=== PATIENT | female | born 1945 | race Caucasian/White ===

== ENCOUNTER 2016-02-28 09:32 | Inpatient (IN) | payer MEDICARE, OTHER ==
[2016-02-28] VITALS (29 sets, daily range): BP systolic 70–153; BP diastolic 37–98; PULSE 71–90; RESP 12–26; TEMP 97–97.8; O2SAT 91–100
[~2016-02-28] VITALS: Ht 160 cm; Wt 79.0 kg
[~2016-02-28 09:32] MED LIST: ACET325T PO; ALPR.25 PO; AMIO200T PO; BACT400T PO; BACT800T5 PO; CARV25TA PO; CARV3.125 PO; COZA50TA PO; CRAN125T PO; CULT10CA4 PO; DOCU1CAP39 PO; FAMO1TAB37 PO; FERR1TAB36 PO; FERR325T PO; GABA100C4 PO; GUAI100S7 PO; HEPA10003 SQ; HEPA5000 SQ; HUMALOG SQ; HYOS0.127 SL; IPRASOL NEB; LEVE500 PO; LEVEMIR SQ; LEVO112T2 PO; LEVO25TA4 PO; LIPI20TA PO; MAGN400T2 PO; MULTTAB67 PO; MYCO500 PO; NOVOLOGP2 SQ; NOVONP2 SQ; OXYC-392 PO; OXYC-406 PO; PANT40TA3 PO; PRED5TAB PO; PROT40TA PO; Pill Splitter OTHER; QUET1TAB7 PO; SIMV40TA PO; SODI650T PO; TACR0.5 PO; TACR1 PO; TORS20TA PO; VITA100018 PO; VITATAB56 PO; WATE10P PEG; [UNRECOGNIZED DRUG - CODE] PO
--- NOTE | 2016-02-28 10:12 | PD ---
HPI Chief Complaint: Respiratory Distress Time Seen by Provider: 10:07 Travel History International Travel<30 days: No Contact w/Intl Traveler<30days: No Traveled to known affect area: No History of Present Illness HPI 70-year-old female with history of lung cancer status post left lobectomy, following up with Dr. Jj, diabetes, hypertension, presents to the ER today because she has been having cough, shortness of breath, dyspnea on exertion, and fevers. She denies any nausea, vomiting, or other symptoms. She states that she had felt similarly and had a fungal pneumonia. Modifying Factors: None Associated Signs & Symptoms: Cough, shortness of breath, fevers Risk Factors: None PFSH Past Medical History Arthritis: No Asthma: No Autoimmune Disease: No Blood Disorders: No Anxiety: No Depression: No Heart Rhythm Problems: Yes (AFIB) Cancer: No Cardiovascular Problems: Yes (CHF, AFIB) High Cholesterol: Yes Chemotherapy: No Chest Pain: No Congestive Heart Failure: Yes (CHF) COPD: No Cerebrovascular Accident: No Diabetes: Yes Patient Takes Glucophage: No Dialysis: Yes (H/O, not since transplant) Diminished Hearing: No Endocrine: Yes Gastrointestinal Disorders: Yes (GASTROPARESIS) GERD: Yes (TAKES PREVACID PROPHYLACTICALLY) Glaucoma: No Genitourinary: Yes Headaches: No Hepatitis: No Hiatal Hernia: No Herniated Disk: Yes Hypertension: Yes (HTN) Immune Disorder: No Kidney Stones: Yes Musculoskeletal: Yes (Left Ankle) Neurologic: Yes (NEUROPATHY, BULDGING DISCS, SCOLIOSIS) Psychiatric: No Reproductive: No Respiratory: Yes Migraines: No Myocardial Infarction: No Radiation Therapy: No Renal Failure: Yes Seizures: Yes (onset recent seizures prior hospital ) Sickle Cell Disease: No Sleep Apnea: No Thyroid Disease: Yes (HYPO) Ulcer: No Tetanus Vaccination: < 5 Years Menopausal: Yes : 3 Para: 2 Miscarriage: 1 Past Surgical History Abdominal Surgery: Yes (CHOLECYSTECTOMY /TENKHOFF PLACEMENT REMOVED 11 18 06) AICD: No Appendectomy: No Arteriovenous Shunt: No Body Medical Devices: Prevoius RIGHT VASCATH / Was removed 07 Cardiac Surgery: No Cholecystectomy: Yes Ear Surgery: No Endocrine Surgery: Yes (Kidney transplan R abd.11 18 06) Eye Surgery: Yes (BILATERAL CATARACT SURGERY 05) Genitourinary Surgery: No Gynecologic Surgery: No Insulin Pump: No Joint Replacement: No Oral Surgery: No Pacemaker: No Thoracic Surgery: Yes (left upper lobe lobectomy ) Other Surgery: Yes (PERMACATH PLACEMENT REMOVED 11 18 06) Social History Alcohol Use: No Tobacco Use: No Substance Use: No Allergies-Medications (Allergen,Severity, Reaction): Coded Allergies: Labetalol (Verified Allergy, Severe, NAUSEA AND VOMITING, 02/28/16) Lortab (Verified Adverse Reaction, Severe, VOMITING, 02/28/16) Reported Meds & Prescriptions Reported Meds & Active Scripts Active Prednisone 5 Mg Tab 5 Mg PO DAILY 30 Days Pantoprazole (Pantoprazole Sodium) 40 Mg Tab 40 Mg PO DAILY 30 Days Duoneb (Ipratropium-Albuterol Neb) 0.5-2.5 Mg/3 Ml Neb 1 Ampule NEB Q4HR NEB PRN 30 Days Gabapentin 100 Mg Cap 100 Mg PO Q8H 30 Days Reported K-Tab (Potassium Chloride) 10 Meq Tab 10 Meq PO DAILY Zocor (Simvastatin) 20 Mg Tab 20 Mg PO HS Nystatin Topical 100,000 Unit/Gm Pow 1 Applic TOP BID Sirolimus 1 Mg Tab 1 Mg PO EVERY OTHER DAY Sirolimus 2 Mg Tab 2 Mg PO EVERY OTHER DAY Vitamin D3 (Cholecalciferol) 2,000 Unit Tab 2,000 Units PO BID Levothyroxine (Levothyroxine Sodium) 112 Mcg Tab 224 Mcg PO DAILY Novolin N Inj (Insulin Human NPH) 100 Unit/Ml Inj 60 Units SQ HS Novolin N Inj (Insulin Human NPH) 100 Unit/Ml Inj 70 Units SQ DAILY Cranberry (Cranberry (Vaccinium Macrocarpon)) 125 Mg Tab 125 Mg PO BID Culturelle (Lactobacillus Rhamnosus (GG)) 10 B Cell Cap 1 Cap PO DAILY Torsemide 20 Mg Tab 20 Mg PO DAILY Sodium Bicarbonate 650 Mg Tab 650 Mg PO BID Oxycodone ER (Oxycodone HCl) 40 Mg Tab 40 Mg PO Q8HR Cozaar (Losartan Potassium) 50 Mg Tab 50 Mg PO DAILY Bactrim (Sulfamethoxazole-Trimethoprim) 400-80 Mg Tab 1 Tab PO MOWEFR Multiple Vitamin 1 Tab 1 Tab PO DAILY Novolog Inj (Insulin Aspart) 1,000 Unit/10 Ml Vial 0 SQ DIRECTED Sliding Scale as directed. Carvedilol 25 Mg Tab 25 Mg PO DAILY Review of Systems Except as stated in HPI: all other systems reviewed are Neg Physical Exam Narrative GENERAL: Well-nourished, well-developed elderly white female patient in mild respiratory distress. SKIN: Warm and dry. HEAD: Normocephalic. EYES: No scleral icterus. No injection or drainage. NECK: Supple, trachea midline. CARDIOVASCULAR: Regular rate and rhythm without murmurs, gallops, or rubs. RESPIRATORY: Breath sounds equal with wheezing throughout bilaterally. Mild accessory muscle use. GASTROINTESTINAL: Abdomen soft, non-tender, nondistended. MUSCULOSKELETAL: No cyanosis, or edema. BACK: Nontender without obvious deformity. No CVA tenderness. Data Data Last Documented VS Vital Signs Date Time Temp Pulse Resp B/P Pulse Ox O2 Delivery O2 Flow Rate FiO2 02/28/16 10:00 Nasal Cannula 4 02/28/16 10:00 92 02/28/16 09:37 97.8 90 26 86/44 Orders Electrocardiogram (02/28/16 09:36) Complete Blood Count With Diff (02/28/16 10:08) Comprehensive Metabolic Panel (02/28/16 10:08) B-Type Natriuretic Peptide (02/28/16 10:08) Act Partial Throm Time (Ptt) (02/28/16 10:08) Prothrombin Time / Inr (Pt) (02/28/16 10:08) Ckmb (Isoenzyme) Profile (02/28/16 10:08) Troponin I (02/28/16 10:08) Influenzae A/B Antigen (02/28/16 10:08) Iv Access Insert/Monitor (02/28/16 10:08) Ecg Monitoring (02/28/16 10:08) Oximetry (02/28/16 10:08) Oxygen Administration (02/28/16 10:08) Chest, Single Ap (02/28/16 10:08) Sodium Chloride 0.9% Flush (Ns Flush) (02/28/16 10:15) Methylprednisolone So Succ Inj (Solumedr (02/28/16 10:15) Albuterol-Ipratropium Neb (Duoneb Neb) (02/28/16 10:15) Admit Order (Ed Use Only) (02/28/16 10:47) Labs Laboratory Tests Test 02/28/16 10:00 White Blood Count 5.9 TH/MM3 Red Blood Count 3.90 MIL/MM3 Hemoglobin 11.0 GM/DL Hematocrit 35.5 % Mean Corpuscular Volume 91.0 FL Mean Corpuscular Hemoglobin 28.1 PG Mean Corpuscular Hemoglobin 30.8 % Concent Red Cell Distribution Width 17.0 % Platelet Count 196 TH/MM3 Mean Platelet Volume 8.8 FL Neutrophils (%) (Auto) 85.1 % Lymphocytes (%) (Auto) 9.5 % Monocytes (%) (Auto) 4.5 % Eosinophils (%) (Auto) 0.2 % Basophils (%) (Auto) 0.7 % Neutrophils # (Auto) 5.0 TH/MM3 Lymphocytes # (Auto) 0.6 TH/MM3 Monocytes # (Auto) 0.3 TH/MM3 Eosinophils # (Auto) 0.0 TH/MM3 Basophils # (Auto) 0.0 TH/MM3 CBC Comment DIFF FINAL Differential Comment Prothrombin Time 11.6 SEC Prothromb Time International 1.0 RATIO Ratio Activated Partial 33.6 SEC Thromboplast Time Sodium Level 142 MEQ/L Potassium Level 4.9 MEQ/L Chloride Level 107 MEQ/L Carbon Dioxide Level 21.5 MEQ/L Anion Gap 14 MEQ/L Blood Urea Nitrogen 33 MG/DL Creatinine 2.79 MG/DL Estimat Glomerular Filtration 17 ML/MIN Rate Random Glucose 138 MG/DL Calcium Level 7.8 MG/DL Total Bilirubin 0.2 MG/DL Aspartate Amino Transf 33 U/L (AST/SGOT) Alanine Aminotransferase 12 U/L (ALT/SGPT) Alkaline Phosphatase 149 U/L Total Creatine Kinase 100 U/L Troponin I LESS THAN 0.02 NG/ML Total Protein 6.8 GM/DL Albumin 2.0 GM/DL MDM Medical Decision Making Medical Screen Exam Complete: Yes Emergency Medical Condition: Yes Medical Record Reviewed: Yes Interpretation(s) Laboratory Tests Test 02/28/16 10:00 Red Blood Count 3.90 MIL/MM3 (4.00-5.30) Hemoglobin 11.0 GM/DL (11.6-15.3) Mean Corpuscular Hemoglobin 30.8 % Concent (32.0-36.0) Neutrophils (%) (Auto) 85.1 % (16.0-70.0) Lymphocytes # (Auto) 0.6 TH/MM3 (1.0-4.8) Activated Partial 33.6 SEC Thromboplast Time (24.3-30.1) Blood Urea Nitrogen 33 MG/DL (7-18) Creatinine 2.79 MG/DL (0.50-1.00) Estimat Glomerular Filtration 17 ML/MIN (>89) Rate Random Glucose 138 MG/DL (74-106) Calcium Level 7.8 MG/DL (8.5-10.1) Alkaline Phosphatase 149 U/L (45-117) Troponin I LESS THAN 0.02 NG/ML (0.02-0.05) Albumin 2.0 GM/DL (3.4-5.0) Differential Diagnosis Cough, shortness of breath, feverspneumonia versus bronchitis versus CHF Narrative Course Chest x-ray indicative of possible underlying right pneumonia as well. Left lung is arsh out, questionable secondary to previous lobectomy. IV antibiotic 's were initiated in the ER cultures are drawn. IV fluids were initiated. Before lab work came back, Dr. Kaba, patient's primary care physician came by and case was discussed with him, he states that he will admit the patient. However, patient's blood pressure dropped to 75 systolic while she was here and IV fluids were ordered as a bolus. At this point, I have discussed the case with Dr. Kaba and also discussed the case with Dr. Bobo of ICU since the patient appears to be doing worse and may be getting more septic. She has recommended that I put in a line in and will consult on the patient as well. Patient is still awake, alert, and is not having any further complaints at this time. Aggregate critical care time was 25 minutes. Time to perform other separately billable procedures was not included in the critical care time. My time did not include minutes spent treating any other patients simultaneously or on activities that did not directly contribute to the patient's treatment. The services I provided to this patient were to treat and/or prevent clinically significant deterioration that could result in: Worsening sepsis, respiratory distress, respiratory failure, I provided critical care services requiring my management, as noted below: Chart data review, documentation time, medication orders and management, vital sign assessments/reviewing monitor data, ordering and reviewing lab tests, ordering and interpreting/reviewing x-rays and diagnostic studies, care of the patient and discussion of the patient with the admitting physicians. Sepsis Criteria SIRS Criteria (2 or more): Heart rate over 90, RR > 20 or PaCO2 < 32 Sepsis Criteria (SIRS+source): Infect source susp/known Severe Sepsis (+one): Hypotension Criteria Outcome: Meets sepsis criteria Diagnosis Primary Impression: UNSPECIFIED BACTERIAL PNEUMONIA Additional Impression: SEVERE SEPSIS WITHOUT SEPTIC SHOCK Admitting Information Admitting Physician Requests: it Pedro Preciado MD Feb 28, 2016 10:12
[2016-02-28] MEDS ORDERED: SODIUM CHLORIDE 0.9% FLUSH 5 ML FLUSH IVF PRN (10:15)
[2016-02-28] MEDS ORDERED: methylPREDNISolone SOD SUCC 125 MG/2 ML VIAL IVP ONE (10:15)
[2016-02-28 10:39] LABS: APTT (PATIENT) 33.6 SEC (24.3-30.1); PROTHROMBIN TIME - PATIENT 11.6 SEC (9.8-11.6)
--- NOTE | 2016-02-28 10:45 | RADRPT ---
EXAM DATE/TIME: 02/28/2016 10:20 [facility] COMPARISON: CHEST SINGLE AP, January 03, 2016, 14:14. INDICATIONS: Short of breath. MEDICAL HISTORY: Carcinoma, lung. Pneumonia SURGICAL HISTORY: Part of left lung removed ENCOUNTER: Initial ACUITY: 1 day PAIN SCORE: 0/10 LOCATION: Bilateral chest FINDINGS: There is opacification of the left avinash-thorax which is unchanged compared to the previous examinatio n dated 01/03/16. A small right pleural effusion is also stable. Right lung patchiness is noted con sistent with possible pneumonia or pulmonary vascular congestion. Clinical correlation is recommende d. CONCLUSION: 1. Right lung patchiness consistent with possible pneumonia versus pulmonary vascular congestion. C linical correlation is recommended. 2. Stable complete opacification of the left avinash-thorax and tiny right pleural effusion. Ash Jackson MD on February 28, 2016 at 10:33 Board Certified Radiologist. This report was verified electronically.
[2016-02-28] MEDS: RESP: ALBUTEROL 2.5 MG/IPRATROPIUM 0.5 MG NEB (SCH) INH ×5 (10:48→20:45)
[2016-02-28 10:50] LABS: ALKALINE PHOSPHATASE 149 U/L (45-117); ALT (GPT) 12 U/L (10-53); ANION GAP 14 MEQ/L (5-15); BICARBONATE 21.5 MEQ/L (21.0-32.0); BLOOD UREA NITROGEN 33 MG/DL (7-18); CHLORIDE 107 MEQ/L (98-107); GLOMERULAR FILTRATION RATE 17 ML/MIN (>89); SODIUM (NA) 142 MEQ/L (136-145); TOTAL BILIRUBIN ADULT 0.2 MG/DL (0.2-1.0)
[2016-02-28 10:51] LABS: AST (GOT) 33 U/L (15-37); CREATINE KINASE 100 U/L (26-192); POTASSIUM 4.9 MEQ/L (3.5-5.1)
[2016-02-28] MEDS ORDERED: CEFEPIME INJ 2,000 MG in SODIUM CHLORIDE 0.9% INJ 100 ML IV STA (10:51)
[2016-02-28] MEDS ORDERED: AZITHROMYCIN INJ 500 MG in SODIUM CHLOR 0.9% 250 ML INJ 250 ML IV STA (10:51)
[2016-02-28] MEDS ORDERED: VITA200012 PO (10:52)
[2016-02-28 10:54] LABS: BASOPHIL % 0.7 % (0.0-2.0); EOSINOPHIL % 0.2 % (0.0-4.0); HEMATOCRIT 35.5 % (35.0-46.0); HEMO FLAGS DIFF FINAL; LYMPH % 9.5 % (9.0-44.0); LYMPHOCYTE # 0.6 TH/MM3 (1.0-4.8); MEAN CORPUSCULAR HEMOGLOBIN 28.1 PG (27.0-34.0); MEAN CORPUSCULAR HGB CONC 30.8 % (32.0-36.0); MONO % 4.5 % (0.0-8.0); NEUT % 85.1 % (16.0-70.0); PLATELET COUNT 196 TH/MM3 (150-450); WHITE BLOOD COUNT 5.9 TH/MM3 (4.0-11.0)
[2016-02-28] MEDS ORDERED: SIRO1TAB3 PO (11:02)
[2016-02-28] MEDS ORDERED: SIRO1TAB4 PO (11:02)
[2016-02-28] MEDS ORDERED: NYST1POW16 TOP (11:04)
[2016-02-28] MEDS ORDERED: ZOCO20TA PO (11:05)
[2016-02-28] MEDS ORDERED: K-TA10TA PO (11:06)
[2016-02-28] MEDS ORDERED: SODIUM CHLORID 0.9% 500 ML INJ 500 ML IV ONE (11:15)
[2016-02-28] MEDS ORDERED: CALC0.25 PO (11:22)
--- NOTE | 2016-02-28 11:25 | HHI.HP ---
History of Present Illness Primary Care Physician Herbert Kaba MD Admission Diagnosis pneumonia/sepsis Diagnoses: (1) Dysphagia (2) Status epilepticus (3) Pressure ulcer, stage 1 (4) Impaired mobility and activities of daily living (5) Recurrent left pleural effusion (6) Acute on chronic respiratory failure with hypoxia and hypercapnia (7) Atrial fibrillation (8) Hypothyroidism (9) Chronic renal failure (10) Hypertension (11) DM (diabetes mellitus) (12) Chronic systolic heart failure (13) Obesity (BMI 30.0-34.9) (14) Anemia (15) Chronic kidney disease, stage IV (severe) (16) Status post tracheostomy (17) Renal transplant, status post History of Present Illness Debbie Alejo is a 70 year old CF, HX CRF, RENAL TRANSPLANT, HTN, NSCLCA, S/P L UPPER LOBECTOMY. IN OCT AT [facility], ARF AND AF. SHE THEN WENT TO [facility] WITH RESPIRATORY FAILURE. REQ BIPAP. SUBSEQUENTLY VENTILATED AND UNDERWENT BROCH. DX OF DEMETRIO ON BRONCH. DX W EPILEPSY. LP WAS NEGATIVE. TRACH PERFORMED, NOW REMOVED. WENT TO [facility] AND DECANNULATED. LASTLY WENT TO [place] AND NOW HOME WITH HER . PT HAS BEEN FULL CARE. CALLED MY OFFICE TODAY WITH REPORT OF HER BEING IN DISTRESS AND GURGLING. INSTRUCTED PT TO GO TO THE NEAREST ER. PT SEEN BY ER MD AND I WAS CALLED FOR ADMIT. PT NOW WORSENING AND BECOMING HYPOTENSIVE. Sepsis Criteria SIRS Criteria (2 or more): Heart rate over 90, RR > 20 or PaCO2 < 32 Sepsis Criteria (SIRS+source): Infect source susp/known Severe Sepsis (+one): Organ Dysfunction, Hypotension, Acute Oliguria/Renal Failure Multiple Organ Dysfunction Syn: Evidence -2 organs failing Criteria Outcome: Meets severe sepsis criteria Review of Systems ROS Limitations: Clinical Condition, Altered Mental Status, Poor Historian Respiratory: COMPLAINS OF: Cough, Wheezing, Sputum production, Shortness of breath Cardiovascular: COMPLAINS OF: Dyspnea on Exertion Past Family Social History Allergies: Coded Allergies: Labetalol (Verified Allergy, Severe, NAUSEA AND VOMITING, 02/28/16) Lortab (Verified Adverse Reaction, Severe, VOMITING, 02/28/16) Physical Exam Vital Signs Vital Signs Date Time Temp Pulse Resp B/P Pulse Ox O2 Delivery O2 Flow Rate FiO2 02/28/16 11:06 80 22 87/55 93 Aerosol Mask 12/22/16 10:00 Nasal Cannula 4 02/28/16 10:00 92 02/28/16 09:45 92 Nasal Cannula 3 02/28/16 09:37 97.8 90 26 86/44 92 Physical Exam GENERAL: chronically ill appearing, harsh cough, very weak SKIN: No rashes, ecchymoses or lesions. Cool and dry. HEAD: Atraumatic. Normocephalic. No temporal or scalp tenderness. EYES: Pupils equal round and reactive. Extraocular motions intact. No scleral icterus. No injection or drainage. ENT: Nose without bleeding, purulent drainage or septal hematoma. Throat without erythema, tonsillar hypertrophy or exudate. Uvula midline. Airway patent. NECK: Trachea midline. No JVD or lymphadenopathy. Supple, nontender, no meningeal signs. CARDIOVASCULAR: Regular rate and rhythm without murmurs, gallops, or rubs. RESPIRATORY: bilateral ronchi to apices GASTROINTESTINAL: Abdomen soft, non-tender, nondistended. No hepato-splenomegaly , or palpable masses. No guarding. MUSCULOSKELETAL: Extremities without clubbing, cyanosis, or edema. No joint tenderness, effusion, or edema noted. No calf tenderness. Negative Homans sign bilaterally. NEUROLOGICAL: Awake and alert. Cranial nerves II through XII intact. Motor and sensory grossly within normal limits. Five out of 5 muscle strength in all muscle groups. Normal speech. Laboratory Laboratory Tests Test 02/28/16 10:00 White Blood Count 5.9 Red Blood Count 3.90 Hemoglobin 11.0 Hematocrit 35.5 Mean Corpuscular Volume 91.0 Mean Corpuscular Hemoglobin 28.1 Mean Corpuscular Hemoglobin 30.8 Concent Red Cell Distribution Width 17.0 Platelet Count 196 Mean Platelet Volume 8.8 Neutrophils (%) (Auto) 85.1 Lymphocytes (%) (Auto) 9.5 Monocytes (%) (Auto) 4.5 Eosinophils (%) (Auto) 0.2 Basophils (%) (Auto) 0.7 Neutrophils # (Auto) 5.0 Lymphocytes # (Auto) 0.6 Monocytes # (Auto) 0.3 Eosinophils # (Auto) 0.0 Basophils # (Auto) 0.0 CBC Comment DIFF FINAL Differential Comment Prothrombin Time 11.6 Prothromb Time International 1.0 Ratio Activated Partial 33.6 Thromboplast Time Sodium Level 142 Potassium Level 4.9 Chloride Level 107 Carbon Dioxide Level 21.5 Anion Gap 14 Blood Urea Nitrogen 33 Creatinine 2.79 Estimat Glomerular Filtration 17 Rate Random Glucose 138 Calcium Level 7.8 Total Bilirubin 0.2 Aspartate Amino Transf 33 (AST/SGOT) Alanine Aminotransferase 12 (ALT/SGPT) Alkaline Phosphatase 149 Total Creatine Kinase 100 Troponin I LESS THAN 0.02 Total Protein 6.8 Albumin 2.0 Date/Time Procedure Status Source Growth 02/28/16 10:00 Influenza Types A,B Antigen (GWEN) - Final Complete Nasal Washing NEGATIVE FOR FLU A AND B ANTIGEN.... Result Diagram: 02/28/16 1000 02/28/16 1000 Assessment and Plan Problem List: (1) Dysphagia Status: Acute (2) Status epilepticus Status: Acute (3) Pressure ulcer, stage 1 Status: Acute (4) Recurrent left pleural effusion Status: Acute (5) Impaired mobility and activities of daily living Status: Acute (6) Acute on chronic respiratory failure with hypoxia and hypercapnia Status: Acute (7) Atrial fibrillation Status: Chronic (8) Hypothyroidism Status: Chronic (9) Chronic renal failure Status: Chronic (10) Hypertension Status: Chronic (11) DM (diabetes mellitus) Status: Chronic (12) Chronic systolic heart failure Status: Chronic (13) Non-small cell lung cancer Status: Chronic (14) Obesity (BMI 30.0-34.9) Status: Chronic (15) Anemia Status: Acute (16) Chronic kidney disease, stage IV (severe) Status: Acute (17) Status post tracheostomy Status: Chronic (18) Renal transplant, status post Status: Chronic Assessment and Plan SEVERE SEPSIS HCAP COPD SCHF AC ON CRF RENAL TRANSPLANT AF PLAN: IV ABX IVF BLOOD CULTURES DUONEBS HEPARIN 5000 BID FOR PROPHYLAXIS IV PROTONIX CCM CONSULT NEPHRO CONSULT PULMONARY CONSULT PT OT ST ICU INPT ADMIT FOR THE ABOVE DX AND PLAN. EXPECT 5 D INPT ADMIT. PT WOULD W/O INPT ADMIT FROM RESPIRATORY FAILURE. DC HOME WITH HHC OR SNF PLACEMENT. Herbert Kaba MD Feb 28, 2016 11:25
[2016-02-28] MEDS ORDERED: MAGNESIUM HYDROXIDE SUSP 30 ML CUP PO PRN (11:30)
[2016-02-28] MEDS ORDERED: SODIUM CHLORIDE 0.9% FLUSH 5 ML FLUSH FLUSH PRN (11:30)
[2016-02-28] MEDS ORDERED: SENNOSIDES 8.6 MG TAB PO PRN (11:30)
[2016-02-28] MEDS ORDERED: ZOLPIDEM TARTRATE 5 MG TAB PO PRN (11:30)
[2016-02-28] MEDS ORDERED: ACETAMINOPHEN 325 MG TAB PO PRN (11:30)
[2016-02-28] MEDS ORDERED: BISACODYL 10 MG SUPP PR PRN (11:30)
[2016-02-28] MEDS ORDERED: NALOXONE HCL 0.4 MG/ML AMP IV PRN (11:30)
[2016-02-28] MEDS ORDERED: ONDANSETRON HCL 4 MG/2 ML VIAL IVP PRN (11:30)
[2016-02-28] MEDS ORDERED: CHLORHEXIDINE GLUCONATE 2 % 1 PACK (2 CLOTHS) TOP PRN ×2 (12:00→16:15)
[2016-02-28] MEDS ORDERED: RESP: ALBUTEROL 2.5 MG/IPRATROPIUM 0.5 MG NEB (SCH) NEB (12:00)
[2016-02-28] MEDS ORDERED: POTASSIUM PHOSPHATE MONOBASIC 500 MG TAB PO PRN (12:00)
[2016-02-28] MEDS ORDERED: POTASSIUM CHLOR 40 MEQ PREMIX 100 ML IV PRN ×2 (12:00)
[2016-02-28] MEDS ORDERED: MAGNESIUM SULFATE INJ 4 GM in SODIUM CHLORIDE 0.9% INJ 92 ML IV PRN (12:00)
[2016-02-28] MEDS ORDERED: MAGNESIUM SULFATE INJ 2 GM in SODIUM CHLORIDE 0.9% INJ 96 ML IV PRN (12:00)
[2016-02-28] MEDS ORDERED: POTASSIUM PHOSPHATE MONOBASIC 500 MG TAB PO/TUBE PRN (12:00)
[2016-02-28] MEDS ORDERED: MAGNESIUM OXIDE 400 MG TAB PO PRN (12:00)
[2016-02-28] MEDS ORDERED: POTASSIUM PHOSPHATE INJ 30 MMOL in SODIUM CHLOR 0.9% 250 ML INJ 250 ML IV PRN (12:00)
[2016-02-28] MEDS ORDERED: SODIUM PHOSPHATE INJ 30 MMOL in SODIUM CHLOR 0.9% 250 ML INJ 240 ML IV PRN (12:00)
[2016-02-28] MEDS ORDERED: POTASSIUM CL 40 MEQ/30 ML LIQ UDC PO/TUBE PRN ×2 (12:00)
[2016-02-28] MEDS ORDERED: POTASSIUM CHLOR 20 MEQ PREMIX 100 ML IV PRN ×2 (12:00)
[2016-02-28] MEDS ORDERED: SODIUM CHLORIDE 0.9% FLUSH 5 ML FLUSH IV FLUSH PRN ×2 (12:00→16:15)
[2016-02-28] MEDS ORDERED: MISCELLANEOUS NURSING INFORMATION XX SCH ×2 (12:00→16:15)
[2016-02-28] MEDS: SODIUM CHLOR 0.9% 1000 ML INJ 1,000 ML IV SCH (12:39)
[2016-02-28 13:32] LABS: BLOOD GAS BASE EXCESS -5.5 mmol/L (-2-2); BLOOD GAS HCO3 21 mmol/L (22-26); BLOOD GAS METHEMOGLOBIN 1.8 % (0-2); BLOOD GAS O2 HGB SATURATION 90 % (90-100); BLOOD GAS OXYGEN CONTENT 12.3 Vol % (12.0-20.0); BLOOD GAS PCO2 55 mmHg (38-42); BLOOD GAS PO2 74 mmHG (61-120); BLOOD GAS TOTAL HGB 9.7 G/DL (12.0-16.0); TEMP CORR TO 98.6
[2016-02-28 13:34] LABS: DRAW SITE RT RADIAL; LITER FLOW 4 L/M; NUMBER OF ARTERIAL PUNCTURES 2; OXYGEN DEVICE NASAL CANNULA; STAT YES; ULNAR PULSE PRESENT
[2016-02-28] MEDS: PANTOPRAZOLE SODIUM 40 MG VIAL IV PUSH SCH (14:23)
[2016-02-28] MEDS: HEPARIN SODIUM - SQ 10,000 UNITS/ML VIAL SQ SCH (14:23)
--- NOTE | 2016-02-28 15:52 | MB ---
cc: RACHELL KIRAN MD DATE OF CONSULTATION: 02/28/2016 REASON FOR CONSULTATION Evaluate for pneumonia and respiratory insufficiency. HISTORY OF PRESENT ILLNESS Ms. Alejo is a pleasant 70-year-old female with history of lung cancer status post left lung lobectomy. The patient has history of diabetes mellitus, renal transplant. She was recently admitted at [facility], after that she was at [facility] and went to the skilled nursing. She was recently discharged from the skilled nursing over the last few days. She has been having congestion in her chest, more short of breath, denied fever or chills, not able to bring up much phlegm. Because of worsening of the symptoms she was brought to the hospital. She had a chest x-ray done which showed that she has a right lung patchy infiltrate consistent with pneumonia. She also had whiteout of the left lung which is chronic. CBC showed WBC count 5.9, hemoglobin 35.5, MCV 91, platelet count 196, sodium 142, potassium 4.9, chloride 107, CO2 21, BUN 33, creatinine 2.79, INR is 1.0. PAST MEDICAL HISTORY Past medical history is significant for history of: 1. CA of the lung status post resection. 2. History of renal failure and renal transplant. 3. Herniated disk. 4. Hypertension. 5. COPD. 6. Congestive heart failure. 7. Atrial fibrillation. MEDICATION She is currently takin. Solu-Medrol 80 mg q.6 hours. 2. Protonix 40 mg a day. 3. Heparin 5000 q. 12-hours. 4. Albuterol/Atrovent nebulizer treatment. 5. Senokot 17.2 grams. 6. Ambien 5 mg. 7. She had cefepime and Zithromax in the ER. ALLERGIES She is allergic to LORTAB AND LABETALOL. SOCIAL HISTORY She has history of smoking one and a half pack a day for 30 years, which she quit 12 years ago. No alcohol use. 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 FAMILY HISTORY She is for 40 years. She has two children. She has no brothers. She has one sister who has kidney problem. Mother with heart disease. Father with cancer. REVIEW OF SYSTEMS Lately she has been feeling very weak. She has been in the hospital and then in the skilled nursing. She is basically bed bound. No DVT or pulmonary embolism. PHYSICAL EXAMINATION GENERAL: An elderly female, frail, weak, mild short of breath. VITAL SIGNS: Blood pressure 111/63, heart rate 77, respirations 22, temperature 97. HEENT: Pupils are equal and reactive to light. Oral mucosa normal. NECK: Supple. JVP not raised. CHEST: She has bilateral coarse crackles. CVS: S1, S2 normal. ABDOMEN: Benign. EXTREMITIES: No edema. IMPRESSION 1. Respiratory insufficiency. 2. Pneumonia. The patient is immunocompromised, need to rule out atypical pneumonia, fungal pneumonia and other organism. 3. Whiteout of the left lung with history of the left lung cancer, atelectasis in the lung is chronic. 4. Status post renal transplant. 5. Hypertension. 6. Renal insufficiency. PLAN The patient is being admitted to intensive care unit. Associate Application Developer has been consulted. Will get ID consultation. Continue present antibiotic and wait for ID recommendation. Supplemental oxygen if needed, will put her on BiPAP and if that fails, she will need intubation and the patient is agreeable with that. I discussed the patient's condition at bedside with the patient and her . Further treatment will depend on the course in the hospital. Thank you Dr. Herbert Kaba for this consultation. MD NICHOLAS Swenson/ARUN /2:20 PM /3:15 PM
[2016-02-28] MEDS ORDERED: TERBUTALINE INJ 1 MG/ML AMP SQ PRN (16:00)
[2016-02-28] MEDS ORDERED: Vancomycin Consult Pharmacy 1 EA OTHER SCH (16:15)
--- NOTE | 2016-02-28 16:15 | PD.CONS ---
HPI Service Critical Care Medicine Consult Requested By Primary Care Physician Herbert Kaba MD History of Present Illness 70-year-old female with history of lung cancer status post left lobectomy, and recent kidney transplant presented to the ED with worsening pulmonary symptoms. Her medical history is significant for DM, HTN. She presented to the ED today because worsening cough, shortness of breath, dyspnea on exertion, and fevers. The patient is dependent on home O2 at 4 L nasal cannula, and scheduled DuoNeb treatment. The patient underwent a kidney transplant at [facility] and was hospitalized for approximately several months. During this hospitalization she reports having a fungal pulmonary infection which time she experienced a seizure. She was transferred to a rehabilitation facility [facility] for approximately 2 months ago. The patient was then transferred to [facility] approximately 3 weeks ago at which time she fractured her left ankle, and was transferred to [facility]. She was recently discharged from [facility] on 02/15/2016. The patient states that she began having worsening symptoms over the last 3-4 days, that resembled her fungal pneumonia. Critical care medicine was consulted for management. History PFSH Past Medical History Arthritis: No Asthma: No Autoimmune Disease: No Blood Disorders: No Anxiety: No Depression: No Heart Rhythm Problems: Yes (AFIB) Cancer: No Cardiovascular Problems: Yes (CHF, AFIB) High Cholesterol: Yes Chemotherapy: No Chest Pain: No Congestive Heart Failure: Yes (CHF) COPD: No Cerebrovascular Accident: No Diabetes: Yes Patient Takes Glucophage: No Dialysis: Yes (H/O, not since transplant) Diminished Hearing: No Endocrine: Yes Gastrointestinal Disorders: Yes (GASTROPARESIS) GERD: Yes (TAKES PREVACID PROPHYLACTICALLY) Glaucoma: No Genitourinary: Yes Headaches: No Hepatitis: No Hiatal Hernia: No Herniated Disk: Yes Hypertension: Yes (HTN) Immune Disorder: No Kidney Stones: Yes Musculoskeletal: Yes (Left Ankle) Neurologic: Yes (NEUROPATHY, BULDGING DISCS, SCOLIOSIS) Psychiatric: No Reproductive: No Respiratory: Yes Migraines: No Myocardial Infarction: No Radiation Therapy: No Renal Failure: Yes Seizures: Yes (onset recent seizures prior hospital ) Sickle Cell Disease: No Sleep Apnea: No Thyroid Disease: Yes (HYPO) Ulcer: No Tetanus Vaccination: < 5 Years Menopausal: Yes : 3 Para: 2 Miscarriage: 1 Past Surgical History Abdominal Surgery: Yes (CHOLECYSTECTOMY /TENKHOFF PLACEMENT REMOVED 11 18 06) AICD: No Appendectomy: No Arteriovenous Shunt: No Body Medical Devices: Prevoius RIGHT VASCATH / Was removed Cardiac Surgery: No Cholecystectomy: Yes Ear Surgery: No Endocrine Surgery: Yes (Kidney transplan R abd.11 18 06) Eye Surgery: Yes (BILATERAL CATARACT SURGERY 05) Genitourinary Surgery: No Gynecologic Surgery: No Insulin Pump: No Joint Replacement: No Oral Surgery: No Pacemaker: No Thoracic Surgery: Yes (left upper lobe lobectomy ) Other Surgery: Yes (PERMACATH PLACEMENT REMOVED 11 18 06) Social History Alcohol Use: No Tobacco Use: No Substance Use: No Allergies-Medications Allergies-Medications (Allergen,Severity, Reaction): Coded Allergies: Labetalol (Verified Allergy, Severe, NAUSEA AND VOMITING, 02/28/16) Lortab (Verified Adverse Reaction, Severe, VOMITING, 02/28/16) Reported Meds & Prescriptions Reported Meds & Active Scripts Active Prednisone 5 Mg Tab 5 Mg PO DAILY 30 Days Pantoprazole (Pantoprazole Sodium) 40 Mg Tab 40 Mg PO DAILY 30 Days Duoneb (Ipratropium-Albuterol Neb) 0.5-2.5 Mg/3 Ml Neb 1 Ampule NEB Q4HR NEB PRN 30 Days Gabapentin 100 Mg Cap 100 Mg PO Q8H 30 Days Reported K-Tab (Potassium Chloride) 10 Meq Tab 10 Meq PO DAILY Zocor (Simvastatin) 20 Mg Tab 20 Mg PO HS Nystatin Topical 100,000 Unit/Gm Pow 1 Applic TOP BID Sirolimus 1 Mg Tab 1 Mg PO EVERY OTHER DAY Sirolimus 2 Mg Tab 2 Mg PO EVERY OTHER DAY Vitamin D3 (Cholecalciferol) 2,000 Unit Tab 2,000 Units PO BID Levothyroxine (Levothyroxine Sodium) 112 Mcg Tab 224 Mcg PO DAILY Novolin N Inj (Insulin Human NPH) 100 Unit/Ml Inj 60 Units SQ HS Novolin N Inj (Insulin Human NPH) 100 Unit/Ml Inj 70 Units SQ DAILY Cranberry (Cranberry (Vaccinium Macrocarpon)) 125 Mg Tab 125 Mg PO BID Culturelle (Lactobacillus Rhamnosus (GG)) 10 B Cell Cap 1 Cap PO DAILY Torsemide 20 Mg Tab 20 Mg PO DAILY Sodium Bicarbonate 650 Mg Tab 650 Mg PO BID Oxycodone ER (Oxycodone HCl) 40 Mg Tab 40 Mg PO Q8HR Cozaar (Losartan Potassium) 50 Mg Tab 50 Mg PO DAILY Bactrim (Sulfamethoxazole-Trimethoprim) 400-80 Mg Tab 1 Tab PO MOWEFR Multiple Vitamin 1 Tab 1 Tab PO DAILY Novolog Inj (Insulin Aspart) 1,000 Unit/10 Ml Vial 0 SQ DIRECTED Sliding Scale as directed. Carvedilol 25 Mg Tab 25 Mg PO DAILY ROS Review of Systems Except as stated in HPI: all other systems reviewed are Neg Past Family Social History Allergies: Coded Allergies: Labetalol (Verified Allergy, Severe, NAUSEA AND VOMITING, 02/28/16) Lortab (Verified Adverse Reaction, Severe, VOMITING, 02/28/16) Physical Exam Vital Signs Vital Signs Date Time Temp Pulse Resp B/P Pulse Ox O2 Delivery O2 Flow Rate FiO2 02/28/16 16:00 81 22 80/46 93 Nasal Cannula 02/28/16 15:38 78 20 75/37 Nasal Cannula 4 97 02/28/16 15:20 78 20 76/49 Nasal Cannula 4 93 02/28/16 15:05 83 22 77/51 Nasal Cannula 94 02/28/16 14:50 80 22 85/41 94 Nasal Cannula 4 02/28/16 14:42 76 20 96/50 96 Nasal Cannula 4 02/28/16 14:30 75 20 80/48 95 Nasal Cannula 4 02/28/16 14:03 76 20 78/44 95 Nasal Cannula 4 02/28/16 13:39 77 20 111/63 95 Aerosol Mask 02/28/16 13:33 85 22 96/52 93 Aerosol Mask 02/28/16 13:09 81 20 88/50 91 Nasal Cannula 4 02/28/16 12:51 71 20 86/53 95 Nasal Cannula 4 02/28/16 12:41 73 20 70/46 93 Nasal Cannula 4 02/28/16 12:07 73 20 72/44 99 Nasal Cannula 02/28/16 11:59 72 20 86/69 100 Aerosol Mask 02/28/16 11:06 80 22 87/55 93 Aerosol Mask 02/28/16 10:00 Nasal Cannula 4 02/28/16 10:00 92 02/28/16 09:45 92 Nasal Cannula 3 02/28/16 09:37 97.8 90 26 86/44 92 Physical Exam GENERAL: Morbidly obese elderly critically ill female lying in bed. SKIN: Warm and dry. Multiple ecchymotic bruising neck chest, bilateral extremities upper and lower HEAD: Atraumatic. Normocephalic. EYES: Pupils equal and round. No scleral icterus. No injection or drainage. ENT: No nasal bleeding or discharge. Mucous membranes pink and moist. NECK: Trachea midline. No JVD. CARDIOVASCULAR: Normal rate, irregular rhythm. RESPIRATORY: No accessory muscle use. Clear to auscultation. Breath sounds equal bilaterally. GASTROINTESTINAL: Abdomen soft, non-tender, nondistended. Gastric tube left abdomen. MUSCULOSKELETAL: Extremities without clubbing, cyanosis, or edema. No obvious deformities. NEUROLOGICAL: Awake and alert. RASS 0. No gross focal/sensory deficits. Follows commands in all 4 extremities. Laboratory Laboratory Tests Test 02/28/16 02/28/16 02/28/16 02/28/16 10:00 10:55 13:02 13:52 White Blood Count 5.9 Red Blood Count 3.90 Hemoglobin 11.0 Hematocrit 35.5 Mean Corpuscular Volume 91.0 Mean Corpuscular Hemoglobin 28.1 Mean Corpuscular Hemoglobin 30.8 Concent Red Cell Distribution Width 17.0 Platelet Count 196 Mean Platelet Volume 8.8 Neutrophils (%) (Auto) 85.1 Lymphocytes (%) (Auto) 9.5 Monocytes (%) (Auto) 4.5 Eosinophils (%) (Auto) 0.2 Basophils (%) (Auto) 0.7 Neutrophils # (Auto) 5.0 Lymphocytes # (Auto) 0.6 Monocytes # (Auto) 0.3 Eosinophils # (Auto) 0.0 Basophils # (Auto) 0.0 CBC Comment DIFF FINAL Differential Comment Prothrombin Time 11.6 Prothromb Time International 1.0 Ratio Activated Partial 33.6 Thromboplast Time Sodium Level 142 Potassium Level 4.9 Chloride Level 107 Carbon Dioxide Level 21.5 Anion Gap 14 Blood Urea Nitrogen 33 Creatinine 2.79 Estimat Glomerular Filtration 17 Rate Random Glucose 138 Calcium Level 7.8 Total Bilirubin 0.2 Aspartate Amino Transf 33 (AST/SGOT) Alanine Aminotransferase 12 (ALT/SGPT) Alkaline Phosphatase 149 Total Creatine Kinase 100 Troponin I LESS THAN 0.02 LESS THAN 0.02 B-Type Natriuretic Peptide 1035 Total Protein 6.8 Albumin 2.0 Lactic Acid Level 1.1 Blood Gas Puncture Site RT RADIAL Blood Gas Patient Temperature 98.6 Blood Gas HCO3 21 Blood Gas Base Excess -5.5 Blood Gas Oxygen Saturation 90 Arterial Blood pH 7.21 Arterial Blood Partial 55 Pressure CO2 Arterial Blood Partial 74 Pressure O2 Arterial Blood Oxygen Content 12.3 Arterial Blood 2.0 Carboxyhemoglobin Arterial Blood Methemoglobin 1.8 Blood Gas Hemoglobin 9.7 Oxygen Delivery Device NASAL CANNULA Blood Gas Liter Flow 4 Date/Time Procedure Status Source Growth 02/28/16 10:50 Aerobic Blood Culture Received Blood Peripheral Pending 02/28/16 10:50 Anaerobic Blood Culture Received Blood Peripheral Pending 02/28/16 10:00 Influenza Types A,B Antigen (GWEN) - Final Complete Nasal Washing NEGATIVE FOR FLU A AND B ANTIGEN.... Result Diagram: 02/28/16 1000 02/28/16 1000 Imaging Last 24 hours Impressions Chest X-Ray 02/28/16 1008 Signed Impressions: Service Date/Time: , February 28, 2016 10:20 - CONCLUSION: 1. Right lung patchiness consistent with possible pneumonia versus pulmonary vascular congestion. Clinical correlation is recommended. 2. Stable complete opacification of the left avinash-thorax and tiny right pleural effusion. Ash Jackson MD Course The patient progressively began to decline in the ED. Audible auditory wheezing/ rales were noted, post nebulizer treatment. The patient was intubated. Patient required central line placement for vasoactive monitoring, arterial line placement. Levophed was initiated. Septic Shock Reassessment Heart: Irregular Lungs: Crackles Skin: Warm Peripheral Pulses: Bounding Right Radial Bounding Left Radial Bounding Right Dorsalis Pedis Bounding Left Dorsalis Pedis Capillary Refill: Brisk Assessment and Plan Assessment and Plan Plan by systems: Neurologic: H/O seizure Herniated discs Neuropathy - Initially upon presentation GCS of 15. Patient subsequently intubated and placed on sedation. -Fentanyl infusion for sedation -Sedation holiday per ICU protocol -Neurochecks per ICU protocol -Home med gabapentin Hold home med zolpidiem Respiratory: Acute hypoxic respiratory failure History of non-small cell lung cancer S/P left lung lobectomy 2013 Home O2 dependency Presumed Hospital-acquired pneumonia Left lung opacity-chronic -Intubated 7.5 oral ET tube 21 cm, obtain chest x-ray postintubation, follow-up ABG -Initial vent settings-pressure control -Obtain O2 sat greater than 92% -DuoNeb nebs every 6 hours scheduled and q 2 hrs PRN -Pulmonary consulted -Perform bronch obtain sputum cultures Cardiovascular: HTN Atrial fibrillation-rate control Septic shock CHF -Central line placed, begin Norepinephrine -Maintain MAP> 65mmHg - Hold anti-hypertensive meds -BNP 1035 -Obtain echo, reported EF 35-40% per previous medical records -Monitor CVP Renal: S/P kidney transplant Renal insufficiency Oliguria -Insert Malik -Nephrology consulted EliecerAceEsvin Larry is patient's community education coordinator -Obtain FK level in am , Pt is on Sirolimus every other day -- Strict I/Os , monitor hourly FEN/GI: -Maintain nothing by mouth status -Patent G tube -Normal saline 100 cc/hour -Monitor BMP -Zofran PRN for nausea -Protonix GI prophylaxis Heme/ID: Pneumonia-HCAP -Serial lactate levels -Vancomycin, Zosyn and azithromycin initiated -ID consulted d/w Dr. Blount-recommendations pending regarding fungal coverage -Follow-up blood and urine, Bronch - obtain sputum cultures -Continue Nystatin topical powder for breast folds Endocrine: DM Hypothyroidism -Blood glucose monitoring every 4 hours -- SSI -Obtain thyroid panel Prophylaxis: GI Prophylaxis Protonix IV DVT Prophylaxis -- SCDs, heparin Lines: Peripheral IV's. L IJ Central line placed in ED Dr. Bobo 02/27, right radial A -line Dispo: This patient remains critically ill with one or more organ systems which are or may become a threat to life. I have spent in excess of 49 minutes discontinuously in the care and management of this patient. This time is exclusive of procedures, and includes, but is not limited to, evaluation of the patient, review of the medical record, discussions with family, consultants, nursing staff, or respiratory therapy, and documentation in the medical record. Code Status Full code Discussed Condition With and ED RN at bedside. Shantelle Bobo MD Feb 28, 2016 16:14
[2016-02-28] MEDS ORDERED: ETOMIDATE 20 MG/10 ML VIAL ONE (16:26)
[2016-02-28] MEDS ORDERED: ROCURONIUM INJ 50 MG/5 ML VIAL ONE ×3 (16:26→19:33)
[2016-02-28] MEDS ORDERED: NOREPINEPHRINE 4 MG/4 ML AMP ONE (16:35)
[2016-02-28] MEDS ORDERED: fentaNYL DRIP 250 ML ONE (16:53)
[2016-02-28] MEDS ORDERED: PHENYLEPHRINE INJ 40 MG in DEXTROSE 5% IN WATE 500 ML INJ 496 ML IV SCH ×2 (17:00)
[2016-02-28] MEDS ORDERED: VANCOMYCIN 1,000 MG/NS 250 ML IV ONE ×2 (17:15)
--- NOTE | 2016-02-28 17:17 | RADRPT ---
EXAM DATE/TIME: 02/28/2016 16:56 [place] COMPARISON: CHEST SINGLE AP, February 28, 2016, 10:20. INDICATIONS : Please evaluate for intubation and central line placement. MEDICAL HISTORY : Carcinoma, lung. Pneumonia SURGICAL HISTORY : partial removal of left lung ENCOUNTER: Initial ACUITY: 1 day PAIN SCORE: Non-responsive. LOCATION: Bilateral chest FINDINGS: The patient has been intubated since the previous exam the ET tube and left jugular central line are in good position. There is complete white out of the left lung. There is a small right basilar effusion and edema throughout the right lung. CONCLUSION: 1. Support equipment in good position. 2. Complete white out of the left lung unchanged from previous dated 02/28/16. 3. Small pleural effusion on the right. Kojo Padilla MD on February 28, 2016 at 17:11 Board Certified Radiologist. This report was verified electronically.
[2016-02-28] MEDS: methylPREDNISolone SOD SUCC 40 MG/1 ML VIAL IV PUSH SCH (17:33)
[2016-02-28] MEDS ORDERED: PHENYLEPHRINE INJ 80 MG in DEXTROSE 5% IN WATE 500 ML INJ 492 ML IV SCH ×2 (18:00)
[2016-02-28 18:10] LABS: BLOOD GAS BASE EXCESS -6.3 mmol/L (-2-2); BLOOD GAS CARBOXYHEMOGLOBIN 1.9 % (0-4); BLOOD GAS HCO3 19 mmol/L (22-26); BLOOD GAS METHEMOGLOBIN 1.9 % (0-2); BLOOD GAS O2 HGB SATURATION 96 % (90-100); BLOOD GAS OXYGEN CONTENT 14.9 Vol % (12.0-20.0); BLOOD GAS PCO2 39 mmHg (38-42); BLOOD GAS PO2 495 mmHG (61-120); CRITICAL VALUE NO; DRAW SITE RT RADIAL; FIO2 100 %; NUMBER OF ARTERIAL PUNCTURES 1; OXYGEN DEVICE VENTILATOR; STAT NO; TEMP CORR TO 98.6; ULNAR PULSE PRESENT; VENT SETTINGS PC/AC
[2016-02-28] MEDS ORDERED: DEXTROSE 50% IN WATER 50 ML VIAL(D50) IV PUSH PRN (18:30)
[2016-02-28] MEDS ORDERED: GLUCAGON 1 MG/ML VIAL OTHER PRN (18:30)
--- NOTE | 2016-02-28 18:53 | EKG ---
Date Performed: 02/28/2016 Time Performed: 09:44:54 PTAGE: 70 years EKG: MARKED BASELINE ARTIFACT MAKES IT SUBSTANDARD FOR INTERPRETATION. REPEAT TRACING ADVISED CA NNOT TELL FOR SURE IF THIS IS Sinus rhythm LOW LIMB LEAD VOLTAGE ST-T WAVE CHANGES ARE OBSCURED BY ARTIFACT ABNORMAL ECG PREVIOUS TRACING : 02/28/2016 09.39 Precordial T-wave abnormality is no longer present compared to the old tracing. DOCTOR: Teodoro Muhammad Interpretating Date/Time 02/28/2016 18:51:55
--- NOTE | 2016-02-28 18:59 | PD.PROCEDR ---
Central Line Procedure REASON FOR PROCEDURE Central venous access PROCEDURE PERFORMED Central line placement: Left IJ CONSENT Informed consent for procedure was obtained from patient. The risks and benefits of the procedure were discussed to include but limited to bleeding, clot formation, infection, and even . ANESTHESIA Local injection of 1% Lidocaine DESCRIPTION OF THE PROCEDURE The patient was placed in supine, mild Trendelenburg position. The area was exposed and cleansed with ChloraPrep, times two. Large sterile drape was used to cover the patient, with the site exposed, under sterile conditions including cap, face mask, sterile gown, and sterile gloves. On single attempt, the introducer needle was inserted with negative pressure in syringe and venous flash was obtained. The guide wire was then advanced without any restriction and the needle was removed. The dilator was used without any complications. Using Seldinger technique the 7F catheter was advanced over the guide wire to a depth of 20 centimeters. The guide wire was removed. All ports were aspirated with dark venous blood return and flushed easily with sterile saline. All ports were capped. Antibiotic disc was placed around central line at puncture site. The central line was secured to the skin with two interrupted 2.0 silk sutures. The area was bandaged with sterile see-through central line bandage. RADIOLOGICAL DATA Ultrasound guidance was used to locate left IJ. Doppler/color flow was used to confirm venous flow. COMPLICATIONS: No apparent complications ESTIMATED BLOOD LOSS: Less than 1 cc. Shantelle Bobo MD Feb 28, 2016 18:59
--- NOTE | 2016-02-28 19:01 | PD.PROCEDR ---
Procedure Note Procedure Endotracheal Intubation Diagnosis: Acute Respiratory distress Indications: Consent: Emergent Anesthesia: Etomidate, rocuronium Description of the Procedure: The patient was positioned in the sniffing position. Pre-oxygenation was performed using a 100% O2 and blue. Anesthesia was induced via rapid sequence. A glidescope #4 was used for laryngoscopy and a Grade 1 view was obtained. A [ ] cuffed endotracheal tube was inserted atraumatically through the vocal cords. Confirmation of correct endotracheal tube placement was made by equal and bilateral breath sounds and colorimetric CO2 detection. The endotracheal tube was secured at 21 cm at the teeth. There were no immediate complications noted. The patient remained hemodynamically stable throughout the procedure. A chest x-ray has been ordered. I personally performed the procedure. Shantelle Bobo MD Feb 28, 2016 19:01
--- NOTE | 2016-02-28 19:03 | PD.CONS ---
HPI Service Nephrology Consult Requested By Reason for Consult Acute kidney injury, s/p renal transplant. Primary Care Physician Herbert Kaba MD History of Present Illness No history could be obtained from Ms. Alejo who is currently intubated and is on the ventilator. I have reviewed records available in the EMR. 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 She received renal transplant in 2006. She has history of left upper lobectomy for lung cancer in 2013. In October of this year she apparently was admitted to [facility] with pneumonia. She was transferred to [facility] where she was diagnosed with fungal pneumonia. Had tracheostomy placed. She was transferred back to [facility] and later to [place] rehab. Currently she was residing in a rehab. Today she developed shortness of breath and "gurgling", was advised to come to the ER. In the ER she decompensated, became hypotensive. Was intubated. She has received 500 ml of IVF, and is currently on NS at 100 ml/hour. She is on Levophed. Review of Systems ROS Limitations: Clinical Condition, Intubated Past Family Social History Allergies: Coded Allergies: Labetalol (Verified Allergy, Severe, NAUSEA AND VOMITING, 02/28/16) Lortab (Verified Adverse Reaction, Severe, VOMITING, 02/28/16) Past Medical History Firbrillary GN. s/p renal transplant. NSC lung CA s/p L lobectomy CKD stage 4 DM HTN Anemia Atrial fibrillation Recent fungal PNA requiring intubation and subsequent tracheostomy Seizure Disorder CHF with reported EF of 35-40% Past Surgical History L upper lobectomy Lung bx Trach placement and decannulation PEG placement Cholecystectomy Renal transplant Renal biopsy Reported Medications Prednisone 5 Mg Tab 5 Mg PO DAILY 30 Days Pantoprazole (Pantoprazole Sodium) 40 Mg Tab 40 Mg PO DAILY 30 Days Duoneb (Ipratropium-Albuterol Neb) 0.5-2.5 Mg/3 Ml Neb 1 Ampule NEB Q4HR NEB PRN 30 Days Gabapentin 100 Mg Cap 100 Mg PO Q8H 30 Days Reported K-Tab (Potassium Chloride) 10 Meq Tab 10 Meq PO DAILY Zocor (Simvastatin) 20 Mg Tab 20 Mg PO HS Nystatin Topical 100,000 Unit/Gm Pow 1 Applic TOP BID Sirolimus 1 Mg Tab 1 Mg PO EVERY OTHER DAY Sirolimus 2 Mg Tab 2 Mg PO EVERY OTHER DAY Vitamin D3 (Cholecalciferol) 2,000 Unit Tab 2,000 Units PO BID Levothyroxine (Levothyroxine Sodium) 112 Mcg Tab 224 Mcg PO DAILY Novolin N Inj (Insulin Human NPH) 100 Unit/Ml Inj 60 Units SQ HS Novolin N Inj (Insulin Human NPH) 100 Unit/Ml Inj 70 Units SQ DAILY Cranberry (Cranberry (Vaccinium Macrocarpon)) 125 Mg Tab 125 Mg PO BID Culturelle (Lactobacillus Rhamnosus (GG)) 10 B Cell Cap 1 Cap PO DAILY Torsemide 20 Mg Tab 20 Mg PO DAILY Sodium Bicarbonate 650 Mg Tab 650 Mg PO BID Oxycodone ER (Oxycodone HCl) 40 Mg Tab 40 Mg PO Q8HR Cozaar (Losartan Potassium) 50 Mg Tab 50 Mg PO DAILY Bactrim (Sulfamethoxazole-Trimethoprim) 400-80 Mg Tab 1 Tab PO MOWEFR Multiple Vitamin 1 Tab 1 Tab PO DAILY Novolog Inj (Insulin Aspart) 1,000 Unit/10 Ml Vial 0 SQ DIRECTED Sliding Scale as directed. Carvedilol 25 Mg Tab 25 Mg PO DAILY Active Ordered Medications Current Medications Medications (Trade) Dose Ordered Sig/Reymundo Route Start Time Stop Time Status Last Admin (NS 1000 ml Inj) 1,000 ml @ 100 mls/hr Q10H IV 02/28/16 13:00 02/28/16 12:39 (NS Flush) 2 ml UNSCH PRN FLUSH 02/28/16 11:30 (NS Flush) 2 ml BID FLUSH 02/28/16 21:00 (Tylenol) 650 mg Q4H PRN PO 02/28/16 11:30 (Zofran Inj) 4 mg Q6H PRN IVP 02/28/16 11:30 (Dulcolax Supp) 10 mg DAILY PRN ME 02/28/16 11:30 (Milk Of Magnesia Liq) 30 ml Q12H PRN PO 02/28/16 11:30 (Senokot) 17.2 mg Q12H PRN PO 02/28/16 11:30 (Ambien) 5 mg HS PRN PO 02/28/16 11:30 (Heparin Inj) 5,000 units Q12H SQ 02/28/16 12:00 02/28/16 14:23 (Narcan Inj) 0.4 mg UNSCH PRN IV 02/28/16 11:30 (SoluMEDROL INJ) 80 mg Q6H IV PUSH 02/28/16 17:00 02/28/16 17:33 (Protonix Inj) 40 mg Q24H IV PUSH 02/28/16 13:00 02/28/16 14:23 Miscellaneous Information 1 Q361D XX 02/28/16 12:00 Terbutaline Sulfate 1 mg 1 mg UNSCH PRN SQ 02/28/16 16:00 (Neosynephrine Inj/D5W 500 ml Inj) 500 ml @ 0 mls/hr TITRATE IV 02/28/16 18:00 (NS Flush) 2 ml UNSCH PRN IV FLUSH 02/28/16 16:15 IV Flush 2 ml 2 ml BID IV FLUSH 02/28/16 21:00 Pharmacy Profile Note 0 ml @ 0 mls/hr UNSCH OTHER 02/28/16 16:15 Piperacillin Sod/ Tazobactam Sod 50 ml @ 200 mls/hr Q6H IV 02/28/16 18:00 (Zithromax Inj/ NS 250 ml Inj) 250 ml @ 250 mls/hr Q24H IV 02/29/16 11:00 Miscellaneous Information 1 Q361D XX 02/28/16 16:15 (Chlorhexidine 2% Cloth) 3 pack Taper DAILY@04 TOP 02/29/16 04:00 02/24/17 03:59 Chlorhexidine Gluconate 3 pack 3 pack UNSCH PRN TOP 02/28/16 16:15 (fentaNYL DRIP) 250 ml @ 0 mls/hr TITRATE IV 02/28/16 17:00 (D50w (Vial) Inj) 25 ml UNSCH PRN IV PUSH 02/28/16 18:30 UNV (Glucagon Inj) 1 mg UNSCH PRN OTHER 02/28/16 18:30 UNV (Neurontin) 100 mg Q8H PO 02/28/16 18:30 UNV (Mycostatin Powder) 1 applic BID TOP 02/28/16 21:00 UNV Non-Formulary Medication 20 mg HS PO 02/28/16 21:00 UNV Family History non contributory Social History no active tobacco or ETOH Physical Exam Vital Signs Vital Signs Date Time Temp Pulse Resp B/P Pulse Ox O2 Delivery O2 Flow Rate FiO2 02/28/16 18:04 83 12 139/98 100 Ventilator 02/28/16 17:17 87 12 153/66 100 Ventilator 02/28/16 17:00 83 12 131/55 97 Ventilator 02/28/16 16:57 98 100 02/28/16 16:35 81 22 85/50 95 Nasal Cannula 4 02/28/16 16:00 81 22 80/46 93 Nasal Cannula 02/28/16 15:38 78 20 75/37 Nasal Cannula 4 97 02/28/16 15:20 78 20 76/49 Nasal Cannula 4 93 02/28/16 15:05 83 22 77/51 Nasal Cannula 94 02/28/16 14:50 80 22 85/41 94 Nasal Cannula 4 02/28/16 14:42 76 20 96/50 96 Nasal Cannula 4 02/28/16 14:30 75 20 80/48 95 Nasal Cannula 4 02/28/16 14:03 76 20 78/44 95 Nasal Cannula 4 02/28/16 13:39 77 20 111/63 95 Aerosol Mask 02/28/16 13:33 85 22 96/52 93 Aerosol Mask 02/28/16 13:09 81 20 88/50 91 Nasal Cannula 4 02/28/16 12:51 71 20 86/53 95 Nasal Cannula 4 02/28/16 12:41 73 20 70/46 93 Nasal Cannula 4 02/28/16 12:07 73 20 72/44 99 Nasal Cannula 02/28/16 11:59 72 20 86/69 100 Aerosol Mask 02/28/16 11:06 80 22 87/55 93 Aerosol Mask 02/28/16 10:00 Nasal Cannula 4 02/28/16 10:00 92 02/28/16 09:45 92 Nasal Cannula 3 02/28/16 09:37 97.8 90 26 86/44 92 Physical Exam GENERAL: intubated, ill appearing, currently not responsive. SKIN: Warm and dry. HEAD: Normocephalic. EYES: No scleral icterus. No injection or drainage. NECK: Supple, trachea midline. No JVD or lymphadenopathy. CARDIOVASCULAR: regular tachycardia. RESPIRATORY: Diffuse bilateral rales, rhonchi and wheezes. GASTROINTESTINAL: Abdomen soft, non-tender, nondistended. MUSCULOSKELETAL: No cyanosis, or edema. BACK: Nontender without obvious deformity. No CVA tenderness. Laboratory Laboratory Tests Test 12/2202/28/16 02/28/16 02/28/16 10:00 10:55 13:02 13:52 White Blood Count 5.9 Red Blood Count 3.90 Hemoglobin 11.0 Hematocrit 35.5 Mean Corpuscular Volume 91.0 Mean Corpuscular Hemoglobin 28.1 Mean Corpuscular Hemoglobin 30.8 Concent Red Cell Distribution Width 17.0 Platelet Count 196 Mean Platelet Volume 8.8 Neutrophils (%) (Auto) 85.1 Lymphocytes (%) (Auto) 9.5 Monocytes (%) (Auto) 4.5 Eosinophils (%) (Auto) 0.2 Basophils (%) (Auto) 0.7 Neutrophils # (Auto) 5.0 Lymphocytes # (Auto) 0.6 Monocytes # (Auto) 0.3 Eosinophils # (Auto) 0.0 Basophils # (Auto) 0.0 CBC Comment DIFF FINAL Differential Comment Prothrombin Time 11.6 Prothromb Time International 1.0 Ratio Activated Partial 33.6 Thromboplast Time Sodium Level 142 Potassium Level 4.9 Chloride Level 107 Carbon Dioxide Level 21.5 Anion Gap 14 Blood Urea Nitrogen 33 Creatinine 2.79 Estimat Glomerular Filtration 17 Rate Random Glucose 138 Calcium Level 7.8 Total Bilirubin 0.2 Aspartate Amino Transf 33 (AST/SGOT) Alanine Aminotransferase 12 (ALT/SGPT) Alkaline Phosphatase 149 Total Creatine Kinase 100 Troponin I LESS THAN 0.02 LESS THAN 0.02 B-Type Natriuretic Peptide 1035 Total Protein 6.8 Albumin 2.0 Lactic Acid Level 1.1 Blood Gas Puncture Site RT RADIAL Blood Gas Patient Temperature 98.6 Blood Gas HCO3 21 Blood Gas Base Excess -5.5 Blood Gas Oxygen Saturation 90 Arterial Blood pH 7.21 Arterial Blood Partial 55 Pressure CO2 Arterial Blood Partial 74 Pressure O2 Arterial Blood Oxygen Content 12.3 Arterial Blood 2.0 Carboxyhemoglobin Arterial Blood Methemoglobin 1.8 Blood Gas Hemoglobin 9.7 Oxygen Delivery Device NASAL CANNULA Blood Gas Liter Flow 4 Test 02/28/16 02/28/16 17:02 18:03 Lactic Acid Level 0.8 Phosphorus Level 4.8 Blood Gas Puncture Site RT RADIAL Blood Gas Patient Temperature 98.6 Blood Gas HCO3 19 Blood Gas Base Excess -6.3 Blood Gas Oxygen Saturation 96 Arterial Blood pH 7.31 Arterial Blood Partial 39 Pressure CO2 Arterial Blood Partial 495 Pressure O2 Arterial Blood Oxygen Content 14.9 Arterial Blood 1.9 Carboxyhemoglobin Arterial Blood Methemoglobin 1.9 Blood Gas Hemoglobin 10.0 Oxygen Delivery Device VENTILATOR Blood Gas Ventilator Setting PC/AC Blood Gas Inspired Oxygen 100 Date/Time Procedure Status Source Growth 02/28/16 10:50 Aerobic Blood Culture Received Blood Peripheral Pending 02/28/16 10:50 Anaerobic Blood Culture Received Blood Peripheral Pending 02/28/16 10:00 Influenza Types A,B Antigen (GWEN) - Final Complete Nasal Washing NEGATIVE FOR FLU A AND B ANTIGEN.... Result Diagram: 02/28/16 1000 02/28/16 1000 Assessment and Plan Problem List: (1) Renal transplant, status post Plan: Apparently this was a living related transplant. Her creatinine was around 1.2 in October of this year, suggesting reasonably well preserved GFR after transplant in 2006. According to previous notes, she was on prednisone and Sirolimus for immunosuppression. The medication list mentions Sirolimus dose as 1 mg alternating with 2 mg. I will continue the same, to be given via NG/OG tube. I will also start Hydrocortisone 50 mg IV Q 6 hours. Transition to PO prednisone when she is able to. Continue to monitor renal function. Avoid nephrotoxic agents. (2) Acute kidney failure Plan: Could be pre-renal azotemia, may have progressed to ATN due to hypotension and sepsis, resulting ischemia-reperfusion injury. Monitor urine output. Obtain urine electrolytes. IVF. Maintain MAP of more than 65, if necessary with pressors. (3) Pneumonia Plan: Has history of pneumonia earlier this year. Had been transferred to [facility]. Has been exposed to healthcare setting. Also is immunosuppressed. ID consult. Broad spectrum antibiotics. According to previous notes, she was diagnosed with fungal pneumonia at [facility]. (4) Sepsis Plan: with septic shock. Continue aggressive care. [employer] on the case. (5) Heart failure Plan: EF of 35 % previously. Watch for signs of fluid overload. The patient also has history of left upper lobectomy for lung cancer. Assessment and Plan Thanks for the consult. I am covering Dr. Juarez, he will be back on Thursday. Ruddy Henry MD Feb 28, 2016 19:03
[2016-02-28] MEDS ORDERED: CHLORHEXIDINE GLUCONATE 2 % 1 PACK (2 CLOTHS)(extra cloths) TOP PRN (19:30)
[2016-02-28] MEDS ORDERED: MIDAZOLAM HCL 5 MG/ML VIAL (1 ML) ONE (19:32)
--- NOTE | 2016-02-28 20:24 | RADRPT ---
EXAM DATE/TIME: 02/28/2016 19:55 [facility] COMPARISON: CHEST SINGLE AP, February 28, 2016, 16:56. INDICATIONS : Post bedside bronchoscopy. MEDICAL HISTORY : unobtainable. SURGICAL HISTORY : unobtainable. ENCOUNTER: Initial ACUITY: 1 day PAIN SCORE: Non-responsive. LOCATION: Bilateral chest FINDINGS: Lines and tubes are present not significantly changed. There is minimal improvement in the aeration o f the left lower lung. Significant opacification of the left hemithorax remains and there is mild int erstitial process in the right lung not changed. CONCLUSION: Mild improvement in the aeration of the left lung base. Angelita Birmingham MD on February 28, 2016 at 20:21 Board Certified Radiologist. This report was verified electronically.
[2016-02-28] MEDS ORDERED: SODIUM CHLORIDE 0.9% FLUSH 5 ML FLUSH FLUSH SCH (21:00)
[2016-02-28] MEDS ORDERED: SODIUM CHLORIDE 0.9% FLUSH 5 ML FLUSH IV FLUSH SCH (21:00)
[2016-02-28] MEDS: HYDROCORTISONE SOD SUCCINATE 100 MG VIAL IV PUSH SCH (21:50)
[2016-02-28] MEDS: INSULIN ASPART SUPPLEMENTAL SCALE SQ SCH (21:50)
[2016-02-28] MEDS: PRAVASTATIN SOD 40 MG TAB PO SCH (21:50)
[2016-02-28] MEDS: SODIUM CHLORIDE 0.9% FLUSH 5 ML FLUSH IV FLUSH SCH (21:51)
[2016-02-28] MEDS: GABAPENTIN 100 MG CAP PO SCH (21:51)
[2016-02-28] MEDS: PIPERACIL-TAZO 2.25 GM PREMIX 50 ML IV SCH (21:53)
--- NOTE | 2016-02-28 22:00 | PD.ID.CON ---
History of Present Illness Service ID Consult Requested By Dr Bobo Reason for Consult PNA Primary Care Physician Herbert Kaba MD Diagnoses: History of Present Illness Debbie Alejo is a 70 year old female with h/o lung CA sp lobectomy ESD sp kidney transplant presented with 1 day of severe resp distress and was found hypoxic required intubation and placcement on vent in ER Dr Bobo sa w pt and started her on BSA (broad spectrum abx) immediately: azithro, zosyn, vancomycin She was bronched Secretions are scant H/o some fungal lung infection, no details on organism and/or treatment availbale (Rx'd in [facility]) UOP marginal per RN On levaphed , titrating down (currently on 10 mcs) Her BNP was >1000, CXR showed patchy R UL infiltrate and stable L hemothorax opacification Flu negative Curretnly on 45% FiO2 Review of Systems ROS Limitations: Clinical Condition, Intubated, Unresponsive Past Family Social History Allergies: Coded Allergies: Labetalol (Verified Allergy, Severe, NAUSEA AND VOMITING, 02/28/16) Lortab (Verified Adverse Reaction, Severe, VOMITING, 02/28/16) Past Medical History Firbrillary GN. s/p renal transplant. NSC lung CA s/p L lobectomy CKD stage 4 DM HTN Anemia Atrial fibrillation Recent fungal PNA requiring intubation and subsequent tracheostomy Seizure Disorder CHF with reported EF of 35-40% Past Surgical History L upper lobectomy Lung bx Trach placement and decannulation PEG placement Cholecystectomy Renal transplant Renal biopsy Active Ordered Medications Medications where reviewed in EMR Antibiotics Include: azithro zosyn vancomycin Family History Non-Contributory. Social History remote Tobacco. No ETOH. No Illicit Drugs. Physical Exam Vital Signs Vital Signs Date Time Temp Pulse Resp B/P Pulse Ox O2 Delivery O2 Flow Rate FiO2 02/28/16 21:01 100 45 02/28/16 18:45 100 50 02/28/16 18:04 83 12 139/98 100 Ventilator 02/28/16 17:17 87 12 153/66 100 Ventilator 02/28/16 17:00 83 12 131/55 97 Ventilator 02/28/16 16:57 98 100 02/28/16 16:35 81 22 85/50 95 Nasal Cannula 4 02/28/16 16:00 81 22 80/46 93 Nasal Cannula 02/28/16 15:38 78 20 75/37 Nasal Cannula 4 97 02/28/16 15:20 78 20 76/49 Nasal Cannula 4 93 02/28/16 15:05 83 22 77/51 Nasal Cannula 94 02/28/16 14:50 80 22 85/41 94 Nasal Cannula 4 02/28/16 14:42 76 20 96/50 96 Nasal Cannula 4 02/28/16 14:30 75 20 80/48 95 Nasal Cannula 4 02/28/16 14:03 76 20 78/44 95 Nasal Cannula 4 02/28/16 13:39 77 20 111/63 95 Aerosol Mask 02/28/16 13:33 85 22 96/52 93 Aerosol Mask 02/28/16 13:09 81 20 88/50 91 Nasal Cannula 4 02/28/16 12:51 71 20 86/53 95 Nasal Cannula 4 02/28/16 12:41 73 20 70/46 93 Nasal Cannula 4 02/28/16 12:07 73 20 72/44 99 Nasal Cannula 02/28/16 11:59 72 20 86/69 100 Aerosol Mask 02/28/16 11:06 80 22 87/55 93 Aerosol Mask 02/28/16 10:00 Nasal Cannula 4 02/28/16 10:00 92 02/28/16 09:45 92 Nasal Cannula 3 02/28/16 09:37 97.8 90 26 86/44 92 Physical Exam CONSTITUTIONAL/GENERAL: This is an adequately nourished patient, in no apparent distress. Sedated int'd on [facility] TUBES/LINES/DRAINS: L IJ in place SKIN: No jaundice, rashes, or lesions. Skin temperature appropriate. Not diaphoretic. HEAD: Atraumatic. Normocephalic. EYES: Pupils equal and round and reactive. Extraocular motions intact. No scleral icterus. No injection or drainage. Fundi not examined. ENT: . Nose without bleeding or purulent drainage. Oral mucosae moist without visible erythema, exudates, masses, or lesions. Dentition poor NECK: Trachea midline. Supple, nontender. CARDIOVASCULAR: Regular rate and rhythm without murmurs, gallops, or rubs. No JVD. Peripheral pulses symmetric. RESPIRATORY/CHEST: Symmetric, unlabored respirations. Scattered rhonchi to auscultation. Breath sounds equal bilaterally. No wheezes, rales, or rhonchi. GASTROINTESTINAL: Abdomen soft, non-tender, nondistended. No hepato-splenomegaly , or palpable masses. No guarding. Bowel sounds present. GENITOURINARY: Without palpable bladder distension. Malik catheter in place with small amount clear yellow urine MUSCULOSKELETAL: Extremities without clubbing, cyanosis, or edema. No joint tenderness or effusion noted. No calf tenderness. No mottling or clubbing. LYMPHATICS: No palpable cervical or supraclavicular adenopathy. NEUROLOGICAL: sedated , unresponsive PSYCHIATRIC: unable to assess 2/2 neuro status Laboratory Laboratory Tests Test 02/28/16 02/28/16 02/28/16 02/28/16 10:00 10:55 13:02 13:52 White Blood Count 5.9 Red Blood Count 3.90 Hemoglobin 11.0 Hematocrit 35.5 Mean Corpuscular Volume 91.0 Mean Corpuscular Hemoglobin 28.1 Mean Corpuscular Hemoglobin 30.8 Concent Red Cell Distribution Width 17.0 Platelet Count 196 Mean Platelet Volume 8.8 Neutrophils (%) (Auto) 85.1 Lymphocytes (%) (Auto) 9.5 Monocytes (%) (Auto) 4.5 Eosinophils (%) (Auto) 0.2 Basophils (%) (Auto) 0.7 Neutrophils # (Auto) 5.0 Lymphocytes # (Auto) 0.6 Monocytes # (Auto) 0.3 Eosinophils # (Auto) 0.0 Basophils # (Auto) 0.0 CBC Comment DIFF FINAL Differential Comment Prothrombin Time 11.6 Prothromb Time International 1.0 Ratio Activated Partial 33.6 Thromboplast Time Sodium Level 142 Potassium Level 4.9 Chloride Level 107 Carbon Dioxide Level 21.5 Anion Gap 14 Blood Urea Nitrogen 33 Creatinine 2.79 Estimat Glomerular Filtration 17 Rate Random Glucose 138 Calcium Level 7.8 Total Bilirubin 0.2 Aspartate Amino Transf 33 (AST/SGOT) Alanine Aminotransferase 12 (ALT/SGPT) Alkaline Phosphatase 149 Total Creatine Kinase 100 Troponin I LESS THAN 0.02 LESS THAN 0.02 B-Type Natriuretic Peptide 1016 Total Protein 6.8 Albumin 2.0 Lactic Acid Level 1.1 Blood Gas Puncture Site RT RADIAL Blood Gas Patient Temperature 98.6 Blood Gas HCO3 21 Blood Gas Base Excess -5.5 Blood Gas Oxygen Saturation 90 Arterial Blood pH 7.21 Arterial Blood Partial 55 Pressure CO2 Arterial Blood Partial 74 Pressure O2 Arterial Blood Oxygen Content 12.3 Arterial Blood 2.0 Carboxyhemoglobin Arterial Blood Methemoglobin 1.8 Blood Gas Hemoglobin 9.7 Oxygen Delivery Device NASAL CANNULA Blood Gas Liter Flow 4 Test 02/28/16 02/28/16 17:02 18:03 Lactic Acid Level 0.8 Phosphorus Level 4.8 Troponin I LESS THAN 0.02 Blood Gas Puncture Site RT RADIAL Blood Gas Patient Temperature 98.6 Blood Gas HCO3 19 Blood Gas Base Excess -6.3 Blood Gas Oxygen Saturation 96 Arterial Blood pH 7.31 Arterial Blood Partial 39 Pressure CO2 Arterial Blood Partial 495 Pressure O2 Arterial Blood Oxygen Content 14.9 Arterial Blood 1.9 Carboxyhemoglobin Arterial Blood Methemoglobin 1.9 Blood Gas Hemoglobin 10.0 Oxygen Delivery Device VENTILATOR Blood Gas Ventilator Setting PC/AC Blood Gas Inspired Oxygen 100 Date/Time Procedure Status Source Growth 02/28/16 10:50 Aerobic Blood Culture Received Blood Peripheral Pending 02/28/16 10:50 Anaerobic Blood Culture Received Blood Peripheral Pending 02/28/16 10:00 Influenza Types A,B Antigen (GWEN) - Final Complete Nasal Washing NEGATIVE FOR FLU A AND B ANTIGEN.... Result Diagram: 02/28/16 1000 02/28/16 1000 Imaging Last Impressions Chest X-Ray 02/28/16 1008 Signed Impressions: Service Date/Time: February 10:20 - CONCLUSION: 1. Right lung patchiness consistent with possible pneumonia versus pulmonary vascular congestion. Clinical correlation is recommended. 2. Stable complete opacification of the left avinash-thorax and tiny right pleural effusion. Ash Jackson MD Assessment and Plan Assessment and Plan severe hypoxia and acute vent dependent resp failure - ? PNA vs penumonitis vs pulm edema Preveious h/o lung ca REcent h/o fungal infx Rx'd in another facility Immunosuppresed (renal transpalnt) ? Cardiogenic pulmonary edema ARF in transpnat - cont current BSA: azithro, vanco, cefepime - BAL for routin, funagl and viral clx - Leg/penumococal AG - 2 D echo - records re pt's fungal infx - if fungal infx suspected will add voriconazole po Discussed Condition With Nataly Tatum RN, MD Feb 28, 2016 21:59
--- NOTE | 2016-02-28 22:09 | PD.PROCEDR ---
Procedure Note Procedure Procedure: Diagnostic and therapeutic Fiberoptic Bronchoscopy Diagnosis: Acute hypoxic respiratory failure Indications: Left lower lobe atelectatic collapse with mucous plugging, immune compromised state with need for quantitative BALs Consent: Consent was obtained Anesthesia: Versed 500 g IV, fentanyl 150 g IV, Rocuronium 50 Aguilar grams IV Description of the Procedure: The patient was sedated and mechanically ventilated. The patient was placed on 100% FIO2 and a volume control mode of ventilation. The fiberoptic bronchoscopy was inserted via endotracheal tube. The trachea, right and left mainstem bronchi, and sub-segmental bronchi were evaluated. The endobronchial anatomy was not normal. There was evidence of her prior surgical resection. There is also a round lesion just distal to the left mainstem. Pictures of this were taken and are in the chart. Findings: Mild amount of lombardi secretions, mostly in the left upper lobe. BAL samples: Left upper lobe, right lower lobe. The patient tolerated the procedure well with no hemodynamic instability or hypoxia. There were no immediate complications noted. At the conclusion of the procedure, the patient was placed back on their pre-procedure ventilatory settings. There was minimal EBL. A chest x-ray has been ordered. I personally performed the procedure. Zack Zhang MD Feb 28, 2016 22:09
[2016-02-29] VITALS (18 sets, daily range): BP systolic 87–140; BP diastolic 48–90; PULSE 70–102; RESP 14–23; TEMP 97.6–98.1; O2SAT 96–100
[2016-02-29] MEDS ORDERED: SUCCINYLCHOLINE CHLORIDE 200 MG/10 ML VIAL ONE (01:23)
[2016-02-29] MEDS: PIPERACIL-TAZO 2.25 GM PREMIX 50 ML IV SCH ×4 (01:43→15:57)
[2016-02-29] MEDS: HEPARIN SODIUM - SQ 10,000 UNITS/ML VIAL SQ SCH ×2 (01:43→12:00)
[2016-02-29] MEDS: SODIUM CHLOR 0.9% 1000 ML INJ 1,000 ML IV SCH ×3 (01:44→20:00)
[2016-02-29] MEDS: methylPREDNISolone SOD SUCC 40 MG/1 ML VIAL IV PUSH SCH ×2 (01:44→05:41)
[2016-02-29] MEDS: RESP: ALBUTEROL 2.5 MG/IPRATROPIUM 0.5 MG NEB (SCH) INH ×4 (03:22→21:32)
[2016-02-29] MEDS: CHLORHEXIDINE GLUCONATE 2 % 1 PACK (2 CLOTHS)(taper/protocol) TOP SCH (04:00)
[2016-02-29] MEDS ORDERED: CHLORHEXIDINE GLUCONATE 2 % 1 PACK (2 CLOTHS) TOP SCH ×2 (04:00)
[2016-02-29 04:41] LABS: BICARBONATE 23.4 MEQ/L (21.0-32.0); MAGNESIUM 1.2 MG/DL (1.5-2.5); POTASSIUM 4.6 MEQ/L (3.5-5.1)
[2016-02-29 04:58] LABS: CALCIUM-PROTEIN CORRECTED 7.6 MG/DL (8.5-10.1)
[2016-02-29] MEDS: GABAPENTIN 100 MG CAP PO SCH ×3 (05:42→20:00)
[2016-02-29] MEDS: INSULIN ASPART SUPPLEMENTAL SCALE SQ SCH ×4 (05:58→20:11)
[2016-02-29] MEDS: SIROLIMUS 1 MG TAB PO SCH (05:59)
[2016-02-29] MEDS: HYDROCORTISONE SOD SUCCINATE 100 MG VIAL IV PUSH SCH ×3 (05:59→20:10)
--- NOTE | 2016-02-29 06:01 | RADRPT ---
EXAM DATE/TIME: 02/29/2016 04:12 [facility] COMPARISON: CHEST SINGLE AP, December 29, 2015, 4:54. CHEST SINGLE AP, December 08, 2013, 13:50. CHEST SINGLE AP, February 28, 2016, 16:56. CHEST SINGLE AP, February 28, 2016, 19:55. INDICATIONS : Evaluate for respiratory failure. MEDICAL HISTORY : Carcinoma, lung. Pneumonia. SURGICAL HISTORY : Partial removal of left lung. ENCOUNTER: Subsequent ACUITY: 4 - 6 days PAIN SCORE: Non-responsive. LOCATION: chest FINDINGS: Endotracheal tube is present with tip just above the bharathi. Left neck central line terminates with t ip overlying SVC. There is near-complete opacification of the left chest. Right chest is stable with mild interstitial prominence CONCLUSION: Persistent near complete right lung opacity Edomnd Higgins MD on February 29, 2016 at 5:57 Board Certified Radiologist. This report was verified electronically.
--- NOTE | 2016-02-29 08:02 | HHI.FPPN ---
Subjective Remarks CALM SEDATED ON VENT D/W DR EVANS D/W RN Objective Vitals Vital Signs Date Time Temp Pulse Resp B/P Pulse Ox O2 Delivery O2 Flow Rate FiO2 02/29/16 07:33 99 45 02/29/16 06:00 72 02/29/16 04:10 99 45 02/29/16 04:00 85 02/29/16 04:00 97.6 70 14 112/57 96 140/90 02/29/16 02:00 79 02/29/16 01:27 75 02/29/16 01:13 99 45 02/29/16 00:00 97.6 79 14 127/59 96 87/57 02/29/16 00:00 86 02/28/16 23:20 99 45 02/28/16 22:00 86 02/28/16 21:01 100 45 02/28/16 20:00 86 02/28/16 20:00 97.0 83 14 114/55 98 92/87 02/28/16 19:30 100 100 02/28/16 18:45 100 50 02/28/16 18:04 83 12 139/98 100 Ventilator 02/28/16 17:17 87 12 153/66 100 Ventilator 02/28/16 17:00 83 12 131/55 97 Ventilator 02/28/16 16:57 98 100 02/28/16 16:35 81 22 85/50 95 Nasal Cannula 4 02/28/16 16:00 81 22 80/46 93 Nasal Cannula 02/28/16 15:38 78 20 75/37 Nasal Cannula 4 97 02/28/16 15:20 78 20 76/49 Nasal Cannula 4 93 02/28/16 15:05 83 22 77/51 Nasal Cannula 94 02/28/16 14:50 80 22 85/41 94 Nasal Cannula 4 02/28/16 14:42 76 20 96/50 96 Nasal Cannula 4 02/28/16 14:30 75 20 80/48 95 Nasal Cannula 4 02/28/16 14:03 76 20 78/44 95 Nasal Cannula 4 02/28/16 13:39 77 20 111/63 95 Aerosol Mask 02/28/16 13:33 85 22 96/52 93 Aerosol Mask 02/28/16 13:09 81 20 88/50 91 Nasal Cannula 4 02/28/16 12:51 71 20 86/53 95 Nasal Cannula 4 02/28/16 12:41 73 20 70/46 93 Nasal Cannula 4 02/28/16 12:07 73 20 72/44 99 Nasal Cannula 02/28/16 11:59 72 20 86/69 100 Aerosol Mask 02/28/16 11:06 80 22 87/55 93 Aerosol Mask 02/28/16 10:00 Nasal Cannula 4 02/28/16 10:00 92 02/28/16 09:45 92 Nasal Cannula 3 02/28/16 09:37 97.8 90 26 86/44 92 I/O 02/28/16 02/28/16 02/28/16 02/29/16 02/29/16 02/29/16 07:00 15:00 23:00 07:00 15:00 23:00 Intake Total 1231 ml 500 ml Output Total 190 ml 120 ml Balance 1041 ml 380 ml Intake IV Total 1231 ml 500 ml Output Urine Total 190 ml 120 ml Result Diagram: 02/28/16 1000 02/29/16 0400 Objective Remarks GENERAL: on vent, chronically ill appearing SKIN: Warm and dry. HEAD: Atraumatic. Normocephalic. EYES: Pupils equal and round. No scleral icterus. No injection or drainage. ENT: No nasal bleeding or discharge. Mucous membranes pink and moist. NECK: Trachea midline. No JVD. CARDIOVASCULAR: Regular rate and rhythm. RESPIRATORY: No accessory muscle use. Bilateral ronchi, good air movement. Breath sounds equal bilaterally. GASTROINTESTINAL: Abdomen soft, non-tender, nondistended. Hepatic and splenic margins not palpable. MUSCULOSKELETAL: Extremities without clubbing, cyanosis, or edema. No obvious deformities. NEUROLOGICAL: Awake and alert. No obvious cranial nerve deficits. Motor grossly within normal limits. Responds to voice, goes back to sleep PSYCHIATRIC: Appropriate mood and affect; Medications and IVs Current Medications Medications (Trade) Dose Ordered Sig/Reymundo Route Start Time Stop Time Status Last Admin (NS 1000 ml Inj) 1,000 ml @ 100 mls/hr Q10H IV 02/28/16 13:00 02/29/16 01:44 (Tylenol) 650 mg Q4H PRN PO 02/28/16 11:30 (Zofran Inj) 4 mg Q6H PRN IVP 02/28/16 11:30 (Dulcolax Supp) [address] 02/28/16 11:30 (Milk Of Magneben Liq) 30 ml Q12H PRN PO 02/28/16 11:30 (Senokot) 17.2 mg Q12H PRN PO 02/28/16 11:30 (Ambien) 5 mg HS PRN PO 02/28/16 11:30 (Heparin Inj) 5,000 units Q12H SQ 02/28/16 12:00 02/29/16 01:43 (Narcan Inj) 0.4 mg UNSCH PRN IV 02/28/16 11:30 (SoluMEDROL INJ) 80 mg Q6H IV PUSH 02/28/16 17:00 02/29/16 05:41 (Protonix Inj) 40 mg Q24H IV PUSH 02/28/16 13:00 02/28/16 14:23 Miscellaneous Information 1 Q361D XX 02/28/16 12:00 Terbutaline Sulfate 1 mg 1 mg UNSCH PRN SQ 02/28/16 16:00 (Neosynephrine Inj/D5W 500 ml Inj) 500 ml @ 0 mls/hr TITRATE IV 02/28/16 18:00 (NS Flush) 2 ml UNSCH PRN IV FLUSH 02/28/16 16:15 IV Flush 2 ml 2 ml BID IV FLUSH 02/28/16 21:00 02/28/16 21:51 Pharmacy Profile Note 0 ml @ 0 mls/hr UNSCH OTHER 02/28/16 16:15 Piperacillin Sod/ Tazobactam Sod 50 ml @ 200 mls/hr Q6H IV 02/28/16 18:00 02/29/16 05:42 Azithromycin 500 mg/Sodium Chloride 250 ml @ 250 mls/hr Q24H IV 02/29/16 11:00 (fentaNYL DRIP) 250 ml @ 0 mls/hr TITRATE IV 02/28/16 17:00 (D50w (Vial) Inj) 25 ml UNSCH PRN IV PUSH 02/28/16 18:30 (Glucagon Inj) 1 mg UNSCH PRN OTHER 02/28/16 18:30 (Neurontin) 100 mg Q8H PO 02/28/16 20:00 02/29/16 05:42 (Mycostatin Powder) 1 applic BID TOP 02/28/16 21:00 (Pravachol) 40 mg HS PO 02/28/16 21:00 02/28/16 21:50 (Rapamune) 1 mg DAILY@06 PO 02/29/16 06:00 02/29/16 05:59 (SoluCORTEF INJ) 100 mg Q8HR IV PUSH 02/28/16 22:00 02/29/16 05:59 Miscellaneous Information Patient in critical care unit? Ass... Q361D XX 02/28/16 19:30 (Chlorhexidine 2% Cloth) 3 pack DAILY@04 TOP 02/29/16 04:00 03/04/16 04:01 02/29/16 04:00 (Chlorhexidine 2% Cloth) 3 pack UNSCH PRN TOP 02/28/16 19:30 03/04/16 19:22 A/P Assessment and Plan SEPTIC SHOCK RESPIRATORY FAILURE, S/P BRONCH FEB 27, HCAP, FUNGAL PNA COPD SCHF AC ON CRF RENAL TRANSPLANT AF PLAN: IV ABX IVF BLOOD CULTURES DUONEBS HEPARIN 5000 BID FOR PROPHYLAXIS IV PROTONIX CCM CONSULT NEPHRO CONSULT PULMONARY CONSULT PT OT ST VENT PER PULM/CCM ICU CARE FOLLOWUP LABS Herbert Kaba MD Feb 29, 2016 08:02 Herbert Kaba MD Feb 29, 2016 08:02
[2016-02-29 08:16] LABS: BASOPHIL % 0.4 % (0.0-2.0); HEMATOCRIT 32.9 % (35.0-46.0); HEMO FLAGS DIFF FINAL; LYMPH % 3.4 % (9.0-44.0); LYMPHOCYTE # 0.3 TH/MM3 (1.0-4.8); MEAN CELL VOLUME 90.7 FL (80.0-100.0); MEAN CORPUSCULAR HEMOGLOBIN 28.3 PG (27.0-34.0); MEAN CORPUSCULAR HGB CONC 31.2 % (32.0-36.0); MONO % 1.4 % (0.0-8.0); NEUT % 94.8 % (16.0-70.0); PLATELET COUNT 227 TH/MM3 (150-450); RED BLOOD COUNT 3.63 MIL/MM3 (4.00-5.30); RED CELL DISTRIBUTION WIDTH 16.9 % (11.6-17.2); WHITE BLOOD COUNT 8.5 TH/MM3 (4.0-11.0)
[2016-02-29 08:32] LABS: CRITICAL VALUE YES
[2016-02-29 08:49] LABS: BICARBONATE 24.4 MEQ/L (21.0-32.0); POTASSIUM 4.6 MEQ/L (3.5-5.1)
[2016-02-29 08:51] LABS: THYROXINE (T4) 4.7 MCG/DL (4.8-13.9)
[2016-02-29] MEDS: SODIUM CHLORIDE 0.9% FLUSH 5 ML FLUSH IV FLUSH SCH ×2 (09:00→20:00)
[2016-02-29 09:04] LABS: CALCIUM-PROTEIN CORRECTED 7.7 MG/DL (8.5-10.1)
--- NOTE | 2016-02-29 10:35 | HHI.NPPN ---
Subjective Renal Failure: Acute Interval History The patient remains intubated, sedated, unresponsive on ventilatory. Oligo- anuric. Renal function is worse. (Marcia Feliciano) Review of Systems General General Remarks unable to obtain (Marcia Feliciano) Objective Data Data 02/28/16 02/29/16 19:00 07:00 Intake Total 1731 ml Output Total 75 ml 235 ml Balance -75 ml 1496 ml Intake IV Total 1731 ml Output Urine Total 75 ml 235 ml Vital Signs Date Time Temp Pulse Resp B/P Pulse Ox O2 Delivery O2 Flow Rate FiO2 02/29/16 10:08 75 02/29/16 08:00 98.0 77 14 135/57 100 112/60 02/29/16 08:00 77 02/29/16 07:33 99 45 02/29/16 06:00 72 02/29/16 04:10 99 45 02/29/16 04:00 85 02/29/16 04:00 97.6 70 14 112/57 96 140/90 02/29/16 02:00 79 02/29/16 01:27 75 02/29/16 01:13 99 45 02/29/16 00:00 97.6 79 14 127/59 96 87/57 02/29/16 00:00 86 02/28/16 23:20 99 45 02/28/16 22:00 86 02/28/16 21:01 100 45 02/28/16 20:00 86 02/28/16 20:00 97.0 83 14 114/55 98 92/87 02/28/16 19:30 100 100 02/28/16 18:45 100 50 02/28/16 18:04 83 12 139/98 100 Ventilator 02/28/16 17:17 87 12 153/66 100 Ventilator 02/28/16 17:00 83 12 131/55 97 Ventilator 02/28/16 16:57 98 100 02/28/16 16:35 81 22 85/50 95 Nasal Cannula 4 02/28/16 16:00 81 22 80/46 93 Nasal Cannula 02/28/16 15:38 78 20 75/37 Nasal Cannula 4 97 02/28/16 15:20 78 20 76/49 Nasal Cannula 4 93 02/28/16 15:05 83 22 77/51 Nasal Cannula 94 02/28/16 14:50 80 22 85/41 94 Nasal Cannula 4 02/28/16 14:42 76 20 96/50 96 Nasal Cannula 4 02/28/16 14:30 75 20 80/48 95 Nasal Cannula 4 02/28/16 14:03 76 20 78/44 95 Nasal Cannula 4 02/28/16 13:39 77 20 111/63 95 Aerosol Mask 02/28/16 13:33 85 22 96/52 93 Aerosol Mask 02/28/16 13:09 81 20 88/50 91 Nasal Cannula 4 02/28/16 12:51 71 20 86/53 95 Nasal Cannula 4 02/28/16 12:41 73 20 70/46 93 Nasal Cannula 4 02/28/16 12:07 73 20 72/44 99 Nasal Cannula 02/28/16 11:59 72 20 86/69 100 Aerosol Mask 02/28/16 11:06 80 22 87/55 93 Aerosol Mask (Marcia Feliciano) -: 02/29/16 0746 02/29/16 0746 Microbiology 02/28/16 Aerobic Blood Culture, Received Pending 02/28/16 Anaerobic Blood Culture, Received Pending 02/28/16 Aerobic Blood Culture, Received Pending 02/28/16 Anaerobic Blood Culture, Received Pending 02/28/16 Gram Stain, Received Pending 02/28/16 Bronchial Culture, Received Pending 02/28/16 Gram Stain, Received Pending 02/28/16 Bronchial Culture, Received Pending Tubes & Lines Comment PEG Drip Comment fentanyl, Levophed (Marcia Feliciano) Physical Exam General Appearance: Well Developed, Well Nourished, Comfortable, Sleeping (Marcia Feliciano) Throat Throat Exam: Oral Mucosa [place] & Moist Throat Remarks ETT (Marcia Feliciano) Pulmonary Resp Exam: Clear Bilaterally, Breath Sounds Equal, Decreased Bases, Diminished Breath Sounds Resp Remarks clear in upper lobes (Marcia Feliciano) Cardiology CV Exam: Regular, Normal Sinus Rhythm, Good Perfusion (Marcia Feliciano) Gastrointestinal/Abdomen GI Exam: Bowel Sounds Present GI Remarks transplanted organ palpable umbilicus area, PEG (Marcia Feliciano) Musculoskeletal MS Exam: Joints Intact, Good Strength (Marcia Feliciano) Integumentary Skin Exam: Clear, Warm, Dry, Intact (Marcia Feliciano) Extremeties Extremities Exam: No Edema, Pedal Pulses Palpable (Marcia Feliciano) Neurologic Neuro Exam: Unresponsive, Sedated (Marcia Feliciano) Assessment/Plan Assessment Summary: Transplant Kidney Status Electrolyte Assessment: Hypocalcemia Problem List: (1) Renal transplant, status post Plan: Apparently this was a living related transplant. continue antirejection regimen of Sirolimus , 1 mg alternating with 2 mg. To be given via NG/OG tube. Continue Hydrocortisone 50 mg IV Q 6 hours. Transition to PO prednisone when she is able to. Monitor renal function. carefully avoid medications that interact with her rejection medications (2) Acute kidney failure Plan: Her creatinine was around 1.2 in October of this year, suggesting reasonably well preserved GFR after transplant in 2006. ANNABELLA thought to be pre-renal azotemia, likely has progressed to ATN due to hypotension and sepsis, resulting ischemia-reperfusion injury. renal function slightly worse today, potassium is in normal range she is oliguric, Monitor urine output. It appears UOP is decreasing UA ordered still pending with urine electrolytes. continue IVF, on NS @ 60 ml/hr Maintain MAP of more than 65, she is on Levophed, BP has improved daily renal panel if Urine output drops and renal function worsens, it is possible she may require dialysis this admission (3) Pneumonia Plan: She is immunosuppressed. ID following continue abx as below. continue vent management, currently on A/C 14/400/45/5; she is breathing over the vent According to previous notes, she was diagnosed with fungal pneumonia at [facility]. (4) Sepsis Plan: with septic shock. Cultures in progress ID and reed man following on Zithromax and cefepime Continue aggressive care. monitor clinically (5) Heart failure Plan: EF of 35 % previously. No evidence of fluid overload Watch for signs of fluid overload. The patient also has history of left upper lobectomy for lung cancer. (Marcia Feliciano) Plan patient was seen and examined. He is oliguric. Renal function is worse. Continues to be on IVF. She is awake, follows commands. Continue immunosuppressives. Currently on Sirolimus, and Hydrocortisone. Obtain Sirolimus level. Trial of diuretic. Discussed with Dr. Bobo. She may need dialysis. ID following: on Zithromax, Vancomycin and Cefepime. Dose medications for GFR of less than 10. Prognosis is guarded. (Ruddy Henry MD) Marcia Feliciano MERCHANDISE CARRIER Feb 29, 2016 10:35 Ruddy Henry MD Feb 29, 2016 14:11
[2016-02-29] MEDS ORDERED: VANCOMYCIN 1,000 MG/NS 250 ML IV ONE ×2 (11:00)
[2016-02-29] MEDS: AZITHROMYCIN INJ 500 MG in SODIUM CHLOR 0.9% 250 ML INJ 250 ML IV SCH (11:00)
[2016-02-29] MEDS ORDERED: CALCIUM GLUCONATE INJ 2 GM in SODIUM CHLORIDE 0.9% INJ 100 ML IV ONE (12:30)
--- NOTE | 2016-02-29 12:45 | HHI.CCPN ---
Subjective Remarks/Hospital Course 70-year-old female with history of lung cancer status post left lobectomy, and recent kidney transplant presented to the ED with worsening pulmonary symptoms. Her medical history is significant for DM, HTN. She presented to the ED today because worsening cough, shortness of breath, dyspnea on exertion, and fevers. The patient is dependent on home O2 at 4 L nasal cannula, and scheduled DuoNeb treatment. The patient underwent a kidney transplant at [facility] and was hospitalized for approximately several months. During this hospitalization she reports having a fungal pulmonary infection which time she experienced a seizure. She was transferred to a rehabilitation facility [facility] for approximately 2 months ago. The patient was then transferred to [facility] approximately 3 weeks ago at which time she fractured her left ankle, and was transferred to [facility]. She was recently discharged from [facility] on 02/15/2016. The patient states that she began having worsening symptoms over the last 3-4 days, that resembled her fungal pneumonia. Critical care medicine was consulted for management. 02/28 Upon arrival to ICU last evening, bronchoscopy was performed, and specimens were sent for culture. The patient was maintained on IV fluids 100 cc an hour, and discontinued at 2 AM secondary to oliguria. CVP ranged 14 throughout the night, with original BNP 1035. Postintubation the patient remains GCS 11 T, following commands. The patient continues to be oliguric with hourly urinary output 7-10 cc an hour. Objective Vital Signs Date Time Temp Pulse Resp B/P Pulse Ox O2 Delivery O2 Flow Rate FiO2 02/29/16 10:08 75 02/29/16 08:00 98.0 14 135/57 100 112/60 02/29/16 07:33 45 02/28/16 18:04 Ventilator 02/28/16 16:35 4 Intake and Output 02/28/16 02/28/16 02/28/16 07:59 15:59 23:59 Intake Total 1231 ml Output Total 190 ml Balance 1041 ml Result Diagram: 02/29/16 0746 02/29/16 0746 Other Results Microbiology Date/Time Procedure Status Source Growth 02/28/16 10:00 Influenza Types A,B Antigen (GWEN) - Final Complete Nasal Washing NEGATIVE FOR FLU A AND B ANTIGEN.... Laboratory Tests Test 02/28/16 02/28/16 13:02 18:03 Blood Gas Puncture Site RT RADIAL RT RADIAL Blood Gas Patient Temperature 98.6 98.6 Blood Gas HCO3 21 mmol/L 19 mmol/L (22-26) (22-26) Blood Gas Base Excess -5.5 mmol/L -6.3 mmol/L (-2-2) (-2-2) Blood Gas Oxygen Saturation 90 % (90-100) 96 % (90-100) Arterial Blood pH 7.21 7.31 (7.380-7.420) (7.380-7.420) Arterial Blood Partial 55 mmHg (38-42) 39 mmHg (38-42) Pressure CO2 Arterial Blood Partial 74 mmHG 495 mmHG Pressure O2 (61-120) (61-120) Arterial Blood Oxygen Content 12.3 Vol % 14.9 Vol % (12.0-20.0) (12.0-20.0) Arterial Blood 2.0 % (0-4) 1.9 % (0-4) Carboxyhemoglobin Arterial Blood Methemoglobin 1.8 % (0-2) 1.9 % (0-2) Blood Gas Hemoglobin 9.7 G/DL 10.0 G/DL (12.0-16.0) (12.0-16.0) Oxygen Delivery Device NASAL CANNULA VENTILATOR Blood Gas Liter Flow 4 L/M Blood Gas Ventilator Setting PC/AC Blood Gas Inspired Oxygen 100 % Imaging Last 24 hours Impressions Chest X-Ray 02/28/16 1008 Signed Impressions: Service Date/Time: February 10:20 - CONCLUSION: 1. Right lung patchiness consistent with possible pneumonia versus pulmonary vascular congestion. Clinical correlation is recommended. 2. Stable complete opacification of the left avinash-thorax and tiny right pleural effusion. Ash Jackson MD Objective Remarks GENERAL: Morbidly obese elderly morbidly obese critically ill female , intubated and sedated SKIN: Warm and dry. Multiple ecchymotic bruising neck, chest, bilateral extremities upper and lower HEAD: Atraumatic. Normocephalic. EYES: Pupils equal and round. No scleral icterus. No injection or drainage. ENT: No nasal bleeding or discharge. Mucous membranes pink and moist. NECK: Trachea midline. No JVD. CARDIOVASCULAR: Normal rate, irregular rhythm. RESPIRATORY: No accessory muscle use. Clear to auscultation. Breath sounds equal bilaterally. GASTROINTESTINAL: Abdomen soft, non-tender, nondistended. Gastric tube no erythema or drainage. MUSCULOSKELETAL: Extremities without clubbing, cyanosis, or edema. No obvious deformities. NEUROLOGICAL: GCS 11 T RASS,-2. No gross focal/sensory deficits. Follows commands in all 4 extremities. Urinary Catheter: Yes Assessment to: Continue Malik insert reason: Measure Accurate Output Date of Insertion: Feb 28, 2016 Vascular Central Line Catheter: Yes Assessment to: Continue Date of Insertion: Feb 28, 2016 Line: Central Venous Catheter Side: Left Location: Internal, Jugular (vasoactive medications, CVP monitoring) A/P Assessment and Plan Plan by systems: Neurologic: Seizure Herniated discs Neuropathy - GCS 11 T. Fentanyl infusion currently 100 mics per hour, RASS -2 -Sedation holiday per ICU protocol -Neurochecks per ICU protocol -Home med gabapentin resume -Hold home med zolpidem, will resume when clinically indicated Respiratory: Acute hypoxic respiratory failure History of non-small cell lung cancer S/P left lung lobectomy 2013 Home O2 dependency Presumed Hospital-acquired pneumonia (previous HCAP treatment 10/22) Left lung opacity-chronic History of tracheostomy-decannulated 12/22/15 -02/27 Intubated 7.5 oral ET tube 21 cm, Mallampati score 1 -02/28 Chest x-ray unchanged -Mechanical vent settings-14/400/0.45/5, O2 sat 100%, wean as tolerated -ABG 7.17/ 53/184/19/-8.1, resp rate increased to 20, F/U ABG -Maintain O2 sat greater than 92% -DuoNeb nebs every 6 hours scheduled and q 2 hrs PRN -Pulmonary on board - following recommendations Cardiovascular: HTN Atrial fibrillation-rate control Septic shock Acute systolic CHF Hyperlipidemia - Norepinephrine @ 7 mcgs -Maintain MAP> 65mmHg - Hold anti-hypertensive / diuretics medication -carvedilol, torsemide -BNP 1035 -> 841 today -Obtain ECHO, reported EF 35-40% per previous medical records -Monitor CVP- currently 14 -Continue pravastatin Renal: S/P kidney transplant Renal insufficiency Oliguria -Maintain Malik, urine output 7-10 cc an hour ,creatinine 3.08 -Nephrology consulted Madan Juarez MD is patient's mechanical engineering advisor, d/w Dr. Hoskote, will resume gentle hydration normal saline 100 cc an hour, with 250 cc boluses -F/U FK level , Pt is on Sirolimus every other day, continue medication administration -- Strict I/Os , monitor UOP hourly -We'll continue hydrocortisone 100 mg every 8hrs per nephrology recommendations , and discontinue methylprednisolone 80 mg every 6hr initially ordered upon admission in ED FEN/GI: Hypocalcemia Morbid obesity -Maintain NPO status -2 g calcium gluconate IV -Patent G tube bilious output observed, previously flushed daily (per ) . Obtain KUB and then will begin Nepro at 10 cc an hour -Normal saline 100 cc/hour -Monitor BMP -Zofran PRN for nausea -Protonix GI prophylaxis Heme/ID: Pneumonia-HCAP -Serial lactate levels -Vancomycin, Zosyn and azithromycin (Day 2) -ID on board d/w Dr. Blount- continue treatment as planned. Obtain previous medical records , consent obtained and faxed to [facility] -Follow-up blood and urine,sputum cultures 02/27 Blood cultures -NGTD 02/27 Sputum cultures- Gram positive cocci 02/28 cryptococcal- pending 02/28 pneumococcal- pending -Continue Nystatin topical powder for breast folds Endocrine: DM Hypothyroidism -Blood glucose monitoring every 4 hours -- SSI -T4 4.7 (norm 4.8), TSH 33.60( elevated) -Continue Synthroid 112 mcg/d MSK: - Specialty bed -Wound care consult, noted admission to ED with sacral decubitus wound Prophylaxis: GI Prophylaxis Protonix IV DVT Prophylaxis -- SCDs, heparin Lines: Peripheral IV's. L IJ Central line placed in ED Dr. Bobo 02/27, right radial A -line 02/27 Dispo: This patient remains critically ill with one or more organ systems which are or may become a threat to life. I have spent in excess of 38 minutes discontinuously in the care and management of this patient. This time is exclusive of procedures, and includes, but is not limited to, evaluation of the patient, review of the medical record, discussions with family, consultants, nursing staff, or respiratory therapy, and documentation in the medical record. Physician Shantelle Mckeon MD Feb 29, 2016 12:45
[2016-02-29] MEDS ORDERED: NOREPINEPHRINE-DEXTROSE DRIP 250 ML IV SCH (13:00)
[2016-02-29] MEDS ORDERED: TERBUTALINE INJ 1 MG/ML AMP SQ PRN (13:00)
[2016-02-29] MEDS: PANTOPRAZOLE SODIUM 40 MG VIAL IV PUSH SCH ×2 (13:00→15:57)
[2016-02-29 14:29] LABS: BLOOD GAS BASE EXCESS -8.1 mmol/L (-2-2); BLOOD GAS CARBOXYHEMOGLOBIN 1.2 % (0-4); BLOOD GAS HCO3 19 mmol/L (22-26); BLOOD GAS METHEMOGLOBIN 1.1 % (0-2); BLOOD GAS O2 HGB SATURATION 97 % (90-100); BLOOD GAS OXYGEN CONTENT 14.4 Vol % (12.0-20.0); BLOOD GAS PCO2 54 mmHg (38-42); BLOOD GAS PO2 184 mmHg (61-120); BLOOD GAS TOTAL HGB 10.3 G/DL (12.0-16.0); TEMP CORR TO 98.6
[2016-02-29 14:30] LABS: DRAW SITE ALINE; FIO2 45 %; OXYGEN DEVICE VENT; STAT NO
--- NOTE | 2016-02-29 15:20 | EC ---
Study Study Date:02/29/2016 STUDY CONCLUSIONS SUMMARY - Left ventricle: The cavity size was normal. Wall thickness was increased in a pattern of moderate LVH. There was concentric hypertrophy. Systolic function was mildly reduced. The estimated ejection fraction was in the range of 45% to 50%. - Mitral valve: Mildly calcified annulus. The findings are consistent with trivial stenosis. Mild regurgitation. - Right ventricle: The cavity size was mildly dilated. - Tricuspid valve: Mild-moderate regurgitation. - Pulmonary arteries: PA peak pressure: 53mm Hg (S). If LV function is below 40, please consider prescribing an ACEI or ARB or document rationale for non-use. PROCEDURE DATA STUDY STATUS: Elective. Procedure: Transthoracic echocardiography. Image quality was fair. The study was technically limited due to poor acoustic window availability. Scanning was performed from the parasternal, apical, and subcostal acoustic windows. Study completion: The patient tolerated the procedure well. Transthoracic echocardiography. M-mode, complete 2D, complete spectral Doppler, and color Doppler. Height: Height: 63in. Weight: Weight: 164.7lb. Body mass index: BMI: 29.2kg/m^2. Body surface area: BSA: 1.78m^2. Patient status: Inpatient. CARDIAC ANATOMY LEFT VENTRICLE: The cavity size was normal. Wall thickness was increased in a pattern of moderate LVH. There was concentric hypertrophy. Systolic function was mildly reduced. The estimated ejection fraction was in the range of 45% to 50%. Images were inadequate for LV wall motion assessment. AORTIC VALVE: Trileaflet; mildly calcified leaflets. Doppler: There was no stenosis. No significant regurgitation. MITRAL VALVE: Mildly calcified annulus. Doppler: The findings are consistent with trivial stenosis. Mean pressure gradient of 3 mmHg at a heart rate of 100 bpm. Mild regurgitation. Mean gradient: 3mm Hg (D). LEFT ATRIUM: The atrium was mildly dilated. RIGHT VENTRICLE: The cavity size was mildly dilated. PULMONIC VALVE: Not well visualized. Doppler: No significant regurgitation. TRICUSPID VALVE: The valve appears to be grossly normal. Doppler: There was no evidence for stenosis. Mild-moderate regurgitation. Patient weight: 164.7lb _Ejection fraction:_ 65-75% _Fractional shortening:_ 32% up to 5Kg 5-11.5Kg 11.6-22.9Kg 23-45Kg 45-57Kg Aortic Root 7-13 <17 13-22 17-27 17-27 LA diam 6-13 <23 24-38 33-47 37-40 RVID 10-17 7-15 7-15 7-18 8-17 LVIDd 12-22 <32 24-38 33-47 37-40 LVPW 2-4 3-6 5-7 6-8 7-8 IVS 2-4 3-6 5-7 6-8 7-8 BASIC MEASUREMENTS ADULT NORMAL Left ventricle LV internal dimension, ED, chordal level, 44.2 mm 43-52 PLAX LV internal dimension, ES, chordal level, 30 mm 23-38 PLAX Fractional shortening, chordal level, PLAX 32 % >29 LV posterior wall thickness, ED 12.1 mm IVS/LVPW ratio, ED 1.07 <1.3 Ventricular septum Septal thickness, ED 12.9 mm Aortic valve Leaflet separation *13 mm 15-26 Aorta Root diameter, ED 39 mm Left atrium Anterior-posterior dimension 35 mm Anterior-posterior dimension index 1.97 cm/m^2 <2.2 Right ventricle RV internal dimension, ED, PLAX 30.8 mm 19-38 BASIC MEASUREMENTS ADULT NORMAL Aortic valve Leaflet separation *13 mm 15-26 DOPPLER MEASUREMENTS ADULT NORMAL Main pulmonary artery Pressure, S *53 mm Hg =30 Aortic valve VTI, S 26.3 cm Mitral valve Peak E-wave velocity 66.1 cm/s Peak A-wave velocity 23.7 cm/s Mean velocity, D 75.1 cm/s Deceleration time 225 ms 150-230 Mean gradient, D 3 mm Hg Peak E/A ratio 2.8 Tricuspid valve Regurgitant peak velocity 316 cm/s Peak RV-RA gradient, S 40 mm Hg Maximal regurgitant velocity 316 cm/s Systemic veins Estimated CVP 10 mm Hg Right ventricle RV pressure, S *53 mm Hg <30 LEGEND: Mean values are shown as u=mean value. Asterisk (*) west values outside specified normal range. Prepared and signed by Matt Taylor [id number]
[2016-02-29] MEDS ORDERED: BUMETANIDE INJ 1 MG/4 ML VIAL IV PUSH ONE (16:00)
--- NOTE | 2016-02-29 16:09 | RADRPT ---
EXAM DATE/TIME: 02/29/2016 14:40 [facility] COMPARISON: ABDOMEN KUB ONLY, December 27, 2015, 15:57. INDICATIONS : G tube placement, abdomen views with and without contrast MEDICAL HISTORY : Kidney disease SURGICAL HISTORY : Kidney transplant ENCOUNTER: Subsequent ACUITY: 1 week PAIN SCORE: Non-responsive. LOCATION: Left abdomen FINDINGS: 2 supine views of the abdomen show a gastrostomy tube overlying the left upper quadrant. An amorphus collection of contrast is seen within the left upper quadrant on one of the images. I do not clearly see rugal folds and therefore cannot confirm that this is within the stomach. Consider repeat imaging with denser contrast and slightly more volume. No dilated loops of bowel observed. A scoliotic curva ture involving the spine. CONCLUSION: Gastrostomy tube. I cannot confirm this is within the stomach as detailed above. Consider repeat imag ing with above-mentioned factors. Michael Robbins Jr., MD on February 29, 2016 at 16:04 Board Certified Radiologist. This report was verified electronically.
--- NOTE | 2016-02-29 16:22 | OTSOAPIP ---
TIME SESSION COMPLETED: AM TREATMENT TIME: 0 MINS. CHART REVIEWED. RECEIVED ORDERS FOR OCCUPATIONAL THERAPY FROM DR. POP EVANS. PT IS NOW INTUBATED SINCE ORDER WRITTEN. DISCUSSED PT WITH NURSE AND WAS ASKED TO DEFER UNTIL TOMORROW PT SCHEDULED TO HAVE A BRONCH COMPLETED TODAY. WILL FOLLOW. Therapist: JB SAPP OT/L Signature on file
[2016-02-29] MEDS ORDERED: DIATRIZOATE MEGLUM/DIATRIZOATE SOD 120 ML BTL (for RAD DIAG) PEG ONE (17:06)
[2016-02-29] MEDS: LINEZOLID 600 MG PREMIX 300 ML IV SCH (18:25)
[2016-02-29] MEDS: fentaNYL DRIP 250 ML IV SCH (20:00)
[2016-02-29] MEDS: PRAVASTATIN SOD 40 MG TAB PO SCH (20:00)
[2016-02-29] MEDS: NYSTATIN 100,000 U/GM PWD 15 GM BTL TOP SCH (20:01)
--- NOTE | 2016-02-29 23:13 | HHI.IDPN ---
Subjective Subjective Remarks LE pt remains critical, but more stable today levaphed down to 5 RN reports chuncks of mucus plugs remians on vent FiO2 50% afebrile UOP is very poor Antibiotics vanco cefepime azithromycin Past Medical History renal transpant ESRD Allergies: Coded Allergies: Labetalol (Verified Allergy, Severe, NAUSEA AND VOMITING, 02/28/16) Lortab (Verified Adverse Reaction, Severe, VOMITING, 02/28/16) Objective . Vital Signs Date Time Temp Pulse Resp B/P Pulse Ox O2 Delivery O2 Flow Rate FiO2 02/29/16 22:00 98 02/29/16 22:00 100 50 02/29/16 20:00 98.1 102 23 124/56 100 02/29/16 20:00 102 02/29/16 19:55 100 50 02/29/16 18:40 88 02/29/16 17:57 100 50 02/29/16 16:00 78 02/29/16 16:00 98.0 96 14 110/48 100 02/29/16 14:00 74 02/29/16 12:00 70 02/29/16 12:00 97.9 97 14 135/61 99 02/29/16 10:08 75 02/29/16 08:00 98.0 77 14 135/57 100 112/60 02/29/16 08:00 77 02/29/16 07:33 99 45 02/29/16 06:00 72 02/29/16 04:10 99 45 02/29/16 04:00 85 02/29/16 04:00 97.6 70 14 112/57 96 140/90 02/29/16 02:00 79 02/29/16 01:27 75 02/29/16 01:13 99 45 02/29/16 00:00 97.6 79 14 127/59 96 87/57 02/29/16 00:00 86 02/28/16 23:20 99 45 02/28/16 02/28/16 02/29/16 14:59 22:59 06:59 Intake Total 1231 ml 500 ml Output Total 190 ml 120 ml Balance 1041 ml 380 ml Intake IV Total 1231 ml 500 ml Output Urine Total 190 ml 120 ml . Laboratory Tests Test 02/28/16 02/29/16 10:00 07:46 White Blood Count 5.9 TH/MM3 8.5 TH/MM3 Red Blood Count 3.90 MIL/MM3 3.63 MIL/MM3 Hemoglobin 11.0 GM/DL 10.3 GM/DL Hematocrit 35.5 % 32.9 % Mean Corpuscular Volume 91.0 FL 90.7 FL Mean Corpuscular Hemoglobin 28.1 PG 28.3 PG Mean Corpuscular Hemoglobin 30.8 % 31.2 % Concent Red Cell Distribution Width 17.0 % 16.9 % Platelet Count 196 TH/MM3 227 TH/MM3 Mean Platelet Volume 8.8 FL 7.9 FL Neutrophils (%) (Auto) 85.1 % 94.8 % Lymphocytes (%) (Auto) 9.5 % 3.4 % Monocytes (%) (Auto) 4.5 % 1.4 % Eosinophils (%) (Auto) 0.2 % 0.0 % Basophils (%) (Auto) 0.7 % 0.4 % Neutrophils # (Auto) 5.0 TH/MM3 8.0 TH/MM3 Lymphocytes # (Auto) 0.6 TH/MM3 0.3 TH/MM3 Monocytes # (Auto) 0.3 TH/MM3 0.1 TH/MM3 Eosinophils # (Auto) 0.0 TH/MM3 0.0 TH/MM3 Basophils # (Auto) 0.0 TH/MM3 0.0 TH/MM3 CBC Comment DIFF FINAL DIFF FINAL Differential Comment Laboratory Tests Test 02/28/16 02/28/16 02/28/16 02/28/16 10:00 10:55 13:52 17:02 Sodium Level 142 MEQ/L Potassium Level 4.9 MEQ/L Chloride Level 107 MEQ/L Carbon Dioxide Level 21.5 MEQ/L Anion Gap 14 MEQ/L Blood Urea Nitrogen 33 MG/DL Creatinine 2.79 MG/DL Estimat Glomerular Filtration 17 ML/MIN Rate Random Glucose 138 MG/DL Calcium Level 7.8 MG/DL Total Bilirubin 0.2 MG/DL Aspartate Amino Transf 33 U/L (AST/SGOT) Alanine Aminotransferase 12 U/L (ALT/SGPT) Alkaline Phosphatase 149 U/L Total Creatine Kinase 100 U/L Troponin I LESS THAN 0.02 LESS THAN 0.02 LESS THAN 0.02 NG/ML NG/ML NG/ML B-Type Natriuretic Peptide 1016 PG/ML Total Protein 6.8 GM/DL Albumin 2.0 GM/DL Lactic Acid Level 1.1 mmol/L 0.8 mmol/L Phosphorus Level 4.8 MG/DL Test 02/29/16 02/29/16 02/29/16 04:00 07:46 15:19 Sodium Level 144 MEQ/L 143 MEQ/L Potassium Level 4.6 MEQ/L 4.6 MEQ/L Chloride Level 109 MEQ/L 108 MEQ/L Carbon Dioxide Level 23.4 MEQ/L 24.4 MEQ/L Anion Gap 12 MEQ/L 11 MEQ/L Blood Urea Nitrogen 41 MG/DL 41 MG/DL Creatinine 2.96 MG/DL 3.08 MG/DL Estimat Glomerular Filtration 16 ML/MIN 15 ML/MIN Rate Random Glucose 168 MG/DL 184 MG/DL Lactic Acid Level 0.5 mmol/L 1.3 mmol/L Calcium Level 7.0 MG/DL 7.2 MG/DL Protein Corrected Calcium 7.6 MG/DL 7.7 MG/DL Phosphorus Level 5.4 MG/DL Magnesium Level 1.2 MG/DL B-Type Natriuretic Peptide 814 PG/ML Total Protein 5.9 GM/DL 6.1 GM/DL Thyroxine (T4) 4.7 MCG/DL Thyroid Stimulating Hormone 33.600 uIU/ML 3rd Gen Microbiology Date/Time Procedure Status Source Growth 02/28/16 10:00 Influenza Types A,B Antigen (GWEN) - Final Complete Nasal Washing NEGATIVE FOR FLU A AND B ANTIGEN.... 02/28/16 10:50 Aerobic Blood Culture - Preliminary Resulted Blood Peripheral NO GROWTH IN 1 DAY 02/28/16 10:50 Anaerobic Blood Culture - Preliminary Resulted Blood Peripheral NO GROWTH IN 1 DAY 02/28/16 10:50 Aerobic Blood Culture - Preliminary Resulted Blood Peripheral NO GROWTH IN 1 DAY 02/28/16 10:50 Anaerobic Blood Culture - Preliminary Resulted Blood Peripheral NO GROWTH IN 1 DAY 02/28/16 20:00 Gram Stain - Final Resulted Bronchial Washings Left Upper Lobe 02/28/16 20:00 Bronchial Culture - Preliminary Resulted Bronchial Washings Left Upper Lobe RESULTS PENDING 02/28/16 20:00 Gram Stain - Final Resulted Bronchial Washings Right Lower Lobe 02/28/16 20:00 Bronchial Culture - Preliminary Resulted Bronchial Washings Right Lower Lobe RESULTS PENDING Imaging Last Impressions Chest X-Ray 02/29/16 0000 Signed Impressions: Service Date/Time: Monday, February 29, 2016 04:12 - CONCLUSION: Persistent near complete right lung opacity Edmond Higgins MD Abdomen X-Ray 02/29/16 0000 Signed Impressions: Service Date/Time: Monday, February 29, 2016 14:40 - CONCLUSION: Gastrostomy tube. I cannot confirm this is within the stomach as detailed above. Consider repeat imaging with above-mentioned factors. Michael Robbins Jr., MD Physical Exam CONSTITUTIONAL/GENERAL: This is an adequately nourished patient, in no apparent distress. [facility] TUBES/LINES/DRAINS: L IJ in place SKIN: No jaundice, rashes, or lesions. Skin temperature appropriate. Not diaphoretic. HEAD: Atraumatic. Normocephalic. EYES: Pupils equal and round and reactive. Extraocular motions intact. No scleral icterus. No injection or drainage. Fundi not examined. ENT: . Nose without bleeding or purulent drainage. Oral mucosae moist without visible erythema, exudates, masses, or lesions. Dentition poor NECK: Trachea midline. Supple, nontender. CARDIOVASCULAR: Regular rate and rhythm without murmurs, gallops, or rubs. No JVD. Peripheral pulses symmetric. RESPIRATORY/CHEST: Symmetric, unlabored respirations. Prominent rhonchi to auscultation. Breath sounds abscent on the L. No wheezes, rales, or rhonchi. GASTROINTESTINAL: Abdomen soft, non-tender, nondistended. No hepato-splenomegaly , or palpable masses. No guarding. Bowel sounds present. GENITOURINARY: Without palpable bladder distension. Malik catheter in place with small amount clear yellow urine MUSCULOSKELETAL: Extremities without clubbing, cyanosis, or edema. No joint tenderness or effusion noted. No calf tenderness. No mottling or clubbing. LYMPHATICS: No palpable cervical or supraclavicular adenopathy. NEUROLOGICAL: sedated , unresponsive PSYCHIATRIC: unable to assess 2/2 neuro status Assessment & Plan Remarks Assessment and Plan severe hypoxia and acute vent dependent resp failure PNA - G stain c/w Staph aureus Preveious h/o lung ca REcent h/o fungal infx Rx'd in another facility Immunosuppresed (renal transpalnt) ? 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
[2016-03-01] VITALS (19 sets, daily range): BP systolic 112–140; BP diastolic 47–64; PULSE 80–97; RESP 8–23; TEMP 97.6–98.6; O2SAT 96–100
[2016-03-01] MEDS: PIPERACIL-TAZO 2.25 GM PREMIX 50 ML IV SCH ×5 (00:05→23:09)
[2016-03-01] MEDS: HEPARIN SODIUM - SQ 10,000 UNITS/ML VIAL SQ SCH ×3 (00:06→23:09)
[2016-03-01] MEDS: NOREPINEPHRINE INJ 8 MG in SODIUM CHLOR 0.9% 250 ML INJ 242 ML IV SCH (00:45)
--- NOTE | 2016-03-01 03:18 | RADRPT ---
EXAM DATE/TIME: 03/01/2016 02:09 [facility] COMPARISON: CHEST SINGLE AP, February 29, 2016, 4:12. INDICATIONS : Shortness of breath, possible pulmonary disease. MEDICAL HISTORY : Carcinoma, lung. SURGICAL HISTORY : Lobectomy ENCOUNTER: Subsequent ACUITY: 4 - 6 days PAIN SCORE: Non-responsive. LOCATION: Bilateral chest FINDINGS: Endotracheal tube present in good stable position. Left neck central line stable with tip in SVC. Min imal right lung perihilar rectal opacity and probable small effusion. Aeration slightly improved from prior. Complete opacification of the contralateral left thorax. CONCLUSION: Slightly improved right lung aeration. Complete opacification on the left Edmond Higgins MD on March 01, 2016 at 3:14 Board Certified Radiologist. This report was verified electronically.
[2016-03-01 03:30] LABS: BASOPHIL % 0.3 % (0.0-2.0); HEMATOCRIT 29.6 % (35.0-46.0); HEMO FLAGS DIFF FINAL; LYMPH % 3.3 % (9.0-44.0); LYMPHOCYTE # 0.3 TH/MM3 (1.0-4.8); MEAN CORPUSCULAR HGB CONC 31.4 % (32.0-36.0); MONO % 2.7 % (0.0-8.0); NEUT % 93.7 % (16.0-70.0); PLATELET COUNT 204 TH/MM3 (150-450); RED BLOOD COUNT 3.33 MIL/MM3 (4.00-5.30); RED CELL DISTRIBUTION WIDTH 16.6 % (11.6-17.2); WHITE BLOOD COUNT 8.5 TH/MM3 (4.0-11.0)
[2016-03-01] MEDS: RESP: ALBUTEROL 2.5 MG/IPRATROPIUM 0.5 MG NEB (SCH) INH ×4 (03:30→21:20)
[2016-03-01] MEDS: CHLORHEXIDINE GLUCONATE 2 % 1 PACK (2 CLOTHS)(taper/protocol) TOP SCH (04:00)
[2016-03-01 04:35] LABS: BICARBONATE 21.1 MEQ/L (21.0-32.0); MAGNESIUM 1.1 MG/DL (1.5-2.5); POTASSIUM 4.5 MEQ/L (3.5-5.1)
[2016-03-01 04:59] LABS: CALCIUM-PROTEIN CORRECTED 7.7 MG/DL (8.5-10.1)
[2016-03-01] MEDS: LINEZOLID 600 MG PREMIX 300 ML IV SCH ×2 (05:12→17:00)
[2016-03-01] MEDS: GABAPENTIN 100 MG CAP PO SCH ×3 (05:12→19:59)
[2016-03-01] MEDS: SIROLIMUS 1 MG TAB PO SCH (05:13)
[2016-03-01] MEDS: LEVOTHYROXINE SODIUM 112 MCG TAB PO SCH (05:13)
[2016-03-01] MEDS: HYDROCORTISONE SOD SUCCINATE 100 MG VIAL IV PUSH SCH ×3 (05:13→19:59)
[2016-03-01] MEDS ORDERED: MAGNESIUM SULFATE 2 GM/NS 100 ML IV ONE ×2 (05:30)
[2016-03-01 05:48] LABS: BLOOD GAS BASE EXCESS -9.3 mmol/L (-2-2); BLOOD GAS CARBOXYHEMOGLOBIN 1.1 % (0-4); BLOOD GAS HCO3 17 mmol/L (22-26); BLOOD GAS METHEMOGLOBIN 1.2 % (0-2); BLOOD GAS O2 HGB SATURATION 97 % (90-100); BLOOD GAS OXYGEN CONTENT 12.7 Vol % (12.0-20.0); BLOOD GAS PCO2 41 mmHg (38-42); BLOOD GAS PO2 158 mmHg (61-120); BLOOD GAS TOTAL HGB 9.1 G/DL (12.0-16.0); CRITICAL VALUE YES; OXYGEN DEVICE VENTILATOR; TEMP CORR TO 98.6
[2016-03-01 05:49] LABS: DRAW SITE ART LINE; FIO2 40 %; STAT NO; VENT SETTINGS AC/22/400/5PEEP
[2016-03-01] MEDS: INSULIN ASPART SUPPLEMENTAL SCALE SQ SCH ×5 (06:08→23:13)
[2016-03-01] MEDS: SODIUM CHLORIDE 0.9% FLUSH 5 ML FLUSH IV FLUSH SCH ×2 (08:00→20:01)
[2016-03-01] MEDS: fentaNYL DRIP 250 ML IV SCH ×2 (08:00→23:17)
--- NOTE | 2016-03-01 08:46 | HHI.NPPN ---
Subjective Renal Failure: Acute Interval History Patient is on the ventilator. Responds to commands. Review of Systems General General Remarks unable to obtain Objective Data Data 02/29/16 03/01/16 19:00 07:00 Intake Total 1580 ml 1375 ml Output Total 188 ml 175 ml Balance 1392 ml 1200 ml Intake IV Total 1580 ml 1375 ml Output Urine Total 188 ml 175 ml Vital Signs Date Time Temp Pulse Resp B/P Pulse Ox O2 Delivery O2 Flow Rate FiO2 03/01/16 07:56 99 40 03/01/16 06:00 86 03/01/16 06:00 136/61 03/01/16 04:00 100 40 03/01/16 04:00 85 03/01/16 04:00 98.6 85 22 140/64 100 03/01/16 02:00 90 03/01/16 01:00 100 40 03/01/16 00:00 129/59 03/01/16 00:00 91 03/01/16 00:00 98.3 91 22 129/59 100 02/29/16 22:00 98 02/29/16 22:00 100 50 02/29/16 20:00 98.1 102 23 124/56 100 02/29/16 20:00 102 02/29/16 19:55 100 50 02/29/16 18:40 88 02/29/16 17:57 100 50 02/29/16 16:00 78 02/29/16 16:00 98.0 96 14 110/48 100 02/29/16 14:00 74 02/29/16 12:00 70 02/29/16 12:00 97.9 97 14 135/61 99 02/29/16 10:08 75 -: 03/01/16 0315 03/01/16 0315 Tubes & Lines Comment PEG Drip Comment fentanyl, Levophed Physical Exam General Appearance: Well Developed, Well Nourished, Comfortable, Sleeping Throat Throat Exam: Oral Mucosa Moca & Moist Pulmonary Resp Exam: Clear Bilaterally, Breath Sounds Equal, Decreased Bases, Diminished Breath Sounds Cardiology CV Exam: Regular, Normal Sinus Rhythm, Good Perfusion Gastrointestinal/Abdomen GI Exam: Bowel Sounds Present Musculoskeletal MS Exam: Joints Intact, Good Strength Integumentary Skin Exam: Clear, Warm, Dry, Intact Extremeties Extremities Exam: No Edema, Pedal Pulses Palpable Neurologic Neuro Exam: Unresponsive, Sedated Assessment/Plan Assessment Summary: Transplant Kidney Status Electrolyte Assessment: Hypocalcemia Problem List: (1) Renal transplant, status post Plan: s/p living related transplant. continue antirejection regimen of Sirolimus , 1 mg alternating with 2 mg. Has a gastrostomy tube. Sirolimus level is pending. Continue Hydrocortisone 50 mg IV Q 6 hours. Transition to prednisone through PEG in 2-3 days. . Oliguric. Renal function is worse, see below. (2) Acute kidney failure Plan: Her creatinine was around 1.2 in October of this year, suggesting reasonably well preserved GFR after transplant in 2006. ANNABELLA likely due to ATN. Renal function is worse. Oliguric, positive fluid balance. She likely will need dialysis soon. I will reduce IVF, start diuretics. Obtain US of the renal transplant. (3) Pneumonia Plan: She is immunosuppressed. ID following On Antibiotics: Zosyn, Zyvox, Vancomycin and Zithromax. According to previous notes, she was diagnosed with fungal pneumonia at [facility]. (4) Sepsis Plan: with septic shock. Cultures in progress ID and leg breaker following Continue supportive care. (5) Heart failure Plan: EF of 35 % previously. No evidence of fluid overload Watch for signs of fluid overload. The patient also has history of left upper lobectomy for lung cancer. Plan Ruddy Henry MD Mar 01, 2016 08:46
[2016-03-01] MEDS ORDERED: VANCOMYCIN 1,500 MG/NS 500 ML IV ONE ×2 (10:00)
[2016-03-01] MEDS: AZITHROMYCIN INJ 500 MG in SODIUM CHLOR 0.9% 250 ML INJ 250 ML IV SCH (10:28)
[2016-03-01] MEDS: SIROLIMUS 2 MG TAB PO SCH (10:28)
[2016-03-01] MEDS: NYSTATIN 100,000 U/GM PWD 15 GM BTL TOP SCH ×2 (10:28→20:01)
[2016-03-01] MEDS: SODIUM CHLOR 0.9% 1000 ML INJ 1,000 ML IV SCH (10:30)
--- NOTE | 2016-03-01 10:53 | HHI.FPPN ---
Subjective Remarks ALERT ON VENT D/W RN Objective Vitals Vital Signs Date Time Temp Pulse Resp B/P Pulse Ox O2 Delivery O2 Flow Rate FiO2 03/01/16 10:00 87 03/01/16 08:00 97.6 87 23 134/61 99 03/01/16 08:00 87 03/01/16 07:56 99 40 03/01/16 06:00 86 03/01/16 06:00 136/61 03/01/16 04:00 100 40 03/01/16 04:00 85 03/01/16 04:00 98.6 85 22 140/64 100 03/01/16 02:00 90 03/01/16 01:00 100 40 03/01/16 00:00 129/59 03/01/16 00:00 91 03/01/16 00:00 98.3 91 22 129/59 100 02/29/16 22:00 98 02/29/16 22:00 100 50 02/29/16 20:00 98.1 102 23 124/56 100 02/29/16 20:00 102 02/29/16 19:55 100 50 02/29/16 18:40 88 02/29/16 17:57 100 50 02/29/16 16:00 78 02/29/16 16:00 98.0 96 14 110/48 100 02/29/16 14:00 74 02/29/16 12:00 70 02/29/16 12:00 97.9 97 14 135/61 99 I/O 02/29/16 02/29/16 02/29/16 03/01/16 03/01/16 03/01/16 07:00 15:00 23:00 07:00 15:00 23:00 Intake Total 500 ml 1000 ml 1020 ml 935 ml 678 ml Output Total 120 ml 106 ml 152 ml 105 ml 40 ml Balance 380 ml 894 ml 868 ml 830 ml 638 ml Intake IV Total 500 ml 1000 ml 1020 ml 935 ml 678 ml Output Urine Total 120 ml 106 ml 152 ml 105 ml 40 ml Result Diagram: 03/01/1631403/01/16314 Objective Remarks GENERAL: on vent, chronically ill appearing SKIN: Warm and dry. HEAD: Atraumatic. Normocephalic. EYES: Pupils equal and round. No scleral icterus. No injection or drainage. ENT: No nasal bleeding or discharge. Mucous membranes pink and moist. NECK: Trachea midline. No JVD. CARDIOVASCULAR: Regular rate and rhythm. RESPIRATORY: No accessory muscle use. Slight Bilateral ronchi, good air movement. Breath sounds equal bilaterally. GASTROINTESTINAL: Abdomen soft, non-tender, nondistended. Hepatic and splenic margins not palpable. MUSCULOSKELETAL: Extremities without clubbing, cyanosis, or edema. No obvious deformities. NEUROLOGICAL: Awake and alert. No obvious cranial nerve deficits. Motor grossly within normal limits. Responds to voice, goes back to sleep PSYCHIATRIC: Appropriate mood and affect; Medications and IVs Current Medications Medications (Trade) Dose Ordered Sig/Reymundo Route Start Time Stop Time Status Last Admin (NS 1000 ml Inj) 1,000 ml @ 40 mls/hr Q24H IV 02/28/16 13:00 03/01/16 10:30 (Tylenol) 650 mg Q4H PRN PO 02/28/16 11:30 (Zofran Inj) 4 mg Q6H PRN IVP 02/28/16 11:30 (Dulcolax Supp) 10 mg DAILY PRN ID 02/28/16 11:30 (Milk Of Magnesia Liq) 30 ml Q12H PRN PO 02/28/16 11:30 (Senokot) 17.2 mg Q12H PRN PO 02/28/16 11:30 (Heparin Inj) 5,000 units Q12H SQ 02/28/16 12:00 03/01/16 10:28 (Narcan Inj) 0.4 mg UNSCH PRN IV 02/28/16 11:30 (Protonix Inj) 40 mg Q24H IV PUSH 02/28/16 13:00 02/29/16 15:57 Miscellaneous Information 1 Q361D XX 02/28/16 12:00 (NS Flush) 2 ml UNSCH PRN IV FLUSH 02/28/16 16:15 03/01/16 08:00 IV Flush 2 ml 2 ml BID IV FLUSH 02/28/16 21:00 03/01/16 08:00 Pharmacy Profile Note 0 ml @ 0 mls/hr UNSCH OTHER 02/28/16 16:15 Piperacillin Sod/ Tazobactam Sod 50 ml @ 200 mls/hr Q6H IV 02/28/16 18:00 03/01/16 10:28 Azithromycin 500 mg/Sodium Chloride 250 ml @ 250 mls/hr Q24H IV 02/29/16 11:00 03/01/16 10:28 (fentaNYL DRIP) 250 ml @ 0 mls/hr TITRATE IV 02/28/16 17:00 03/01/16 08:00 (D50w (Vial) Inj) 25 ml UNSCH PRN IV PUSH 02/28/16 18:30 (Glucagon Inj) 1 mg UNSCH PRN OTHER 02/28/16 18:30 (Neurontin) 100 mg Q8H PO 02/28/16 20:00 03/01/16 10:28 (Mycostatin Powder) 1 applic BID TOP 02/28/16 21:00 03/01/16 10:28 (Pravachol) 40 mg HS PO 02/28/16 21:00 02/29/16 20:00 (Rapamune) 1 mg DAILY@06 PO 02/29/16 06:00 03/01/16 05:13 (SoluCORTEF INJ) 100 mg Q8HR IV PUSH 02/28/16 22:00 03/01/16 05:13 Miscellaneous Information Patient in critical care unit? Ass... Q361D XX 02/28/16 19:30 (Chlorhexidine 2% Cloth) 3 pack DAILY@04 TOP 02/29/16 04:00 03/04/16 04:01 03/01/16 04:00 Chlorhexidine Gluconate 3 pack 3 pack UNSCH PRN TOP 02/28/16 19:30 03/04/16 19:22 (Levophed Inj/NS 250 ml Inj) 250 ml @ 0 mls/hr TITRATE IV 02/29/16 14:00 03/01/16 00:45 (Brethine Inj) 1 mg UNSCH PRN SQ 02/29/16 13:00 Levothyroxine Sodium 224 mcg 224 mcg DAILY@0600 PO 03/01/16 06:00 03/01/16 05:13 Linezolid 300 ml @ 300 mls/hr Q12H IV 02/29/16 18:00 03/01/16 05:12 (Vancomycin Inj/ NS 500 ml Inj) 515 ml @ 257.5 mls/ hr ONCE ONCE IV 03/01/16 10:00 03/01/16 11:59 03/01/16 10:28 (Bumex Inj) 2 mg TID IV PUSH 03/01/16 13:00 Date of Insertion: Feb 28, 2016 Date of Insertion: Feb 28, 2016 Line: Central Venous Catheter Side: Left Location: Internal, Jugular (vasoactive medications, CVP monitoring) A/P Assessment and Plan SEPTIC SHOCK RESPIRATORY FAILURE, S/P BRONCH FEB 27, HCAP, FUNGAL PNA COPD SCHF AC ON CRF RENAL TRANSPLANT AF HYPOTHYROID PLAN: IV ABX IVF BLOOD CULTURES DUONEBS HEPARIN 5000 BID FOR PROPHYLAXIS IV PROTONIX CCM CONSULT NEPHRO CONSULT PULMONARY CONSULT PT OT [facility] PER PULM/CCM ICU CARE FOLLOWUP LABS Herbert Kaba MD Mar 01, 2016 10:53
[2016-03-01 11:21] LABS: CRYPTOCOCCUS ANTIGEN Negative (Negative)
--- NOTE | 2016-03-01 12:55 | RADRPT ---
EXAM DATE/TIME: 03/01/2016 10:45 [facility] COMPARISON: No previous studies available for comparison. INDICATIONS : Increased BUN and Creatinine. MEDICAL HISTORY : Hypercholesterolemia. Gastroesophageal reflux disease. Hypothyroidism. Neuropathy. Scoliosis. Seizure s. Congestive heart failure. Afib. Hypertension. Dyspnea. Gastroparesis. . Renal failure. Di alysis prior to renal transplant. Herniated disk. Diabetes. Kidney stones. SURGICAL HISTORY : Cholecystectomy. Left ankle surgery. Bilateral cataract removal. Renal transplant. Permacath plac ement then removal. Left upper lung lobectomy. ENCOUNTER: Initial ACUITY: 1 day PAIN SCORE: 0/10 LOCATION: Right lower quadrant MEASUREMENTS: TRANSPLANT KIDNEY: 12.4 x 5.8 x 6.7 cm LOCATION: Right lower quadrant. ARCUATE ARTERIES RESISTIVE INDEX: Upper - 0.6 Mid - 0.7 Lower - 0.7 MAIN RENAL ARTERY VELOCITY: (cm/sec): 80 MAIN RENAL VEIN: Patent EXTERNAL ILIAC ARTERY VELOCITY (cm/sec): 112 * NORMAL DOPPLER FINDINGS Arcuate arteries - RI = 0.6 - 0.8 Renal artery = under 200 cm/sec Renal vein = May be monophasic with continuous flow or demonstrate some pulsatility with cardiac cycl e FINDINGS: TRANSPLANT KIDNEY: Normal cortical thickness and echotexture. No hydronephrosis, stone, or mass. No peritransplant flu id collection. URINARY BLADDER: Within normal limits given the degree of distension. CONCLUSION: No evidence of hydronephrosis or focal abnormality. The resistive indices are within normal Sumit Laws MD on March 01, 2016 at 12:52 Board Certified Radiologist. This report was verified electronically.
[2016-03-01] MEDS: PANTOPRAZOLE SODIUM 40 MG VIAL IV PUSH SCH (12:59)
[2016-03-01] MEDS ORDERED: BUMETANIDE INJ 1 MG/4 ML VIAL IV PUSH SCH (13:00)
--- NOTE | 2016-03-01 13:51 | HHI.CCPN ---
Subjective Remarks/Hospital Course 70-year-old female with history of lung cancer status post left lobectomy, and kidney transplant 2006 presented to the ED with worsening pulmonary symptoms. Her medical history is significant for DM, HTN. She presented to the ED today because worsening cough, shortness of breath, dyspnea on exertion, and fevers. The patient is dependent on home O2 at 4 L nasal cannula, and scheduled DuoNeb treatment. The patient was hospitalized for several months 11/2015-12/22 . During this hospitalization she reports having a fungal pulmonary infection and a seizure resulting in "coma for a few weeks". She was transferred to a rehabilitation facility [facility] for approximately 2 months ago. The patient was then transferred to [facility] approximately 3 weeks ago at which time she fractured her left ankle, and was transferred to [facility]. She was recently discharged from [facility] on 02/15/2016. The patient states that she began having worsening symptoms over the last 3-4 days, that resembled her fungal pneumonia. Critical care medicine was consulted for management. 02/28 Upon arrival to ICU last evening, bronchoscopy was performed, and specimens were sent for culture. The patient was maintained on IV fluids 100 cc an hour, and discontinued at 2 AM secondary to oliguria. CVP ranged 14 throughout the night, with original BNP 1035. Postintubation the patient remains GCS 11 T, following commands. The patient continues to be oliguric with hourly urinary output 7-10 cc an hour. Subjective: 03/01 On levophed 8mcg/min. UOP around 10 mL/hr. Received Bumex 2 mg IV and UOP still ~20 Ml/hr last hour. CVP 18-20. In Afib rate controlled. Awakens on CPAP 5/5. Objective Vital Signs Date Time Temp Pulse Resp B/P Pulse Ox O2 Delivery O2 Flow Rate FiO2 03/01/16 12:37 96 40 03/01/16 12:00 80 03/01/16 12:00 98.1 22 112/47 02/28/16 18:04 Ventilator 02/28/16 16:35 4 Intake and Output 02/29/16 02/29/16 03/01/16 08:00 16:00 00:00 Intake Total 750 ml 890 ml 988 ml Output Total 134 ml 127 ml 132 ml Balance 616 ml 763 ml 856 ml Result Diagram: 03/01/16 0315 03/01/16 0315 Other Results Microbiology Date/Time Procedure Status Source Growth 02/28/16 10:00 Influenza Types A,B Antigen (GWEN) - Final Complete Nasal Washing NEGATIVE FOR FLU A AND B ANTIGEN.... 02/28/16 20:00 Gram Stain - Final Complete Bronchial Washings Left Upper Lobe 02/28/16 20:00 Bronchial Culture - Final Complete Bronchial Washings Left Upper Lobe LIGHT GROWTH NORMAL RESPIRATORY DAY Laboratory Tests Test 02/29/16 03/01/16 14:20 05:30 Blood Gas Puncture Site JOSE ART LINE Blood Gas Patient Temperature 98.6 98.6 Blood Gas HCO3 19 mmol/L 17 mmol/L (22-26) (22-26) Blood Gas Base Excess -8.1 mmol/L -9.3 mmol/L (-2-2) (-2-2) Blood Gas Oxygen Saturation 97 % (90-100) 97 % (90-100) Arterial Blood pH 7.17 7.24 (7.380-7.420) (7.380-7.420) Arterial Blood Partial 54 mmHg (38-42) 41 mmHg (38-42) Pressure CO2 Arterial Blood Partial 184 mmHg 158 mmHg Pressure O2 (61-120) (61-120) Arterial Blood Oxygen Content 14.4 Vol % 12.7 Vol % (12.0-20.0) (12.0-20.0) Arterial Blood 1.2 % (0-4) 1.1 % (0-4) Carboxyhemoglobin Arterial Blood Methemoglobin 1.1 % (0-2) 1.2 % (0-2) Blood Gas Hemoglobin 10.3 G/DL 9.1 G/DL (12.0-16.0) (12.0-16.0) Oxygen Delivery Device VENT VENTILATOR Blood Gas Ventilator Setting AC//400/5/45% AC//400/5PEEP Blood Gas Inspired Oxygen 45 % 40 % Imaging Last 24 hours Impressions Chest X-Ray 02/28/16 1008 Signed Impressions: Service Date/Time: February 10:20 - CONCLUSION: 1. Right lung patchiness consistent with possible pneumonia versus pulmonary vascular congestion. Clinical correlation is recommended. 2. Stable complete opacification of the left avinash-thorax and tiny right pleural effusion. Ash Jackson MD Objective Remarks Drips: Fentanyl 100 mg/h Norepinephrine 8 mcg/m GENERAL: Morbidly obese elderly morbidly obese critically ill female , intubated SKIN: Warm and dry. Multiple ecchymotic bruising neck, chest, bilateral extremities upper and lower HEAD: Atraumatic. Normocephalic. EYES: Pupils equal and round. No scleral icterus. No injection or drainage. ENT: No nasal bleeding or discharge. Mucous membranes pink and moist. NECK: Trachea midline. No JVD. CARDIOVASCULAR: Normal rate, irregularly irregular rhythm. No murmur appreciated currently. RESPIRATORY: On CPAP. Diminished left base. No w/rales/rhonchi. GASTROINTESTINAL: Abdomen soft, non-tender, nondistended. Gastric tube no erythema or drainage. : Very light yellow urine 10 mL on urometer. MUSCULOSKELETAL: Extremities without clubbing, cyanosis, NEUROLOGICAL: Eyes open, follows commands in all extremities. Date of Insertion: Feb 28, 2016 Date of Insertion: Feb 28, 2016 Line: Central Venous Catheter Side: Left Location: Internal, Jugular (vasoactive medications, CVP monitoring) A/P Assessment and Plan Plan by systems: Neurologic: Seizure disorder Herniated discs Neuropathy - Fentanyl infusion currently 100 mics per hour, RASS -2 -Daily sedation vacation. -Neurochecks per ICU protocol -Gabapentin 100 q8. -Hold home med zolpidem, will resume when clinically indicated Respiratory: Acute hypoxic respiratory failure History of non-small cell lung cancer S/P left lung lobectomy 2013 Home O2 dependency Presumed Hospital-acquired pneumonia (previous HCAP treatment 10/22) Left lung opacity-chronic History of tracheostomy-decannulated 12/22/15 -02/27 Intubated 7.5 oral ET tube 21 cm, Mallampati score 1 -02/28 Chest x-ray unchanged -Mechanical vent settings-14/400/0.40/5, O2 sat 100% -Maintain O2 sat greater than 92% -DuoNeb nebs every 6 hours scheduled and q 2 hrs PRN -Pulmonary on board - following Cardiovascular: HTN Atrial fibrillation-rate control Acute on chronic systolic CHF Pulmonary Hypertension Hyperlipidemia - Norepinephrine @ 8 mcgs/min. Serial lactic acids are normal -Maintain MAP> 65mmHg - Hold anti-hypertensive / diuretics medication -carvedilol, torsemide -2D ECHO 02/28mildly reduced systolic function with EF 45-50%. Mild RV dilatation. Mild to moderate tricuspid regurg. Pulmonary artery peak systolic pressure 53 mmHg. -Monitor CVP- currently 22. I suspect RV overload based on bedside echo, IVC distended. KVO IVF per d/w Dr. Henry. Bumex drip as per below -Continue pravastatin FEN/Renal: S/P kidney transplant ANNABELLA, suspect ischemic ATN Oliguria Hypocalcemia Hypomagnesemia -Malik in place, oliguric, minimal response to Bumex 2 mg IV. Starting Bumex drip 1 mg/hr. Dr. Henry states will continue to observe but likely to require HD tomorrow. -Director Statistical Programming is Madan Juarez MD is patient's parachute rigger, Dr. Henry covering. -Sirolimus level pending 03/01. On Sirolimus 2 mg every other day -- Strict I/Os , monitor UOP hourly -Continue hydrocortisone 100 mg every 8hrs -magnesium sulfate 2 g were placed. BMP at 2100 GI: Morbid obesity -NPO- -KUB 02/28 - not definitively in stomach. Will repeat with contrast. Has been NPO. If G tube position can be confirmed, start nepro and advance to goal rate 41 L per hour -Zofran PRN for nausea -Protonix GI prophylaxis Heme/ID: Pneumonia-HCAP -ON Zosyn 02/27 #3 and azithromycin 02/27 #3. Linezolid 02/28 #2. Can change meds to po tomorrow if tolerating tube feeds. D/c vancomycin per d/w ID. -ID on board d/w Dr. Blount- continue treatment as planned. Obtain previous medical records , consent obtained and faxed to [facility] -Follow-up blood and urine,sputum cultures 02/27 - Influenza screen negative. 02/27 Blood cultures -NGTD 02/27 Bronchial washings- Gram positive cocci, fungal stain with no fungal elements 02/28 cryptococcal- serum antigen negative 03/01 pneumococcal- urine antigen not sent, will send. -Continue Nystatin topical powder for breast folds Endocrine: DM Hypothyroidism -Glucose is not at target, Increase to medium dose sliding scale q4 hours. -T4 4.7 (norm 4.8), TSH 33.60( elevated) -Continue Synthroid 224 mcg/d MSK: - Specialty bed -Wound care consult, noted admission to ED with sacral decubitus wound Prophylaxis: GI Prophylaxis Protonix IV DVT Prophylaxis -- SCDs, heparin 5000 units subcutaneous daily Lines: L IJ Central line placed in ED Dr. Bobo 02/27 #3, right radial A-line 02/27 #3 Dispo: Discussed with Dr. Strauss. Discussed with patient's at bedside. Discussed with Dr. Henry. This patient remains critically ill with one or more organ systems which are or may become a threat to life. I have spent in excess of 42 minutes discontinuously in the care and management of this patient. This time is exclusive of procedures, and includes, but is not limited to, evaluation of the patient, review of the medical record, discussions with family, consultants, nursing staff, or respiratory therapy, and documentation in the medical record. Emperatriz Cho MD Mar 01, 2016 13:51
--- NOTE | 2016-03-01 15:20 | HHI.IDPN ---
Subjective Subjective Remarks ID COVERAGE Notes reviewed D/W Dr Cho D/W RN 70 year old S/P Renal transplant 2006 On the vent, S/P bronch 02/27, C/S normal resp arelis On CPAP currently On low dose levophed Creatinine elevated, high CVP UO low To be started on bumex drip Antibiotics Zyvox cefepime azithromycin Lines LIJ TLC Past Medical History renal transpant ESRD Allergies: Coded Allergies: Labetalol (Verified Allergy, Severe, NAUSEA AND VOMITING, 02/28/16) Lortab (Verified Adverse Reaction, Severe, VOMITING, 02/28/16) Objective . Vital Signs Date Time Temp Pulse Resp B/P Pulse Ox O2 Delivery O2 Flow Rate FiO2 03/01/16 14:00 93 03/01/16 12:37 96 40 03/01/16 12:36 40 03/01/16 12:00 80 03/01/16 12:00 98.1 80 22 112/47 99 03/01/16 10:00 87 03/01/16 08:00 97.6 87 23 134/61 99 03/01/16 08:00 87 03/01/16 07:56 99 40 03/01/16 06:00 86 03/01/16 06:00 136/61 03/01/16 04:00 100 40 03/01/16 04:00 85 03/01/16 04:00 98.6 85 22 140/64 100 03/01/16 02:00 90 03/01/16 01:00 100 40 03/01/16 00:00 129/59 03/01/16 00:00 91 03/01/16 00:00 98.3 91 22 129/59 100 02/29/16 22:00 98 02/29/16 22:00 100 50 02/29/16 20:00 98.1 102 23 124/56 100 02/29/16 20:00 102 02/29/16 19:55 100 50 02/29/16 18:40 88 02/29/16 17:57 100 50 02/29/16 16:00 78 02/29/16 16:00 98.0 96 14 110/48 100 02/29/16 02/29/16 03/01/16 15:00 23:00 07:00 Intake Total 1000 ml 1020 ml 935 ml Output Total 106 ml 152 ml 105 ml Balance 894 ml 868 ml 830 ml Intake IV Total 1000 ml 1020 ml 935 ml Output Urine Total 106 ml 152 ml 105 ml . Laboratory Tests Test 02/29/16 03/01/16 07:46 03:15 White Blood Count 8.5 TH/MM3 8.5 TH/MM3 Red Blood Count 3.63 MIL/MM3 3.33 MIL/MM3 Hemoglobin 10.3 GM/DL 9.3 GM/DL Hematocrit 32.9 % 29.6 % Mean Corpuscular Volume 90.7 FL 89.0 FL Mean Corpuscular Hemoglobin 28.3 PG 28.0 PG Mean Corpuscular Hemoglobin 31.2 % 31.4 % Concent Red Cell Distribution Width 16.9 % 16.6 % Platelet Count 227 TH/MM3 204 TH/MM3 Mean Platelet Volume 7.9 FL 7.9 FL Neutrophils (%) (Auto) 94.8 % 93.7 % Lymphocytes (%) (Auto) 3.4 % 3.3 % Monocytes (%) (Auto) 1.4 % 2.7 % Eosinophils (%) (Auto) 0.0 % 0.0 % Basophils (%) (Auto) 0.4 % 0.3 % Neutrophils # (Auto) 8.0 TH/MM3 8.0 TH/MM3 Lymphocytes # (Auto) 0.3 TH/MM3 0.3 TH/MM3 Monocytes # (Auto) 0.1 TH/MM3 0.2 TH/MM3 Eosinophils # (Auto) 0.0 TH/MM3 0.0 TH/MM3 Basophils # (Auto) 0.0 TH/MM3 0.0 TH/MM3 CBC Comment DIFF FINAL DIFF FINAL Differential Comment Laboratory Tests Test 02/28/16 02/29/16 02/29/16 02/29/16 17:02 04:00 07:46 15:19 Lactic Acid Level 0.8 mmol/L 0.5 mmol/L 1.3 mmol/L Phosphorus Level 4.8 MG/DL 5.4 MG/DL Troponin I LESS THAN 0.02 NG/ML Sodium Level 144 MEQ/L 143 MEQ/L Potassium Level 4.6 MEQ/L 4.6 MEQ/L Chloride Level 109 MEQ/L 108 MEQ/L Carbon Dioxide Level 23.4 MEQ/L 24.4 MEQ/L Anion Gap 12 MEQ/L 11 MEQ/L Blood Urea Nitrogen 41 MG/DL 41 MG/DL Creatinine 2.96 MG/DL 3.08 MG/DL Estimat Glomerular Filtration 16 ML/MIN 15 ML/MIN Rate Random Glucose 168 MG/DL 184 MG/DL Calcium Level 7.0 MG/DL 7.2 MG/DL Protein Corrected Calcium 7.6 MG/DL 7.7 MG/DL Magnesium Level 1.2 MG/DL B-Type Natriuretic Peptide 814 PG/ML Total Protein 5.9 GM/DL 6.1 GM/DL Thyroxine (T4) 4.7 MCG/DL Thyroid Stimulating Hormone 33.600 uIU/ML 3rd Gen Test 03/01/16 03:15 Sodium Level 142 MEQ/L Potassium Level 4.5 MEQ/L Chloride Level 109 MEQ/L Carbon Dioxide Level 21.1 MEQ/L Anion Gap 12 MEQ/L Blood Urea Nitrogen 43 MG/DL Creatinine 3.16 MG/DL Estimat Glomerular Filtration 15 ML/MIN Rate Random Glucose 143 MG/DL Lactic Acid Level 0.6 mmol/L Calcium Level 6.9 MG/DL Protein Corrected Calcium 7.7 MG/DL Phosphorus Level 4.7 MG/DL Magnesium Level 1.1 MG/DL Total Protein 5.6 GM/DL Microbiology Date/Time Procedure Status Source Growth 02/28/16 10:00 Influenza Types A,B Antigen (GWEN) - Final Complete Nasal Washing NEGATIVE FOR FLU A AND B ANTIGEN.... 02/28/16 10:50 Aerobic Blood Culture - Preliminary Resulted Blood Peripheral NO GROWTH IN 2 DAYS 02/28/16 10:50 Anaerobic Blood Culture - Preliminary Resulted Blood Peripheral NO GROWTH IN 2 DAYS 02/28/16 10:50 Aerobic Blood Culture - Preliminary Resulted Blood Peripheral NO GROWTH IN 2 DAYS 02/28/16 10:50 Anaerobic Blood Culture - Preliminary Resulted Blood Peripheral NO GROWTH IN 2 DAYS 02/28/16 14:27 Acid Fast Stain Received Bronchial Washings Right Lower Lobe Pending 02/28/16 14:27 Mycobacterial Culture Received Bronchial Washings Right Lower Lobe Pending 02/28/16 14:27 Fungal Smear Received Bronchial Washings Right Lower Lobe Pending 02/28/16 14:27 Fungal Culture Received Bronchial Washings Right Lower Lobe Pending 02/28/16 20:00 Gram Stain - Final Complete Bronchial Washings Left Upper Lobe 02/28/16 20:00 Bronchial Culture - Final Complete Bronchial Washings Left Upper Lobe LIGHT GROWTH NORMAL RESPIRATORY ARELIS 02/28/16 20:00 Gram Stain - Final Resulted Bronchial Washings Right Lower Lobe 02/28/16 20:00 Bronchial Culture - Preliminary Resulted Bronchial Washings Right Lower Lobe LIGHT GROWTH NORMAL RESPIRATORY ARELIS 02/28/16 20:00 Acid Fast Stain Received Bronchial Washings Right Lower Lobe Pending 02/28/16 20:00 Mycobacterial Culture Received Bronchial Washings Right Lower Lobe Pending 02/28/16 20:00 Fungal Smear - Final Resulted Bronchial Washings Right Lower Lobe NO FUNGAL ELEMENTS SEEN. 02/28/16 20:00 Fungal Culture Resulted Bronchial Washings Right Lower Lobe Pending Imaging Chest X-Ray 03/01/16 0600 Signed Impressions: Service Date/Time: Tuesday, March 01, 2016 02:09 - CONCLUSION: Slightly improved right lung aeration. Complete opacification on the left Edmond Higgins MD Renal Ultrasound 03/01/16 0000 Signed Impressions: Service Date/Time: Tuesday, March 01, 2016 10:45 - CONCLUSION: No evidence of hydronephrosis or focal abnormality. The resistive indices are within normal Sumit Laws MD Chest X-Ray 02/29/16 0000 Signed Impressions: Service Date/Time: Monday, February 29, 2016 04:12 - CONCLUSION: Persistent near complete right lung opacity Edmond Higgins MD Abdomen X-Ray 02/29/16 0000 Signed Impressions: Service Date/Time: Monday, February 29, 2016 14:40 - CONCLUSION: Gastrostomy tube. I cannot confirm this is within the stomach as detailed above. Consider repeat imaging with above-mentioned factors. Michael Robbins Jr., MD Last Impressions Chest X-Ray 02/29/16 0000 Signed Impressions: Service Date/Time: Monday, February 29, 2016 04:12 - CONCLUSION: Persistent near complete right lung opacity Edmond Higgins MD Abdomen X-Ray 02/29/16 0000 Signed Impressions: Service Date/Time: Monday, February 29, 2016 14:40 - CONCLUSION: Gastrostomy tube. I cannot confirm this is within the stomach as detailed above. Consider repeat imaging with above-mentioned factors. Michael Robbins Jr., MD Physical Exam CONSTITUTIONAL/GENERAL: Sedated, on the vent, NAD SKIN: No jaundice, rashes, or lesions. Skin temperature appropriate. Not diaphoretic. HEAD: Atraumatic. Normocephalic. EYES: Pupils equal and round and reactive. No scleral icterus. No injection or drainage. ENT: . Nose without bleeding or purulent drainage. ET in mouth. Oral mucosae moist NECK: Trachea midline. Supple, nontender. Line ok CARDIOVASCULAR: Regular rate and rhythm without murmurs, gallops, or rubs. No JVD. Peripheral pulses symmetric. RESPIRATORY/CHEST: Bilateral rhonchi, equal BS GASTROINTESTINAL: Abdomen soft, non-tender, nondistended. No guarding. Bowel sounds present. GENITOURINARY: Malik catheter in place with small amount clear yellow urine MUSCULOSKELETAL: Extremities without clubbing, cyanosis, or edema. No mottling or clubbing. 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
[2016-03-01] MEDS ORDERED: DEXTROSE 50% IN WATER 50 ML VIAL(D50) IV PUSH PRN (15:45)
[2016-03-01] MEDS ORDERED: GLUCAGON 1 MG/ML VIAL OTHER PRN (15:45)
--- NOTE | 2016-03-01 16:00 | RADRPT ---
EXAM DATE/TIME: 03/01/2016 15:32 [place] COMPARISON: No previous studies available for comparison. INDICATIONS : PEG tube placement. MEDICAL HISTORY : Hypercholesterolemia. Gastroesophageal reflux disease. Hypothyroidism. Hypertension. Renal failure. D iabetes. SURGICAL HISTORY : Cholecystectomy. Renal transplant. ENCOUNTER: Initial ACUITY: 1 day PAIN SCORE: Non-responsive. LOCATION: Bilateral abdomen. FINDINGS: Contrast was placed through the patient's G-tube it opacifies the stomach. There is no extravasation. CONCLUSION: G-tube inside the stomach. Angelita Birmingham MD on March 01, 2016 at 15:58 Board Certified Radiologist. This report was verified electronically.
[2016-03-01] MEDS ORDERED: BUMETANIDE INJ 100 ML IV SCH (17:00)
[2016-03-01] MEDS: PRAVASTATIN SOD 40 MG TAB PO SCH (20:00)
[2016-03-01 21:18] LABS: POTASSIUM 4.1 MEQ/L (3.5-5.1)
[2016-03-01 21:48] LABS: CALCIUM-PROTEIN CORRECTED 7.4 MG/DL (8.5-10.1)
[2016-03-02] VITALS (19 sets, daily range): BP systolic 111–132; BP diastolic 47–55; PULSE 91–103; RESP 14–17; TEMP 97.6–98.2; O2SAT 91–100
[2016-03-02] MEDS: GABAPENTIN 100 MG CAP PO SCH ×3 (03:17→20:31)
[2016-03-02] MEDS: INSULIN ASPART SUPPLEMENTAL SCALE SQ SCH ×6 (03:26→23:51)
[2016-03-02] MEDS: CHLORHEXIDINE GLUCONATE 2 % 1 PACK (2 CLOTHS)(taper/protocol) TOP SCH (03:27)
[2016-03-02] MEDS: RESP: ALBUTEROL 2.5 MG/IPRATROPIUM 0.5 MG NEB (SCH) INH ×4 (03:38→21:10)
[2016-03-02 04:18] LABS: AUTOMATED NEUTROPHIL # 6.9 TH/MM3 (1.8-7.7); BASOPHIL % 0.1 % (0.0-2.0); HEMATOCRIT 29.3 % (35.0-46.0); HEMO FLAGS DIFF FINAL; LYMPH % 3.6 % (9.0-44.0); LYMPHOCYTE # 0.3 TH/MM3 (1.0-4.8); MEAN CELL VOLUME 89.3 FL (80.0-100.0); MEAN CORPUSCULAR HEMOGLOBIN 28.1 PG (27.0-34.0); MEAN CORPUSCULAR HGB CONC 31.5 % (32.0-36.0); MONO % 2.2 % (0.0-8.0); NEUT % 94.1 % (16.0-70.0); PLATELET COUNT 177 TH/MM3 (150-450); RED BLOOD COUNT 3.29 MIL/MM3 (4.00-5.30); RED CELL DISTRIBUTION WIDTH 16.9 % (11.6-17.2); WHITE BLOOD COUNT 7.3 TH/MM3 (4.0-11.0)
[2016-03-02] MEDS: NOREPINEPHRINE INJ 8 MG in SODIUM CHLOR 0.9% 250 ML INJ 242 ML IV SCH (04:34)
[2016-03-02 04:45] LABS: BICARBONATE 20.5 MEQ/L (21.0-32.0); CALCIUM-PROTEIN CORRECTED 7.8 MG/DL (8.5-10.1); MAGNESIUM 1.5 MG/DL (1.5-2.5); TOTAL BILIRUBIN ADULT 0.2 MG/DL (0.2-1.0)
[2016-03-02] MEDS: PIPERACIL-TAZO 2.25 GM PREMIX 50 ML IV SCH ×4 (04:59→23:51)
[2016-03-02] MEDS: LINEZOLID 600 MG PREMIX 300 ML IV SCH (05:00)
[2016-03-02] MEDS: HYDROCORTISONE SOD SUCCINATE 100 MG VIAL IV PUSH SCH ×3 (05:00→20:31)
[2016-03-02] MEDS: SIROLIMUS 1 MG TAB PO SCH (05:00)
[2016-03-02] MEDS: LEVOTHYROXINE SODIUM 112 MCG TAB PO SCH (05:00)
[2016-03-02] MEDS: SODIUM CHLORIDE 0.9% FLUSH 5 ML FLUSH IV FLUSH SCH ×2 (08:04→20:32)
[2016-03-02] MEDS: NYSTATIN 100,000 U/GM PWD 15 GM BTL TOP SCH ×2 (08:04→20:33)
--- NOTE | 2016-03-02 09:17 | HHI.NPPN ---
Subjective Renal Failure: Acute Interval History Patient was seen and examined. Discussed with Dr. Cho yesterday. Bumex drip initiated. Her urine output has improved. . Review of Systems General General Remarks unable to obtain Objective Data Data 03/01/16 03/02/16 18:59 06:59 Intake Total 2094 ml 896 ml Output Total 183 ml 885 ml Balance 1911 ml 11 ml Intake IV Total 2094 ml 426 ml Tube Feeding 440 ml Other 30 ml Output Urine Total 183 ml 885 ml Vital Signs Date Time Temp Pulse Resp B/P Pulse Ox O2 Delivery O2 Flow Rate FiO2 03/02/16 08:12 98 40 03/02/16 08:00 98.2 99 17 119/53 98 03/02/16 08:00 40 03/02/16 08:00 99 03/02/16 06:00 111/50 03/02/16 06:00 103 03/02/16 04:09 98 40 03/02/16 04:00 100 03/02/16 04:00 98.1 100 14 120/53 98 03/02/16 02:00 102 03/02/16 01:30 98 40 03/02/16 00:00 99 03/02/16 00:00 98.0 99 14 114/49 99 03/01/16 22:55 99 40 03/01/16 22:00 93 03/01/16 20:00 98.2 96 18 117/54 98 03/01/16 20:00 96 03/01/16 19:18 99 40 03/01/16 18:00 123/57 03/01/16 18:00 94 03/01/16 17:08 99 40 03/01/16 16:00 98.4 97 8 116/51 98 03/01/16 16:00 97 03/01/16 15:12 98 40 03/01/16 14:00 93 03/01/16 12:37 96 40 03/01/16 12:36 40 03/01/16 12:00 80 03/01/16 12:00 98.1 80 22 112/47 99 03/01/16 10:00 87 -: 03/02/16 0320 03/02/16 0320 Microbiology 03/01/16 Streptococcus pneumoniae Antigen (M, Received Pending 03/02/16 Legionella Antigen, Received Pending Tubes & Lines Comment PEG Drip Comment fentanyl, Levophed Physical Exam General Appearance: Well Developed, Well Nourished, Comfortable, Sleeping Throat Throat Exam: Oral [place]uc[place] & Moist Pulmonary Resp Exam: Clear Bilaterally, Breath Sounds Equal, Decreased Bases, Diminished Breath Sounds Cardiology CV Exam: Regular, Normal Sinus Rhythm, Good Perfusion Gastrointestinal/Abdomen GI Exam: Bowel Sounds Present Musculoskeletal MS Exam: Joints Intact, Good Strength Integumentary Skin Exam: Clear, Warm, Dry, Intact Extremeties Extremities Exam: No Edema, Pedal Pulses Palpable Neurologic Neuro Exam: Unresponsive, Sedated Assessment/Plan Assessment Summary: Transplant Kidney Status Electrolyte Assessment: Hypocalcemia Problem List: (1) Renal transplant, status post Plan: s/p living related transplant. continue antirejection regimen of Sirolimus , 1 mg alternating with 2 mg. Has a gastrostomy tube. Sirolimus level is pending. Hydrocortisone has been increased to 100 mg IV Q8 hours. Transition to prednisone through PEG in 2-3 days. . Urine output has increased. Renal US(transplant) unremarkable. (2) Acute kidney failure Plan: Her creatinine was around 1.2 in October of this year, suggesting reasonably well preserved GFR after transplant in 2006. ANNABELLA likely due to ATN. GFR about the same. Since her urine output has improved, no need for dialysis today. (3) Pneumonia Plan: She is immunosuppressed. ID following On Antibiotics: Zosyn, Zyvox, Vancomycin and Zithromax. According to previous notes, she was diagnosed with fungal pneumonia at [facility]. (4) Sepsis Plan: with septic shock. Cultures in progress ID and thresher broomcorn following Continue supportive care. (5) Heart failure Plan: EF of 35 % previously. No evidence of fluid overload Watch for signs of fluid overload. The patient also has history of left upper lobectomy for lung cancer. Plan Dr. Juarez will assume care tomorrow. Ruddy Henry MD Mar 02, 2016 09:17
[2016-03-02] MEDS: AZITHROMYCIN INJ 500 MG in SODIUM CHLOR 0.9% 250 ML INJ 250 ML IV SCH (10:00)
[2016-03-02] MEDS: BUMETANIDE INJ 100 ML IV SCH ×2 (10:11→22:46)
[2016-03-02] MEDS: HEPARIN SODIUM - SQ 10,000 UNITS/ML VIAL SQ SCH ×2 (11:09→23:52)
--- NOTE | 2016-03-02 11:10 | HHI.IDPN ---
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 Vital Signs Date Time Temp Pulse Resp B/P Pulse Ox O2 Delivery O2 Flow Rate FiO2 03/02/16 10:00 99 03/02/16 08:12 98 40 03/02/16 08:00 98.2 99 17 119/53 98 03/02/16 08:00 40 03/02/16 08:00 99 03/02/16 06:00 111/50 03/02/16 06:00 103 03/02/16 04:09 98 40 03/02/16 04:00 100 03/02/16 04:00 98.1 100 14 120/53 98 03/02/16 02:00 102 03/02/16 01:30 98 40 03/02/16 00:00 99 03/02/16 00:00 98.0 99 14 114/49 99 03/01/16 22:55 99 40 03/01/16 22:00 93 03/01/16 20:00 98.2 96 18 117/54 98 03/01/16 20:00 96 03/01/16 19:18 99 40 03/01/16 18:00 123/57 03/01/16 18:00 94 03/01/16 17:08 99 40 03/01/16 16:00 98.4 97 8 116/51 98 03/01/16 16:00 97 03/01/16 15:12 98 40 03/01/16 14:00 93 03/01/16 12:37 96 40 03/01/16 12:36 40 03/01/16 12:00 80 03/01/16 12:00 98.1 80 22 112/47 99 03/01/16 03/01/16 03/02/16 14:59 22:59 06:59 Intake Total 1591 ml 775 ml 624 ml Output Total 90 ml 393 ml 585 ml Balance 1501 ml 382 ml 39 ml Intake IV Total 1591 ml 625 ml 304 ml Tube Feeding 120 ml 320 ml Other 30 ml Output Urine Total 90 ml 393 ml 585 ml . Laboratory Tests Test 03/01/16 03/02/16 03:15 03:20 White Blood Count 8.5 TH/MM3 7.3 TH/MM3 Red Blood Count 3.33 MIL/MM3 3.29 MIL/MM3 Hemoglobin 9.3 GM/DL 9.2 GM/DL Hematocrit 29.6 % 29.3 % Mean Corpuscular Volume 89.0 FL 89.3 FL Mean Corpuscular Hemoglobin 28.0 PG 28.1 PG Mean Corpuscular Hemoglobin 31.4 % 31.5 % Concent Red Cell Distribution Width 16.6 % 16.9 % Platelet Count 204 TH/MM3 177 TH/MM3 Mean Platelet Volume 7.9 FL 7.9 FL Neutrophils (%) (Auto) 93.7 % 94.1 % Lymphocytes (%) (Auto) 3.3 % 3.6 % Monocytes (%) (Auto) 2.7 % 2.2 % Eosinophils (%) (Auto) 0.0 % 0.0 % Basophils (%) (Auto) 0.3 % 0.1 % Neutrophils # (Auto) 8.0 TH/MM3 6.9 TH/MM3 Lymphocytes # (Auto) 0.3 TH/MM3 0.3 TH/MM3 Monocytes # (Auto) 0.2 TH/MM3 0.2 TH/MM3 Eosinophils # (Auto) 0.0 TH/MM3 0.0 TH/MM3 Basophils # (Auto) 0.0 TH/MM3 0.0 TH/MM3 CBC Comment DIFF FINAL DIFF FINAL Differential Comment Laboratory Tests Test 02/29/16 03/01/16 03/01/16 03/02/16 15:19 03:15 20:20 03:20 Lactic Acid Level 1.3 mmol/L 0.6 mmol/L Sodium Level 142 MEQ/L 139 MEQ/L 140 MEQ/L Potassium Level 4.5 MEQ/L 4.1 MEQ/L 4.0 MEQ/L Chloride Level 109 MEQ/L 106 MEQ/L 107 MEQ/L Carbon Dioxide Level 21.1 MEQ/L 22.0 MEQ/L 20.5 MEQ/L Anion Gap 12 MEQ/L 11 MEQ/L 13 MEQ/L Blood Urea Nitrogen 43 MG/DL 44 MG/DL 46 MG/DL Creatinine 3.16 MG/DL 3.18 MG/DL 3.28 MG/DL Estimat Glomerular Filtration 15 ML/MIN 15 ML/MIN 14 ML/MIN Rate Random Glucose 143 MG/DL 146 MG/DL 205 MG/DL Calcium Level 6.9 MG/DL 6.7 MG/DL 7.0 MG/DL Protein Corrected Calcium 7.7 MG/DL 7.4 MG/DL 7.8 MG/DL Phosphorus Level 4.7 MG/DL Magnesium Level 1.1 MG/DL 1.5 MG/DL Total Protein 5.6 GM/DL 5.7 GM/DL 5.5 GM/DL Total Bilirubin 0.2 MG/DL Aspartate Amino Transf 41 U/L (AST/SGOT) Alanine Aminotransferase 13 U/L (ALT/SGPT) Alkaline Phosphatase 120 U/L Albumin 1.6 GM/DL Microbiology Date/Time Procedure Status Source Growth 02/28/16 14:27 Acid Fast Stain Received Bronchial Washings Right Lower Lobe Pending 02/28/16 14:27 Mycobacterial Culture Received Bronchial Washings Right Lower Lobe Pending 02/28/16 14:27 Fungal Smear Received Bronchial Washings Right Lower Lobe Pending 02/28/16 14:27 Fungal Culture Received Bronchial Washings Right Lower Lobe Pending 02/28/16 20:00 Gram Stain - Final Complete Bronchial Washings Left Upper Lobe 02/28/16 20:00 Bronchial Culture - Final Complete Bronchial Washings Left Upper Lobe LIGHT GROWTH NORMAL RESPIRATORY ARELIS 02/28/16 20:00 Gram Stain - Final Complete Bronchial Washings Right Lower Lobe 02/28/16 20:00 Bronchial Culture - Final Complete Bronchial Washings Right Lower Lobe LIGHT GROWTH NORMAL RESPIRATORY ARELIS 02/28/16 20:00 Acid Fast Stain Received Bronchial Washings Right Lower Lobe Pending 02/28/16 20:00 Mycobacterial Culture Received Bronchial Washings Right Lower Lobe Pending 02/28/16 20:00 Fungal Smear - Final Resulted Bronchial Washings Right Lower Lobe NO FUNGAL ELEMENTS SEEN. 02/28/16 20:00 Fungal Culture Resulted Bronchial Washings Right Lower Lobe Pending 03/01/16 16:45 Streptococcus pneumoniae Antigen (M - Final Complete Urine Catheterized Urine PRESUMPTIVE NEGATIVE FOR STREPTOCOCCU... 03/02/16 06:30 Legionella Antigen - Final Complete Urine Catheterized Urine PRESUMPTIVE NEGATIVE FOR LEGIONELLA P... Imaging Chest X-Ray 03/01/16 0600 Signed Impressions: Service Date/Time: Tuesday, March 01, 2016 02:09 - CONCLUSION: Slightly improved right lung aeration. Complete opacification on the left Edmond Higgins MD Renal Ultrasound 03/01/16 0000 Signed Impressions: Service Date/Time: Tuesday, March 01, 2016 10:45 - CONCLUSION: No evidence of hydronephrosis or focal abnormality. The resistive indices are within normal Sumit Laws MD Chest X-Ray 02/29/16 0000 Signed Impressions: Service Date/Time: Monday, February 29, 2016 04:12 - CONCLUSION: Persistent near complete right lung opacity Edmond Higgins MD Abdomen X-Ray 02/29/16 0000 Signed Impressions: Service Date/Time: Monday, February 29, 2016 14:40 - CONCLUSION: Gastrostomy tube. I cannot confirm this is within the stomach as detailed above. Consider repeat imaging with above-mentioned factors. Michael Robbins Jr., MD Last Impressions Chest X-Ray 02/29/16 0000 Signed Impressions: Service Date/Time: Monday, February 29, 2016 04:12 - CONCLUSION: Persistent near complete right lung opacity Edmond Higgins MD Abdomen X-Ray 02/29/16 0000 Signed Impressions: Service Date/Time: Monday, February 29, 2016 14:40 - CONCLUSION: Gastrostomy tube. I cannot confirm this is within the stomach as detailed above. Consider repeat imaging with above-mentioned factors. Michael Robbins Jr., MD Physical Exam CONSTITUTIONAL/GENERAL: Sedated, on the vent, NAD SKIN: Warm and dry. Has some scattered ecchymoses. No jaundice, genralized rashes. Has one purplish lesion on her L second toe HEAD: Atraumatic. Normocephalic. EYES: Pupils equal and round and reactive. No scleral icterus. No injection or drainage. ENT: . Nose without bleeding or purulent drainage. ET in mouth. Oral mucosa moist NECK: Trachea midline. Supple, nontender. Line ok CARDIOVASCULAR: Regular rate and rhythm without murmurs, gallops, or rubs. No JVD. Peripheral pulses symmetric. RESPIRATORY/CHEST: Coarse BS mejia, with few rhonchi mejia GASTROINTESTINAL: Abdomen soft, non-tender, nondistended. No guarding. Bowel sounds present. GENITOURINARY: Malik catheter in place with small amount clear yellow urine MUSCULOSKELETAL: Extremities without clubbing, cyanosis, or edema in BLE. No mottling or clubbing. 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
[2016-03-02] MEDS: PANTOPRAZOLE SODIUM 40 MG VIAL IV PUSH SCH (12:01)
[2016-03-02] MEDS: fentaNYL DRIP 250 ML IV SCH (13:01)
--- NOTE | 2016-03-02 13:41 | HHI.CCPN ---
Subjective Remarks/Hospital Course 70-year-old female with history of lung cancer status post left lobectomy, and kidney transplant 2006 presented to the ED with worsening pulmonary symptoms. Her medical history is significant for DM, HTN. She presented to the ED today because worsening cough, shortness of breath, dyspnea on exertion, and fevers. The patient is dependent on home O2 at 4 L nasal cannula, and scheduled DuoNeb treatment. The patient was hospitalized for several months 11/2015-12/22 . During this hospitalization she reports having a fungal pulmonary infection and a seizure resulting in "coma for a few weeks". She was transferred to a rehabilitation facility [facility] for approximately 2 months ago. The patient was then transferred to [facility] approximately 3 weeks ago at which time she fractured her left ankle, and was transferred to [facility]. She was recently discharged from [facility] on 02/15/2016. The patient states that she began having worsening symptoms over the last 3-4 days, that resembled her fungal pneumonia. Critical care medicine was consulted for management. 02/28 Upon arrival to ICU last evening, bronchoscopy was performed, and specimens were sent for culture. The patient was maintained on IV fluids 100 cc an hour, and discontinued at 2 AM secondary to oliguria. CVP ranged 14 throughout the night, with original BNP 1035. Postintubation the patient remains GCS 11 T, following commands. The patient continues to be oliguric with hourly urinary output 7-10 cc an hour. 03/01 On levophed 8mcg/min. UOP around 10 mL/hr. Received Bumex 2 mg IV and UOP still ~20 Ml/hr last hour. CVP 18-20. In Afib rate controlled. Awakens on CPAP /. Subjective: 03/02 UOP 1068 overnight on bumex drip. Creatinine up to 3.28. Placing on CPAP 5 /5. Afebrile. Levophed weaned to 2 mcg/min with MAP 77. Objective Vital Signs Date Time Temp Pulse Resp B/P Pulse Ox O2 Delivery O2 Flow Rate FiO2 03/02/16 12:00 98 03/02/16 12:00 97.6 16 125/55 91 03/02/16 12:00 40 02/28/16 18:04 Ventilator 02/28/16 16:35 4 Intake and Output 03/01/16 03/01/16 03/02/16 08:00 16:00 00:00 Intake Total 927 ml 1608 ml 837 ml Output Total 105 ml 90 ml 518 ml Balance 822 ml 1518 ml 319 ml Result Diagram: 03/02/16 0320 03/02/16 0320 Other Results Microbiology Date/Time Procedure Status Source Growth 02/28/16 20:00 Gram Stain - Final Complete Bronchial Washings Left Upper Lobe 02/28/16 20:00 Bronchial Culture - Final Complete Bronchial Washings Left Upper Lobe LIGHT GROWTH NORMAL RESPIRATORY DAY 02/28/16 20:00 Gram Stain - Final Complete Bronchial Washings Right Lower Lobe 02/28/16 20:00 Bronchial Culture - Final Complete Bronchial Washings Right Lower Lobe LIGHT GROWTH NORMAL RESPIRATORY DAY 03/01/16 16:45 Streptococcus pneumoniae Antigen (M - Final Complete Urine Catheterized Urine PRESUMPTIVE NEGATIVE FOR STREPTOCOCCU... 03/02/16 06:30 Legionella Antigen - Final Complete Urine Catheterized Urine PRESUMPTIVE NEGATIVE FOR LEGIONELLA P... Imaging Last 24 hours Impressions Chest X-Ray 02/28/16 1008 Signed Impressions: Service Date/Time: February 10:20 - CONCLUSION: 1. Right lung patchiness consistent with possible pneumonia versus pulmonary vascular congestion. Clinical correlation is recommended. 2. Stable complete opacification of the left avinash-thorax and tiny right pleural effusion. Ash Jackson MD Objective Remarks Drips: Fentanyl 100 mg/h Norepinephrine 2 mcg/m Bumex 2 mg/hr Nepro 40 ml/hr GENERAL: Morbidly obese elderly morbidly obese critically ill female , intubated SKIN: Warm and dry. Multiple ecchymotic bruising neck, chest, bilateral extremities upper and lower HEAD: Atraumatic. Normocephalic. EYES: Pupils equal and round. No scleral icterus. No injection or drainage. ENT: No nasal bleeding or discharge. Mucous membranes pink and moist. NECK: Trachea midline. CARDIOVASCULAR: Normal rate, irregularly irregular rhythm. No murmur appreciated currently. RESPIRATORY: On CPAP. Diminished left base. No w/rales/rhonchi. GASTROINTESTINAL: Abdomen soft, non-tender, nondistended. Gastric tube no erythema or drainage. : Very pale yellow urine in bag, ~40-50 ml/hr earlier, now 100ml/hr following upward titration of bumex drip. MUSCULOSKELETAL: Extremities without clubbing, cyanosis, 1+ edema. NEUROLOGICAL: Eyes open, follows commands in all extremities. Date of Insertion: Feb 28, 2016 Date of Insertion: Feb 28, 2016 Line: Central Venous Catheter Side: Left Location: Internal, Jugular (vasoactive medications, CVP monitoring) A/P Assessment and Plan Plan by systems: Neurologic: Seizure disorder Herniated discs Neuropathy - Fentanyl infusion-->sedation vacation, RASS -2 -Neurochecks per ICU protocol -Gabapentin 100 q8. -Hold home med zolpidem, will resume when clinically indicated Respiratory: Acute hypoxic respiratory failure History of non-small cell lung cancer S/P left lung lobectomy 2013 Home O2 dependency Presumed Hospital-acquired pneumonia (previous HCAP treatment 10/22) Left lung opacity-chronic History of tracheostomy-decannulated 12/22/15 -02/27 Intubated 7.5 oral ET tube 21 cm, Mallampati score 1 -02/28 Chest x-ray unchanged -Mechanical vent settings-14/400/0.40/5, O2 sat 100%. -Daily CPAP trial 07/11. Is now responding to diuresis CVP is 20 from 24. Will continue diuresis in effort to address RV overload and hopeful extubate in am. -Maintain O2 sat greater than 92% -DuoNeb nebs every 6 hours scheduled and q 2 hrs PRN -Pulmonary on board - following Cardiovascular: HTN Atrial fibrillation-rate control Acute on chronic systolic CHF RV overload, pulmonary HTN Hyperlipidemia - Norepinephrine @ 2 mcgs/min. -Maintain MAP> 70mmHg - Hold anti-hypertensive / diuretics medication -carvedilol, torsemide -2D ECHO 02/28mildly reduced systolic function with EF 45-50%. Mild RV dilatation. Mild to moderate tricuspid regurg. Pulmonary artery peak systolic pressure 53 mmHg. -Increased Bumex to 2 mg/hr, now UOP 100 ml/hr, CVP from 24 to 20. -Continue pravastatin FEN/Renal: S/P kidney transplant ANNABELLA, suspect ischemic ATN Oliguria Hypocalcemia Hypomagnesemia -Malik in place, Improved UOP on Bumex drip 1 mg/hr, titrated up and now on 2 mg/hr and UOP ~ 100ml/hr. -Paper Finisher is Madan Juarez MD is patient's party supply specialist, Dr. Henry covering. -Sirolimus level pending 03/01. On Sirolimus 2 mg every other day per nephrology. -- Strict I/Os , monitor UOP hourly -Continue hydrocortisone 100 mg every 8hrs, eventual plan to transition to prednisone per G tube. -Potassium @ 16:00 GI: Morbid obesity -KUB 02/28 - not definitively in stomach, confirmed on KUB 03/01 -Tolerating Nepro 40 mL/hr -Zofran PRN for nausea -Protonix GI prophylaxis Heme/ID: Pneumonia-HCAP -ON Zosyn 02/27 #4 and azithromycin 02/27 #4 (changed to po). Linezolid 02/28 #3(changed to po per prior d/w ID). D/c vanco 03/01. -ID on board d/w Dr. Blount- continue treatment as planned. Obtain previous medical records , consent obtained and faxed to [facility] -Follow-up blood and urine,sputum cultures 02/27 - Influenza screen negative. 02/27 Blood cultures -NGTD 02/27 Bronchial washings- Gram positive cocci, fungal stain with no fungal elements 02/28 cryptococcal- serum antigen negative 03/01 urine legionella and pneumococcal antigen negative. -Continue Nystatin topical powder for breast folds Endocrine: DM Hypothyroidism -Glucose is not at target on medium dose sliding scale q4 hours (15 units coverage). Start detemir 5 units subcut q12. -T4 4.7 (norm 4.8), TSH 33.60( elevated) -Continue Synthroid 224 mcg/d MSK: - Specialty bed -Wound care consult, noted admission to ED with sacral decubitus wound Prophylaxis: GI Prophylaxis Protonix IV DVT Prophylaxis -- SCDs, heparin 5000 units subcutaneous daily Lines: L IJ Central line placed in ED Dr. Bobo 02/27 #4, right radial A-line 02/27 #4 Dispo: Discussed with patient's at bedside. Discussed with Dr. Henry. Discussed with Dr. Real Called patients daughter 03/01 and left message to call me. CCT 35 min exclusive of separately billable procedures. Emperatriz Cho MD Mar 02, 2016 13:41 Emperatriz Cho MD Mar 02, 2016 13:41
[2016-03-02] MEDS: ALBUMIN HUMAN 25% 12.5 GM/50 ML BAGP IV SCH ×2 (15:32→20:30)
[2016-03-02] MEDS: LINEZOLID 20 MG/ML SUSP 150 ML BOTTLE TUBE SCH (20:30)
[2016-03-02] MEDS: PRAVASTATIN SOD 40 MG TAB PO SCH (20:31)
[2016-03-02] MEDS: INSULIN DETEMIR 100 UNITS/ML VIAL SQ SCH (20:32)
[2016-03-02] MEDS ORDERED: POTASSIUM CL 40 MEQ/30 ML LIQ UDC PEG ONE (21:30)
[2016-03-02] MEDS ORDERED: POTASSIUM CHLOR 40 MEQ PREMIX 100 ML IV ONE (21:30)
[2016-03-03] VITALS (19 sets, daily range): BP systolic 129–175; BP diastolic 54–82; PULSE 98–201; RESP 14–26; TEMP 96.7–98.1; O2SAT 96–100
[2016-03-03 03:37] LABS: AUTOMATED NEUTROPHIL # 6.6 TH/MM3 (1.8-7.7); BASOPHIL % 0.3 % (0.0-2.0); HEMATOCRIT 27.9 % (35.0-46.0); HEMO FLAGS DIFF FINAL; LYMPH % 2.9 % (9.0-44.0); LYMPHOCYTE # 0.2 TH/MM3 (1.0-4.8); MEAN CELL VOLUME 88.4 FL (80.0-100.0); MEAN CORPUSCULAR HEMOGLOBIN 28.5 PG (27.0-34.0); MEAN CORPUSCULAR HGB CONC 32.2 % (32.0-36.0); MONO % 2.3 % (0.0-8.0); NEUT % 94.5 % (16.0-70.0); PLATELET COUNT 132 TH/MM3 (150-450); RED BLOOD COUNT 3.16 MIL/MM3 (4.00-5.30); RED CELL DISTRIBUTION WIDTH 16.2 % (11.6-17.2)
[2016-03-03] MEDS: RESP: ALBUTEROL 2.5 MG/IPRATROPIUM 0.5 MG NEB (SCH) INH ×4 (03:50→20:09)
[2016-03-03] MEDS: INSULIN ASPART SUPPLEMENTAL SCALE SQ SCH ×4 (04:00→20:00)
[2016-03-03] MEDS: CHLORHEXIDINE GLUCONATE 2 % 1 PACK (2 CLOTHS)(taper/protocol) TOP SCH (04:00)
[2016-03-03 04:11] LABS: BICARBONATE 22.7 MEQ/L (21.0-32.0); POTASSIUM 3.8 MEQ/L (3.5-5.1)
[2016-03-03] MEDS: fentaNYL DRIP 250 ML IV SCH (04:54)
[2016-03-03] MEDS: GABAPENTIN 100 MG CAP PO SCH ×3 (05:03→20:27)
[2016-03-03] MEDS: LEVOTHYROXINE SODIUM 112 MCG TAB PO SCH (05:03)
[2016-03-03] MEDS: PIPERACIL-TAZO 2.25 GM PREMIX 50 ML IV SCH ×3 (05:09→18:12)
[2016-03-03] MEDS: SIROLIMUS 1 MG TAB PO SCH (05:09)
[2016-03-03] MEDS: HYDROCORTISONE SOD SUCCINATE 100 MG VIAL IV PUSH SCH ×3 (05:10→22:23)
[2016-03-03] MEDS: ALBUMIN HUMAN 25% 12.5 GM/50 ML BAGP IV SCH ×3 (05:10→22:22)
[2016-03-03] MEDS: LINEZOLID 20 MG/ML SUSP 150 ML BOTTLE TUBE SCH (08:50)
[2016-03-03] MEDS: NYSTATIN 100,000 U/GM PWD 15 GM BTL TOP SCH ×2 (08:50→22:21)
[2016-03-03] MEDS: INSULIN DETEMIR 100 UNITS/ML VIAL SQ SCH ×2 (08:51→20:27)
[2016-03-03] MEDS: SIROLIMUS 2 MG TAB PO SCH (08:51)
[2016-03-03] MEDS: SODIUM CHLORIDE 0.9% FLUSH 5 ML FLUSH IV FLUSH SCH ×2 (08:51→20:30)
--- NOTE | 2016-03-03 10:26 | HHI.CCPN ---
Subjective Remarks/Hospital Course 70-year-old female with history of lung cancer status post left lobectomy, and kidney transplant 2006 presented to the ED with worsening pulmonary symptoms. Her medical history is significant for DM, HTN. She presented to the ED today because worsening cough, shortness of breath, dyspnea on exertion, and fevers. The patient is dependent on home O2 at 4 L nasal cannula, and scheduled DuoNeb treatment. The patient was hospitalized for several months 11/2015-12/22 . During this hospitalization she reports having a fungal pulmonary infection and a seizure resulting in "coma for a few weeks". She was transferred to a rehabilitation facility [facility] for approximately 2 months ago. The patient was then transferred to [facility] approximately 3 weeks ago at which time she fractured her left ankle, and was transferred to [facility]. She was recently discharged from [facility] on 02/15/2016. The patient states that she began having worsening symptoms over the last 3-4 days, that resembled her fungal pneumonia. Critical care medicine was consulted for management. 02/28 Upon arrival to ICU last evening, bronchoscopy was performed, and specimens were sent for culture. The patient was maintained on IV fluids 100 cc an hour, and discontinued at 2 AM secondary to oliguria. CVP ranged 14 throughout the night, with original BNP 1035. Postintubation the patient remains GCS 11 T, following commands. The patient continues to be oliguric with hourly urinary output 7-10 cc an hour. 03/01 On levophed 8mcg/min. UOP around 10 mL/hr. Received Bumex 2 mg IV and UOP still ~20 Ml/hr last hour. CVP 18-20. In Afib rate controlled. Awakens on CPAP 5/5. 03/02 UOP 1068 overnight on bumex drip. Creatinine up to 3.28. Placing on CPAP 5 /5. Afebrile. Levophed weaned to 2 mcg/min with MAP 77. CVP 24 Subjective: 03/03 Creatinine up to 3.32. Nonoliguric with Bumex drip. CVP down to 14. Tolerating CPAP. Off levophed. Objective Vital Signs Date Time Temp Pulse Resp B/P Pulse Ox O2 Delivery O2 Flow Rate FiO2 03/03/16 09:45 35 03/03/16 08:32 100 03/03/16 06:00 144/60 03/03/16 06:00 98 03/03/16 04:00 98.1 14 02/28/16 18:04 Ventilator 02/28/16 16:35 4 Intake and Output 03/02/16 03/02/16 03/03/16 08:00 16:00 00:00 Intake Total 445 ml 1089 ml 770 ml Output Total 495 ml 1800 ml 2000 ml Balance -50 ml -711 ml -1230 ml Result Diagram: 03/03/165 03/03/16314 Other Results Microbiology Date/Time Procedure Status Source Growth 03/01/16 16:45 Streptococcus pneumoniae Antigen (M - Final Complete Urine Catheterized Urine PRESUMPTIVE NEGATIVE FOR STREPTOCOCCU... 03/02/16 06:30 Legionella Antigen - Final Complete Urine Catheterized Urine PRESUMPTIVE NEGATIVE FOR LEGIONELLA P... Imaging Last 24 hours Impressions Chest X-Ray 02/28/16 1008 Signed Impressions: Service Date/Time: February 10:20 - CONCLUSION: 1. Right lung patchiness consistent with possible pneumonia versus pulmonary vascular congestion. Clinical correlation is recommended. 2. Stable complete opacification of the left avinash-thorax and tiny right pleural effusion. Ash Jackson MD Objective Remarks Drips: Fentanyl 10 mg/h Bumex 2 mg/hr Nepro 40 ml/hr GENERAL: Morbidly obese elderly critically ill female , intubated SKIN: Warm and dry. Multiple ecchymotic bruising neck, chest, bilateral extremities upper and lower HEAD: Atraumatic. Normocephalic. EYES: Pupils equal and round. No scleral icterus. No injection or drainage. ENT: No nasal bleeding or discharge. Mucous membranes pink and moist. NECK: Trachea midline. CARDIOVASCULAR: Normal rate, irregularly irregular rhythm. No murmur appreciated currently. RESPIRATORY: On CPAP. Diminished left base. No w/rales/rhonchi. GASTROINTESTINAL: Abdomen soft, non-tender, nondistended. Gastric tube no erythema or drainage. : Very pale yellow urine in bag, 100-150ml/hr MUSCULOSKELETAL: Extremities without clubbing, cyanosis, trace edema NEUROLOGICAL: Eyes open, follows commands in all extremities. Date of Insertion: Feb 28, 2016 Date of Insertion: Feb 28, 2016 Line: Central Venous Catheter Side: Left Location: Internal, Jugular (vasoactive medications, CVP monitoring) A/P Assessment and Plan Plan by systems: Neurologic: Seizure disorder Herniated discs Neuropathy - Fentanyl infusion-->sedation vacation. D/c fentanyl drip post extubation. -Neurochecks per ICU protocol -Gabapentin 100 q8. -Hold home med zolpidem, will resume when clinically indicated Respiratory: Acute hypoxic respiratory failure History of non-small cell lung cancer S/P left lung lobectomy 2013 Home O2 dependency Presumed Hospital-acquired pneumonia (previous HCAP treatment 10/22) Left lung opacity-chronic History of tracheostomy-decannulated 12/22/15 -02/27 Intubated 7.5 oral ET tube 21 cm, Mallampati score 1 -02/28 Chest x-ray unchanged -Daily CPAP trial 07/11. Responded to diuresis and CVP is now 14 from 24. Plan to extubate today. -IS q1 hour. -DuoNeb nebs every 6 hours scheduled and Albuterol q 2 hrs PRN -Pulmonology Following, Cardiovascular: HTN Atrial fibrillation-rate control Acute on chronic systolic CHF RV overload, pulmonary HTN Hyperlipidemia Hypokalemia (resolved) - Off levophed -Maintain MAP> 70mmHg - Hold anti-hypertensive / diuretics medication -carvedilol, torsemide -2D ECHO 02/28mildly reduced systolic function with EF 45-50%. Mild RV dilatation. Mild to moderate tricuspid regurg. Pulmonary artery peak systolic pressure 53 mmHg. -Diuresed with bumex -Continue pravastatin FEN/Renal: S/P kidney transplant ANNABELLA, suspect ischemic ATN Oliguria Hypocalcemia Hypomagnesemia -Malik in place, Strict hourly UOP. Nonoliguric with Bumex drip, decrease rate to 1 mg/hr now and can probably be transitioned to bolus dosing today. On Albumin 12.5 q8 -Sergeant [employer] is Madan Juarez MD. -Sirolimus level pending 03/01. On Sirolimus 2 mg every other day per nephrology. -On hydrocortisone 100 mg every 8hrs per nephrology, could be transitioned to prednisone per G tube as she is out of shock. GI: Morbid obesity -KUB 02/28 - not definitively in stomach, confirmed on KUB 03/01 -Tolerating Nepro 40 mL/hr via PEG. -Zofran PRN for nausea -Protonix GI prophylaxis Heme/ID: Pneumonia-HCAP -ON Zosyn 02/27 #5 and azithromycin 02/27 #5 (changed to po). Linezolid 02/28 #4(changed to po per prior d/w ID). D/c vanco 03/01. -ID on board d/w Dr. Blount- continue treatment as planned. Obtain previous medical records , consent obtained and faxed to [facility] -Follow-up blood and urine,sputum cultures 02/27 - Influenza screen negative. 02/27 Blood cultures -NGTD 02/27 Bronchial washings- Gram positive cocci, fungal stain negative. 02/28 cryptococcal- serum antigen negative 03/01 urine legionella and pneumococcal antigen negative. -Continue Nystatin topical powder for breast folds Endocrine: DM Hypothyroidism -Glucose now at target on medium dose sliding scale q4 hours and detemir 5 units subcut q12. -T4 4.7 (norm 4.8), TSH 33.60( elevated) -Continue Synthroid 224 mcg/d MSK: - Specialty bed -Wound care consult, noted admission to ED with sacral decubitus wound Prophylaxis: GI Prophylaxis Protonix IV DVT Prophylaxis -- SCDs, heparin 5000 units subcutaneous q12 hours. Lines: L IJ Central line placed in ED Dr. Bobo 02/27 #5, right radial A-line 02/27 #5 --> d/c today. OOB with PT Discussed with patient's at bedside. Called patients daughter 03/01 and left message to call me. CCT 35 min exclusive of separately billable procedures. Emperatriz Cho MD Mar 03, 2016 10:26 CCT 35 min exclusive of separately billable procedures. Emperatriz Cho MD Mar 03, 2016 10:26 Emperatriz Cho MD Mar 03, 2016 10:26
--- NOTE | 2016-03-03 11:13 | HHI.NPPN ---
Subjective Renal Failure: Acute History of Present Illness No history could be obtained from Ms. Alejo who is currently intubated and is on the ventilator. I have reviewed records available in the EMR. 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 She received renal transplant in 2006. She has history of left upper lobectomy for lung cancer in 2013. In October of this year she apparently was admitted to [facility] with pneumonia. She was transferred to [facility] where she was diagnosed with fungal pneumonia. Had tracheostomy placed. She was transferred back to [facility] and later to [facility]. Currently she was residing in a rehab. Today she developed shortness of breath and "gurgling", was advised to come to the ER. In the ER she decompensated, became hypotensive. Was intubated. She has received 500 ml of IVF, and is currently on NS at 100 ml/hour. Interval History Remains intubated. Been on CPAP trial this AM since 929. Not sedated. Been of Levo since 1200 03/02. BP trending up today but appears to be quite anxious. Been on Bumex drip since 03/02. Decreased from 2mg/hr to 1mg this AM. On albumin 12.5mg q8h. UOP much improved. RN confirms about 150mL/hr. Sirolimus level pending. Transplant US reviewed and no sign of rejection. (Janeth Frederick) Review of Systems General General Remarks Intubated, but not sedated. ROS not obtainable. (Janeth Frederick) Objective Data Data 03/02/16 03/03/16 18:59 06:59 Intake Total 1089 ml 1127 ml Output Total 1850 ml 2900 ml Balance -761 ml -1773 ml Intake IV Total 632 ml 580 ml Tube Feeding 367 ml 467 ml Albumin 50 ml Other 90 ml 30 ml Output Urine Total 1350 ml 1900 ml Stool Total 500 ml 1000 ml # Bowel Movements 2 Vital Signs Date Time Temp Pulse Resp B/P Pulse Ox O2 Delivery O2 Flow Rate FiO2 03/03/16 10:35 97 35 03/03/16 09:45 35 03/03/16 08:32 100 35 03/03/16 06:00 144/60 03/03/16 06:00 98 12/26/16 04:04 100 35 03/03/16 04:00 98 03/03/16 04:00 98.1 98 14 137/57 96 03/03/16 04:00 35 03/03/16 02:00 103 03/03/16 01:06 100 35 03/03/16 00:00 97.7 105 15 129/54 100 03/03/16 00:00 105 03/03/16 00:00 40 03/02/16 22:33 100 40 03/02/16 22:00 101 03/02/16 21:11 100 40 03/02/16 20:00 97.6 100 15 132/52 100 03/02/16 20:00 40 03/02/16 20:00 100 03/02/16 18:00 123/49 03/02/16 18:00 99 03/02/16 16:00 40 03/02/16 16:00 97.7 99 17 113/47 98 03/02/16 16:00 99 03/02/16 15:24 40 03/02/16 15:09 98 40 03/02/16 14:00 98 03/02/16 12:00 98 03/02/16 12:00 97.6 91 16 125/55 91 03/02/16 12:00 40 03/02/16 11:06 99 40 (Janeth Frederick) -: 03/03/16 0315 03/03/16 0315 Imaging Last Impressions Chest X-Ray 03/01/16 0600 Signed Impressions: Service Date/Time: Tuesday, March 01, 2016 02:09 - CONCLUSION: Slightly improved right lung aeration. Complete opacification on the left Edmond Higgins MD Renal Ultrasound 03/01/16 0000 Signed Impressions: Service Date/Time: Tuesday, March 01, 2016 10:45 - CONCLUSION: No evidence of hydronephrosis or focal abnormality. The resistive indices are within normal Sumit Laws MD Abdomen X-Ray 03/01/16 0000 Signed Impressions: Service Date/Time: Tuesday, March 01, 2016 15:32 - CONCLUSION: G-tube inside the stomach. Angelita Birmingham MD Tubes & Lines Comment PEG Drip Comment fentanyl, Levophed Medication Review Current Medications Medications (Trade) Dose Ordered Sig/Reymundo Route Start Time Stop Time Status Last Admin (Tylenol) 650 mg Q4H PRN PO 02/28/16 11:30 (Zofran Inj) 4 mg Q6H PRN IVP 02/28/16 11:30 (Dulcolax Supp) 10 mg DAILY PRN CA 02/28/16 11:30 (Milk Of Magnesia Liq) 30 ml Q12H PRN PO 02/28/16 11:30 (Senokot) 17.2 mg Q12H PRN PO 02/28/16 11:30 (Heparin Inj) 5,000 units Q12H SQ 02/28/16 12:00 03/02/16 23:52 (Narcan Inj) 0.4 mg UNSCH PRN IV 02/28/16 11:30 (Protonix Inj) 40 mg Q24H IV PUSH 02/28/16 13:00 03/02/16 12:01 Miscellaneous Information 1 Q361D XX 02/28/16 12:00 (NS Flush) 2 ml UNSCH PRN IV FLUSH 02/28/16 16:15 03/01/16 08:00 IV Flush 2 ml 2 ml BID IV FLUSH 02/28/16 21:00 03/03/16 08:51 Piperacillin Sod/ Tazobactam Sod 50 ml @ 200 mls/hr Q6H IV 02/28/16 18:00 03/03/16 05:09 (fentaNYL DRIP) 250 ml @ 0 mls/hr TITRATE IV 02/28/16 17:00 03/03/16 04:54 (D50w (Vial) Inj) 25 ml UNSCH PRN IV PUSH 02/28/16 18:30 (Glucagon Inj) 1 mg UNSCH PRN OTHER 02/28/16 18:30 (Neurontin) 100 mg Q8H PO 02/28/16 20:00 03/03/16 05:03 (Mycostatin Powder) 1 applic BID TOP 02/28/16 21:00 03/03/16 08:50 (Pravachol) 40 mg HS PO 02/28/16 21:00 03/02/16 20:31 (Rapamune) 1 mg DAILY@06 PO 02/29/16 06:00 03/03/16 05:09 (SoluCORTEF INJ) 100 mg Q8HR IV PUSH 02/28/16 22:00 03/03/16 05:10 Miscellaneous Information Patient in critical care unit? Ass... Q361D XX 02/28/16 19:30 (Chlorhexidine 2% Cloth) 3 pack DAILY@04 TOP 02/29/16 04:00 03/04/16 04:01 03/03/16 04:00 Chlorhexidine Gluconate 3 pack 3 pack UNSCH PRN TOP 02/28/16 19:30 03/04/16 19:22 (Levophed Inj/NS 250 ml Inj) 250 ml @ 0 mls/hr TITRATE IV 02/29/16 14:00 03/02/16 04:34 (Brethine Inj) 1 mg UNSCH PRN SQ 02/29/16 13:00 (Synthroid) 224 mcg DAILY@0600 PO 03/01/16 06:00 03/03/16 05:03 Insulin Aspart 1 1 Q4H SQ 03/01/16 16:00 03/03/16 08:51 (Bumex Inj) 100 ml @ 4 mls/hr CONTINUOUS IV 03/02/16 11:00 03/02/16 22:46 (Zithromax 200 Mg/5 ml Liq) 500 mg Q24H TUBE 03/03/16 11:00 (Zyvox Liq) 600 mg Q12HR TUBE 03/02/16 21:00 03/03/16 08:50 (Albumin 25% Inj) 12.5 gm Q8H IV 03/02/16 14:00 03/03/16 05:10 (Levemir Inj) 5 units Q12HR SQ 03/02/16 21:00 03/03/16 08:51 (Janeth Frederick) Physical Exam General Appearance: Well Developed, Well Nourished, Comfortable, Anxious (Janeth Frederick) Eyes Eye Exam: Pupils Equal, Pupils Reactive (Janeth Frederick) Pulmonary Resp Exam: Clear Bilaterally, Breath Sounds Equal, Decreased Bases, Diminished Breath Sounds (Janeth Frederick) Cardiology CV Exam: Regular, Normal Sinus Rhythm, Good Perfusion (Janeth Frederick) Gastrointestinal/Abdomen GI Exam: Bowel Sounds Present (Janeth Frederick) Musculoskeletal MS Exam: Joints Intact, Good Strength (Janeth Frederick) Integumentary Skin Exam: Clear, Warm, Dry, Intact (Janeth Frederick) Extremeties Extremities Exam: Moderate Edema Extremeties Remarks BUE. Trace BLE below knees. Moderate pitting bilat hips. (Janeth Frederick ) Neurologic Neuro Exam: Awake (Janeth Frederick) Assessment/Plan Assessment Summary: Transplant Kidney Status Electrolyte Assessment: Hypocalcemia Problem List: (1) Renal transplant, status post Plan: s/p living related transplant. continue antirejection regimen of Sirolimus , 1 mg alternating with 2 mg. Has a G-tube. Hydrocortisone has been increased to 100 mg IV Q8 hours. Transition to prednisone through PEG in 2-3 days. Urine output has increased. Renal US(transplant) unremarkable. Sirolimus level pending. (2) Acute kidney failure Plan: Her creatinine was around 1.2 in October of this year, suggesting reasonably well preserved GFR after transplant in 2006. ANNABELLA likely due to ATN. We are hopeful with increase of UOP that her renal functions will follow suit. Continue on Bumex drip as ordered. Will give dose of Diuril today given her edema Sirolimus level pending. (3) Pneumonia Plan: She is immunosuppressed. ID following On Antibiotics: Zosyn, Zyvox, Vancomycin and Zithromax. According to previous notes, she was diagnosed with fungal pneumonia at [facility]. (4) Sepsis Plan: with septic shock--improving UCx and BCx neg ID and big data lead following On CPAP trials, not sedated, off pressors. (5) Heart failure Plan: EF of 35 % previously. Currently on Bumex drip with albumin IV The patient also has history of left upper lobectomy for lung cancer. (Janeth Frederick) Plan Patient is responding to IV bumetanide drip however I am still concerned regarding severity of azotemia. Hopefully the patient's renal function will start to improve soon. The exam, history, and the medical decision-making described in the above note were completed with the assistance of the YUMIKO. I reviewed and agree with the findings presented. I attest that I had a [id number] encounter with the patient on the same day, and personally performed and documented my assessment and findings in the medical record. (Rin Juarez MD) Janeth Frederick Mar 03, 2016 11:13 Rin Juarez MD Mar 03, 2016 18:00
[2016-03-03] MEDS: AZITHROMYCIN SUSP 200 MG/5 ML 15 ML BTL TUBE SCH (11:15)
[2016-03-03] MEDS: HEPARIN SODIUM - SQ 10,000 UNITS/ML VIAL SQ SCH (11:15)
[2016-03-03] MEDS: RESP: ALBUTEROL 2.5 MG/3 ML NEB (PRN) NEB (11:34)
--- NOTE | 2016-03-03 12:13 | HHI.FPPN ---
Subjective Remarks S/P EXTUBATION COUGHING VERY ALERT TACHY D/W RN Objective Vitals Vital Signs Date Time Temp Pulse Resp B/P Pulse Ox O2 Delivery O2 Flow Rate FiO2 03/03/16 11:25 100 Non-Rebreather 15 03/03/16 10:35 97 35 03/03/16 09:45 35 03/03/16 08:32 100 35 03/03/16 08:00 201 03/03/16 06:00 144/60 03/03/16 06:00 98 03/03/16 04:04 100 35 03/03/16 04:00 98 03/03/16 04:00 98.1 98 14 137/57 96 03/03/16 04:00 35 03/03/16 02:00 103 03/03/16 01:06 100 35 03/03/16 00:00 97.7 105 15 129/54 100 03/03/16 00:00 105 03/03/16 00:00 40 03/02/16 22:33 100 40 03/02/16 22:00 101 03/02/16 21:11 100 40 03/02/16 20:00 97.6 100 15 132/52 100 03/02/16 20:00 40 03/02/16 20:00 100 03/02/16 18:00 123/49 03/02/16 18:00 99 03/02/16 16:00 40 03/02/16 16:00 97.7 99 17 113/47 98 03/02/16 16:00 99 03/02/16 15:24 40 03/02/16 15:09 98 40 03/02/16 14:00 98 I/O 03/02/16 03/02/16 03/02/16 03/03/16 03/03/16 03/03/16 06:59 14:59 22:59 06:59 14:59 22:59 Intake Total 624 ml 783 ml 621 ml 812 ml 337 ml Output Total 585 ml 900 ml 2200 ml 1650 ml 830 ml Balance 39 ml -117 ml -1579 ml -838 ml -493 ml Intake IV Total 304 ml 508 ml 283 ml 421 ml 189 ml Tube Feeding 320 ml 215 ml 308 ml 311 ml 148 ml Albumin 50 ml Other 60 ml 30 ml 30 ml Output Urine Total 585 ml 900 ml 1000 ml 1350 ml 630 ml Stool Total 1200 ml 300 ml 200 ml # Bowel Movements 2 Result Diagram: 03/03/1631403/03/16314 Objective Remarks GENERAL: chronically ill appearing SKIN: Warm and dry. HEAD: Atraumatic. Normocephalic. EYES: Pupils equal and round. No scleral icterus. No injection or drainage. ENT: No nasal bleeding or discharge. Mucous membranes pink and moist. NECK: Trachea midline. No JVD. CARDIOVASCULAR: Regular rate and rhythm. RESPIRATORY: No accessory muscle use. Slight Bilateral ronchi, good air movement. Breath sounds equal bilaterally. GASTROINTESTINAL: Abdomen soft, non-tender, nondistended. Hepatic and splenic margins not palpable. MUSCULOSKELETAL: Extremities without clubbing, cyanosis, or edema. No obvious deformities. NEUROLOGICAL: Awake and alert. No obvious cranial nerve deficits. Motor grossly within normal limits. PSYCHIATRIC: Appropriate mood and affect; Medications and IVs Current Medications Medications (Trade) Dose Ordered Sig/Reymundo Route Start Time Stop Time Status Last Admin (Tylenol) 650 mg Q4H PRN PO 02/28/16 11:30 (Zofran Inj) 4 mg Q6H PRN IVP 02/28/16 11:30 (Dulcolax Supp) 10 mg DAILY PRN CA 02/28/16 11:30 (Milk Of Magnesia Liq) 30 ml Q12H PRN PO 02/28/16 11:30 (Senokot) 17.2 mg Q12H PRN PO 02/28/16 11:30 (Heparin Inj) 5,000 units Q12H SQ 02/28/16 12:00 03/03/16 11:15 (Narcan Inj) 0.4 mg UNSCH PRN IV 02/28/16 11:30 (Protonix Inj) 40 mg Q24H IV PUSH 02/28/16 13:00 03/02/16 12:01 Miscellaneous Information 1 Q361D XX 02/28/16 12:00 (NS Flush) 2 ml UNSCH PRN IV FLUSH 02/28/16 16:15 03/01/16 08:00 IV Flush 2 ml 2 ml BID IV FLUSH 02/28/16 21:00 03/03/16 08:51 Piperacillin Sod/ Tazobactam Sod 50 ml @ 200 mls/hr Q6H IV 02/28/16 18:00 12/26/16 11:15 (fentaNYL DRIP) 250 ml @ 0 mls/hr TITRATE IV 02/28/16 17:00 03/03/16 04:54 (D50w (Vial) Inj) 25 ml UNSCH PRN IV PUSH 02/28/16 18:30 (Glucagon Inj) 1 mg UNSCH PRN OTHER 02/28/16 18:30 (Neurontin) 100 mg Q8H PO 02/28/16 20:00 03/03/16 11:15 (Mycostatin Powder) 1 applic BID TOP 02/28/16 21:00 03/03/16 08:50 (Pravachol) 40 mg HS PO 02/28/16 21:00 03/02/16 20:31 (Rapamune) 1 mg DAILY@06 PO 02/29/16 06:00 03/03/16 05:09 (SoluCORTEF INJ) 100 mg Q8HR IV PUSH 02/28/16 22:00 03/03/16 05:10 Miscellaneous Information Patient in critical care unit? Ass... Q361D XX 02/28/16 19:30 (Chlorhexidine 2% Cloth) 3 pack DAILY@04 TOP 02/29/16 04:00 03/04/16 04:01 03/03/16 04:00 Chlorhexidine Gluconate 3 pack 3 pack UNSCH PRN TOP 02/28/16 19:30 03/04/16 19:22 (Levophed Inj/NS 250 ml Inj) 250 ml @ 0 mls/hr TITRATE IV 02/29/16 14:00 03/02/16 04:34 (Brethine Inj) 1 mg UNSCH PRN SQ 02/29/16 13:00 (Synthroid) 224 mcg DAILY@0600 PO 03/01/16 06:00 03/03/16 05:03 Insulin Aspart 1 1 Q4H SQ 03/01/16 16:00 03/03/16 08:51 (Bumex Inj) 100 ml @ 4 mls/hr CONTINUOUS IV 03/02/16 11:00 03/02/16 22:46 (Zithromax 200 Mg/5 ml Liq) 500 mg Q24H TUBE 03/03/16 11:00 03/03/16 11:15 (Zyvox Liq) 600 mg Q12HR TUBE 03/02/16 21:00 03/03/16 08:50 (Albumin 25% Inj) 12.5 gm Q8H IV 03/02/16 14:00 03/03/16 05:10 (Levemir Inj) 5 units Q12HR SQ 03/02/16 21:00 03/03/16 08:51 Date of Insertion: Feb 28, 2016 Date of Insertion: Feb 28, 2016 Line: Central Venous Catheter Side: Left Location: Internal, Jugular (vasoactive medications, CVP monitoring) A/P Assessment and Plan SEPTIC SHOCK RESPIRATORY FAILURE, S/P BRONCH FEB 27, EXTUBATED MAR 03, HCAP, FUNGAL PNA COPD SCHF AC ON CRF RENAL TRANSPLANT, RENAL US NORMAL. AF HYPOTHYROID PLAN: IV ABX IVF IV BUMEX BLOOD CULTURES DUONEBS HEPARIN 5000 BID FOR PROPHYLAXIS IV PROTONIX CCM CONSULT, NOTES REVIEWED NEPHRO CONSULT, NOTES REVIEWED PULMONARY CONSULT PT OT ST ICU CARE FOLLOWUP LABS MEDS ABOVE. Herbert Kaba MD Mar 03, 2016 12:13
[2016-03-03] MEDS: BUMETANIDE INJ 100 ML IV SCH (12:41)
[2016-03-03 12:49] LABS: CRITICAL VALUE YES
[2016-03-03 13:55] LABS: AUTOMATED NEUTROPHIL # 8.9 TH/MM3 (1.8-7.7); BASOPHIL % 0.3 % (0.0-2.0); HEMATOCRIT 29.5 % (35.0-46.0); HEMO FLAGS DIFF FINAL; LYMPH % 2.3 % (9.0-44.0); LYMPHOCYTE # 0.2 TH/MM3 (1.0-4.8); MEAN CELL VOLUME 89.3 FL (80.0-100.0); MEAN CORPUSCULAR HEMOGLOBIN 28.2 PG (27.0-34.0); MEAN CORPUSCULAR HGB CONC 31.6 % (32.0-36.0); MONO % 2.1 % (0.0-8.0); NEUT % 95.3 % (16.0-70.0); PLATELET COUNT 132 TH/MM3 (150-450); RED BLOOD COUNT 3.31 MIL/MM3 (4.00-5.30); RED CELL DISTRIBUTION WIDTH 16.6 % (11.6-17.2); WHITE BLOOD COUNT 9.3 TH/MM3 (4.0-11.0)
--- NOTE | 2016-03-03 14:46 | HHI.PR ---
Subjective Remarks 70 YOWF with COPD,Renal transplant,ca lung, s/p resection with RF Extubated, on PRB mask Alert, awake follows commands Congested Started Bumex drip. Objective Vital Signs Vital Signs Date Time Temp Pulse Resp B/P Pulse Ox O2 Delivery O2 Flow Rate FiO2 03/03/16 12:00 97.1 101 25 155/67 99 03/03/16 11:25 100 Non-Rebreather 15 03/03/16 10:35 97 35 03/03/16 10:00 103 03/03/16 09:45 35 03/03/16 08:32 100 35 03/03/16 08:00 97.5 100 16 151/62 98 03/03/16 08:00 35 03/03/16 08:00 100 03/03/16 06:00 144/60 03/03/16 06:00 98 03/03/16 04:04 100 35 03/03/16 04:00 98 03/03/16 04:00 98.1 98 14 137/57 96 03/03/16 04:00 35 03/03/16 02:00 103 03/03/16 01:06 100 35 03/03/16 00:00 97.7 105 15 129/54 100 03/03/16 00:00 105 03/03/16 00:00 40 03/02/16 22:33 100 40 03/02/16 22:00 101 03/02/16 21:11 100 40 03/02/16 20:00 97.6 100 15 132/52 100 03/02/16 20:00 40 03/02/16 20:00 100 03/02/16 18:00 123/49 03/02/16 18:00 99 03/02/16 16:00 40 03/02/16 16:00 97.7 99 17 113/47 98 03/02/16 16:00 99 03/02/16 15:24 40 03/02/16 15:09 98 40 I/O 03/02/16 03/02/16 03/02/16 03/03/16 03/03/16 03/03/16 06:59 14:59 22:59 06:59 14:59 22:59 Intake Total 624 ml 783 ml 621 ml 812 ml 562 ml Output Total 585 ml 900 ml 2200 ml 1650 ml 1380 ml Balance 39 ml -117 ml -1579 ml -838 ml -818 ml Intake IV Total 304 ml 508 ml 283 ml 421 ml 265 ml Tube Feeding 320 ml 215 ml 308 ml 311 ml 297 ml Albumin 50 ml Other 60 ml 30 ml 30 ml Output Urine Total 585 ml 900 ml 1000 ml 1350 ml 1080 ml Stool Total 1200 ml 300 ml 300 ml # Bowel Movements 2 Result Diagram: 03/03/16 1311 03/03/16 0315 Objective Remarks GENERALMBMN female, SOB: SKIN: Warm and dry. HEAD: Normocephalic. EYES: No scleral icterus. No injection or drainage. NECK: Supple, trachea midline. No JVD or lymphadenopathy. CARDIOVASCULAR: Regular rate and rhythm without murmurs, gallops, or rubs. RESPIRATORY: Breath sounds equal bilaterally. No accessory muscle use. Bilat coarse crackles. GASTROINTESTINAL: Abdomen soft, non-tender, nondistended. MUSCULOSKELETAL: No cyanosis, ++ edema. BACK: Nontender without obvious deformity. No CVA tenderness. A/P Assessment and Plan RF, S/p Extubation Pneumonia Sepsis sund renal transplant Ca lung, s/p resection PLAN: On Bumex drip Cont PRB mask Bipap prn and at night nurse BS Abx Zithro, Zyvox and Cefepime per Alverto Goddard MD Mar 03, 2016 14:46
[2016-03-03] MEDS ORDERED: CHLOROTHIAZIDE SOD 500 MG VIAL IV ONE ×2 (16:30→17:45)
--- NOTE | 2016-03-03 18:31 | HHI.IDPN ---
Subjective Subjective Remarks Better Extubated On NRB Communicates but cant recall what lizy of fungal infx she has what Rx she was on or the name of her Doc Records not availbale yet Afebrile Clx negative UOP is down, creatinine is high developped liquid diarrhea Antibiotics Zyvox zosyn azithromycin Lines LIJ TLC Past Medical History renal transpant ESRD Allergies: Coded Allergies: Labetalol (Verified Allergy, Severe, NAUSEA AND VOMITING, 02/28/16) Lortab (Verified Adverse Reaction, Severe, VOMITING, 02/28/16) Objective . Vital Signs Date Time Temp Pulse Resp B/P Pulse Ox O2 Delivery O2 Flow Rate FiO2 03/03/16 14:00 104 03/03/16 12:00 97.1 101 25 155/67 99 03/03/16 12:00 101 03/03/16 11:25 100 Non-Rebreather 15 03/03/16 10:35 97 35 03/03/16 10:00 103 03/03/16 09:45 35 03/03/16 08:32 100 35 03/03/16 08:00 97.5 100 16 151/62 98 03/03/16 08:00 35 03/03/16 08:00 100 03/03/16 06:00 144/60 03/03/16 06:00 98 03/03/16 04:04 100 35 03/03/16 04:00 98 03/03/16 04:00 98.1 98 14 137/57 96 03/03/16 04:00 35 03/03/16 02:00 103 03/03/16 01:06 100 35 03/03/16 00:00 97.7 105 15 129/54 100 03/03/16 00:00 105 03/03/16 00:00 40 03/02/16 22:33 100 40 03/02/16 22:00 101 03/02/16 21:11 100 40 03/02/16 20:00 97.6 100 15 132/52 100 03/02/16 20:00 40 03/02/16 20:00 100 03/02/16 03/02/16 03/03/16 15:00 23:00 07:00 Intake Total 783 ml 621 ml 812 ml Output Total 900 ml 2200 ml 1650 ml Balance -117 ml -1579 ml -838 ml Intake IV Total 508 ml 283 ml 421 ml Tube Feeding 215 ml 308 ml 311 ml Albumin 50 ml Other 60 ml 30 ml 30 ml Output Urine Total 900 ml 1000 ml 1350 ml Stool Total 1200 ml 300 ml # Bowel Movements 2 . Laboratory Tests Test 03/02/16 03/03/16 03/03/16 03:20 03:15 13:11 White Blood Count 7.3 TH/MM3 7.0 TH/MM3 9.3 TH/MM3 Red Blood Count 3.29 MIL/MM3 3.16 MIL/MM3 3.31 MIL/MM3 Hemoglobin 9.2 GM/DL 9.0 GM/DL 9.3 GM/DL Hematocrit 29.3 % 27.9 % 29.5 % Mean Corpuscular Volume 89.3 FL 88.4 FL 89.3 FL Mean Corpuscular Hemoglobin 28.1 PG 28.5 PG 28.2 PG Mean Corpuscular Hemoglobin 31.5 % 32.2 % 31.6 % Concent Red Cell Distribution Width 16.9 % 16.2 % 16.6 % Platelet Count 177 TH/MM3 132 TH/MM3 132 TH/MM3 Mean Platelet Volume 7.9 FL 7.9 FL 8.3 FL Neutrophils (%) (Auto) 94.1 % 94.5 % 95.3 % Lymphocytes (%) (Auto) 3.6 % 2.9 % 2.3 % Monocytes (%) (Auto) 2.2 % 2.3 % 2.1 % Eosinophils (%) (Auto) 0.0 % 0.0 % 0.0 % Basophils (%) (Auto) 0.1 % 0.3 % 0.3 % Neutrophils # (Auto) 6.9 TH/MM3 6.6 TH/MM3 8.9 TH/MM3 Lymphocytes # (Auto) 0.3 TH/MM3 0.2 TH/MM3 0.2 TH/MM3 Monocytes # (Auto) 0.2 TH/MM3 0.2 TH/MM3 0.2 TH/MM3 Eosinophils # (Auto) 0.0 TH/MM3 0.0 TH/MM3 0.0 TH/MM3 Basophils # (Auto) 0.0 TH/MM3 0.0 TH/MM3 0.0 TH/MM3 CBC Comment DIFF FINAL DIFF FINAL DIFF FINAL Differential Comment Laboratory Tests Test 03/01/16 03/02/16 03/02/16 03/03/16 20:20 03:20 19:02 03:15 Sodium Level 139 MEQ/L 140 MEQ/L 141 MEQ/L Potassium Level 4.1 MEQ/L 4.0 MEQ/L 3.2 MEQ/L 3.8 MEQ/L Chloride Level 106 MEQ/L 107 MEQ/L 107 MEQ/L Carbon Dioxide Level 22.0 MEQ/L 20.5 MEQ/L 22.7 MEQ/L Anion Gap 11 MEQ/L 13 MEQ/L 11 MEQ/L Blood Urea Nitrogen 44 MG/DL 46 MG/DL 54 MG/DL Creatinine 3.18 MG/DL 3.28 MG/DL 3.32 MG/DL Estimat Glomerular Filtration 15 ML/MIN 14 ML/MIN 14 ML/MIN Rate Random Glucose 146 MG/DL 205 MG/DL 137 MG/DL Calcium Level 6.7 MG/DL 7.0 MG/DL 6.8 MG/DL Protein Corrected Calcium 7.4 MG/DL 7.8 MG/DL Total Protein 5.7 GM/DL 5.5 GM/DL Magnesium Level 1.5 MG/DL Total Bilirubin 0.2 MG/DL Aspartate Amino Transf 41 U/L (AST/SGOT) Alanine Aminotransferase 13 U/L (ALT/SGPT) Alkaline Phosphatase 120 U/L Albumin 1.6 GM/DL 2.1 GM/DL Phosphorus Level 4.1 MG/DL Test 03/03/16 16:35 Potassium Level 3.2 MEQ/L Microbiology Date/Time Procedure Status Source Growth 03/01/16 16:45 Streptococcus pneumoniae Antigen (M - Final Complete Urine Catheterized Urine PRESUMPTIVE NEGATIVE FOR STREPTOCOCCU... 03/02/16 06:30 Legionella Antigen - Final Complete Urine Catheterized Urine PRESUMPTIVE NEGATIVE FOR LEGIONELLA P... Imaging Last Impressions Chest X-Ray 03/01/16 0600 Signed Impressions: Service Date/Time: Tuesday, March 01, 2016 02:09 - CONCLUSION: Slightly improved right lung aeration. Complete opacification on the left Edmond Higgins MD Renal Ultrasound 03/01/16 0000 Signed Impressions: Service Date/Time: Tuesday, March 01, 2016 10:45 - CONCLUSION: No evidence of hydronephrosis or focal abnormality. The resistive indices are within normal Sumit Laws MD Abdomen X-Ray 03/01/16 0000 Signed Impressions: Service Date/Time: Saturday, March 01, 2016 15:32 - CONCLUSION: G-tube inside the stomach. Angelita Birmingham MD Physical Exam CONSTITUTIONAL/GENERAL: awake, alert, some resp diastress SKIN: Warm and dry. Has some scattered ecchymoses. No jaundice, genralized rashes. Has one purplish lesion on her L second toe HEAD: Atraumatic. Normocephalic. EYES: Pupils equal and round and reactive. No scleral icterus. No injection or drainage. ENT: . Nose without bleeding or purulent drainage. . Oral mucosa moist NECK: Trachea midline. Supple, nontender. Line ok CARDIOVASCULAR: Regular rate and rhythm without murmurs, gallops, or rubs. No JVD. Peripheral pulses symmetric. RESPIRATORY/CHEST: No BS on the L, diffuse rhonchi R GASTROINTESTINAL: Abdomen soft, non-tender, nondistended. No guarding. Bowel sounds present. GENITOURINARY: Malik catheter in place with small amount clear yellow urine MUSCULOSKELETAL: Extremities without clubbing, cyanosis, or edema in BLE. No mottling or clubbing. 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 Nataly Oates MD Mar 03, 2016 18:31
[2016-03-03] MEDS ORDERED: POTASSIUM CL 40 MEQ/30 ML LIQ UDC TUBE ONE (19:30)
[2016-03-03] MEDS ORDERED: POTASSIUM CHLOR 40 MEQ PREMIX 100 ML IV ONE ×2 (19:30→19:45)
[2016-03-03] MEDS ORDERED: POTASSIUM CL 40 MEQ/30 ML LIQ UDC PO ONE (19:45)
[2016-03-03] MEDS ORDERED: cefTRIAXone INJ 2,000 MG in SODIUM CHLORIDE 0.9% INJ 100 ML IV SCH (20:00)
[2016-03-03] MEDS: PRAVASTATIN SOD 40 MG TAB PO SCH (20:28)
[2016-03-04] VITALS (17 sets, daily range): BP systolic 105–159; BP diastolic 7–76; PULSE 105–122; RESP 16–36; TEMP 96.1–98.2; O2SAT 96–100
[2016-03-04] MEDS: INSULIN ASPART SUPPLEMENTAL SCALE SQ SCH ×6 (00:22→20:07)
[2016-03-04] MEDS: HEPARIN SODIUM - SQ 10,000 UNITS/ML VIAL SQ SCH ×2 (00:27→12:13)
[2016-03-04] MEDS: BUMETANIDE INJ 100 ML IV SCH ×2 (00:28→14:43)
[2016-03-04 02:19] LABS: C. DIFF EPI 027 PRESUMPTIVE POSITIVE (NEGATIVE)
[2016-03-04 02:22] LABS: C. DIFF TOXIN PCR POSITIVE (NEGATIVE)
[2016-03-04] MEDS: RESP: ALBUTEROL 2.5 MG/IPRATROPIUM 0.5 MG NEB (SCH) INH (03:23)
[2016-03-04 03:37] LABS: AUTOMATED NEUTROPHIL # 14.4 TH/MM3 (1.8-7.7); BASOPHIL % 0.1 % (0.0-2.0); HEMATOCRIT 31.1 % (35.0-46.0); HEMO FLAGS DIFF FINAL; LYMPH % 1.1 % (9.0-44.0); LYMPHOCYTE # 0.2 TH/MM3 (1.0-4.8); MEAN CELL VOLUME 88.3 FL (80.0-100.0); MEAN CORPUSCULAR HEMOGLOBIN 27.6 PG (27.0-34.0); MEAN CORPUSCULAR HGB CONC 31.2 % (32.0-36.0); MONO % 3.1 % (0.0-8.0); NEUT % 95.7 % (16.0-70.0); PLATELET COUNT 181 TH/MM3 (150-450); RED BLOOD COUNT 3.52 MIL/MM3 (4.00-5.30); RED CELL DISTRIBUTION WIDTH 16.4 % (11.6-17.2); WHITE BLOOD COUNT 15.1 TH/MM3 (4.0-11.0)
[2016-03-04] MEDS: GABAPENTIN 100 MG CAP PO SCH ×3 (03:54→20:08)
[2016-03-04 04:06] LABS: BICARBONATE 25.3 MEQ/L (21.0-32.0); MAGNESIUM 1.6 MG/DL (1.5-2.5); POTASSIUM 3.8 MEQ/L (3.5-5.1)
[2016-03-04 04:22] LABS: CALCIUM-PROTEIN CORRECTED 7.5 MG/DL (8.5-10.1)
[2016-03-04] MEDS: CHLORHEXIDINE GLUCONATE 2 % 1 PACK (2 CLOTHS)(taper/protocol) TOP SCH (04:38)
[2016-03-04] MEDS: LEVOTHYROXINE SODIUM 112 MCG TAB PO SCH (05:18)
[2016-03-04] MEDS: SIROLIMUS 1 MG TAB PO SCH (05:18)
[2016-03-04] MEDS: ALBUMIN HUMAN 25% 12.5 GM/50 ML BAGP IV SCH ×3 (05:19→21:34)
[2016-03-04] MEDS: HYDROCORTISONE SOD SUCCINATE 100 MG VIAL IV PUSH SCH ×3 (05:19→21:34)
[2016-03-04] MEDS ORDERED: PROPOFOL 1000 MG/100 ML INJ 100 ML ONE (07:02)
[2016-03-04] MEDS ORDERED: ETOMIDATE 20 MG/10 ML VIAL ONE (07:02)
--- NOTE | 2016-03-04 07:35 | HHI.CCPN ---
Subjective Remarks/Hospital Course 70-year-old female with history of lung cancer status post left lobectomy, and kidney transplant 2006 presented to the ED with worsening pulmonary symptoms. Her medical history is significant for DM, HTN. She presented to the ED today because worsening cough, shortness of breath, dyspnea on exertion, and fevers. The patient is dependent on home O2 at 4 L nasal cannula, and scheduled DuoNeb treatment. The patient was hospitalized for several months 11/2015-12/22 . During this hospitalization she reports having a fungal pulmonary infection and a seizure resulting in "coma for a few weeks". She was transferred to a rehabilitation facility [facility] for approximately 2 months ago. The patient was then transferred to [facility] approximately 3 weeks ago at which time she fractured her left ankle, and was transferred to [facility]. She was recently discharged from [facility] on 02/15/2016. The patient states that she began having worsening symptoms over the last 3-4 days, that resembled her fungal pneumonia. Critical care medicine was consulted for management. 02/28 Upon arrival to ICU last evening, bronchoscopy was performed, and specimens were sent for culture. The patient was maintained on IV fluids 100 cc an hour, and discontinued at 2 AM secondary to oliguria. CVP ranged 14 throughout the night, with original BNP 1035. Postintubation the patient remains GCS 11 T, following commands. The patient continues to be oliguric with hourly urinary output 7-10 cc an hour. 03/01 On levophed 8mcg/min. UOP around 10 mL/hr. Received Bumex 2 mg IV and UOP still ~20 Ml/hr last hour. CVP 18-20. In Afib rate controlled. Awakens on CPAP 5/5. 03/02 UOP 1068 overnight on bumex drip. Creatinine up to 3.28. Placing on CPAP 5 /5. Afebrile. Levophed weaned to 2 mcg/min with MAP 77. CVP 24 Subjective: 03/03 Creatinine up to 3.32. Nonoliguric with Bumex drip. CVP down to 14. Tolerating CPAP. Off levophed. 03/04 Patient was on BIPAP 10/5 with 60% FIO2 overnight. Patient looked lethargic and started desating she was subsequently intubated and placed on mechanical ventilation. On Bumex drip 2mg/hr. Positive C-diff this morning. Objective Vital Signs Date Time Temp Pulse Resp B/P Pulse Ox O2 Delivery O2 Flow Rate FiO2 03/04/16 06:00 Arterial Line Automatic Cuff 03/04/16 06:00 118 03/04/16 04:00 96.1 36 97 03/04/16 03:22 60 03/03/16 11:25 Non-Rebreather 15 Intake and Output 03/03/16 03/03/16 03/03/16 07:59 15:59 23:59 Intake Total 812 ml 562 ml 445 ml Output Total 1650 ml 1380 ml 1100 ml Balance -838 ml -818 ml -655 ml Result Diagram: 03/04/165 03/04/16314 Other Results Laboratory Tests Test 03/03/16 03/03/16 03/04/16 03/04/16 13:11 16:35 00:10 03:15 White Blood Count 9.3 TH/MM3 15.1 TH/MM3 Red Blood Count 3.31 MIL/MM3 3.52 MIL/MM3 Hemoglobin 9.3 GM/DL 9.7 GM/DL Hematocrit 29.5 % 31.1 % Mean Corpuscular Volume 89.3 FL 88.3 FL Mean Corpuscular Hemoglobin 28.2 PG 27.6 PG Mean Corpuscular Hemoglobin 31.6 % 31.2 % Concent Red Cell Distribution Width 16.6 % 16.4 % Platelet Count 132 TH/MM3 181 TH/MM3 Mean Platelet Volume 8.3 FL 8.1 FL Neutrophils (%) (Auto) 95.3 % 95.7 % Lymphocytes (%) (Auto) 2.3 % 1.1 % Monocytes (%) (Auto) 2.1 % 3.1 % Eosinophils (%) (Auto) 0.0 % 0.0 % Basophils (%) (Auto) 0.3 % 0.1 % Neutrophils # (Auto) 8.9 TH/MM3 14.4 TH/MM3 Lymphocytes # (Auto) 0.2 TH/MM3 0.2 TH/MM3 Monocytes # (Auto) 0.2 TH/MM3 0.5 TH/MM3 Eosinophils # (Auto) 0.0 TH/MM3 0.0 TH/MM3 Basophils # (Auto) 0.0 TH/MM3 0.0 TH/MM3 CBC Comment DIFF FINAL DIFF FINAL Differential Comment Potassium Level 3.2 MEQ/L 3.8 MEQ/L Stool C. difficile Toxin (PCR) POSITIVE Stl C. difficile Toxin PRESUMPTIVE Epiderm 027 POSITIVE Sodium Level 143 MEQ/L Chloride Level 106 MEQ/L Carbon Dioxide Level 25.3 MEQ/L Anion Gap 12 MEQ/L Blood Urea Nitrogen 59 MG/DL Creatinine 3.44 MG/DL Estimat Glomerular Filtration 13 ML/MIN Rate Random Glucose 206 MG/DL Calcium Level 7.2 MG/DL Protein Corrected Calcium 7.5 MG/DL Phosphorus Level 4.1 MG/DL Magnesium Level 1.6 MG/DL Total Protein 6.5 GM/DL Imaging Last Impressions Chest X-Ray 03/01/16 0600 Signed Impressions: Service Date/Time: Tuesday, March 01, 2016 02:09 - CONCLUSION: Slightly improved right lung aeration. Complete opacification on the left Edmond Higgins MD Renal Ultrasound 03/01/16 0000 Signed Impressions: Service Date/Time: Tuesday, March 01, 2016 10:45 - CONCLUSION: No evidence of hydronephrosis or focal abnormality. The resistive indices are within normal Sumit Laws MD Abdomen X-Ray 03/01/16 0000 Signed Impressions: Service Date/Time: Tuesday, March 01, 2016 15:32 - CONCLUSION: G-tube inside the stomach. Angelita Birmingham MD Objective Remarks Drips: Bumex 2 mg/hr Nepro 40 ml/hr GENERAL: Morbidly obese elderly critically ill female , intubated SKIN: Warm and dry. Multiple ecchymotic bruising neck, chest, bilateral extremities upper and lower HEAD: Atraumatic. Normocephalic. EYES: Pupils equal and round. No scleral icterus. No injection or drainage. ENT: No nasal bleeding or discharge. Mucous membranes pink and moist. NECK: Trachea midline. Supple, no JVD, adenopathy, orally intubated. CARDIOVASCULAR: Normal rate, irregularly irregular rhythm. No murmur appreciated currently. RESPIRATORY: Coarse BS on right. GASTROINTESTINAL: Abdomen soft, non-tender, nondistended. Gastric tube no erythema or drainage. MUSCULOSKELETAL: Extremities without clubbing, cyanosis, trace edema NEUROLOGICAL: Intubated Date of Insertion: Feb 28, 2016 Date of Insertion: Feb 28, 2016 Line: Central Venous Catheter Side: Left Location: Internal, Jugular (vasoactive medications, CVP monitoring) A/P Assessment and Plan Plan by systems: Neurologic: Seizure disorder Herniated discs Neuropathy - Diprivan infusion for sedation -Neurochecks per ICU protocol -Gabapentin 100 q8. Respiratory: Acute hypoxic respiratory failure History of non-small cell lung cancer S/P left lung lobectomy 2013 Home O2 dependency Presumed Hospital-acquired pneumonia (previous HCAP treatment 10/22) Left lung opacity-chronic History of tracheostomy-decannulated 12/22/15 -02/27 Intubated 7.5 oral ET tube , extubated 03/03 reintubated 03/04 -Continue with vent support keep sat >92% -Bronchodilators. Check ABG/CXR post intubation -Pulmonology Following, Cardiovascular: HTN Atrial fibrillation-rate control Acute on chronic systolic CHF RV overload, pulmonary HTN Hyperlipidemia Hypokalemia (resolved) -Maintain HR and BP keep MAP>65mmHg -2D ECHO 02/28mildly reduced systolic function with EF 45-50%. Mild RV dilatation. Mild to moderate tricuspid regurg. Pulmonary artery peak systolic pressure 53 mmHg. -Continue pravastatin FEN/Renal: S/P kidney transplant ANNABELLA, suspect ischemic ATN Oliguria Hypocalcemia -Malik in place, Strict hourly UOP. On Albumin 12.5 q8, Bumex -Oil Boiler -Dr. Henry -Sirolimus level pending 03/01. On Sirolimus 2 mg every other day per nephrology. -On hydrocortisone 100 mg every 8hrs per nephrology, could be transitioned to prednisone per G tube as she is out of shock. GI: Morbid obesity -Tolerating Nepro 40 mL/hr via PEG. -Zofran PRN for nausea -Protonix GI prophylaxis ID: Pneumonia-HCAP Positive Cdiff Leukocytosis Continue with abx per ID ( Rocephin, Zithromax) add Flagyl 500mg IV Q8 02/27 - Influenza screen negative. 02/27 Blood cultures -NGTD 02/27 Bronchial washings- Gram positive cocci, fungal stain negative. 02/28 cryptococcal- serum antigen negative 03/01 urine legionella and pneumococcal antigen negative. -Continue Nystatin topical powder for breast folds Heme: Monitor CBC Endocrine: DM Hypothyroidism -Continue medium dose sliding scale q4 hours and detemir 5 units subcut q12. -T4 4.7 (norm 4.8), TSH 33.60( elevated) -Continue Synthroid 224 mcg/d MSK: - Specialty bed -Wound care consult, noted admission to ED with sacral decubitus wound Prophylaxis: GI Prophylaxis Protonix IV DVT Prophylaxis -- SCDs, heparin 5000 units subcutaneous q12 hours. Lines: L IJ Central line placed in ED Dr. Bobo 02/27 CCT 30 min exclusive of separately billable procedures. Isael Belcher MD Mar 04, 2016 07:35
[2016-03-04 08:30] LABS: BLOOD GAS BASE EXCESS -5.4 mmol/L (-2-2); BLOOD GAS CARBOXYHEMOGLOBIN 1.1 % (0-4); BLOOD GAS HCO3 21 mmol/L (22-26); BLOOD GAS METHEMOGLOBIN 1.4 % (0-2); BLOOD GAS O2 HGB SATURATION 97 % (90-100); BLOOD GAS OXYGEN CONTENT 13.6 Vol % (12.0-20.0); BLOOD GAS PCO2 48 mmHg (38-42); BLOOD GAS PO2 314 mmHg (61-120); BLOOD GAS TOTAL HGB 9.4 G/DL (12.0-16.0); CRITICAL VALUE YES; FIO2 100 %; OXYGEN DEVICE VENTILATOR; TEMP CORR TO 98.6; VENT SETTINGS AC 550/16/+5PEEP
[2016-03-04 08:31] LABS: DRAW SITE LT BRACHIAL; NUMBER OF ARTERIAL PUNCTURES 1; STAT YES
[2016-03-04] MEDS: RESP: ALBUTEROL 2.5 MG/IPRATROPIUM 0.5 MG NEB (SCH) NEB ×3 (08:35→20:38)
[2016-03-04] MEDS: metroNIDAZOLE 500 MG INJ 100 ML IV SCH ×2 (09:15→16:52)
[2016-03-04] MEDS: NYSTATIN 100,000 U/GM PWD 15 GM BTL TOP SCH ×2 (09:16→20:10)
[2016-03-04] MEDS: INSULIN DETEMIR 100 UNITS/ML VIAL SQ SCH ×2 (09:16→20:09)
[2016-03-04] MEDS: SODIUM CHLORIDE 0.9% FLUSH 5 ML FLUSH IV FLUSH SCH ×2 (09:16→20:09)
--- NOTE | 2016-03-04 09:58 | RADRPT ---
EXAM DATE/TIME: 03/04/2016 08:04 [place] COMPARISON: CHEST SINGLE AP, March 01, 2016, 2:09. INDICATIONS : Intubation. MEDICAL HISTORY : Carcinoma, lung. Pneumonia SURGICAL HISTORY : Part of left lung removed ENCOUNTER: Subsequent ACUITY: 4 - 6 days PAIN SCORE: Non-responsive. LOCATION: Bilateral chest FINDINGS: A single portable frontal view of the chest shows better aeration of the left mid lung. Dense consoli dation of the remaining left lung is again seen. Patchy areas of nodule-like parenchymal opacity are scattered throughout the right lung. This is a new finding. Heart remains enlarged. Tiny effusions bi laterally are stable. Endotracheal tube tip is 1 cm from the bharathi. Left-sided central line in good position. CONCLUSION: 1. Developing nodular opacities involving the right lung. These are new from the prior exam. Their in terval appearance would suggest an infectious etiology. 2. Slight improvement in aeration of the left mid lung. Michael Robbins Jr., MD on March 04, 2016 at 9:55 Board Certified Radiologist. This report was verified electronically.
--- NOTE | 2016-03-04 12:01 | HHI.FPPN ---
Subjective Remarks BACK ON VENT D/W DR KIRAN D/W DR ANTONY D/W RN Objective Vitals Vital Signs Date Time Temp Pulse Resp B/P Pulse Ox O2 Delivery O2 Flow Rate FiO2 03/04/16 11:04 100 40 03/04/16 08:35 100 50 03/04/16 08:00 100 03/04/16 07:08 100 100 03/04/16 06:00 Arterial Line Automatic Cuff 03/04/16 06:00 118 03/04/16 04:00 118 03/04/16 04:00 96.1 122 36 153/7 97 03/04/16 03:22 96 60 03/04/16 02:00 119 03/04/16 01:20 96 60 03/04/16 00:00 118 03/04/16 00:00 96.7 118 29 159/76 97 03/03/16 22:00 115 03/03/16 20:06 98 60 03/03/16 20:00 96.7 116 26 175/80 97 03/03/16 20:00 116 03/03/16 18:23 96 60 03/03/16 18:00 114 03/03/16 18:00 169/82 03/03/16 16:00 104 03/03/16 16:00 97.7 113 25 168/79 97 03/03/16 14:00 104 03/03/16 12:00 97.1 101 25 155/67 99 03/03/16 12:00 101 I/O 03/03/16 03/03/16 03/03/16 03/04/16 03/04/16 03/04/16 06:59 14:59 22:59 06:59 14:59 22:59 Intake Total 812 ml 562 ml 445 ml 651 ml Output Total 1650 ml 1380 ml 1100 ml 1250 ml 550 ml Balance -838 ml -818 ml -655 ml -599 ml -550 ml Intake IV Total 421 ml 265 ml 163 ml 352 ml Tube Feeding 311 ml 297 ml 282 ml 299 ml Albumin 50 ml Other 30 ml Output Urine Total 1350 ml 1080 ml 1000 ml 1050 ml 550 ml Stool Total 300 ml 300 ml 100 ml 200 ml Result Diagram: 03/04/1631403/04/16314 Objective Remarks GENERAL: Sedated on vent; chronically ill appearing SKIN: Warm and dry. HEAD: Atraumatic. Normocephalic. EYES: Pupils equal and round. No scleral icterus. No injection or drainage. ENT: No nasal bleeding or discharge. Mucous membranes pink and moist. NECK: Trachea midline. No JVD. CARDIOVASCULAR: Regular rate and rhythm. RESPIRATORY: No accessory muscle use. Slight Bilateral ronchi, good air movement. Breath sounds equal bilaterally. GASTROINTESTINAL: Abdomen soft, non-tender, nondistended. Hepatic and splenic margins not palpable. MUSCULOSKELETAL: Extremities without clubbing, cyanosis, or edema. No obvious deformities. NEUROLOGICAL: Awake and alert. No obvious cranial nerve deficits. Motor grossly within normal limits. PSYCHIATRIC: Appropriate mood and affect; Date of Insertion: Feb 28, 2016 Date of Insertion: Feb 28, 2016 Line: Central Venous Catheter Side: Left Location: Internal, Jugular (vasoactive medications, CVP monitoring) A/P Assessment and Plan SEPTIC SHOCK, RESOLVED, OFF PRESSORS RESPIRATORY FAILURE, S/P BRONCH FEB 27, EXTUBATED MAR 03, REINTUBATED MAR 04, HCAP, FUNGAL PNA COPD C DIF SCHF AC ON CRF RENAL TRANSPLANT, RENAL US NORMAL. AF HYPOTHYROID PLAN: IV ABX IVF GTF'S IV BUMEX BLOOD CULTURES DUONEBS HEPARIN 5000 BID FOR PROPHYLAXIS IV PROTONIX CCM CONSULT, NOTES REVIEWED NEPHRO CONSULT, NOTES REVIEWED PULMONARY CONSULT PT OT ST ICU CARE FOLLOWUP LABS MEDS ABOVE. Herbert Kaba MD Mar 04, 2016 12:01
--- NOTE | 2016-03-04 12:09 | HHI.NPPN ---
Subjective Renal Failure: Acute History of Present Illness 70-year-old female with a history of renal transplant presenting with respiratory distress with clinical evidence of pneumonia and acute renal failure. Interval History patient has been reintubated. Review of Systems General General Remarks Intubated, but not sedated. ROS not obtainable. Objective Data Data 03/03/16 03/04/16 19:00 07:00 Intake Total 779 ml 879 ml Output Total 2080 ml 1650 ml Balance -1301 ml -771 ml Intake IV Total 341 ml 439 ml Tube Feeding 438 ml 440 ml Output Urine Total 1780 ml 1350 ml Stool Total 300 ml 300 ml Vital Signs Date Time Temp Pulse Resp B/P Pulse Ox O2 Delivery O2 Flow Rate FiO2 03/04/16 11:04 100 40 03/04/16 08:35 100 50 03/04/16 08:00 100 03/04/16 07:08 100 100 03/04/16 06:00 Arterial Line Automatic Cuff 03/04/16 06:00 118 03/04/16 04:00 118 03/04/16 04:00 96.1 122 36 153/7 97 03/04/16 03:22 96 60 03/04/16 02:00 119 03/04/16 01:20 96 60 03/04/16 00:00 118 03/04/16 00:00 96.7 118 29 159/76 97 03/03/16 22:00 115 03/03/16 20:06 98 60 03/03/16 20:00 96.7 116 26 175/80 97 03/03/16 20:00 116 03/03/16 18:23 96 60 03/03/16 18:00 114 03/03/16 18:00 169/82 03/03/16 16:00 104 03/03/16 16:00 97.7 113 25 168/79 97 03/03/16 14:00 104 -: 03/04/16 0315 03/04/16 0315 Tubes & Lines Comment PEG Drip Comment fentanyl, Levophed Physical Exam General Appearance: Well Developed, Well Nourished, Comfortable, Anxious Eyes Eye Exam: Pupils Equal, Pupils Reactive Pulmonary Resp Exam: Clear Bilaterally, Breath Sounds Equal, Decreased Bases, Diminished Breath Sounds Cardiology CV Exam: Regular, Normal Sinus Rhythm, Good Perfusion Gastrointestinal/Abdomen GI Exam: Bowel Sounds Present Musculoskeletal MS Exam: Joints Intact, Good Strength Integumentary Skin Exam: Clear, Warm, Dry, Intact Extremeties Extremities Exam: Moderate Edema Neurologic Neuro Exam: Awake Assessment/Plan Assessment Summary: Transplant Kidney Status Electrolyte Assessment: Hypocalcemia Problem List: (1) Renal transplant, status post Plan: On reviewing records from the rehabilitation center at [facility] the patient was on 1.25 mg of sirolimus daily and not the reported one alternating with 2 mg dosage. In addition from my review of the orders she was apparently receiving 1 mg of sirolimus daily with an additional 2 mg every other day. I have adjusted his dosage of sirolimus to reflect last dosage documented from the rehabilitation center at [place] and we'll subsequently repeat level. patient is maintaining a fair urine output with th bumetanide drip but her creatinine level continues to deteriorate. Consideration may have to be given to initiation of dialysis if there is no improvement in renal function. (2) Acute kidney failure Plan: Her creatinine was around 1.2 in October of this year, suggesting reasonably well preserved GFR after transplant in 2006. ANNABELLA likely due to ATN. We are hopeful with increase of UOP that her renal functions will follow suit. Continue on Bumex drip as ordered. Will give dose of Diuril today given her edema Sirolimus level pending. (3) Pneumonia Plan: She is immunosuppressed. ID following On Antibiotics: Zosyn, Zyvox, Vancomycin and Zithromax. According to previous notes, she was diagnosed with fungal pneumonia at [facility]. 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 (5) Heart failure Plan: EF of 35 % previously. Currently on Bumex drip with albumin IV and her volume status has improved. The patient also has history of left upper lobectomy for lung cancer. Rin Juarez MD Mar 04, 2016 12:09 Plan Patient is responding to IV bumetanide drip however I am still concerned regarding severity of azotemia. Hopefully the patient's renal function will start to improve soon. The exam, history, and the medical decision-making described in the above note were completed with the assistance of the YUMIKO. I reviewed and agree with the findings presented. I attest that I had a [id number] encounter with the patient on the same day, and personally performed and documented my assessment and findings in the medical record. Rin Juarez MD Mar 04, 2016 12:09
[2016-03-04] MEDS: AZITHROMYCIN SUSP 200 MG/5 ML 15 ML BTL TUBE SCH (12:13)
[2016-03-04] MEDS: PANTOPRAZOLE SODIUM 40 MG VIAL IV PUSH SCH ×2 (12:13→13:00)
[2016-03-04] MEDS: PROPOFOL 1000 MG/100 ML INJ 100 ML IV SCH (14:43)
[2016-03-04] MEDS ORDERED: VORICONAZOLE 200 MG TAB PO SCH (15:00)
[2016-03-04] MEDS: VORICONAZOLE 200 MG TAB PO SCH ×2 (15:16→20:08)
[2016-03-04] MEDS: VANCOMYCIN 500 MG VIAL (FOR ORAL USE ONLY) PO SCH ×2 (15:16→20:09)
--- NOTE | 2016-03-04 16:55 | HHI.PR ---
Subjective Remarks 70 YOWF with COPD,Renal transplant,ca lung, s/p resection with RF Reintubated this morning Sedated with Diprivan On ACV, Fi02 40% Objective Vital Signs Vital Signs Date Time Temp Pulse Resp B/P Pulse Ox O2 Delivery O2 Flow Rate FiO2 03/04/16 15:14 100 40 03/04/16 11:04 100 40 03/04/16 08:35 100 50 03/04/16 08:00 100 03/04/16 07:08 100 100 03/04/16 06:00 Arterial Line Automatic Cuff 03/04/16 06:00 118 03/04/16 04:00 118 03/04/16 04:00 96.1 122 36 153/7 97 03/04/16 03:22 96 60 03/04/16 02:00 119 03/04/16 01:20 96 60 03/04/16 00:00 118 03/04/16 00:00 96.7 118 29 159/76 97 03/03/16 22:00 115 03/03/16 20:06 98 60 03/03/16 20:00 96.7 116 26 175/80 97 03/03/16 20:00 116 03/03/16 18:23 96 60 03/03/16 18:00 114 03/03/16 18:00 169/82 I/O 03/03/16 03/03/16 03/03/16 03/04/16 03/04/16 03/04/16 07:00 15:00 23:00 07:00 15:00 23:00 Intake Total 812 ml 562 ml 445 ml 651 ml 545 ml Output Total 1650 ml 1380 ml 1100 ml 1250 ml 1300 ml Balance -838 ml -818 ml -655 ml -599 ml -755 ml Intake IV Total 421 ml 265 ml 163 ml 352 ml 305 ml Tube Feeding 311 ml 297 ml 282 ml 299 ml 240 ml Albumin 50 ml Other 30 ml Output Urine Total 1350 ml 1080 ml 1000 ml 1050 ml 1300 ml Stool Total 300 ml 300 ml 100 ml 200 ml 0 ml Result Diagram: 03/04/1631403/04/16314 Objective Remarks GENERALMBMN female, SOB: SKIN: Warm and dry. HEAD: Normocephalic. EYES: No scleral icterus. No injection or drainage. NECK: Supple, trachea midline. No JVD or lymphadenopathy. CARDIOVASCULAR: Regular rate and rhythm without murmurs, gallops, or rubs. RESPIRATORY: Breath sounds equal bilaterally. No accessory muscle use. Bilat coarse crackles. GASTROINTESTINAL: Abdomen soft, non-tender, nondistended. MUSCULOSKELETAL: No cyanosis, ++ edema. BACK: Nontender without obvious deformity. No CVA tenderness. A/P Assessment and Plan VDRF Pneumonia Sepsis sund renal transplant Ca lung, s/p resection PLAN: On Bumex drip Cont Vent support Monitor BS Abx Zithro, Zyvox and Cefepime per ID Alverto Armas MD Mar 04, 2016 16:54
--- NOTE | 2016-03-04 18:58 | HHI.IDPN ---
Subjective Subjective Remarks Pt got reintubated afebrile WBC went up to 15 K cont to have diarrhea C.diff was positive Antibiotics CFTX azithromycin Lines [facility] TLC Past Medical History renal transpant ESRD Allergies: Coded Allergies: Labetalol (Verified Allergy, Severe, NAUSEA AND VOMITING, 02/28/16) Lortab (Verified Adverse Reaction, Severe, VOMITING, 02/28/16) Objective . Vital Signs Date Time Temp Pulse Resp B/P Pulse Ox O2 Delivery O2 Flow Rate FiO2 03/04/16 15:14 100 40 03/04/16 11:04 100 40 03/04/16 08:35 100 50 03/04/16 08:00 100 03/04/16 07:08 100 100 03/04/16 06:00 Arterial Line Automatic Cuff 03/04/16 06:00 118 03/04/16 04:00 118 03/04/16 04:00 96.1 122 36 153/7 97 03/04/16 03:22 96 60 03/04/16 02:00 119 03/04/16 01:20 96 60 03/04/16 00:00 118 03/04/16 00:00 96.7 118 29 159/76 97 03/03/16 22:00 115 03/03/16 20:06 98 60 03/03/16 20:00 96.7 116 26 175/80 97 03/03/16 20:00 116 03/03/16 03/03/16 03/04/16 15:00 23:00 07:00 Intake Total 562 ml 445 ml 651 ml Output Total 1380 ml 1100 ml 1250 ml Balance -818 ml -655 ml -599 ml Intake IV Total 265 ml 163 ml 352 ml Tube Feeding 297 ml 282 ml 299 ml Output Urine Total 1080 ml 1000 ml 1050 ml Stool Total 300 ml 100 ml 200 ml . Laboratory Tests Test 03/03/16 03/03/16 03/04/16 03:15 13:11 03:15 White Blood Count 7.0 TH/MM3 9.3 TH/MM3 15.1 TH/MM3 Red Blood Count 3.16 MIL/MM3 3.31 MIL/MM3 3.52 MIL/MM3 Hemoglobin 9.0 GM/DL 9.3 GM/DL 9.7 GM/DL Hematocrit 27.9 % 29.5 % 31.1 % Mean Corpuscular Volume 88.4 FL 89.3 FL 88.3 FL Mean Corpuscular Hemoglobin 28.5 PG 28.2 PG 27.6 PG Mean Corpuscular Hemoglobin 32.2 % 31.6 % 31.2 % Concent Red Cell Distribution Width 16.2 % 16.6 % 16.4 % Platelet Count 132 TH/MM3 132 TH/MM3 181 TH/MM3 Mean Platelet Volume 7.9 FL 8.3 FL 8.1 FL Neutrophils (%) (Auto) 94.5 % 95.3 % 95.7 % Lymphocytes (%) (Auto) 2.9 % 2.3 % 1.1 % Monocytes (%) (Auto) 2.3 % 2.1 % 3.1 % Eosinophils (%) (Auto) 0.0 % 0.0 % 0.0 % Basophils (%) (Auto) 0.3 % 0.3 % 0.1 % Neutrophils # (Auto) 6.6 TH/MM3 8.9 TH/MM3 14.4 TH/MM3 Lymphocytes # (Auto) 0.2 TH/MM3 0.2 TH/MM3 0.2 TH/MM3 Monocytes # (Auto) 0.2 TH/MM3 0.2 TH/MM3 0.5 TH/MM3 Eosinophils # (Auto) 0.0 TH/MM3 0.0 TH/MM3 0.0 TH/MM3 Basophils # (Auto) 0.0 TH/MM3 0.0 TH/MM3 0.0 TH/MM3 CBC Comment DIFF FINAL DIFF FINAL DIFF FINAL Differential Comment Laboratory Tests Test 03/02/16 03/03/16 03/03/16 03/04/16 19:02 03:15 16:35 03:15 Potassium Level 3.2 MEQ/L 3.8 MEQ/L 3.2 MEQ/L 3.8 MEQ/L Sodium Level 141 MEQ/L 143 MEQ/L Chloride Level 107 MEQ/L 106 MEQ/L Carbon Dioxide Level 22.7 MEQ/L 25.3 MEQ/L Anion Gap 11 MEQ/L 12 MEQ/L Blood Urea Nitrogen 54 MG/DL 59 MG/DL Creatinine 3.32 MG/DL 3.44 MG/DL Estimat Glomerular Filtration 14 ML/MIN 13 ML/MIN Rate Random Glucose 137 MG/DL 206 MG/DL Calcium Level 6.8 MG/DL 7.2 MG/DL Phosphorus Level 4.1 MG/DL 4.1 MG/DL Albumin 2.1 GM/DL Protein Corrected Calcium 7.5 MG/DL Magnesium Level 1.6 MG/DL Total Protein 6.5 GM/DL Microbiology Date/Time Procedure Status Source Growth 03/02/16 06:30 Legionella Antigen - Final Complete Urine Catheterized Urine PRESUMPTIVE NEGATIVE FOR LEGIONELLA P... Imaging Last Impressions Chest X-Ray 03/04/16 0000 Signed Impressions: Service Date/Time: Friday, March 04, 2016 08:04 - CONCLUSION: 1. Developing nodular opacities involving the right lung. These are new from the prior exam. Their interval appearance would suggest an infectious etiology. 2. Slight improvement in aeration of the left mid lung. Michael Robbins Jr., MD Renal Ultrasound 03/01/16 0000 Signed Impressions: Service Date/Time: Tuesday, March 01, 2016 10:45 - CONCLUSION: No evidence of hydronephrosis or focal abnormality. The resistive indices are within normal Sumit Laws MD Abdomen X-Ray 03/01/16 0000 Signed Impressions: Service Date/Time: Tuesday, March 01, 2016 15:32 - CONCLUSION: G-tube inside the stomach. KAce Birmingham MD Physical Exam CONSTITUTIONAL/GENERAL: awake, alert, some resp distress SKIN: Warm and dry. Has some scattered ecchymoses. No jaundice, genralized rashes. Has one purplish lesion on her L second toe EYES: No scleral icterus. No injection or drainage. ENT: . Nose without bleeding or purulent drainage. Oral mucosa moist NECK: Trachea midline. Supple, nontender. Line ok CARDIOVASCULAR: Regular rate and rhythm without murmurs, gallops, or rubs. No JVD. Peripheral pulses symmetric. RESPIRATORY/CHEST: No BS on the L, diffuse rhonchi R GASTROINTESTINAL: Abdomen soft, non-tender, nondistended. No guarding. Bowel sounds present. GENITOURINARY: Malik catheter in place with small amount clear yellow urine MUSCULOSKELETAL: Extremities without clubbing, cyanosis, or edema in BLE. No mottling or clubbing. Hands edematous with ecchymoses NEUROLOGICAL: awake alert PSYCHIATRIC: anxious LINE: No evidence of infection Assessment & Plan Remarks IMPRESSION Respiratory failure - worse - back on the vent Pneumonia recent h/o fungal pulmonary infx - chart reviewed : per ID databases software consultant note Dr Goldberg pt grew out C.albicans - nodular infiltrates on recent CXR Previous L lung surgery for lung CA, completely opacified L hemithorax (no change compared to CXR ) S/P renal transplant - ARF in transplant Profound hypothyroidism, suspect myxedema 2 D echo showed EF 45-50% C.diff d iarrhea, new problem PLAN: Continue azithro, cjange CFTX to cefepime repeat sputum clx start voriconazole start po vancomycin Follow C/S Monitor progress chk stool for c.diff dw Nataly Tatum MD Mar 04, 2016 18:58
[2016-03-04] MEDS: PRAVASTATIN SOD 40 MG TAB PO SCH (20:08)
[2016-03-04] MEDS: CEFEPIME INJ 2,000 MG in SODIUM CHLORIDE 0.9% INJ 100 ML IV SCH (21:34)
[2016-03-05] VITALS (16 sets, daily range): BP systolic 120–146; BP diastolic 59–65; PULSE 101–106; RESP 18–21; TEMP 97.8–98.8; O2SAT 97–100
[2016-03-05] MEDS: HEPARIN SODIUM - SQ 10,000 UNITS/ML VIAL SQ SCH ×3 (00:32→22:52)
[2016-03-05] MEDS: metroNIDAZOLE 500 MG INJ 100 ML IV SCH ×4 (00:33→22:53)
[2016-03-05] MEDS: INSULIN ASPART SUPPLEMENTAL SCALE SQ SCH ×7 (00:33→22:53)
[2016-03-05] MEDS: PROPOFOL 1000 MG/100 ML INJ 100 ML IV SCH ×2 (01:27→07:59)
[2016-03-05] MEDS: RESP: ALBUTEROL 2.5 MG/IPRATROPIUM 0.5 MG NEB (SCH) NEB ×4 (03:09→19:35)
[2016-03-05] MEDS: VANCOMYCIN 500 MG VIAL (FOR ORAL USE ONLY) PO SCH ×4 (04:20→21:10)
[2016-03-05] MEDS: GABAPENTIN 100 MG CAP PO SCH ×3 (04:20→21:11)
[2016-03-05] MEDS: ALBUMIN HUMAN 25% 12.5 GM/50 ML BAGP IV SCH ×3 (05:43→21:16)
[2016-03-05] MEDS: SIROLIMUS 1 MG/ML NG SCH (05:43)
[2016-03-05] MEDS: HYDROCORTISONE SOD SUCCINATE 100 MG VIAL IV PUSH SCH ×4 (05:43→23:16)
[2016-03-05] MEDS: LEVOTHYROXINE SODIUM 112 MCG TAB PO SCH (05:43)
[2016-03-05 06:39] LABS: AUTOMATED NEUTROPHIL # 5.2 TH/MM3 (1.8-7.7); BASOPHIL % 0.4 % (0.0-2.0); HEMATOCRIT 23.9 % (35.0-46.0); LYMPH % 2.5 % (9.0-44.0); LYMPHOCYTE # 0.1 TH/MM3 (1.0-4.8); MEAN CORPUSCULAR HGB CONC 33.7 % (32.0-36.0); MONO % 2.5 % (0.0-8.0); NEUT % 94.6 % (16.0-70.0); PLATELET COUNT 76 TH/MM3 (150-450); RED BLOOD COUNT 2.78 MIL/MM3 (4.00-5.30); WHITE BLOOD COUNT 5.5 TH/MM3 (4.0-11.0)
[2016-03-05 07:16] LABS: BICARBONATE 26.9 MEQ/L (21.0-32.0)
--- NOTE | 2016-03-05 07:20 | HHI.CCPN ---
Subjective Remarks/Hospital Course 70-year-old female with history of lung cancer status post left lobectomy, and kidney transplant 2006 presented to the ED with worsening pulmonary symptoms. Her medical history is significant for DM, HTN. She presented to the ED today because worsening cough, shortness of breath, dyspnea on exertion, and fevers. The patient is dependent on home O2 at 4 L nasal cannula, and scheduled DuoNeb treatment. The patient was hospitalized for several months 11/2015-12/22 . During this hospitalization she reports having a fungal pulmonary infection and a seizure resulting in "coma for a few weeks". She was transferred to a rehabilitation facility [facility] for approximately 2 months ago. The patient was then transferred to [facility] approximately 3 weeks ago at which time she fractured her left ankle, and was transferred to [facility]. She was recently discharged from [facility] on 02/15/2016. The patient states that she began having worsening symptoms over the last 3-4 days, that resembled her fungal pneumonia. Critical care medicine was consulted for management. 02/28 Upon arrival to ICU last evening, bronchoscopy was performed, and specimens were sent for culture. The patient was maintained on IV fluids 100 cc an hour, and discontinued at 2 AM secondary to oliguria. CVP ranged 14 throughout the night, with original BNP 1035. Postintubation the patient remains GCS 11 T, following commands. The patient continues to be oliguric with hourly urinary output 7-10 cc an hour. 03/01 On levophed 8mcg/min. UOP around 10 mL/hr. Received Bumex 2 mg IV and UOP still ~20 Ml/hr last hour. CVP 18-20. In Afib rate controlled. Awakens on CPAP 5/5. 03/02 UOP 1068 overnight on bumex drip. Creatinine up to 3.28. Placing on CPAP 5 /5. Afebrile. Levophed weaned to 2 mcg/min with MAP 77. CVP 24 Subjective: 03/03 Creatinine up to 3.32. Nonoliguric with Bumex drip. CVP down to 14. Tolerating CPAP. Off levophed. 03/04 Patient was on BIPAP 10/5 with 60% FIO2 overnight. Patient looked lethargic and started desating she was subsequently intubated and placed on mechanical ventilation. On Bumex drip 2mg/hr. Positive C-diff this morning. 03/05 Patient is sedated with diprivan and intubated. Afebrile. Remains on Bumex drip 2mg/hr. Objective Vital Signs Date Time Temp Pulse Resp B/P Pulse Ox O2 Delivery O2 Flow Rate FiO2 03/05/16 06:00 101 03/05/16 04:29 98 40 03/05/16 04:00 98.3 21 120/60 03/03/16 11:25 Non-Rebreather 15 Intake and Output 03/04/16 03/04/16 03/05/16 08:00 16:00 00:00 Intake Total 219 ml 545 ml 856 ml Output Total 500 ml 1300 ml 1850 ml Balance -281 ml -755 ml -994 ml Result Diagram: 03/04/1631403/04/16314 Other Results Laboratory Tests Test 03/04/16 08:20 Blood Gas Puncture Site LT BRACHIAL Blood Gas Patient Temperature 98.6 Blood Gas HCO3 21 mmol/L Blood Gas Base Excess -5.4 mmol/L Blood Gas Oxygen Saturation 97 % Arterial Blood pH 7.26 Arterial Blood Partial 48 mmHg Pressure CO2 Arterial Blood Partial 314 mmHg Pressure O2 Arterial Blood Oxygen Content 13.6 Vol % Arterial Blood 1.1 % Carboxyhemoglobin Arterial Blood Methemoglobin 1.4 % Blood Gas Hemoglobin 9.4 G/DL Oxygen Delivery Device VENTILATOR Blood Gas Ventilator Setting AC 550/16/+5PEEP Blood Gas Inspired Oxygen 100 % Imaging Last Impressions Chest X-Ray 03/04/16 0000 Signed Impressions: Service Date/Time: Friday, March 04, 2016 08:04 - CONCLUSION: 1. Developing nodular opacities involving the right lung. These are new from the prior exam. Their interval appearance would suggest an infectious etiology. 2. Slight improvement in aeration of the left mid lung. Michael Robbins Jr., MD Renal Ultrasound 03/01/16 0000 Signed Impressions: Service Date/Time: Tuesday, March 01, 2016 10:45 - CONCLUSION: No evidence of hydronephrosis or focal abnormality. The resistive indices are within normal Sumit Laws MD Abdomen X-Ray 03/01/16 0000 Signed Impressions: Service Date/Time: Tuesday, March 01, 2016 15:32 - CONCLUSION: G-tube inside the stomach. Angelita Birmingham MD Objective Remarks Drips: Bumex 2 mg/hr Nepro 40 ml/hr GENERAL: Morbidly obese elderly critically ill female , intubated SKIN: Warm and dry. Multiple ecchymotic bruising neck, chest, bilateral extremities upper and lower HEAD: Atraumatic. Normocephalic. EYES: Pupils equal and round. No scleral icterus. No injection or drainage. ENT: No nasal bleeding or discharge. Mucous membranes pink and moist. NECK: Trachea midline. Supple, no JVD, adenopathy, orally intubated. CARDIOVASCULAR: Normal rate, irregularly irregular rhythm. No murmur appreciated currently. RESPIRATORY: Coarse BS on right. GASTROINTESTINAL: Abdomen soft, non-tender, nondistended. Gastric tube no erythema or drainage. MUSCULOSKELETAL: Extremities without clubbing, cyanosis, trace edema NEUROLOGICAL: Intubated Date of Insertion: Feb 28, 2016 Date of Insertion: Feb 28, 2016 Line: Central Venous Catheter Side: Left Location: Internal, Jugular (vasoactive medications, CVP monitoring) A/P Assessment and Plan Plan by systems: Neurologic: Seizure disorder Herniated discs Neuropathy - Diprivan infusion for sedation. Daily sedation vacation. -Neurochecks per ICU protocol -Gabapentin 100 q8. Respiratory: Acute hypoxic respiratory failure History of non-small cell lung cancer S/P left lung lobectomy 2013 Home O2 dependency Presumed Hospital-acquired pneumonia (previous HCAP treatment 10/22) Left lung opacity-chronic History of tracheostomy-decannulated 12/22/15 -02/27 Intubated 7.5 oral ET tube , extubated 03/03 reintubated 03/04 -Continue with vent support keep sat >92% -Bronchodilators. ICU vent bundle, start SBT daily as monique. -Pulmonology Following, Cardiovascular: HTN Atrial fibrillation-rate control Acute on chronic systolic CHF RV overload, pulmonary HTN Hyperlipidemia -Maintain HR and BP keep MAP>65mmHg -2D ECHO 02/28mildly reduced systolic function with EF 45-50%. Mild RV dilatation. Mild to moderate tricuspid regurg. Pulmonary artery peak systolic pressure 53 mmHg. -Continue pravastatin FEN/Renal: S/P kidney transplant ANNABELLA, suspect ischemic ATN Oliguria Hypocalcemia -Malik in place, Strict hourly UOP, Bumex 2mg/hr -Audience Coordinator -Dr. Juarez -Sirolimus level pending 03/01. On Sirolimus 2 mg every other day per nephrology. -On hydrocortisone 100 mg every 8hrs per nephrology, could be transitioned to prednisone per G tube as she is out of shock. GI: Morbid obesity -Tolerating Nepro 40 mL/hr via PEG. -Zofran PRN for nausea -Protonix GI prophylaxis ID: Pneumonia-HCAP Positive Cdiff Leukocytosis Continue with abx per ID (Cefepime, Zithromax, Flagyl, PO Vanco, Voriconazole) 02/27 - Influenza screen negative. 02/27 Blood cultures -NGTD 02/27 Bronchial washings- Gram positive cocci, fungal stain negative. 02/28 cryptococcal- serum antigen negative 03/01 urine legionella and pneumococcal antigen negative. -Continue Nystatin topical powder for breast folds Heme: Monitor CBC Endocrine: DM Hypothyroidism -Continue medium dose sliding scale q4 hours and detemir 5 units subcut q12. -T4 4.7 (norm 4.8), TSH 33.60( elevated) -Continue Synthroid 224 mcg/d MSK: - Specialty bed -Wound care consult, noted admission to ED with sacral decubitus wound Prophylaxis: GI Prophylaxis Protonix IV DVT Prophylaxis -- SCDs, heparin 5000 units subcutaneous q12 hours. Lines: L IJ Central line placed in ED Dr. Bobo 02/27 CCT 30 min exclusive of separately billable procedures. Isael Belcher MD Mar 05, 2016 07:20
[2016-03-05 07:22] LABS: POTASSIUM 2.4 MEQ/L (3.5-5.1)
[2016-03-05 07:42] LABS: CALCIUM-PROTEIN CORRECTED 7.6 MG/DL (8.5-10.1)
[2016-03-05 07:51] LABS: HEMO FLAGS AUTO DIFF
[2016-03-05] MEDS ORDERED: POTASSIUM CHLOR 40 MEQ PREMIX 100 ML IV ONE (08:00)
[2016-03-05] MEDS: SODIUM CHLORIDE 0.9% FLUSH 5 ML FLUSH IV FLUSH SCH ×2 (08:00→21:11)
[2016-03-05] MEDS: INSULIN DETEMIR 100 UNITS/ML VIAL SQ SCH ×2 (08:00→21:10)
[2016-03-05] MEDS: NYSTATIN 100,000 U/GM PWD 15 GM BTL TOP SCH ×2 (08:01→21:16)
[2016-03-05 08:31] LABS: BLOOD GAS BASE EXCESS 0.4 mmol/L (-2-2); BLOOD GAS CARBOXYHEMOGLOBIN 1.5 % (0-4); BLOOD GAS HCO3 25 mmol/L (22-26); BLOOD GAS METHEMOGLOBIN 1.5 % (0-2); BLOOD GAS O2 HGB SATURATION 96 % (90-100); BLOOD GAS OXYGEN CONTENT 11.8 Vol % (12.0-20.0); BLOOD GAS PCO2 40 mmHg (38-42); BLOOD GAS PO2 109 mmHg (61-120); BLOOD GAS TOTAL HGB 8.6 G/DL (12.0-16.0); TEMP CORR TO 98.6
[2016-03-05 08:32] LABS: CRITICAL VALUE NO; DRAW SITE RT RADIAL; FIO2 40 %; NUMBER OF ARTERIAL PUNCTURES 1; OXYGEN DEVICE VENTILATOR; STAT NO; ULNAR PULSE PRESENT; VENT SETTINGS 500/20/5PEEP
[2016-03-05] MEDS: VORICONAZOLE 200 MG TAB PO SCH ×2 (08:48→21:11)
[2016-03-05 09:42] LABS: PLATELET ESTIMATE SMEAR LOW (NORMAL); PLATELET MORPHOLOGY NORMAL (NORMAL); SCAN/DIFF AUTO DIFF CONFIRMED
--- NOTE | 2016-03-05 10:05 | HHI.FPPN ---
Subjective Remarks AROUSABLE ON VENT CALM AND APPEARS COMFORTABLE D/W RN Objective Vitals Vital Signs Date Time Temp Pulse Resp B/P Pulse Ox O2 Delivery O2 Flow Rate FiO2 03/05/16 08:33 100 40 03/05/16 08:33 40 03/05/16 07:17 98 40 03/05/16 06:00 101 03/05/16 04:29 98 40 03/05/16 04:00 105 03/05/16 04:00 40 03/05/16 04:00 98.3 105 21 120/60 100 03/05/16 03:09 98 40 03/05/16 02:00 105 03/05/16 00:00 101 03/05/16 00:00 97.8 101 20 124/59 100 03/05/16 00:00 40 03/04/16 23:25 99 40 03/04/16 22:00 107 03/04/16 20:38 98 40 03/04/16 20:00 105 03/04/16 20:00 98.2 105 24 121/58 99 03/04/16 20:00 40 03/04/16 16:00 97.8 105 22 121/58 100 03/04/16 16:00 50 03/04/16 15:14 100 40 03/04/16 12:00 98.1 107 25 118/60 100 03/04/16 12:00 50 03/04/16 11:04 100 40 I/O 03/04/16 03/04/16 03/04/16 03/05/16 03/05/16 03/05/16 07:00 15:00 23:00 07:00 15:00 23:00 Intake Total 651 ml 545 ml 856 ml 512 ml Output Total 1250 ml 1300 ml 1850 ml 1425 ml Balance -599 ml -755 ml -994 ml -913 ml Intake IV Total 352 ml 305 ml 464 ml 274 ml Tube Feeding 299 ml 240 ml 392 ml 238 ml Output Urine Total 1050 ml 1300 ml 1825 ml 1250 ml Stool Total 200 ml 0 ml 25 ml 175 ml Result Diagram: 03/05/16 0600 03/05/16 0600 Objective Remarks GENERAL: Sedated on vent; chronically ill appearing SKIN: Warm and dry. HEAD: Atraumatic. Normocephalic. EYES: Pupils equal and round. No scleral icterus. No injection or drainage. ENT: No nasal bleeding or discharge. Mucous membranes pink and moist. NECK: Trachea midline. No JVD. CARDIOVASCULAR: Regular rate and rhythm. RESPIRATORY: No accessory muscle use. Slight Bilateral ronchi, good air movement. Breath sounds equal bilaterally. GASTROINTESTINAL: Abdomen soft, non-tender, nondistended. Hepatic and splenic margins not palpable. MUSCULOSKELETAL: Extremities without clubbing, cyanosis, or edema. No obvious deformities. NEUROLOGICAL: Awake and alert. No obvious cranial nerve deficits. Motor grossly within normal limits. PSYCHIATRIC: Appropriate mood and affect; Medications and IVs Current Medications Medications (Trade) Dose Ordered Sig/Reymundo Route Start Time Stop Time Status Last Admin (Tylenol) 650 mg Q4H PRN PO 02/28/16 11:30 (Zofran Inj) 4 mg Q6H PRN IVP 02/28/16 11:30 (Dulcolax Supp) 10 mg DAILY PRN HI 02/28/16 11:30 (Milk Of Magnesia Liq) 30 ml Q12H PRN PO 02/28/16 11:30 (Senokot) 17.2 mg Q12H PRN PO 02/28/16 11:30 (Heparin Inj) 5,000 units Q12H SQ 02/28/16 12:00 03/05/16 00:32 (Narcan Inj) 0.4 mg UNSCH PRN IV 02/28/16 11:30 (Protonix Inj) 40 mg Q24H IV PUSH 02/28/16 13:00 03/04/16 13:00 Miscellaneous Information 1 Q361D XX 02/28/16 12:00 (NS Flush) 2 ml UNSCH PRN IV FLUSH 02/28/16 16:15 03/01/16 08:00 IV Flush 2 ml 2 ml BID IV FLUSH 02/28/16 21:00 03/05/16 08:00 (fentaNYL DRIP) 250 ml @ 0 mls/hr TITRATE IV 02/28/16 17:00 03/03/16 04:54 (D50w (Vial) Inj) 25 ml UNSCH PRN IV PUSH 02/28/16 18:30 (Glucagon Inj) 1 mg UNSCH PRN OTHER 02/28/16 18:30 (Neurontin) 100 mg Q8H PO 02/28/16 20:00 12/28/16 04:20 (Mycostatin Powder) 1 applic BID TOP 02/28/16 21:00 03/05/16 08:01 (Pravachol) 40 mg HS PO 02/28/16 21:00 03/04/16 20:08 (SoluCORTEF INJ) 100 mg Q8HR IV PUSH 02/28/16 22:00 03/05/16 05:43 Miscellaneous Information Patient in critical care unit? Ass... Q361D XX 02/28/16 19:30 (Brethine Inj) 1 mg UNSCH PRN SQ 02/29/16 13:00 (Synthroid) 224 mcg DAILY@0600 PO 03/01/16 06:00 03/05/16 05:43 Insulin Aspart 1 1 Q4H SQ 03/01/16 16:00 03/05/16 08:00 (Bumex Inj) 100 ml @ 4 mls/hr CONTINUOUS IV 03/02/16 11:00 03/04/16 14:43 (Zithromax 200 Mg/5 ml Liq) 500 mg Q24H TUBE 03/03/16 11:00 03/04/16 12:13 (Albumin 25% Inj) 12.5 gm Q8H IV 03/02/16 14:00 03/05/16 05:43 Insulin Detemir 5 units 5 units Q12HR SQ 03/02/16 21:00 03/05/16 08:00 Propofol 100 ml @ 0 mls/hr TITRATE IV 03/04/16 07:30 03/05/16 07:59 (Flagyl 500 Mg Inj) 100 ml @ 100 mls/hr Q8H IV 03/04/16 08:00 03/05/16 07:59 (Rapamune Liq) 1.25 mg DAILY@06 NG 03/05/16 06:00 03/05/16 05:43 (Vfend) 200 mg Q12HR PO 03/05/16 09:00 03/05/16 08:48 Vancomycin HCl 500 mg 500 mg Q6H PO 03/04/16 15:00 03/05/16 08:48 Cefepime HCl 2000 mg/Sodium Chloride 100 ml @ 200 mls/hr Q24H IV 03/04/16 20:00 03/04/16 21:34 (KCl 40 Meq Premix Inj) 100 ml @ 25 mls/hr BOLUS ONCE IV 03/05/16 08:00 03/05/16 11:59 03/05/16 08:00 Date of Insertion: Feb 28, 2016 Date of Insertion: Feb 28, 2016 Line: Central Venous Catheter Side: Left Location: Internal, Jugular (vasoactive medications, CVP monitoring) A/P Assessment and Plan SEPTIC SHOCK, RESOLVED, OFF PRESSORS RESPIRATORY FAILURE, S/P BRONCH FEB 27, EXTUBATED MAR 03, REINTUBATED MAR 04, HCAP, FUNGAL PNA LUNG CA COPD C DIF SCHF AC ON CRF RENAL TRANSPLANT, RENAL US NORMAL. AF HYPOTHYROID PLAN: IV ABX IVF GTF'S IV BUMEX BLOOD CULTURES DUONEBS HEPARIN 5000 BID FOR PROPHYLAXIS IV PROTONIX CCM CONSULT, NOTES REVIEWED NEPHRO CONSULT, NOTES REVIEWED PULMONARY CONSULT PT OT ST ICU CARE FOLLOWUP LABS MEDS ABOVE. Herbert Kaba MD Mar 05, 2016 10:05
[2016-03-05] MEDS: MAGNESIUM SULFATE 1 GM PREMIX 100 ML IV SCH ×2 (11:06→13:17)
[2016-03-05] MEDS: PANTOPRAZOLE SODIUM 40 MG VIAL IV PUSH SCH (13:16)
[2016-03-05] MEDS: AZITHROMYCIN SUSP 200 MG/5 ML 15 ML BTL TUBE SCH (13:17)
--- NOTE | 2016-03-05 13:54 | HHI.NPPN ---
Subjective Renal Failure: Acute History of Present Illness 70-year-old female with a history of renal transplant presenting with respiratory distress with clinical evidence of pneumonia and acute renal failure. Interval History Pt still on vent, but is arousable. No events overnight (Janeth Frederick) Review of Systems General General Remarks Intubated, but not sedated. ROS not obtainable. (Janeth Frederick) Objective Data Data 03/04/16 03/05/16 19:00 07:00 Intake Total 545 ml 1368 ml Output Total 1300 ml 3275 ml Balance -755 ml -1907 ml Intake IV Total 305 ml 738 ml Tube Feeding 240 ml 630 ml Output Urine Total 1300 ml 3075 ml Stool Total 0 ml 200 ml Vital Signs Date Time Temp Pulse Resp B/P Pulse Ox O2 Delivery O2 Flow Rate FiO2 03/05/16 11:53 99 40 03/05/16 08:33 100 40 03/05/16 08:33 40 03/05/16 08:00 40 03/05/16 07:17 98 40 03/05/16 06:00 101 03/05/16 04:29 98 40 03/05/16 04:00 105 03/05/16 04:00 40 03/05/16 04:00 98.3 105 21 120/60 100 03/05/16 03:09 98 40 03/05/16 02:00 105 03/05/16 00:00 101 03/05/16 00:00 97.8 101 20 124/59 100 03/05/16 00:00 40 03/04/16 23:25 99 40 03/04/16 22:00 107 03/04/16 20:38 98 40 03/04/16 20:00 105 03/04/16 20:00 98.2 105 24 121/58 99 03/04/16 20:00 40 03/04/16 16:00 97.8 105 22 121/58 100 03/04/16 16:00 50 03/04/16 15:14 100 40 (Janeth Frederick) -: 03/05/16 0600 03/05/16 0600 Medication Review Current Medications Medications (Trade) Dose Ordered Sig/Reymundo Route Start Time Stop Time Status Last Admin (Tylenol) 650 mg Q4H PRN PO 02/28/16 11:30 (Zofran Inj) 4 mg Q6H PRN IVP 02/28/16 11:30 (Dulcolax Supp) 10 mg DAILY PRN [place] 02/28/16 11:30 (Milk Of Magnesia Liq) 30 ml Q12H PRN PO 02/28/16 11:30 (Senokot) 17.2 mg Q12H PRN PO 02/28/16 11:30 (Heparin Inj) 5,000 units Q12H SQ 02/28/16 12:00 03/05/16 13:16 (Narcan Inj) 0.4 mg UNSCH PRN IV 02/28/16 11:30 (Protonix Inj) 40 mg Q24H IV PUSH 02/28/16 13:00 03/05/16 13:16 Miscellaneous Information 1 Q361D XX 02/28/16 12:00 (NS Flush) 2 ml UNSCH PRN IV FLUSH 02/28/16 16:15 03/01/16 08:00 IV Flush 2 ml 2 ml BID IV FLUSH 02/28/16 21:00 03/05/16 08:00 (fentaNYL DRIP) 250 ml @ 0 mls/hr TITRATE IV 02/28/16 17:00 03/03/16 04:54 (D50w (Vial) Inj) 25 ml UNSCH PRN IV PUSH 02/28/16 18:30 (Glucagon Inj) 1 mg UNSCH PRN OTHER 02/28/16 18:30 (Neurontin) 100 mg Q8H PO 02/28/16 20:00 03/05/16 13:15 (Mycostatin Powder) 1 applic BID TOP 02/28/16 21:00 03/05/16 08:01 (Pravachol) 40 mg HS PO 02/28/16 21:00 03/04/16 20:08 (SoluCORTEF INJ) 100 mg Q8HR IV PUSH 02/28/16 22:00 03/05/16 13:17 Miscellaneous Information Patient in critical care unit? Ass... Q361D XX 02/28/16 19:30 (Brethine Inj) 1 mg UNSCH PRN SQ 02/29/16 13:00 (Synthroid) 224 mcg DAILY@0600 PO 03/01/16 06:00 03/05/16 05:43 Insulin Aspart 1 1 Q4H SQ 03/01/16 16:00 03/05/16 12:00 (Bumex Inj) 100 ml @ 4 mls/hr CONTINUOUS IV 03/02/16 11:00 03/04/16 14:43 (Zithromax 200 Mg/5 ml Liq) 500 mg Q24H TUBE 03/03/16 11:00 03/05/16 13:17 (Albumin 25% Inj) 12.5 gm Q8H IV 03/02/16 14:00 03/05/16 13:16 Insulin Detemir 5 units 5 units Q12HR SQ 03/02/16 21:00 03/05/16 08:00 Propofol 100 ml @ 0 mls/hr TITRATE IV 03/04/16 07:30 03/05/16 07:59 (Flagyl 500 Mg Inj) 100 ml @ 100 mls/hr Q8H IV 03/04/16 08:00 03/05/16 07:59 (Rapamune Liq) 1.25 mg DAILY@06 NG 03/05/16 06:00 03/05/16 05:43 (Vfend) 200 mg Q12HR PO 03/05/16 09:00 03/05/16 08:48 Vancomycin HCl 500 mg 500 mg Q6H PO 03/04/16 15:00 03/05/16 08:48 (Maxipime Inj/NS Inj) 100 ml @ 200 mls/hr Q24H IV 03/04/16 20:00 03/04/16 21:34 (Janeth Frederick) Physical Exam General Appearance: Well Developed, Well Nourished, Comfortable, Anxious (Janeth Frederick) Eyes Eye Exam: Pupils Equal, Pupils Reactive (Janeth Frederick) Pulmonary Resp Exam: Clear Bilaterally, Breath Sounds Equal, Decreased Bases, Diminished Breath Sounds (Janeth Frederick) Cardiology CV Exam: Regular, Normal Sinus Rhythm, Good Perfusion (Janeth Frederick) Gastrointestinal/Abdomen GI Exam: Bowel Sounds Present (Janeth Frederick) Musculoskeletal MS Exam: Joints Intact, Good Strength (Janeth Frederick) Integumentary Skin Exam: Clear, Warm, Dry, Intact (Janeth Frederick) Extremeties Extremities Exam: Moderate Edema Extremeties Remarks BUE. Trace BLE below knees. (Janeth Frederick) Neurologic Neuro Exam: Awake (Janeth Frederick) Assessment/Plan Assessment Summary: Transplant Kidney Status Electrolyte Assessment: Hypocalcemia Problem List: (1) Renal transplant, status post Plan: Rapamune dosage was changed yesterday to reflect her most recent dose at rehab. Will repeat level in 48h. Will change Hydrocortisone to50mg q12h. Will also decrease Bumex drip to 0.5mg/hr as she is diuresing quite a bit and her K+ is low all which indicate that her renal functions appear to be improving. Will follow with labs tomorrow. (2) Acute kidney failure Plan: Her creatinine was around 1.2 in October of this year, suggesting reasonably well preserved GFR after transplant in 2006. ANNABELLA likely due to ATN. See above (3) Pneumonia Plan: Mgmt as per ID (4) Sepsis Plan: with septic shock--improving UCx and BCx neg ID and child protection specialist following On CPAP trials, not sedated, off pressors. (5) Heart failure Plan: EF of 35 % previously. Currently on Bumex drip with albumin IV and her volume status has improved. The patient also has history of left upper lobectomy for lung cancer. (Janeth Frederick) Plan Patient's creatinine level has improved today with improved urine output. Reduce bumetanide drip to try and avoid intravascular volume depletion while maintaining adequate diuresis. It is noted there is concern for fungal pneumonia and Voriconazole therapy has been initiated by infectious disease for life-threatening pneumonia. Discussed potential for interaction of this drug with sirolimus as it can raise blood levels of the latter. Patient was converted from tacrolimus to sirolimus secondary to development of malignancy of the lung. We'll monitor sirolimus levels and discuss the situation with the transplant clinic at [facility]. Call was placed and voicemail left and awaiting callback. Telephone number [phone]. Is noted patient had been started on high-dose hydrocortisone. It will be tapered downward and prednisone resumed most likely tomorrow. The exam, history, and the medical decision-making described in the above note were completed with the assistance of the YUMIKO. I reviewed and agree with the findings presented. I attest that I had a [id number] encounter with the patient on the same day, and personally performed and documented my assessment and findings in the medical record. (Rin Juarez MD) Janeth Frederick Mar 05, 2016 13:54 Rin Juarez MD Mar 05, 2016 17:50
[2016-03-05] MEDS: BUMETANIDE INJ 100 ML IV SCH (14:44)
[2016-03-05] MEDS ORDERED: POTASSIUM CL 40 MEQ/30 ML LIQ UDC PO ONE (20:35)
--- NOTE | 2016-03-05 20:35 | HHI.PR ---
Subjective Remarks 70 YOWF with COPD,Renal transplant,ca lung, s/p resection with RF Reintubated this morning Sedated with Diprivan Weaned to CPAP, awake, responds appropriatly Objective Vital Signs Vital Signs Date Time Temp Pulse Resp B/P Pulse Ox O2 Delivery O2 Flow Rate FiO2 03/05/16 20:00 40 03/05/16 20:00 98.8 101 20 131/61 98 03/05/16 16:00 40 03/05/16 16:00 98.8 106 20 146/65 98 03/05/16 15:29 98 40 03/05/16 12:00 40 03/05/16 12:00 98.4 105 18 145/65 99 03/05/16 11:53 99 40 03/05/16 08:33 100 40 03/05/16 08:33 40 03/05/16 08:00 98.6 103 21 129/65 99 03/05/16 08:00 40 03/05/16 07:17 98 40 03/05/16 06:00 101 03/05/16 04:29 98 40 03/05/16 04:00 105 03/05/16 04:00 40 03/05/16 04:00 98.3 105 21 120/60 100 03/05/16 03:09 98 40 03/05/16 02:00 105 03/05/16 00:00 101 03/05/16 00:00 97.8 101 20 124/59 100 03/05/16 00:00 40 03/04/16 23:25 99 40 03/04/16 22:00 107 03/04/16 20:38 98 40 I/O 03/04/16 03/04/16 03/04/16 03/05/16 03/05/16 03/05/16 07:00 15:00 23:00 07:00 15:00 23:00 Intake Total 651 ml 545 ml 856 ml 512 ml 562 ml Output Total 1250 ml 1300 ml 1850 ml 1425 ml 1350 ml Balance -599 ml -755 ml -994 ml -913 ml -788 ml Intake IV Total 352 ml 305 ml 464 ml 274 ml 530 ml Tube Feeding 299 ml 240 ml 392 ml 238 ml 32 ml Output Urine Total 1050 ml 1300 ml 1825 ml 1250 ml 1350 ml Stool Total 200 ml 0 ml 25 ml 175 ml 0 ml Result Diagram: 03/05/16 0600 03/05/16 1845 Objective Remarks GENERALMBMN female, SOB: SKIN: Warm and dry. HEAD: Normocephalic. EYES: No scleral icterus. No injection or drainage. NECK: Supple, trachea midline. No JVD or lymphadenopathy. CARDIOVASCULAR: Regular rate and rhythm without murmurs, gallops, or rubs. RESPIRATORY: Breath sounds equal bilaterally. No accessory muscle use. Bilat coarse crackles. GASTROINTESTINAL: Abdomen soft, non-tender, nondistended. MUSCULOSKELETAL: No cyanosis, ++ edema. BACK: Nontender without obvious deformity. No CVA tenderness. A/P Assessment and Plan VDRF Pneumonia Sepsis sund renal transplant Ca lung, s/p resection PLAN: On Bumex drip Cont Vent support, rest with ACV tonight Monitor BS Abx Zithro, Zyvox and Cefepime per ID CPAP and weaning trial in AM Alverto Armas MD Mar 05, 2016 20:35
[2016-03-05] MEDS: CEFEPIME INJ 2,000 MG in SODIUM CHLORIDE 0.9% INJ 100 ML IV SCH (21:10)
[2016-03-05] MEDS: PRAVASTATIN SOD 40 MG TAB PO SCH (21:11)
[2016-03-05] MEDS: POTASSIUM CHLOR 40 MEQ PREMIX 100 ML IV SCH ×2 (21:16→22:38)
[2016-03-06] VITALS (15 sets, daily range): BP systolic 129–159; BP diastolic 59–70; PULSE 91–103; RESP 15–20; TEMP 96.8–98.9; O2SAT 96–100
[2016-03-06] MEDS: HYDROCORTISONE SOD SUCCINATE 100 MG VIAL IV PUSH SCH (01:34)
[2016-03-06] MEDS: PROPOFOL 1000 MG/100 ML INJ 100 ML IV SCH (01:34)
[2016-03-06] MEDS: VANCOMYCIN 500 MG VIAL (FOR ORAL USE ONLY) PO SCH ×4 (01:34→19:39)
[2016-03-06] MEDS: POTASSIUM CHLOR 40 MEQ PREMIX 100 ML IV SCH (03:06)
[2016-03-06] MEDS: INSULIN ASPART SUPPLEMENTAL SCALE SQ SCH ×6 (03:14→22:50)
[2016-03-06] MEDS: GABAPENTIN 100 MG CAP PO SCH ×3 (03:14→19:39)
[2016-03-06] MEDS: RESP: ALBUTEROL 2.5 MG/IPRATROPIUM 0.5 MG NEB (SCH) NEB ×5 (03:41→23:42)
[2016-03-06] MEDS: SIROLIMUS 1 MG/ML NG SCH (04:24)
[2016-03-06] MEDS: ALBUMIN HUMAN 25% 12.5 GM/50 ML BAGP IV SCH (04:25)
[2016-03-06] MEDS: LEVOTHYROXINE SODIUM 112 MCG TAB PO SCH (04:25)
[2016-03-06 05:34] LABS: AUTOMATED NEUTROPHIL # 3.5 TH/MM3 (1.8-7.7); BASOPHIL % 0.4 % (0.0-2.0); EOSINOPHIL % 0.1 % (0.0-4.0); HEMATOCRIT 22.4 % (35.0-46.0); LYMPH % 3.9 % (9.0-44.0); LYMPHOCYTE # 0.1 TH/MM3 (1.0-4.8); MEAN CELL VOLUME 85.9 FL (80.0-100.0); MEAN CORPUSCULAR HEMOGLOBIN 28.4 PG (27.0-34.0); MEAN CORPUSCULAR HGB CONC 33.1 % (32.0-36.0); MONO % 3.2 % (0.0-8.0); NEUT % 92.4 % (16.0-70.0); PLATELET COUNT 70 TH/MM3 (150-450); RED BLOOD COUNT 2.61 MIL/MM3 (4.00-5.30); RED CELL DISTRIBUTION WIDTH 16.1 % (11.6-17.2); WHITE BLOOD COUNT 3.8 TH/MM3 (4.0-11.0)
[2016-03-06 05:38] LABS: HEMO FLAGS AUTO DIFF
[2016-03-06 06:03] LABS: BICARBONATE 30.5 MEQ/L (21.0-32.0); POTASSIUM 3.4 MEQ/L (3.5-5.1)
[2016-03-06 06:16] LABS: CALCIUM-PROTEIN CORRECTED 7.8 MG/DL (8.5-10.1)
[2016-03-06] MEDS ORDERED: hydrALAZINE HCL 20 MG/ML VIAL IV PUSH PRN (07:30)
--- NOTE | 2016-03-06 07:30 | HHI.CCPN ---
Subjective Remarks/Hospital Course 70-year-old female with history of lung cancer status post left lobectomy, and kidney transplant 2006 presented to the ED with worsening pulmonary symptoms. Her medical history is significant for DM, HTN. She presented to the ED today because worsening cough, shortness of breath, dyspnea on exertion, and fevers. The patient is dependent on home O2 at 4 L nasal cannula, and scheduled DuoNeb treatment. The patient was hospitalized for several months 11/2015-12/22 . During this hospitalization she reports having a fungal pulmonary infection and a seizure resulting in "coma for a few weeks". She was transferred to a rehabilitation facility [facility] access [facility] for approximately 2 months ago. The patient was then transferred to [facility] approximately 3 weeks ago at which time she fractured her left ankle, and was transferred to [facility]. She was recently discharged from [facility] on 02/15/2016. The patient states that she began having worsening symptoms over the last 3-4 days, that resembled her fungal pneumonia. Critical care medicine was consulted for management. 02/28 Upon arrival to ICU last evening, bronchoscopy was performed, and specimens were sent for culture. The patient was maintained on IV fluids 100 cc an hour, and discontinued at 2 AM secondary to oliguria. CVP ranged 14 throughout the night, with original BNP 1035. Postintubation the patient remains GCS 11 T, following commands. The patient continues to be oliguric with hourly urinary output 7-10 cc an hour. 03/01 On levophed 8mcg/min. UOP around 10 mL/hr. Received Bumex 2 mg IV and UOP still ~20 Ml/hr last hour. CVP 18-20. In Afib rate controlled. Awakens on CPAP 5/5. 03/02 UOP 1068 overnight on bumex drip. Creatinine up to 3.28. Placing on CPAP 5 /5. Afebrile. Levophed weaned to 2 mcg/min with MAP 77. CVP 24 Subjective: 03/03 Creatinine up to 3.32. Nonoliguric with Bumex drip. CVP down to 14. Tolerating CPAP. Off levophed. 03/04 Patient was on BIPAP 10/5 with 60% FIO2 overnight. Patient looked lethargic and started desating she was subsequently intubated and placed on mechanical ventilation. On Bumex drip 2mg/hr. Positive C-diff this morning. 03/05 Patient is sedated with Diprivan and intubated. Afebrile. Remains on Bumex drip 2mg/hr. 03/06 No acute events overnight. Tolerated CPAP all day yesterday. On Bumex 2mg /hr. Sedated with Diprivan and intubated. Objective Vital Signs Date Time Temp Pulse Resp B/P Pulse Ox O2 Delivery O2 Flow Rate FiO2 03/06/16 04:00 99 40 03/06/16 04:00 97.9 91 20 129/62 03/03/16 11:25 Non-Rebreather 15 Intake and Output 03/05/16 03/05/16 03/06/16 08:00 16:00 00:00 Intake Total 512 ml 562 ml 875 ml Output Total 1425 ml 1350 ml 1250 ml Balance -913 ml -788 ml -375 ml Result Diagram: 03/06/16 0523 03/06/16 0523 Other Results Laboratory Tests Test 03/05/16 03/05/16 03/06/16 08:22 18:45 05:23 Blood Gas Puncture Site RT RADIAL Blood Gas Patient Temperature 98.6 Blood Gas HCO3 25 mmol/L Blood Gas Base Excess 0.4 mmol/L Blood Gas Oxygen Saturation 96 % Arterial Blood pH 7.40 Arterial Blood Partial 40 mmHg Pressure CO2 Arterial Blood Partial 109 mmHg Pressure O2 Arterial Blood Oxygen Content 11.8 Vol % Arterial Blood 1.5 % Carboxyhemoglobin Arterial Blood Methemoglobin 1.5 % Blood Gas Hemoglobin 8.6 G/DL Oxygen Delivery Device VENTILATOR Blood Gas Ventilator Setting 500/20/5PEEP Blood Gas Inspired Oxygen 40 % Potassium Level 2.4 MEQ/L 3.4 MEQ/L Magnesium Level 1.9 MG/DL White Blood Count 3.8 TH/MM3 Red Blood Count 2.61 MIL/MM3 Hemoglobin 7.4 GM/DL Hematocrit 22.4 % Mean Corpuscular Volume 85.9 FL Mean Corpuscular Hemoglobin 28.4 PG Mean Corpuscular Hemoglobin 33.1 % Concent Red Cell Distribution Width 16.1 % Platelet Count 70 TH/MM3 Mean Platelet Volume 8.4 FL Neutrophils (%) (Auto) 92.4 % Lymphocytes (%) (Auto) 3.9 % Monocytes (%) (Auto) 3.2 % Eosinophils (%) (Auto) 0.1 % Basophils (%) (Auto) 0.4 % Neutrophils # (Auto) 3.5 TH/MM3 Lymphocytes # (Auto) 0.1 TH/MM3 Monocytes # (Auto) 0.1 TH/MM3 Eosinophils # (Auto) 0.0 TH/MM3 Basophils # (Auto) 0.0 TH/MM3 CBC Comment AUTO DIFF Sodium Level 145 MEQ/L Chloride Level 104 MEQ/L Carbon Dioxide Level 30.5 MEQ/L Anion Gap 11 MEQ/L Blood Urea Nitrogen 75 MG/DL Creatinine 2.63 MG/DL Estimat Glomerular Filtration 18 ML/MIN Rate Random Glucose 124 MG/DL Calcium Level 7.3 MG/DL Protein Corrected Calcium 7.8 MG/DL Total Protein 6.1 GM/DL Imaging Last Impressions Chest X-Ray 03/04/16 0000 Signed Impressions: Service Date/Time: Friday, March 04, 2016 08:04 - CONCLUSION: 1. Developing nodular opacities involving the right lung. These are new from the prior exam. Their interval appearance would suggest an infectious etiology. 2. Slight improvement in aeration of the left mid lung. Michael Robbins Jr., MD Renal Ultrasound 03/01/16 0000 Signed Impressions: Service Date/Time: Tuesday, March 01, 2016 10:45 - CONCLUSION: No evidence of hydronephrosis or focal abnormality. The resistive indices are within normal Sumit Laws MD Abdomen X-Ray 03/01/16 0000 Signed Impressions: Service Date/Time: Tuesday, March 01, 2016 15:32 - CONCLUSION: G-tube inside the stomach. Angelita Birmingham MD Objective Remarks Drips: Bumex 2 mg/hr Nepro 40 ml/hr GENERAL: Morbidly obese elderly critically ill female , intubated SKIN: Warm and dry. Multiple ecchymotic bruising neck, chest, bilateral extremities upper and lower HEAD: Atraumatic. Normocephalic. EYES: Pupils equal and round. No scleral icterus. No injection or drainage. ENT: No nasal bleeding or discharge. Mucous membranes pink and moist. NECK: Trachea midline. Supple, no JVD, adenopathy, orally intubated. CARDIOVASCULAR: Normal rate, irregularly irregular rhythm. No murmur appreciated currently. RESPIRATORY: Coarse BS on right. GASTROINTESTINAL: Abdomen soft, non-tender, nondistended. Gastric tube no erythema or drainage. MUSCULOSKELETAL: Extremities without clubbing, cyanosis, trace edema NEUROLOGICAL: Intubated Date of Insertion: Feb 28, 2016 Date of Insertion: Feb 28, 2016 Line: Central Venous Catheter Side: Left Location: Internal, Jugular (vasoactive medications, CVP monitoring) A/P Assessment and Plan Plan by systems: Neurologic: Seizure disorder Herniated discs Neuropathy - Diprivan infusion for sedation. Daily sedation vacation. -Neurochecks per ICU protocol -Gabapentin 100 q8. Respiratory: Acute hypoxic respiratory failure History of non-small cell lung cancer S/P left lung lobectomy 2013 Home O2 dependency Presumed Hospital-acquired pneumonia (previous HCAP treatment 10/22) Left lung opacity-chronic History of tracheostomy-decannulated 12/22/15 -02/27 Intubated , extubated 03/03 reintubated 03/04 -Continue with vent support keep sat >92% -Bronchodilators. ICU vent bundle, SBT daily as monique. -Pulmonology Following, Cardiovascular: HTN Atrial fibrillation-rate control Acute on chronic systolic CHF RV overload, pulmonary HTN Hyperlipidemia -Maintain HR and BP keep MAP>65mmHg -2D ECHO 02/28mildly reduced systolic function with EF 45-50%. Mild RV dilatation. Mild to moderate tricuspid regurg. Pulmonary artery peak systolic pressure 53 mmHg. -Continue pravastatin FEN/Renal: S/P kidney transplant ANNABELLA, suspect ischemic ATN -Malik in place, Strict hourly UOP, Bumex 2mg/hr. Will need K replacement today - Give KCL 40meq IV x1 -Silk Opener -Dr. Juarez -Renal function improving with Cr: 2.63 from 2.99, UO: 3675 ml in 24hrs -Sirolimus level: 9 on 03/01. On Sirolimus 2 mg every other day per nephrology. -On hydrocortisone 50 mg Q12 per nephrology, GI: Morbid obesity -Tolerating Nepro 40 mL/hr via PEG. -Zofran PRN for nausea -Protonix GI prophylaxis ID: Pneumonia-HCAP Positive Cdiff Leukocytosis Continue with abx per ID (Cefepime, Zithromax, Flagyl, PO Vanco, Voriconazole) 02/27 - Influenza screen negative. 02/27 Blood cultures -NGTD 02/27 Bronchial washings- Gram positive cocci, fungal stain negative. 02/28 cryptococcal- serum antigen negative 03/01 urine legionella and pneumococcal antigen negative. Heme: Monitor CBC, check Hep PLT ab. Endocrine: DM Hypothyroidism -Continue medium dose sliding scale q4 hours and detemir 5 units subcut q12. -T4 4.7 (norm 4.8), TSH 33.60( elevated) -Continue Synthroid 224 mcg/d MSK: - Specialty bed -Wound care consult, noted admission to ED with sacral decubitus wound Prophylaxis: GI Prophylaxis Protonix IV DVT Prophylaxis -- SCDs, hold heparin SQ(Thrombocytopenia PLT 70) check Hep PLT ab. Lines: L IJ Central line placed in ED Dr. Bobo 02/27 CCT 30 min exclusive of separately billable procedures. Isael Belcher MD Mar 06, 2016 07:30
[2016-03-06] MEDS: metroNIDAZOLE 500 MG INJ 100 ML IV SCH ×3 (07:32→22:49)
[2016-03-06] MEDS ORDERED: POTASSIUM CHLOR 40 MEQ PREMIX 100 ML IV-CENTRAL ONE (08:00)
[2016-03-06] MEDS: INSULIN DETEMIR 100 UNITS/ML VIAL SQ SCH ×2 (08:20→19:40)
[2016-03-06] MEDS: SODIUM CHLORIDE 0.9% FLUSH 5 ML FLUSH IV FLUSH SCH ×2 (08:20→19:40)
[2016-03-06] MEDS: NYSTATIN 100,000 U/GM PWD 15 GM BTL TOP SCH ×2 (08:20→19:41)
[2016-03-06] MEDS: VORICONAZOLE 200 MG TAB PO SCH ×2 (08:20→19:39)
[2016-03-06 08:27] LABS: PLATELET ESTIMATE SMEAR LOW (NORMAL); PLATELET MORPHOLOGY NORMAL (NORMAL); SCAN/DIFF AUTO DIFF CONFIRMED
[2016-03-06 12:05] LABS: HEMATOCRIT 24.4 % (35.0-46.0)
[2016-03-06] MEDS: AZITHROMYCIN SUSP 200 MG/5 ML 15 ML BTL TUBE SCH (12:07)
[2016-03-06 12:10] LABS: REVIEW FLAG FINAL
--- NOTE | 2016-03-06 12:19 | HHI.FPPN ---
Subjective Remarks CALM ON VENT W CPAP D/W DR WEBB D/W RN Objective Vitals Vital Signs Date Time Temp Pulse Resp B/P Pulse Ox O2 Delivery O2 Flow Rate FiO2 03/06/16 12:00 95 03/06/16 12:00 97.0 95 18 159/70 99 03/06/16 12:00 40 03/06/16 10:00 92 03/06/16 08:00 40 03/06/16 08:00 96 03/06/16 08:00 96.8 96 15 146/68 100 03/06/16 07:51 100 40 03/06/16 04:00 99 40 03/06/16 04:00 40 03/06/16 04:00 97.9 91 20 129/62 98 03/06/16 00:00 98.8 101 20 145/69 98 03/06/16 00:00 40 03/05/16 23:24 98 40 03/05/16 20:00 40 03/05/16 20:00 98.8 101 20 131/61 98 03/05/16 19:34 97 40 03/05/16 16:00 40 03/05/16 16:00 98.8 106 20 146/65 98 03/05/16 15:29 98 40 I/O 03/05/16 03/05/16 03/05/16 03/06/16 03/06/16 03/06/16 06:59 14:59 22:59 06:59 14:59 22:59 Intake Total 512 ml 562 ml 875 ml 1025 ml Output Total 1425 ml 1350 ml 1250 ml 1375 ml Balance -913 ml -788 ml -375 ml -350 ml Intake IV Total 274 ml 530 ml 475 ml 525 ml Tube Feeding 238 ml 32 ml 275 ml 325 ml Albumin 50 ml Other 125 ml 125 ml Output Urine Total 1250 ml 1350 ml 1175 ml 1150 ml Stool Total 175 ml 0 ml 75 ml 225 ml Result Diagram: 03/06/16 0815 03/06/16 0523 Objective Remarks GENERAL: Sedated on vent; chronically ill appearing SKIN: Warm and dry. HEAD: Atraumatic. Normocephalic. EYES: Pupils equal and round. No scleral icterus. No injection or drainage. ENT: No nasal bleeding or discharge. Mucous membranes pink and moist. NECK: Trachea midline. No JVD. CARDIOVASCULAR: Regular rate and rhythm. RESPIRATORY: No accessory muscle use. Slight Bilateral ronchi, good air movement. Breath sounds equal bilaterally. GASTROINTESTINAL: Abdomen soft, non-tender, nondistended. Hepatic and splenic margins not palpable. MUSCULOSKELETAL: Extremities without clubbing, cyanosis, or edema. No obvious deformities. NEUROLOGICAL: Awake and alert. No obvious cranial nerve deficits. Motor grossly within normal limits. PSYCHIATRIC: Appropriate mood and affect; Medications and IVs Current Medications Medications (Trade) Dose Ordered Sig/Reymundo Route Start Time Stop Time Status Last Admin (Tylenol) 650 mg Q4H PRN PO 02/28/16 11:30 (Zofran Inj) 4 mg Q6H PRN IVP 02/28/16 11:30 (Dulcolax Supp) 10 mg DAILY PRN IA 02/28/16 11:30 (Milk Of Magneben Liq) 30 ml Q12H PRN PO 02/28/16 11:30 (Senokot) 17.2 mg Q12H PRN PO 02/28/16 11:30 (Heparin Inj) 5,000 units Q12H SQ 02/28/16 12:00 Hold 03/05/16 22:52 (Narcan Inj) 0.4 mg UNSCH PRN IV 02/28/16 11:30 (Protonix Inj) 40 mg Q24H IV PUSH 02/28/16 13:00 03/05/16 13:16 Miscellaneous Information 1 Q361D XX 02/28/16 12:00 (NS Flush) 2 ml UNSCH PRN IV FLUSH 02/28/16 16:15 03/01/16 08:00 IV Flush 2 ml 2 ml BID IV FLUSH 02/28/16 21:00 03/06/16 08:20 (fentaNYL DRIP) 250 ml @ 0 mls/hr TITRATE IV 02/28/16 17:00 03/03/16 04:54 (D50w (Vial) Inj) 25 ml UNSCH PRN IV PUSH 02/28/16 18:30 (Glucagon Inj) 1 mg UNSCH PRN OTHER 02/28/16 18:30 (Neurontin) 100 mg Q8H PO 02/28/16 20:00 03/06/16 12:07 (Mycostatin Powder) 1 applic BID TOP 02/28/16 21:00 03/06/16 08:20 (Pravachol) 40 mg HS PO 02/28/16 21:00 03/05/16 21:11 Miscellaneous Information Patient in critical care unit? Ass... Q361D XX 02/28/16 19:30 (Brethine Inj) 1 mg UNSCH PRN SQ 02/29/16 13:00 (Synthroid) 224 mcg DAILY@0600 PO 03/01/16 06:00 03/06/16 04:25 Insulin Aspart 1 1 Q4H SQ 03/01/16 16:00 03/06/16 12:07 (Bumex Inj) 100 ml @ 2 mls/hr CONTINUOUS IV 03/02/16 11:00 03/05/16 14:44 (Zithromax 200 Mg/5 ml Liq) 500 mg Q24H TUBE 03/03/16 11:00 03/06/16 12:07 Insulin Detemir 5 units 5 units Q12HR SQ 03/02/16 21:00 03/06/16 08:20 Propofol 100 ml @ 0 mls/hr TITRATE IV 03/04/16 07:30 03/06/16 01:34 (Flagyl 500 Mg Inj) 100 ml @ 100 mls/hr Q8H IV 03/04/16 08:00 03/06/16 07:32 (Rapamune Liq) 1.25 mg DAILY@06 NG 03/05/16 06:00 03/06/16 04:24 (Vfend) 200 mg Q12HR PO 03/05/16 09:00 03/06/16 08:20 Vancomycin HCl 500 mg 500 mg Q6H PO 03/04/16 15:00 03/06/16 08:20 (Maxipime Inj/NS Inj) 100 ml @ 200 mls/hr Q24H IV 03/04/16 20:00 03/05/16 21:10 (SoluCORTEF INJ) 50 mg Q12H IV PUSH 03/05/16 14:00 03/06/16 01:34 (Apresoline Inj) 10 mg Q6H PRN IV PUSH 03/06/16 07:30 Urinary Catheter: Yes Date of Insertion: Feb 28, 2016 Vascular Central Line Catheter: Yes Date of Insertion: Feb 28, 2016 Line: Central Venous Catheter Side: Left Location: Internal, Jugular (vasoactive medications, CVP monitoring) A/P Assessment and Plan SEPTIC SHOCK, RESOLVED, OFF PRESSORS RESPIRATORY FAILURE, S/P BRONCH FEB 27, EXTUBATED MAR 03, REINTUBATED MAR 04, HCAP, FUNGAL PNA LUNG CA COPD C DIF SCHF AC ON CRF RENAL TRANSPLANT, RENAL US NORMAL. AF HYPOTHYROID PLAN: CPAP TRIAL AND MAYBE EXTUB IV ABX IVF GTF'S IV BUMEX BLOOD CULTURES DUONEBS HEPARIN 5000 BID FOR PROPHYLAXIS IV PROTONIX CCM CONSULT, NOTES REVIEWED NEPHRO CONSULT, NOTES REVIEWED PULMONARY CONSULT PT OT ST ICU CARE FOLLOWUP LABS MEDS ABOVE. Herbert Kaba MD Mar 06, 2016 12:19
[2016-03-06 13:09] LABS: BLOOD GAS BASE EXCESS 3.3 mmol/L (-2-2); BLOOD GAS CARBOXYHEMOGLOBIN 1.6 % (0-4); BLOOD GAS HCO3 27 mmol/L (22-26); BLOOD GAS METHEMOGLOBIN 1.3 % (0-2); BLOOD GAS O2 HGB SATURATION 96 % (90-100); BLOOD GAS OXYGEN CONTENT 12.4 Vol % (12.0-20.0); BLOOD GAS PCO2 42 mmHg (38-42); BLOOD GAS PO2 120 mmHg (61-120); CRITICAL VALUE NO; DRAW SITE RT RADIAL; FIO2 40 %; NUMBER OF ARTERIAL PUNCTURES 2; OXYGEN DEVICE VENTILATOR; STAT NO; TEMP CORR TO 98.6; ULNAR PULSE PRESENT; VENT SETTINGS CPAP10PS/5PEEP
[2016-03-06] MEDS: PANTOPRAZOLE SODIUM 40 MG VIAL IV PUSH SCH (13:18)
--- NOTE | 2016-03-06 18:29 | HHI.IDPN ---
Subjective Subjective Remarks Extubated On NC O2 afebrile WBC went up to 15 K cont to have liquid diarrhea Antibiotics cefepime azithromycin flagyl IV vanco po voriconazole Lines LIJ TLC Past Medical History renal transpant ESRD Allergies: Coded Allergies: Labetalol (Verified Allergy, Severe, NAUSEA AND VOMITING, 02/28/16) Lortab (Verified Adverse Reaction, Severe, VOMITING, 02/28/16) Objective . Vital Signs Date Time Temp Pulse Resp B/P Pulse Ox O2 Delivery O2 Flow Rate FiO2 03/06/16 18:00 101 03/06/16 16:00 97.8 103 16 152/67 97 03/06/16 16:00 103 03/06/16 15:02 98 Nasal Cannula 3.00 03/06/16 14:49 96 Nasal Cannula 3 03/06/16 14:00 100 03/06/16 12:00 95 03/06/16 12:00 97.0 95 18 159/70 99 03/06/16 12:00 40 03/06/16 10:00 92 03/06/16 08:00 40 03/06/16 08:00 96 03/06/16 08:00 96.8 96 15 146/68 100 03/06/16 07:51 100 40 03/06/16 04:00 99 40 03/06/16 04:00 40 03/06/16 04:00 97.9 91 20 129/62 98 03/06/16 00:00 98.8 101 20 145/69 98 03/06/16 00:00 40 03/05/16 23:24 98 40 03/05/16 20:00 40 03/05/16 20:00 98.8 101 20 131/61 98 03/05/16 19:34 97 40 03/05/16 03/05/16 03/06/16 15:00 23:00 07:00 Intake Total 562 ml 875 ml 1025 ml Output Total 1350 ml 1250 ml 1375 ml Balance -788 ml -375 ml -350 ml Intake IV Total 530 ml 475 ml 525 ml Tube Feeding 32 ml 275 ml 325 ml Albumin 50 ml Other 125 ml 125 ml Output Urine Total 1350 ml 1175 ml 1150 ml Stool Total 0 ml 75 ml 225 ml . Laboratory Tests Test 03/05/16 03/06/16 03/06/16 06:00 05:23 08:15 White Blood Count 5.5 TH/MM3 3.8 TH/MM3 Red Blood Count 2.78 MIL/MM3 2.61 MIL/MM3 Hemoglobin 8.1 GM/DL 7.4 GM/DL 8.0 GM/DL Hematocrit 23.9 % 22.4 % 24.4 % Mean Corpuscular Volume 86.0 FL 85.9 FL Mean Corpuscular Hemoglobin 29.0 PG 28.4 PG Mean Corpuscular Hemoglobin 33.7 % 33.1 % Concent Red Cell Distribution Width 16.0 % 16.1 % Platelet Count 76 TH/MM3 70 TH/MM3 Mean Platelet Volume 8.3 FL 8.4 FL Neutrophils (%) (Auto) 94.6 % 92.4 % Lymphocytes (%) (Auto) 2.5 % 3.9 % Monocytes (%) (Auto) 2.5 % 3.2 % Eosinophils (%) (Auto) 0.0 % 0.1 % Basophils (%) (Auto) 0.4 % 0.4 % Neutrophils # (Auto) 5.2 TH/MM3 3.5 TH/MM3 Lymphocytes # (Auto) 0.1 TH/MM3 0.1 TH/MM3 Monocytes # (Auto) 0.1 TH/MM3 0.1 TH/MM3 Eosinophils # (Auto) 0.0 TH/MM3 0.0 TH/MM3 Basophils # (Auto) 0.0 TH/MM3 0.0 TH/MM3 CBC Comment AUTO DIFF AUTO DIFF Differential Comment AUTO DIFF AUTO DIFF CONFIRMED CONFIRMED Platelet Estimate LOW LOW Platelet Morphology Comment NORMAL NORMAL Laboratory Tests Test 03/05/16 03/05/16 03/06/16 06:00 18:45 05:23 Sodium Level 144 MEQ/L 145 MEQ/L Potassium Level 2.4 MEQ/L 2.4 MEQ/L 3.4 MEQ/L Chloride Level 102 MEQ/L 104 MEQ/L Carbon Dioxide Level 26.9 MEQ/L 30.5 MEQ/L Anion Gap 15 MEQ/L 11 MEQ/L Blood Urea Nitrogen 64 MG/DL 75 MG/DL Creatinine 2.99 MG/DL 2.63 MG/DL Estimat Glomerular Filtration 16 ML/MIN 18 ML/MIN Rate Random Glucose 207 MG/DL 124 MG/DL Calcium Level 7.1 MG/DL 7.3 MG/DL Protein Corrected Calcium 7.6 MG/DL 7.8 MG/DL Magnesium Level 1.4 MG/DL 1.9 MG/DL Total Protein 6.1 GM/DL 6.1 GM/DL Imaging Last Impressions Chest X-Ray 03/04/16 0000 Signed Impressions: Service Date/Time: Friday, March 04, 2016 08:04 - CONCLUSION: 1. Developing nodular opacities involving the right lung. These are new from the prior exam. Their interval appearance would suggest an infectious etiology. 2. Slight improvement in aeration of the left mid lung. Michael Robbins Jr., MD Renal Ultrasound 03/01/16 0000 Signed Impressions: Service Date/Time: Tuesday, March 01, 2016 10:45 - CONCLUSION: No evidence of hydronephrosis or focal abnormality. The resistive indices are within normal Sumit Laws MD Abdomen X-Ray 03/01/16 0000 Signed Impressions: Service Date/Time: Tuesday, March 01, 2016 15:32 - CONCLUSION: G-tube inside the stomach. Angelita Birmingham MD Physical Exam CONSTITUTIONAL/GENERAL: awake, alert, some resp distress SKIN: Warm and dry. Stage I-II sacral decub on sacrum EYES: No scleral icterus. No injection or drainage. ENT: . Nose without bleeding or purulent drainage. Oral mucosa moist NECK: Trachea midline. Supple, nontender. Line ok CARDIOVASCULAR: Regular rate and rhythm without murmurs, gallops, or rubs. No JVD. Peripheral pulses symmetric. RESPIRATORY/CHEST: No BS on the L, diffuse rhonchi R GASTROINTESTINAL: Abdomen soft, non-tender, nondistended. No guarding. Bowel sounds present. Incontinent of liquid light brown stool GENITOURINARY: Malik catheter in place with small amount clear yellow urine MUSCULOSKELETAL: Extremities without clubbing, cyanosis, or edema in BLE. No mottling or clubbing. 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
--- NOTE | 2016-03-06 18:31 | HHI.PR ---
Subjective Remarks 70 YOWF with COPD,Renal transplant,ca lung, s/p resection with RF Extubated Son At BS On NC, mild sob Objective Vital Signs Vital Signs Date Time Temp Pulse Resp B/P Pulse Ox O2 Delivery O2 Flow Rate FiO2 03/06/16 18:00 101 03/06/16 16:00 97.8 103 16 152/67 97 03/06/16 16:00 103 03/06/16 15:02 98 Nasal Cannula 3.00 03/06/16 14:49 96 Nasal Cannula 3 03/06/16 14:00 100 03/06/16 12:00 95 03/06/16 12:00 97.0 95 18 159/70 99 03/06/16 12:00 40 03/06/16 10:00 92 03/06/16 08:00 40 03/06/16 08:00 96 03/06/16 08:00 96.8 96 15 146/68 100 03/06/16 07:51 100 40 03/06/16 04:00 99 40 03/06/16 04:00 40 03/06/16 04:00 97.9 91 20 129/62 98 03/06/16 00:00 98.8 101 20 145/69 98 03/06/16 00:00 40 03/05/16 23:24 98 40 03/05/16 20:00 40 03/05/16 20:00 98.8 101 20 131/61 98 03/05/16 19:34 97 40 I/O 03/05/16 03/05/16 03/05/16 03/06/16 03/06/16 03/06/16 07:00 15:00 23:00 07:00 15:00 23:00 Intake Total 512 ml 562 ml 875 ml 1025 ml 728 ml Output Total 1425 ml 1350 ml 1250 ml 1375 ml 1550 ml Balance -913 ml -788 ml -375 ml -350 ml -822 ml Intake IV Total 274 ml 530 ml 475 ml 525 ml 326 ml Tube Feeding 238 ml 32 ml 275 ml 325 ml 302 ml Albumin 50 ml Tube Irrigant 100 ml Other 125 ml 125 ml Output Urine Total 1250 ml 1350 ml 1175 ml 1150 ml 1250 ml Stool Total 175 ml 0 ml 75 ml 225 ml 300 ml Result Diagram: 03/06/1615 03/06/16 0523 Objective Remarks GENERALMBMN female, SOB: SKIN: Warm and dry. HEAD: Normocephalic. EYES: No scleral icterus. No injection or drainage. NECK: Supple, trachea midline. No JVD or lymphadenopathy. CARDIOVASCULAR: Regular rate and rhythm without murmurs, gallops, or rubs. RESPIRATORY: Breath sounds equal bilaterally. No accessory muscle use. Bilat coarse crackles. GASTROINTESTINAL: Abdomen soft, non-tender, nondistended. MUSCULOSKELETAL: No cyanosis, ++ edema. BACK: Nontender without obvious deformity. No CVA tenderness. A/P Assessment and Plan VDRF, extubated 03/06 Pneumonia Sepsis sund renal transplant Ca lung, s/p resection PLAN: On Bumex drip Cont Monitor BS Abx Zithro, Zyvox and Cefepime and Voriconazole per ID BIPAP at night and prn DW son at BS Alverto Armas MD Mar 06, 2016 18:31
--- NOTE | 2016-03-06 19:10 | HHI.NPPN ---
Subjective Renal Failure: Acute History of Present Illness 70-year-old female with a history of renal transplant presenting with respiratory distress with clinical evidence of pneumonia and acute renal failure. Interval History Patient nonverbal but much more alert and responding to questions by nodding head. Son by bedside. Review of Systems General General Remarks ROS not obtainable. Objective Data Data 03/05/16 03/06/16 19:00 07:00 Intake Total 562 ml 1900 ml Output Total 1350 ml 2625 ml Balance -788 ml -725 ml Intake IV Total 530 ml 1000 ml Tube Feeding 32 ml 600 ml Albumin 50 ml Other 250 ml Output Urine Total 1350 ml 2325 ml Stool Total 0 ml 300 ml Vital Signs Date Time Temp Pulse Resp B/P Pulse Ox O2 Delivery O2 Flow Rate FiO2 03/06/16 18:00 101 03/06/16 16:00 97.8 103 16 152/67 97 03/06/16 16:00 103 03/06/16 15:02 98 Nasal Cannula 3.00 03/06/16 14:49 96 Nasal Cannula 3 03/06/16 14:00 100 03/06/16 12:00 95 03/06/16 12:00 97.0 95 18 159/70 99 03/06/16 12:00 40 03/06/16 10:00 92 03/06/16 08:00 40 03/06/16 08:00 96 03/06/16 08:00 96.8 96 15 146/68 100 03/06/16 07:51 100 40 03/06/16 04:00 99 40 03/06/16 04:00 40 03/06/16 04:00 97.9 91 20 129/62 98 03/06/16 00:00 98.8 101 20 145/69 98 03/06/16 00:00 40 03/05/16 23:24 98 40 03/05/16 20:00 40 03/05/16 20:00 98.8 101 20 131/61 98 03/05/16 19:34 97 40 -: 03/06/16 0815 03/06/16 0523 Physical Exam General Appearance: Well Developed, Well Nourished, No Acute Distress, Comfortable Eyes Eye Exam: Pupils Equal, Pupils Reactive Pulmonary Resp Exam: Clear Bilaterally, Breath Sounds Equal, Decreased Bases, Diminished Breath Sounds Cardiology CV Exam: Regular, Normal Sinus Rhythm, Good Perfusion Gastrointestinal/Abdomen GI Exam: Bowel Sounds Present Musculoskeletal MS Exam: Joints Intact, Good Strength Integumentary Skin Exam: Clear, Warm, Dry, Intact Extremeties Extremities Exam: Trace Edema, Dependent Edema Neurologic Neuro Exam: Awake Assessment/Plan Assessment Summary: Transplant Kidney Status Electrolyte Assessment: Hypocalcemia Problem List: (1) Renal transplant, status post Plan: It is noted there is concern for fungal pneumonia and Voriconazole therapy has been initiated by infectious disease for life-threatening pneumonia. The situation with the transplant inside sales director at [facility]. The transplant inside sales director felt that changing to cyclosporine or Prograf would not make much difference as these drugs can interact with voriconazole as well and he recommended continuance of sirolimus at a lower dosage of 0.5 mg daily with monitoring of levels and adjusting dosage as indicated by subsequent levels. Risk-benefit ratio is being considered here as we are trying to preserve the transplanted kidney. Situation was discussed with the son and the patient by the bedside. Appeared to be in agreement. We will discontinue hydrocortisone at this point in time and resume prednisone. Also discontinue bumetanide drip and continue with intermittent Bumex dosage. (2) Acute kidney failure Plan: Her creatinine was around 1.2 in October of this year, suggesting reasonably well preserved GFR after transplant in 2006. ANNABELLA likely due to ATN. See above (3) Pneumonia Plan: Mgmt as per ID (4) Sepsis Plan: with septic shock--improving UCx and BCx neg ID and travel information center supervisor following On CPAP trials, not sedated, off pressors. (5) Heart failure Plan: EF of 35 % previously. Plan It is noted there is concern for fungal pneumonia and Voriconazole therapy has been initiated by infectious disease for life-threatening pneumonia. Discussed potential for interaction of this drug with sirolimus as it can raise blood levels of the latter. Patient was converted from tacrolimus to sirolimus secondary to development of malignancy of the lung. We'll monitor sirolimus levels and discuss the situation with the transplant clinic at [facility]. Call was placed and voicemail left and awaiting callback. Telephone number [phone]. Is noted patient had been started on high-dose hydrocortisone. It will be tapered downward and prednisone resumed most likely tomorrow. The exam, history, and the medical decision-making described in the above note were completed with the assistance of the YUMIKO. I reviewed and agree with the findings presented. I attest that I had a [id number] encounter with the patient on the same day, and personally performed and documented my assessment and findings in the medical record. Rin Juarez MD Mar 06, 2016 19:10
[2016-03-06] MEDS: PRAVASTATIN SOD 40 MG TAB PO SCH (19:39)
[2016-03-06] MEDS: CEFEPIME INJ 2,000 MG in SODIUM CHLORIDE 0.9% INJ 100 ML IV SCH (19:40)
[2016-03-06] MEDS: BUMETANIDE INJ 1 MG/4 ML VIAL IV PUSH SCH (20:22)
[2016-03-07] VITALS (17 sets, daily range): BP systolic 116–141; BP diastolic 56–86; PULSE 97–122; RESP 16–28; TEMP 97.7–98.7; O2SAT 92–100
[2016-03-07] MEDS: VANCOMYCIN 500 MG VIAL (FOR ORAL USE ONLY) PO SCH ×5 (01:55→22:54)
[2016-03-07] MEDS: INSULIN ASPART SUPPLEMENTAL SCALE SQ SCH ×6 (01:59→22:54)
[2016-03-07] MEDS: GABAPENTIN 100 MG CAP PO SCH ×3 (01:59→19:11)
[2016-03-07 03:32] LABS: AUTOMATED NEUTROPHIL # 5.5 TH/MM3 (1.8-7.7); BASOPHIL % 0.7 % (0.0-2.0); EOSINOPHIL # 0.1 TH/MM3 (0-0.4); EOSINOPHIL % 0.9 % (0.0-4.0); HEMATOCRIT 25.7 % (35.0-46.0); LYMPH % 9.1 % (9.0-44.0); LYMPHOCYTE # 0.6 TH/MM3 (1.0-4.8); MEAN CELL VOLUME 86.1 FL (80.0-100.0); MEAN CORPUSCULAR HEMOGLOBIN 28.4 PG (27.0-34.0); MONO % 5.5 % (0.0-8.0); NEUT % 83.8 % (16.0-70.0); PLATELET COUNT 81 TH/MM3 (150-450); RED BLOOD COUNT 2.99 MIL/MM3 (4.00-5.30); RED CELL DISTRIBUTION WIDTH 16.5 % (11.6-17.2); WHITE BLOOD COUNT 6.6 TH/MM3 (4.0-11.0)
[2016-03-07 03:35] LABS: HEMO FLAGS AUTO DIFF
[2016-03-07] MEDS: RESP: ALBUTEROL 2.5 MG/IPRATROPIUM 0.5 MG NEB (SCH) NEB ×5 (03:55→19:55)
[2016-03-07 04:03] LABS: BICARBONATE 33.9 MEQ/L (21.0-32.0); MAGNESIUM 1.7 MG/DL (1.5-2.5)
[2016-03-07 04:12] LABS: POTASSIUM 2.4 MEQ/L (3.5-5.1)
[2016-03-07] MEDS: LEVOTHYROXINE SODIUM 112 MCG TAB PO SCH (04:21)
[2016-03-07] MEDS: BUMETANIDE INJ 1 MG/4 ML VIAL IV PUSH SCH ×2 (04:21→19:11)
[2016-03-07] MEDS: SIROLIMUS 1 MG/ML NG SCH (04:21)
[2016-03-07] MEDS: POTASSIUM CHLOR 40 MEQ PREMIX 100 ML IV SCH ×3 (04:25→10:33)
[2016-03-07] MEDS ORDERED: POTASSIUM CL 40 MEQ/30 ML LIQ UDC PEG ONE (04:30)
[2016-03-07 06:57] LABS: PLATELET ESTIMATE SMEAR LOW (NORMAL); PLATELET MORPHOLOGY NORMAL (NORMAL); SCAN/DIFF AUTO DIFF CONFIRMED
[2016-03-07] MEDS: metroNIDAZOLE 500 MG INJ 100 ML IV SCH ×3 (07:27→22:54)
--- NOTE | 2016-03-07 07:55 | HHI.CCPN ---
Subjective Remarks/Hospital Course 70-year-old female with history of lung cancer status post left lobectomy, and kidney transplant 2006 presented to the ED with worsening pulmonary symptoms. Her medical history is significant for DM, HTN. She presented to the ED today because worsening cough, shortness of breath, dyspnea on exertion, and fevers. The patient is dependent on home O2 at 4 L nasal cannula, and scheduled DuoNeb treatment. The patient was hospitalized for several months 11/2015-12/22 . During this hospitalization she reports having a fungal pulmonary infection and a seizure resulting in "coma for a few weeks". She was transferred to a rehabilitation facility [facility] access [facility] for approximately 2 months ago. The patient was then transferred to [facility] approximately 3 weeks ago at which time she fractured her left ankle, and was transferred to [facility]. She was recently discharged from [facility] on 02/15/2016. The patient states that she began having worsening symptoms over the last 3-4 days, that resembled her fungal pneumonia. Critical care medicine was consulted for management. 02/28 Upon arrival to ICU last evening, bronchoscopy was performed, and specimens were sent for culture. The patient was maintained on IV fluids 100 cc an hour, and discontinued at 2 AM secondary to oliguria. CVP ranged 14 throughout the night, with original BNP 1035. Postintubation the patient remains GCS 11 T, following commands. The patient continues to be oliguric with hourly urinary output 7-10 cc an hour. 03/01 On levophed 8mcg/min. UOP around 10 mL/hr. Received Bumex 2 mg IV and UOP still ~20 Ml/hr last hour. CVP 18-20. In Afib rate controlled. Awakens on CPAP 5/5. 03/02 UOP 1068 overnight on bumex drip. Creatinine up to 3.28. Placing on CPAP 5 /5. Afebrile. Levophed weaned to 2 mcg/min with MAP 77. CVP 24 Subjective: 03/03 Creatinine up to 3.32. Nonoliguric with Bumex drip. CVP down to 14. Tolerating CPAP. Off levophed. 03/04 Patient was on BIPAP 10/5 with 60% FIO2 overnight. Patient looked lethargic and started desating she was subsequently intubated and placed on mechanical ventilation. On Bumex drip 2mg/hr. Positive C-diff this morning. 03/05 Patient is sedated with Diprivan and intubated. Afebrile. Remains on Bumex drip 2mg/hr. 03/06 No acute events overnight. Tolerated CPAP all day yesterday. On Bumex 2mg /hr. Sedated with Diprivan and intubated. 03/07 Patient s/p extubation yesterday placed on BIPAP overnight 12/11 with 40% FIO2. Afebrile. Off Bumex drip. Objective Vital Signs Date Time Temp Pulse Resp B/P Pulse Ox O2 Delivery O2 Flow Rate FiO2 03/07/16 07:00 Bi-Pap 40 03/07/16 06:00 101 03/07/16 04:15 92 03/07/16 04:00 97.8 16 123/56 03/07/16 00:00 3.00 Intake and Output 03/06/16 03/06/16 03/06/16 07:59 15:59 23:59 Intake Total 1025 ml 728 ml 825 ml Output Total 1375 ml 1550 ml 1200 ml Balance -350 ml -822 ml -375 ml Result Diagram: 03/07/16 0317 03/07/16 0317 Other Results Laboratory Tests Test 03/06/16 03/06/16 03/07/16 08:15 13:00 03:17 Hemoglobin 8.0 GM/DL 8.5 GM/DL Hematocrit 24.4 % 25.7 % Blood Gas Puncture Site RT RADIAL Blood Gas Patient Temperature 98.6 Blood Gas HCO3 27 mmol/L Blood Gas Base Excess 3.3 mmol/L Blood Gas Oxygen Saturation 96 % Arterial Blood pH 7.43 Arterial Blood Partial 42 mmHg Pressure CO2 Arterial Blood Partial 120 mmHg Pressure O2 Arterial Blood Oxygen Content 12.4 Vol % Arterial Blood 1.6 % Carboxyhemoglobin Arterial Blood Methemoglobin 1.3 % Blood Gas Hemoglobin 9.0 G/DL Oxygen Delivery Device VENTILATOR Blood Gas Ventilator Setting [id number] Blood Gas Inspired Oxygen 40 % White Blood Count 6.6 TH/MM3 Red Blood Count 2.99 MIL/MM3 Mean Corpuscular Volume 86.1 FL Mean Corpuscular Hemoglobin 28.4 PG Mean Corpuscular Hemoglobin 33.0 % Concent Red Cell Distribution Width 16.5 % Platelet Count 81 TH/MM3 Mean Platelet Volume 8.6 FL Neutrophils (%) (Auto) 83.8 % Lymphocytes (%) (Auto) 9.1 % Monocytes (%) (Auto) 5.5 % Eosinophils (%) (Auto) 0.9 % Basophils (%) (Auto) 0.7 % Neutrophils # (Auto) 5.5 TH/MM3 Lymphocytes # (Auto) 0.6 TH/MM3 Monocytes # (Auto) 0.4 TH/MM3 Eosinophils # (Auto) 0.1 TH/MM3 Basophils # (Auto) 0.0 TH/MM3 CBC Comment AUTO DIFF Differential Comment AUTO DIFF CONFIRMED Platelet Estimate LOW Platelet Morphology Comment NORMAL Sodium Level 149 MEQ/L Potassium Level 2.4 MEQ/L Chloride Level 102 MEQ/L Carbon Dioxide Level 33.9 MEQ/L Anion Gap 13 MEQ/L Blood Urea Nitrogen 79 MG/DL Creatinine 2.32 MG/DL Estimat Glomerular Filtration 21 ML/MIN Rate Random Glucose 121 MG/DL Calcium Level 7.7 MG/DL Magnesium Level 1.7 MG/DL Imaging Last Impressions Chest X-Ray 03/04/16 0000 Signed Impressions: Service Date/Time: Friday, March 04, 2016 08:04 - CONCLUSION: 1. Developing nodular opacities involving the right lung. These are new from the prior exam. Their interval appearance would suggest an infectious etiology. 2. Slight improvement in aeration of the left mid lung. Michael Robbins Jr., MD Renal Ultrasound 03/01/16 0000 Signed Impressions: Service Date/Time: Tuesday, March 01, 2016 10:45 - CONCLUSION: No evidence of hydronephrosis or focal abnormality. The resistive indices are within normal Sumit Laws MD Abdomen X-Ray 03/01/16 0000 Signed Impressions: Service Date/Time: Tuesday, March 01, 2016 15:32 - CONCLUSION: G-tube inside the stomach. Angelita Birmingham MD Objective Remarks Nepro 40 ml/hr GENERAL: Morbidly obese elderly female on BIPAP overnight. , SKIN: Warm and dry. Multiple ecchymotic bruising neck, chest, bilateral extremities upper and lower HEAD: Atraumatic. Normocephalic. EYES: Pupils equal and round. No scleral icterus. No injection or drainage. ENT: No nasal bleeding or discharge. Mucous membranes pink and moist. NECK: Trachea midline. Supple, no JVD, adenopathy, orally intubated. CARDIOVASCULAR: Normal rate, irregularly irregular rhythm. No murmur appreciated currently. RESPIRATORY: Coarse BS on right. GASTROINTESTINAL: Abdomen soft, non-tender, nondistended. Gastric tube no erythema or drainage. MUSCULOSKELETAL: Extremities without clubbing, cyanosis, trace edema NEUROLOGICAL: Awake and alert. Date of Insertion: Feb 28, 2016 Date of Insertion: Feb 28, 2016 Line: Central Venous Catheter Side: Left Location: Internal, Jugular (vasoactive medications, CVP monitoring) A/P Assessment and Plan Plan by systems: Neurologic: Seizure disorder Herniated discs Neuropathy - Awake and alert, avoid sedatives. -Neurochecks per ICU protocol -Gabapentin 100 q8. Respiratory: Acute hypoxic respiratory failure History of non-small cell lung cancer S/P left lung lobectomy 2013 Home O2 dependency Presumed Hospital-acquired pneumonia (previous HCAP treatment 10/22) Left lung opacity-chronic History of tracheostomy-decannulated 12/22/15 -02/27 Intubated , extubated 03/03 reintubated 03/04, extubated 03/06 -Continue with oxygen keep sat >92% -Bronchodilators. IS, NIPPV PRN for resp distress -Pulmonology Following, Cardiovascular: HTN Atrial fibrillation-rate control Acute on chronic systolic CHF RV overload, pulmonary HTN Hyperlipidemia -Maintain HR and BP keep MAP>65mmHg -2D ECHO 02/28mildly reduced systolic function with EF 45-50%. Mild RV dilatation. Mild to moderate tricuspid regurg. Pulmonary artery peak systolic pressure 53 mmHg. -Continue pravastatin FEN/Renal: S/P kidney transplant ANNABELLA, ..improving Hypokalemia -Monitor renal function, I/O's, avoid nephrotoxins. Will need K replacement today. -Off Bumex drip, on Bumex 1mg Q8, place on Free Water 250ml Q12 ,monitor sodium level. -Chip Unloader -Dr. Juarez -Renal function improving with Cr 2.32 from 2.63 , UO: 3575ml in 24 hrs -Sirolimus level: 9 on 03/01. On Sirolimus 2 mg every other day per nephrology. -On prednisone 5mg daily per nephrology, GI: Morbid obesity -Tolerating Nepro 40 mL/hr via PEG. -Zofran PRN for nausea -Protonix GI prophylaxis ID: Pneumonia-HCAP Positive Cdiff Leukocytosis Continue with abx per ID (Cefepime, Zithromax,, PO Vanco, Voriconazole, Flagyl) 02/27 - Influenza screen negative. 02/27 Blood cultures -NGTD 02/27 Bronchial washings- Gram positive cocci, fungal stain negative. 02/28 cryptococcal- serum antigen negative 03/01 urine legionella and pneumococcal antigen negative. Heme: Monitor CBC,follow up on Hep PLT ab. Endocrine: DM Hypothyroidism -Continue medium dose sliding scale q4 hours, d/c Levemir. -T4 4.7 (norm 4.8), TSH 33.60( elevated) -Continue Synthroid 224 mcg/d MSK: - Specialty bed -Wound care consult, noted admission to ED with sacral decubitus wound Prophylaxis: GI Prophylaxis Protonix IV DVT Prophylaxis -- SCDs, heparin SQ on hold(Thrombocytopenia) follow up on Hep PLT ab. Lines: L IJ Central line placed in ED Dr. Bobo 02/27 Level 3 Isael Belcher MD Mar 07, 2016 07:55
[2016-03-07] MEDS: FREE WATER G-TUBE SCH ×2 (08:28→19:12)
[2016-03-07] MEDS: SODIUM CHLORIDE 0.9% FLUSH 5 ML FLUSH IV FLUSH SCH ×2 (08:29→19:12)
[2016-03-07] MEDS: VORICONAZOLE 200 MG TAB PO SCH ×2 (08:29→19:11)
[2016-03-07] MEDS: predniSONE 5 MG TAB PO SCH (08:29)
[2016-03-07] MEDS: NYSTATIN 100,000 U/GM PWD 15 GM BTL TOP SCH ×2 (08:29→19:12)
--- NOTE | 2016-03-07 09:20 | HHI.FPPN ---
Subjective Remarks ON BIPAP CALM APPEARS COMFORTABLE HAS DIARRHEA AND URINE OUTPUT D/W RN Objective Vitals Vital Signs Date Time Temp Pulse Resp B/P Pulse Ox O2 Delivery O2 Flow Rate FiO2 03/07/16 08:00 98.0 118 24 141/63 100 03/07/16 08:00 118 03/07/16 07:41 92 35 03/07/16 07:00 Bi-Pap 40 03/07/16 06:00 101 03/07/16 04:15 92 35 03/07/16 04:00 101 03/07/16 04:00 97.8 97 16 123/56 97 03/07/16 02:00 101 03/07/16 01:00 95 35 03/07/16 00:00 98 Nasal Cannula 3.00 03/07/16 00:00 98.7 99 16 116/56 97 03/07/16 00:00 101 03/06/16 23:42 97 35 03/06/16 22:10 98 Nasal Cannula 3.00 03/06/16 22:05 96 40 03/06/16 22:00 101 03/06/16 20:00 98.9 103 16 139/59 97 03/06/16 20:00 98 Nasal Cannula 3.00 03/06/16 20:00 101 03/06/16 19:20 97 Nasal Cannula 3.00 03/06/16 18:00 101 03/06/16 16:00 97.8 103 16 152/67 97 03/06/16 16:00 103 03/06/16 15:02 98 Nasal Cannula 3.00 03/06/16 14:49 96 Nasal Cannula 3 03/06/16 14:00 100 03/06/16 12:00 95 03/06/16 12:00 97.0 95 18 159/70 99 03/06/16 12:00 40 03/06/16 10:00 92 I/O 03/06/16 03/06/16 03/06/16 03/07/16 03/07/16 03/07/16 06:59 14:59 22:59 06:59 14:59 22:59 Intake Total 1025 ml 728 ml 825 ml 727 ml Output Total 1375 ml 1550 ml 1200 ml 1525 ml Balance -350 ml -822 ml -375 ml -798 ml Intake IV Total 525 ml 326 ml 425 ml 325 ml Tube Feeding 325 ml 302 ml 275 ml 277 ml Albumin 50 ml Tube Irrigant 100 ml Other 125 ml 125 ml 125 ml Output Urine Total 1150 ml 1250 ml 975 ml 1350 ml Stool Total 225 ml 300 ml 225 ml 175 ml Result Diagram: 03/07/1631603/07/16316 Objective Remarks GENERAL: Sedated on vent; chronically ill appearing SKIN: Warm and dry. HEAD: Atraumatic. Normocephalic. EYES: Pupils equal and round. No scleral icterus. No injection or drainage. ENT: No nasal bleeding or discharge. Mucous membranes pink and moist. NECK: Trachea midline. No JVD. CARDIOVASCULAR: Regular rate and rhythm. RESPIRATORY: No accessory muscle use. Slight Bilateral ronchi, good air movement. Breath sounds equal bilaterally. GASTROINTESTINAL: Abdomen soft, non-tender, nondistended. Hepatic and splenic margins not palpable. MUSCULOSKELETAL: Extremities without clubbing, cyanosis, or edema. No obvious deformities. NEUROLOGICAL: Awake and alert. No obvious cranial nerve deficits. Motor grossly within normal limits. PSYCHIATRIC: Appropriate mood and affect; Medications and IVs Current Medications Medications (Trade) Dose Ordered Sig/Reymundo Route Start Time Stop Time Status Last Admin (Tylenol) 650 mg Q4H PRN PO 02/28/16 11:30 03/06/16 17:24 (Zofran Inj) 4 mg Q6H PRN IVP 02/28/16 11:30 (Dulcolax Supp) 10 mg DAILY PRN HI 02/28/16 11:30 (Milk Of Magnesia Liq) 30 ml Q12H PRN PO 02/28/16 11:30 (Senokot) 17.2 mg Q12H PRN PO 02/28/16 11:30 (Heparin Inj) 5,000 units Q12H SQ 02/28/16 12:00 Hold 03/05/16 22:52 (Narcan Inj) 0.4 mg UNSCH PRN IV 02/28/16 11:30 (Protonix Inj) 40 mg Q24H IV PUSH 02/28/16 13:00 03/06/16 13:18 Miscellaneous Information 1 Q361D XX 02/28/16 12:00 (NS Flush) 2 ml UNSCH PRN IV FLUSH 02/28/16 16:15 03/01/16 08:00 (NS Flush) 2 ml BID IV FLUSH 02/28/16 21:00 03/07/16 08:29 (D50w (Vial) Inj) 25 ml UNSCH PRN IV PUSH 02/28/16 18:30 (Glucagon Inj) 1 mg UNSCH PRN OTHER 02/28/16 18:30 (Neurontin) 100 mg Q8H PO 02/28/16 20:00 03/07/16 01:59 (Mycostatin Powder) 1 applic BID TOP 02/28/16 21:00 03/07/16 08:29 (Pravachol) 40 mg HS PO 02/28/16 21:00 03/06/16 19:39 Miscellaneous Information Patient in critical care unit? Ass... Q361D XX 02/28/16 19:30 (Brethine Inj) 1 mg UNSCH PRN SQ 02/29/16 13:00 (Synthroid) 224 mcg DAILY@0600 PO 03/01/16 06:00 03/07/16 04:21 (NovoLOG SUPPLEMENTAL SCALE) 1 Q4H SQ 03/01/16 16:00 03/06/16 16:49 Azithromycin 500 mg 500 mg Q24H TUBE 03/03/16 11:00 03/06/16 12:07 (Flagyl 500 Mg Inj) 100 ml @ 100 mls/hr Q8H IV 03/04/16 08:00 03/07/16 07:27 (Vfend) 200 mg Q12HR PO 03/05/16 09:00 03/07/16 08:29 Vancomycin HCl 500 mg 500 mg Q6H PO 03/04/16 15:00 03/07/16 08:29 (Maxipime Inj/NS Inj) 100 ml @ 200 mls/hr Q24H IV 03/04/16 20:00 03/06/16 19:40 (Apresoline Inj) 10 mg Q6H PRN IV PUSH 03/06/16 07:30 (Rapamune Liq) 0.5 mg DAILY@06 NG 03/07/16 06:00 03/07/16 04:21 (Bumex Inj) 1 mg Q8HR IV PUSH 03/06/16 22:00 03/07/16 04:21 Prednisone 5 mg 5 mg DAILY PO 03/07/16 09:00 03/07/16 08:29 (KCl 40 Meq Premix Inj) 100 ml @ 25 mls/hr Q4H IV 03/07/16 04:30 03/07/16 16:29 03/07/16 08:28 (Free Water) 250 ml Q12HR G-TUBE 03/07/16 09:00 03/07/16 08:28 Date of Insertion: Feb 28, 2016 Date of Insertion: Feb 28, 2016 Line: Central Venous Catheter Side: Left Location: Internal, Jugular (vasoactive medications, CVP monitoring) A/P Assessment and Plan SEPTIC SHOCK, RESOLVED, OFF PRESSORS RESPIRATORY FAILURE, S/P BRONCH FEB 27, EXTUBATED MAR 03, REINTUBATED MAR 04, EXTUBATED MAR 06, HCAP, FUNGAL PNA LUNG CA COPD C DIF SCHF AC ON CRF RENAL TRANSPLANT, RENAL US NORMAL. AF HYPOTHYROID PLAN: BIPAP IV ABX IVF GTF'S IV BUMEX, OFF DRIP BLOOD CULTURES DUONEBS HEPARIN 5000 BID FOR PROPHYLAXIS IV PROTONIX CCM CONSULT, NOTES REVIEWED NEPHRO CONSULT, NOTES REVIEWED PULMONARY CONSULT PT OT ST ICU CARE FOLLOWUP LABS MEDS ABOVE. Herbert Kaba MD Mar 07, 2016 09:20
[2016-03-07] MEDS: AZITHROMYCIN 250 MG TAB PO SCH (10:45)
[2016-03-07] MEDS: PANTOPRAZOLE SODIUM 40 MG VIAL IV PUSH SCH (12:36)
--- NOTE | 2016-03-07 13:54 | HHI.NPPN ---
Subjective Renal Failure: Acute History of Present Illness 70-year-old female with a history of renal transplant presenting with respiratory distress with clinical evidence of pneumonia and acute renal failure. Interval History Pt extubated. More responsive today, but still drowsy. (Janeth Frederick) Objective Data Data 03/06/16 03/07/16 19:00 07:00 Intake Total 728 ml 1552 ml Output Total 1550 ml 2725 ml Balance -822 ml -1173 ml Intake IV Total 326 ml 750 ml Tube Feeding 302 ml 552 ml Tube Irrigant 100 ml Other 250 ml Output Urine Total 1250 ml 2325 ml Stool Total 300 ml 400 ml Vital Signs Date Time Temp Pulse Resp B/P Pulse Ox O2 Delivery O2 Flow Rate FiO2 03/07/16 12:00 98.4 112 26 136/63 97 03/07/16 12:00 112 03/07/16 10:00 121 03/07/16 08:00 98.0 118 24 141/63 100 03/07/16 08:00 118 03/07/16 07:41 92 35 03/07/16 07:00 Bi-Pap 40 03/07/16 06:00 101 03/07/16 04:15 92 35 03/07/16 04:00 101 03/07/16 04:00 97.8 97 16 123/56 97 03/07/16 02:00 101 03/07/16 01:00 95 35 03/07/16 00:00 98 Nasal Cannula 3.00 03/07/16 00:00 98.7 99 16 116/56 97 03/07/16 00:00 101 03/06/16 23:42 97 35 03/06/16 22:10 98 Nasal Cannula 3.00 03/06/16 22:05 96 40 03/06/16 22:00 101 03/06/16 20:00 98.9 103 16 139/59 97 03/06/16 20:00 98 Nasal Cannula 3.00 03/06/16 20:00 101 03/06/16 19:20 97 Nasal Cannula 3.00 03/06/16 18:00 101 03/06/16 16:00 97.8 103 16 152/67 97 03/06/16 16:00 103 03/06/16 15:02 98 Nasal Cannula 3.00 03/06/16 14:49 96 Nasal Cannula 3 03/06/16 14:00 100 (Janeth Frederick) -: 03/07/1631603/07/16316 Medication Review Current Medications Medications (Trade) Dose Ordered Sig/Reymundo Route Start Time Stop Time Status Last Admin (Tylenol) 650 mg Q4H PRN PO 02/28/16 11:30 03/06/16 17:24 (Zofran Inj) 4 mg Q6H PRN IVP 02/28/16 11:30 (Dulcolax Supp) 10 mg DAILY PRN IN 02/28/16 11:30 (Milk Of Magneben Liq) 30 ml Q12H PRN PO 02/28/16 11:30 (Senokot) 17.2 mg Q12H PRN PO 02/28/16 11:30 (Heparin Inj) 5,000 units Q12H SQ 02/28/16 12:00 Hold 03/05/16 22:52 (Narcan Inj) 0.4 mg UNSCH PRN IV 02/28/16 11:30 (Protonix Inj) 40 mg Q24H IV PUSH 02/28/16 13:00 03/07/16 12:36 Miscellaneous Information 1 Q361D XX 02/28/16 12:00 (NS Flush) 2 ml UNSCH PRN IV FLUSH 02/28/16 16:15 03/01/16 08:00 (NS Flush) 2 ml BID IV FLUSH 02/28/16 21:00 03/07/16 08:29 (D50w (Vial) Inj) 25 ml UNSCH PRN IV PUSH 02/28/16 18:30 (Glucagon Inj) 1 mg UNSCH PRN OTHER 02/28/16 18:30 (Neurontin) 100 mg Q8H PO 02/28/16 20:00 03/07/16 11:48 (Mycostatin Powder) 1 applic BID TOP 02/28/16 21:00 03/07/16 08:29 (Pravachol) 40 mg HS PO 02/28/16 21:00 03/06/16 19:39 Miscellaneous Information Patient in critical care unit? Ass... Q361D XX 02/28/16 19:30 (Brethine Inj) 1 mg UNSCH PRN SQ 02/29/16 13:00 (Synthroid) 224 mcg DAILY@0600 PO 03/01/16 06:00 03/07/16 04:21 Insulin Aspart 1 1 Q4H SQ 03/01/16 16:00 03/07/16 11:48 (Flagyl 500 Mg Inj) 100 ml @ 100 mls/hr Q8H IV 03/04/16 08:00 03/07/16 07:27 (Vfend) 200 mg Q12HR PO 03/05/16 09:00 03/07/16 08:29 Vancomycin HCl 500 mg 500 mg Q6H PO 03/04/16 15:00 03/07/16 08:29 (Maxipime Inj/NS Inj) 100 ml @ 200 mls/hr Q24H IV 03/04/16 20:00 03/06/16 19:40 (Apresoline Inj) 10 mg Q6H PRN IV PUSH 03/06/16 07:30 (Rapamune Liq) 0.5 mg DAILY@06 NG 03/07/16 06:00 03/07/16 04:21 Prednisone 5 mg 5 mg DAILY PO 03/07/16 09:00 03/07/16 08:29 (KCl 40 Meq Premix Inj) 100 ml @ 25 mls/hr Q4H IV 03/07/16 04:30 03/07/16 16:29 03/07/16 10:33 (Free Water) 250 ml Q12HR G-TUBE 03/07/16 09:00 03/07/16 08:28 (Zithromax) 500 mg DAILY PO 03/07/16 10:15 03/07/16 10:45 (Bumex Inj) 0.5 mg Q12HR IV PUSH 03/07/16 21:00 (Janeth Frederick) Physical Exam General Appearance: No Acute Distress, Comfortable (Janeth Frederick) Eyes Eye Exam: Pupils Equal, Pupils Reactive (Janeth Frederick) Pulmonary Resp Exam: Rhonchi Resp Remarks Course rhonchi throughout. Difficult to assess if any underlying rales. (Janeth Frederick) Cardiology CV Exam: Regular, Normal Sinus Rhythm, Good Perfusion (Janeth Frederick) Gastrointestinal/Abdomen GI Exam: Bowel Sounds Present (Janeth Frederick) Musculoskeletal MS Exam: Joints Intact, Good Strength (Janeth Frederick) Integumentary Skin Exam: Clear, Warm, Dry, Intact (Janeth Frederick) Extremeties Extremities Exam: Trace Edema, Dependent Edema Extremeties Remarks BUE. Trace BLE below knees. (Janeth Frederick) Neurologic Neuro Exam: Awake (Janeth Frederick) Assessment/Plan Assessment Summary: Transplant Kidney Status Electrolyte Assessment: Hypocalcemia Problem List: (1) Renal transplant, status post Plan: It is noted there is concern for fungal pneumonia and Voriconazole therapy has been initiated by infectious disease for life-threatening pneumonia. The situation was discussed with the transplant parachute folder at [facility]. The transplant parachute folder felt that changing to cyclosporine or Prograf would not make much difference as these drugs can interact with voriconazole as well and he recommended continuance of sirolimus at a lower dosage of 0.5 mg daily with monitoring of levels and adjusting dosage as indicated by subsequent levels. Risk-benefit ratio is being considered here as we are trying to preserve the transplanted kidney. Continue on Sirolimus and Prednisone as ordered. (2) Acute kidney failure Plan: Her creatinine was around 1.2 in October of this year, suggesting reasonably well preserved GFR after transplant in 2006. ANNABELLA likely due to ATN. SCr improving. Decrease Bumex to 0.5mg IV q12h. Monitor creatinine and fluid status. (3) Pneumonia Plan: Mgmt as per ID (4) Sepsis Plan: with septic shock--improving (5) Heart failure Plan: EF of 35 % previously. (Janeth Frederick) Plan The exam, history, and the medical decision-making described in the above note were completed with the assistance of the PAChandler. I reviewed and agree with the findings presented. I attest that I had a [id number] encounter with the patient on the same day, and personally performed and documented my assessment and findings in the medical record. (Rin Juarez MD) Janeth Frederick Mar 07, 2016 13:54 Rin Juarez MD Mar 07, 2016 16:03
[2016-03-07 14:26] LABS: HEPARIN AB OD 0.103 O.D. (0.000-0.300); HEPARIN INDUCED PLATELET AB NEGATIVE (NEGATIVE)
--- NOTE | 2016-03-07 19:04 | HHI.PR ---
Subjective Remarks 70 YOWF with COPD,Renal transplant,ca lung, s/p resection with RF Extubated On NC, mild sob Tired On IV Bumex bid, diureasing has Techycardia Objective Vital Signs Vital Signs Date Time Temp Pulse Resp B/P Pulse Ox O2 Delivery O2 Flow Rate FiO2 03/07/16 18:00 122 03/07/16 16:00 97.7 120 28 126/86 95 03/07/16 16:00 120 03/07/16 15:00 Nasal Cannula 4.00 03/07/16 14:00 119 03/07/16 12:00 98.4 112 26 136/63 97 03/07/16 12:00 112 03/07/16 10:00 121 03/07/16 08:00 98.0 118 24 141/63 100 03/07/16 08:00 118 03/07/16 07:41 92 35 03/07/16 07:00 Bi-Pap 40 03/07/16 06:00 101 03/07/16 04:15 92 35 03/07/16 04:00 101 03/07/16 04:00 97.8 97 16 123/56 97 03/07/16 02:00 101 03/07/16 01:00 95 35 03/07/16 00:00 98 Nasal Cannula 3.00 03/07/16 00:00 98.7 99 16 116/56 97 03/07/16 00:00 101 03/06/16 23:42 97 35 03/06/16 22:10 98 Nasal Cannula 3.00 03/06/16 22:05 96 40 03/06/16 22:00 101 03/06/16 20:00 98.9 103 16 139/59 97 03/06/16 20:00 98 Nasal Cannula 3.00 03/06/16 20:00 101 03/06/16 19:20 97 Nasal Cannula 3.00 I/O 03/06/16 03/06/16 03/06/16 03/07/16 03/07/16 03/07/16 06:59 14:59 22:59 06:59 14:59 22:59 Intake Total 1025 ml 728 ml 825 ml 727 ml 1212 ml Output Total 1375 ml 1550 ml 1200 ml 1525 ml 1575 ml Balance -350 ml -822 ml -375 ml -798 ml -363 ml Intake IV Total 525 ml 326 ml 425 ml 325 ml 499 ml Tube Feeding 325 ml 302 ml 275 ml 277 ml 363 ml Albumin 50 ml Tube Irrigant 100 ml 100 ml Other 125 ml 125 ml 125 ml 250 ml Output Urine Total 1150 ml 1250 ml 975 ml 1350 ml 1250 ml Stool Total 225 ml 300 ml 225 ml 175 ml 325 ml Result Diagram: 03/07/1631603/07/16316 Objective Remarks GENERALMBMN female, SOB: SKIN: Warm and dry. HEAD: Normocephalic. EYES: No scleral icterus. No injection or drainage. NECK: Supple, trachea midline. No JVD or lymphadenopathy. CARDIOVASCULAR: Regular rate and rhythm without murmurs, gallops, or rubs. RESPIRATORY: Breath sounds equal bilaterally. No accessory muscle use. Bilat coarse crackles. GASTROINTESTINAL: Abdomen soft, non-tender, nondistended. MUSCULOSKELETAL: No cyanosis, ++ edema. BACK: Nontender without obvious deformity. No CVA tenderness. A/P Assessment and Plan VDRF, extubated 03/06 Pneumonia Sepsis sund renal transplant Ca lung, s/p resection PLAN: On Bumex q 12 hrs Cont Monitor BS Abx Zithro, Zyvox and Cefepime and Voriconazole per ID BIPAP at night and prn Supplement 02 to keep sat >90% Alverto Armas MD Mar 07, 2016 19:04
[2016-03-07] MEDS: PRAVASTATIN SOD 40 MG TAB PO SCH (19:11)
[2016-03-07] MEDS: CEFEPIME INJ 2,000 MG in SODIUM CHLORIDE 0.9% INJ 100 ML IV SCH (19:12)
[2016-03-08] VITALS (19 sets, daily range): BP systolic 101–143; BP diastolic 56–67; PULSE 81–122; RESP 16–28; TEMP 97.5–98.8; O2SAT 94–100
[2016-03-08] MEDS: RESP: ALBUTEROL 2.5 MG/IPRATROPIUM 0.5 MG NEB (SCH) NEB ×6 (00:10→19:41)
[2016-03-08] MEDS: INSULIN ASPART SUPPLEMENTAL SCALE SQ SCH ×5 (02:53→20:24)
[2016-03-08] MEDS: GABAPENTIN 100 MG CAP PO SCH ×3 (02:53→20:22)
[2016-03-08 04:36] LABS: AUTOMATED NEUTROPHIL # 6.4 TH/MM3 (1.8-7.7); BASOPHIL % 0.3 % (0.0-2.0); EOSINOPHIL # 0.1 TH/MM3 (0-0.4); EOSINOPHIL % 0.9 % (0.0-4.0); HEMATOCRIT 26.6 % (35.0-46.0); LYMPH % 6.8 % (9.0-44.0); LYMPHOCYTE # 0.5 TH/MM3 (1.0-4.8); MEAN CELL VOLUME 86.1 FL (80.0-100.0); MEAN CORPUSCULAR HEMOGLOBIN 28.3 PG (27.0-34.0); MEAN CORPUSCULAR HGB CONC 32.9 % (32.0-36.0); MONO % 8.2 % (0.0-8.0); NEUT % 83.8 % (16.0-70.0); PLATELET COUNT 70 TH/MM3 (150-450); RED BLOOD COUNT 3.08 MIL/MM3 (4.00-5.30); RED CELL DISTRIBUTION WIDTH 16.7 % (11.6-17.2); WHITE BLOOD COUNT 7.7 TH/MM3 (4.0-11.0)
[2016-03-08] MEDS: LEVOTHYROXINE SODIUM 112 MCG TAB PO SCH (04:38)
[2016-03-08] MEDS: SIROLIMUS 1 MG/ML NG SCH (04:38)
[2016-03-08 04:53] LABS: HEMO FLAGS AUTO DIFF
[2016-03-08 05:04] LABS: BICARBONATE 36.1 MEQ/L (21.0-32.0); MAGNESIUM 1.4 MG/DL (1.5-2.5); POTASSIUM 3.6 MEQ/L (3.5-5.1)
[2016-03-08 05:29] LABS: KERATOCYTES OCC (NORMAL); PLATELET ESTIMATE SMEAR LOW (NORMAL); PLATELET MORPHOLOGY NORMAL (NORMAL); SCAN/DIFF AUTO DIFF CONFIRMED
--- NOTE | 2016-03-08 07:43 | HHI.CCPN ---
Subjective Remarks/Hospital Course 70-year-old female with history of lung cancer status post left lobectomy, and kidney transplant 2006 presented to the ED with worsening pulmonary symptoms. Her medical history is significant for DM, HTN. She presented to the ED today because worsening cough, shortness of breath, dyspnea on exertion, and fevers. The patient is dependent on home O2 at 4 L nasal cannula, and scheduled DuoNeb treatment. The patient was hospitalized for several months 11/2015-12/22 . During this hospitalization she reports having a fungal pulmonary infection and a seizure resulting in "coma for a few weeks". She was transferred to a rehabilitation facility [facility] for approximately 2 months ago. The patient was then transferred to [facility] approximately 3 weeks ago at which time she fractured her left ankle, and was transferred to [facility]. She was recently discharged from [facility] on 02/15/2016. The patient states that she began having worsening symptoms over the last 3-4 days, that resembled her fungal pneumonia. Critical care medicine was consulted for management. 02/28 Upon arrival to ICU last evening, bronchoscopy was performed, and specimens were sent for culture. The patient was maintained on IV fluids 100 cc an hour, and discontinued at 2 AM secondary to oliguria. CVP ranged 14 throughout the night, with original BNP 1035. Postintubation the patient remains GCS 11 T, following commands. The patient continues to be oliguric with hourly urinary output 7-10 cc an hour. 03/01 On levophed 8mcg/min. UOP around 10 mL/hr. Received Bumex 2 mg IV and UOP still ~20 Ml/hr last hour. CVP 18-20. In Afib rate controlled. Awakens on CPAP 5/5. 03/02 UOP 1068 overnight on bumex drip. Creatinine up to 3.28. Placing on CPAP 5 /5. Afebrile. Levophed weaned to 2 mcg/min with MAP 77. CVP 24 Subjective: 03/03 Creatinine up to 3.32. Nonoliguric with Bumex drip. CVP down to 14. Tolerating CPAP. Off levophed. 03/04 Patient was on BIPAP 10/5 with 60% FIO2 overnight. Patient looked lethargic and started desating she was subsequently intubated and placed on mechanical ventilation. On Bumex drip 2mg/hr. Positive C-diff this morning. 03/05 Patient is sedated with Diprivan and intubated. Afebrile. Remains on Bumex drip 2mg/hr. 03/06 No acute events overnight. Tolerated CPAP all day yesterday. On Bumex 2mg /hr. Sedated with Diprivan and intubated. 03/07 Patient s/p extubation yesterday placed on BIPAP overnight 12/11 with 40% FIO2. Afebrile. Off Bumex drip. 03/08 No acute events overnight. On BIPAP 12/11 with 40$ FIO2 overnight. Afebrile. Renal function improving with Cr: 1.97 today from 2.32 Objective Vital Signs Date Time Temp Pulse Resp B/P Pulse Ox O2 Delivery O2 Flow Rate FiO2 03/08/16 06:00 122 03/08/16 04:10 96 40 03/08/16 04:00 97.5 28 101/67 03/08/16 00:00 Nasal Cannula 4.00 Intake and Output 03/07/16 03/07/16 03/08/16 08:00 16:00 00:00 Intake Total 727 ml 1212 ml 875 ml Output Total 1525 ml 1575 ml 675 ml Balance -798 ml -363 ml 200 ml Result Diagram: 03/08/16 0349 03/08/16 0349 Other Results Laboratory Tests Test 03/07/16 03/08/16 18:20 03:49 Potassium Level 4.4 MEQ/L 3.6 MEQ/L White Blood Count 7.7 TH/MM3 Red Blood Count 3.08 MIL/MM3 Hemoglobin 8.7 GM/DL Hematocrit 26.6 % Mean Corpuscular Volume 86.1 FL Mean Corpuscular Hemoglobin 28.3 PG Mean Corpuscular Hemoglobin 32.9 % Concent Red Cell Distribution Width 16.7 % Platelet Count 70 TH/MM3 Mean Platelet Volume 9.7 FL Neutrophils (%) (Auto) 83.8 % Lymphocytes (%) (Auto) 6.8 % Monocytes (%) (Auto) 8.2 % Eosinophils (%) (Auto) 0.9 % Basophils (%) (Auto) 0.3 % Neutrophils # (Auto) 6.4 TH/MM3 Lymphocytes # (Auto) 0.5 TH/MM3 Monocytes # (Auto) 0.6 TH/MM3 Eosinophils # (Auto) 0.1 TH/MM3 Basophils # (Auto) 0.0 TH/MM3 CBC Comment AUTO DIFF Differential Comment AUTO DIFF CONFIRMED Platelet Estimate LOW Platelet Morphology Comment NORMAL Keratocytes OCC Sodium Level 149 MEQ/L Chloride Level 103 MEQ/L Carbon Dioxide Level 36.1 MEQ/L Anion Gap 10 MEQ/L Blood Urea Nitrogen 75 MG/DL Creatinine 1.97 MG/DL Estimat Glomerular Filtration 25 ML/MIN Rate Random Glucose 149 MG/DL Calcium Level 7.9 MG/DL Phosphorus Level 0.3 MG/DL Magnesium Level 1.4 MG/DL Imaging Last Impressions Chest X-Ray 03/04/16 0000 Signed Impressions: Service Date/Time: Friday, March 04, 2016 08:04 - CONCLUSION: 1. Developing nodular opacities involving the right lung. These are new from the prior exam. Their interval appearance would suggest an infectious etiology. 2. Slight improvement in aeration of the left mid lung. Michael Robbins Jr., MD Renal Ultrasound 03/01/16 0000 Signed Impressions: Service Date/Time: Tuesday, March 01, 2016 10:45 - CONCLUSION: No evidence of hydronephrosis or focal abnormality. The resistive indices are within normal Sumit Laws MD Abdomen X-Ray 03/01/16 0000 Signed Impressions: Service Date/Time: Tuesday, March 01, 2016 15:32 - CONCLUSION: G-tube inside the stomach. Angelita Birmingham MD Objective Remarks Nepro 40 ml/hr GENERAL: Morbidly obese elderly female on BIPAP overnight. , SKIN: Warm and dry. Multiple ecchymotic bruising neck, chest, bilateral extremities upper and lower HEAD: Atraumatic. Normocephalic. EYES: Pupils equal and round. No scleral icterus. No injection or drainage. ENT: No nasal bleeding or discharge. Mucous membranes pink and moist. NECK: Trachea midline. Supple, no JVD, adenopathy, orally intubated. CARDIOVASCULAR: Tachycardic, nl S1, S2. RESPIRATORY: Coarse BS on right. GASTROINTESTINAL: Abdomen soft, non-tender, nondistended. Gastric tube no erythema or drainage. MUSCULOSKELETAL: Extremities without clubbing, cyanosis, trace edema NEUROLOGICAL: Awake and alert. Date of Insertion: Feb 28, 2016 Date of Insertion: Feb 28, 2016 Line: Central Venous Catheter Side: Left Location: Internal, Jugular (vasoactive medications, CVP monitoring) A/P Assessment and Plan Plan by systems: Neurologic: Seizure disorder Herniated discs Neuropathy - Awake and alert, avoid sedatives. -Neurochecks per ICU protocol -Gabapentin 100 q8. Respiratory: Acute hypoxic respiratory failure History of non-small cell lung cancer S/P left lung lobectomy 2013 Home O2 dependency Presumed Hospital-acquired pneumonia (previous HCAP treatment 10/22) Left lung opacity-chronic History of tracheostomy-decannulated 12/22/15 -02/27 Intubated , extubated 03/03 reintubated 03/04, extubated 03/06 -Continue with oxygen keep sat >92% -Bronchodilators. IS, NIPPV PRN for resp distress -Pulmonology Following, Cardiovascular: HTN Atrial fibrillation-rate control Acute on chronic systolic CHF RV overload, pulmonary HTN Hyperlipidemia -Place on Lopressor 12.5mg BID Maintain HR and BP keep MAP>65mmHg -2D ECHO 02/28mildly reduced systolic function with EF 45-50%. Mild RV dilatation. Mild to moderate tricuspid regurg. Pulmonary artery peak systolic pressure 53 mmHg. -Continue pravastatin FEN/Renal: S/P kidney transplant ANNABELLA, ..improving Hypokalemia -Monitor renal function, I/O's, avoid nephrotoxins. Will need Mag, Betty replacement today. -On Bumex 0.5mg Q12, increase Free Water 250ml Q8 ,monitor sodium level. -Dental Laboratory Technician -Dr. Juarez -Renal function improving with Cr today from 2.32 , UO: 2650ml in 24 hrs -Sirolimus level: 9 on 03/01. On Sirolimus 2 mg every other day per nephrology. -On prednisone 5mg daily per nephrology, GI: Morbid obesity -Change TF-Glucerna 1.5 with goal rate 45ml/hr mL/hr via PEG. -Zofran PRN for nausea -Protonix GI prophylaxis ID: Pneumonia-HCAP Positive Cdiff Leukocytosis Continue with abx per ID (Cefepime, Zithromax,, PO Vanco, Voriconazole, Flagyl) 02/27 - Influenza screen negative. 02/27 Blood cultures -NGTD 02/27 Bronchial washings- Gram positive cocci, fungal stain negative. 02/28 cryptococcal- serum antigen negative 03/01 urine legionella and pneumococcal antigen negative. Heme: Monitor CBC, Hep PLT ab negative Endocrine: DM Hypothyroidism -Continue medium dose sliding scale q4 hours, -T4 4.7 (norm 4.8), TSH 33.60( elevated) -Continue Synthroid 224 mcg/d MSK: - Specialty bed -Wound care consult, noted admission to ED with sacral decubitus wound Prophylaxis: GI Prophylaxis Protonix IV DVT Prophylaxis -- SCDs, heparin SQ on hold(Thrombocytopenia) Hep PLT ab negative. Lines: L IJ Central line placed in ED 02/27, place peripheral IV's and d/c central line Level 3 Isael Belcher MD Mar 08, 2016 07:43
[2016-03-08] MEDS: MAGNESIUM SULFATE 1 GM PREMIX 100 ML IV SCH ×2 (07:45→08:45)
[2016-03-08] MEDS ORDERED: PILL SPLITTER OTHER PRN (08:00)
[2016-03-08] MEDS: AZITHROMYCIN 250 MG TAB PO SCH (08:33)
[2016-03-08] MEDS: metroNIDAZOLE 500 MG INJ 100 ML IV SCH ×3 (08:33→23:59)
[2016-03-08] MEDS: VANCOMYCIN 500 MG VIAL (FOR ORAL USE ONLY) PO SCH ×3 (08:33→20:26)
[2016-03-08] MEDS: METOPROLOL TARTRATE 25 MG TAB PO SCH ×2 (08:34→20:24)
[2016-03-08] MEDS: predniSONE 5 MG TAB PO SCH (08:34)
[2016-03-08] MEDS: NYSTATIN 100,000 U/GM PWD 15 GM BTL TOP SCH ×2 (08:55→20:26)
[2016-03-08] MEDS ORDERED: POTASSIUM PHOSPHATE INJ 15 MMOL in SODIUM CHLORIDE 0.9% INJ 150 ML IV ONE (09:00)
[2016-03-08] MEDS: VORICONAZOLE 200 MG TAB PO SCH ×2 (09:00→20:26)
[2016-03-08] MEDS: SODIUM CHLORIDE 0.9% FLUSH 5 ML FLUSH IV FLUSH SCH ×2 (09:18→20:24)
[2016-03-08] MEDS: BUMETANIDE INJ 1 MG/4 ML VIAL IV PUSH SCH (09:19)
--- NOTE | 2016-03-08 10:17 | HHI.FPPN ---
Subjective Remarks ON BIPAP CALM AROUSES TO VOICE Objective Vitals Vital Signs Date Time Temp Pulse Resp B/P Pulse Ox O2 Delivery O2 Flow Rate FiO2 03/08/16 10:00 95 03/08/16 08:00 95 03/08/16 08:00 98.2 121 24 121/57 97 03/08/16 07:31 97 40 03/08/16 07:00 Bi-Pap 40 03/08/16 06:00 122 03/08/16 04:10 96 40 03/08/16 04:00 122 03/08/16 04:00 97.5 109 28 101/67 95 03/08/16 02:20 97 40 03/08/16 02:00 122 03/08/16 00:30 97 40 03/08/16 00:00 122 03/08/16 00:00 Nasal Cannula 4.00 03/08/16 00:00 97.9 121 28 116/56 95 03/07/16 22:00 122 03/07/16 22:00 Nasal Cannula 4.00 03/07/16 21:36 96 40 03/07/16 20:00 122 03/07/16 20:00 97.7 121 28 124/58 95 03/07/16 20:00 Nasal Cannula 4.00 03/07/16 19:57 98 Nasal Cannula 4.00 03/07/16 18:00 122 03/07/16 16:00 97.7 120 28 126/86 95 03/07/16 16:00 120 03/07/16 15:00 Nasal Cannula 4.00 03/07/16 14:00 119 03/07/16 12:00 98.4 112 26 136/63 97 03/07/16 12:00 112 I/O 03/07/16 03/07/16 03/07/16 03/08/16 03/08/16 03/08/16 06:59 14:59 22:59 06:59 14:59 22:59 Intake Total 727 ml 1212 ml 875 ml 735 ml Output Total 1525 ml 1575 ml 675 ml 925 ml Balance -798 ml -363 ml 200 ml -190 ml Intake IV Total 325 ml 499 ml 425 ml 275 ml Tube Feeding 277 ml 363 ml 325 ml 335 ml Tube Irrigant 100 ml Other 125 ml 250 ml 125 ml 125 ml Output Urine Total 1350 ml 1250 ml 550 ml 850 ml Stool Total 175 ml 325 ml 125 ml 75 ml Result Diagram: 03/08/16 0349 03/08/16348 Objective Remarks GENERAL: on bipap; chronically ill appearing SKIN: Warm and dry. HEAD: Atraumatic. Normocephalic. EYES: Pupils equal and round. No scleral icterus. No injection or drainage. ENT: No nasal bleeding or discharge. Mucous membranes pink and moist. NECK: Trachea midline. No JVD. CARDIOVASCULAR: Regular rate and rhythm. RESPIRATORY: No accessory muscle use. Slight Bilateral ronchi, good air movement. Breath sounds equal bilaterally. GASTROINTESTINAL: Abdomen soft, non-tender, nondistended. Hepatic and splenic margins not palpable. MUSCULOSKELETAL: Extremities without clubbing, cyanosis, or edema. No obvious deformities. NEUROLOGICAL: Awake and alert. No obvious cranial nerve deficits. Motor grossly within normal limits. PSYCHIATRIC: Appropriate mood and affect; Medications and IVs Current Medications Medications (Trade) Dose Ordered Sig/Reymundo Route Start Time Stop Time Status Last Admin (Tylenol) 650 mg Q4H PRN PO 02/28/16 11:30 03/06/16 17:24 (Zofran Inj) 4 mg Q6H PRN IVP 02/28/16 11:30 (Dulcolax Supp) 10 mg DAILY PRN CA 02/28/16 11:30 (Milk Of Magnesia Liq) 30 ml Q12H PRN PO 02/28/16 11:30 (Senokot) 17.2 mg Q12H PRN PO 02/28/16 11:30 (Heparin Inj) 5,000 units Q12H SQ 02/28/16 12:00 Hold 03/05/16 22:52 (Narcan Inj) 0.4 mg UNSCH PRN IV 02/28/16 11:30 (Protonix Inj) 40 mg Q24H IV PUSH 02/28/16 13:00 03/07/16 12:36 Miscellaneous Information 1 Q361D XX 02/28/16 12:00 (NS Flush) 2 ml UNSCH PRN IV FLUSH 02/28/16 16:15 03/01/16 08:00 (NS Flush) 2 ml BID IV FLUSH 02/28/16 21:00 03/08/16 09:18 (D50w (Vial) Inj) 25 ml UNSCH PRN IV PUSH 02/28/16 18:30 (Glucagon Inj) 1 mg UNSCH PRN OTHER 02/28/16 18:30 (Neurontin) 100 mg Q8H PO 02/28/16 20:00 03/08/16 02:53 (Mycostatin Powder) 1 applic BID TOP 02/28/16 21:00 03/08/16 08:55 (Pravachol) 40 mg HS PO 02/28/16 21:00 03/07/16 19:11 Miscellaneous Information Patient in critical care unit? Ass... Q361D XX 02/28/16 19:30 (Brethine Inj) 1 mg UNSCH PRN SQ 02/29/16 13:00 (Synthroid) 224 mcg DAILY@0600 PO 03/01/16 06:00 03/08/16 04:38 Insulin Aspart 1 1 Q4H SQ 03/01/16 16:00 03/08/16 09:18 (Flagyl 500 Mg Inj) 100 ml @ 100 mls/hr Q8H IV 03/04/16 08:00 03/08/16 08:33 (Vfend) 200 mg Q12HR PO 03/05/16 09:00 03/07/16 19:11 Vancomycin HCl 500 mg 500 mg Q6H PO 03/04/16 15:00 03/08/16 08:33 (Maxipime Inj/NS Inj) 100 ml @ 200 mls/hr Q24H IV 03/04/16 20:00 03/07/16 19:12 (Apresoline Inj) 10 mg Q6H PRN IV PUSH 03/06/16 07:30 (Rapamune Liq) 0.5 mg DAILY@06 NG 03/07/16 06:00 03/08/16 04:38 (Deltasone) 5 mg DAILY PO 03/07/16 09:00 03/08/16 08:34 (Zithromax) 500 mg DAILY PO 03/07/16 10:15 03/08/16 08:33 (Bumex Inj) 0.5 mg Q12HR IV PUSH 03/07/16 21:00 03/08/16 09:19 (Free Water) 250 ml Q8HR G-TUBE 03/08/16 14:00 Metoprolol Tartrate 12.5 mg 12.5 mg Q12HR PO 03/08/16 09:00 03/08/16 08:34 (Potassium Phosphate Inj/NS Inj) 155 ml @ 38.75 mls/ hr ONCE ONCE IV 03/08/16 09:00 03/08/16 12:59 03/08/16 08:55 (Pill Splitter) 1 ea UNSCH PRN OTHER 03/08/16 08:00 Date of Insertion: Feb 28, 2016 Date of Insertion: Feb 28, 2016 Line: Central Venous Catheter Side: Left Location: Internal, Jugular (vasoactive medications, CVP monitoring) A/P Assessment and Plan SEPTIC SHOCK, RESOLVED, OFF PRESSORS RESPIRATORY FAILURE, S/P BRONCH FEB 27, EXTUBATED MAR 03, REINTUBATED MAR 04, EXTUBATED MAR 06, HCAP, FUNGAL PNA LUNG CA COPD C DIF SCHF AC ON CRF RENAL TRANSPLANT, RENAL US NORMAL. AF HYPOTHYROID PLAN: BIPAP IV ABX IVF GTF'S IV BUMEX, OFF DRIP STEROID PGT BLOOD CULTURES DUONEBS HEPARIN 5000 BID FOR PROPHYLAXIS IV PROTONIX CCM CONSULT, NOTES REVIEWED NEPHRO CONSULT, NOTES REVIEWED PULMONARY CONSULT PT OT ST ICU CARE FOLLOWUP LABS MEDS ABOVE. Herbert Kaba MD Mar 08, 2016 10:16
[2016-03-08] MEDS: PANTOPRAZOLE SODIUM 40 MG VIAL IV PUSH SCH (12:26)
[2016-03-08] MEDS: FREE WATER G-TUBE SCH ×2 (12:26→20:26)
--- NOTE | 2016-03-08 15:08 | HHI.NPPN ---
Subjective Renal Failure: Acute History of Present Illness 70-year-old female with a history of renal transplant presenting with respiratory distress with clinical evidence of pneumonia and acute renal failure. Interval History Patient is resting comfortably. BiPAP mask in place. Objective Data Data 03/07/16 03/08/16 19:00 07:00 Intake Total 1212 ml 1610 ml Output Total 1575 ml 1600 ml Balance -363 ml 10 ml Intake IV Total 499 ml 700 ml Tube Feeding 363 ml 660 ml Tube Irrigant 100 ml Other 250 ml 250 ml Output Urine Total 1250 ml 1400 ml Stool Total 325 ml 200 ml Vital Signs Date Time Temp Pulse Resp B/P Pulse Ox O2 Delivery O2 Flow Rate FiO2 03/08/16 14:00 98 03/08/16 12:00 95 03/08/16 12:00 98.8 101 24 107/58 95 03/08/16 11:34 94 40 03/08/16 10:00 95 03/08/16 08:00 95 03/08/16 08:00 98.2 121 24 121/57 97 03/08/16 07:31 97 40 03/08/16 07:00 Bi-Pap 40 03/08/16 06:00 122 03/08/16 04:10 96 40 03/08/16 04:00 122 03/08/16 04:00 97.5 109 28 101/67 95 03/08/16 02:20 97 40 03/08/16 02:00 122 03/08/16 00:30 97 40 03/08/16 00:00 122 03/08/16 00:00 Nasal Cannula 4.00 03/08/16 00:00 97.9 121 28 116/56 95 03/07/16 22:00 122 03/07/16 22:00 Nasal Cannula 4.00 03/07/16 21:36 96 40 03/07/16 20:00 122 03/07/16 20:00 97.7 121 28 124/58 95 03/07/16 20:00 Nasal Cannula 4.00 03/07/16 19:57 98 Nasal Cannula 4.00 03/07/16 18:00 122 03/07/16 16:00 97.7 120 28 126/86 95 03/07/16 16:00 120 -: 03/08/16 0349 03/08/16 0349 Physical Exam General Appearance: No Acute Distress, Comfortable Eyes Eye Exam: Pupils Equal, Pupils Reactive Pulmonary Resp Exam: Rhonchi Cardiology CV Exam: Regular, Normal Sinus Rhythm, Good Perfusion Gastrointestinal/Abdomen GI Exam: Bowel Sounds Present Musculoskeletal MS Exam: Joints Intact, Good Strength Integumentary Skin Exam: Clear, Warm, Dry, Intact Extremeties Extremities Exam: Trace Edema, Dependent Edema Neurologic Neuro Exam: Awake Assessment/Plan Assessment Summary: Transplant Kidney Status Electrolyte Assessment: Hypocalcemia Problem List: (1) Renal transplant, status post Plan: It is noted there is concern for fungal pneumonia and Voriconazole therapy has been initiated by infectious disease for life-threatening pneumonia. The situation was discussed with the transplant dobby loom chain pegger at [facility]. The transplant dobby loom chain pegger felt that changing to cyclosporine or Prograf would not make much difference as these drugs can interact with voriconazole as well and he recommended continuance of sirolimus at a lower dosage of 0.5 mg daily with monitoring of levels and adjusting dosage as indicated by subsequent levels. Risk-benefit ratio is being considered here as we are trying to preserve the transplanted kidney. Continue on Sirolimus and Prednisone as ordered. (2) Acute kidney failure Plan: Patient creatinine level has now fallen below 2.0 and getting further improvement in renal function. Her creatinine was around 1.2 in October of this year, suggesting reasonably well preserved GFR after transplant in 2006. ANNABELLA likely due to ATN. Change bumetanide as ordered to enteral route 1 mg daily. Patient appears to be developing a contraction alkalosis. Monitor creatinine and fluid status. (3) Pneumonia Plan: Mgmt as per ID (4) Sepsis Plan: with septic shock--improving (5) Heart failure Plan: EF of 35 % previously. Rin Juarez MD Mar 08, 2016 15:07
[2016-03-08] MEDS ORDERED: POTASSIUM CL 40 MEQ/30 ML LIQ UDC G-TUBE ONE (15:30)
--- NOTE | 2016-03-08 16:13 | HHI.PR ---
Subjective Remarks 70 YOWF with COPD,Renal transplant,ca lung, s/p resection with RF Extubated Tired On BIPAP has Techycardia Changed to PO Bumex Objective Vital Signs Vital Signs Date Time Temp Pulse Resp B/P Pulse Ox O2 Delivery O2 Flow Rate FiO2 03/08/16 15:54 95 40 03/08/16 15:00 Bi-Pap 40 03/08/16 14:00 98 03/08/16 12:00 95 03/08/16 12:00 98.8 101 24 107/58 95 03/08/16 11:34 94 40 03/08/16 10:00 95 03/08/16 08:00 95 03/08/16 08:00 98.2 121 24 121/57 97 03/08/16 07:31 97 40 03/08/16 07:00 Bi-Pap 40 03/08/16 06:00 122 03/08/16 04:10 96 40 03/08/16 04:00 122 03/08/16 04:00 97.5 109 28 101/67 95 03/08/16 02:20 97 40 03/08/16 02:00 122 03/08/16 00:30 97 40 03/08/16 00:00 122 03/08/16 00:00 Nasal Cannula 4.00 03/08/16 00:00 97.9 121 28 116/56 95 03/07/16 22:00 122 03/07/16 22:00 Nasal Cannula 4.00 03/07/16 21:36 96 40 03/07/16 20:00 122 03/07/16 20:00 97.7 121 28 124/58 95 03/07/16 20:00 Nasal Cannula 4.00 03/07/16 19:57 98 Nasal Cannula 4.00 03/07/16 18:00 122 I/O 03/07/16 03/07/16 03/07/16 03/08/16 03/08/16 03/08/16 07:00 15:00 23:00 07:00 15:00 23:00 Intake Total 727 ml 1212 ml 875 ml 735 ml 840 ml Output Total 1525 ml 1575 ml 675 ml 925 ml 1100 ml Balance -798 ml -363 ml 200 ml -190 ml -260 ml Intake IV Total 325 ml 499 ml 425 ml 275 ml 840 ml Tube Feeding 277 ml 363 ml 325 ml 335 ml Tube Irrigant 100 ml Other 125 ml 250 ml 125 ml 125 ml Output Urine Total 1350 ml 1250 ml 550 ml 850 ml 1000 ml Stool Total 175 ml 325 ml 125 ml 75 ml 100 ml Result Diagram: 03/08/1634803/08/16348 Objective Remarks GENERALMBMN female, SOB: SKIN: Warm and dry. HEAD: Normocephalic. EYES: No scleral icterus. No injection or drainage. NECK: Supple, trachea midline. No JVD or lymphadenopathy. CARDIOVASCULAR: Regular rate and rhythm without murmurs, gallops, or rubs. RESPIRATORY: Breath sounds equal bilaterally. No accessory muscle use. Bilat coarse crackles. GASTROINTESTINAL: Abdomen soft, non-tender, nondistended. MUSCULOSKELETAL: No cyanosis, ++ edema. BACK: Nontender without obvious deformity. No CVA tenderness. A/P Assessment and Plan VDRF, extubated 03/06 Pneumonia Sepsis sund renal transplant Ca lung, s/p resection PLAN: On Bumex PO Cont Monitor BS Abx Zithro, Zyvox and Cefepime and Voriconazole per ID Cont BIPAP Supplement 02 to keep sat >90% Alverto Armas MD Mar 08, 2016 16:13
[2016-03-08] MEDS: CEFEPIME INJ 2,000 MG in SODIUM CHLORIDE 0.9% INJ 100 ML IV SCH (20:19)
[2016-03-08] MEDS: PRAVASTATIN SOD 40 MG TAB PO SCH (20:25)
[2016-03-09] VITALS (17 sets, daily range): BP systolic 112–129; BP diastolic 56–62; PULSE 89–104; RESP 20–24; TEMP 98.2–98.6; O2SAT 95–99
[2016-03-09] MEDS: RESP: ALBUTEROL 2.5 MG/IPRATROPIUM 0.5 MG NEB (SCH) NEB ×6 (00:07→19:31)
[2016-03-09] MEDS: GABAPENTIN 100 MG CAP PO SCH ×3 (03:32→20:24)
[2016-03-09] MEDS: VANCOMYCIN 500 MG VIAL (FOR ORAL USE ONLY) PO SCH ×4 (03:32→20:26)
[2016-03-09] MEDS: INSULIN ASPART SUPPLEMENTAL SCALE SQ SCH ×6 (03:32→20:24)
[2016-03-09] MEDS: LEVOTHYROXINE SODIUM 112 MCG TAB PO SCH (05:50)
[2016-03-09] MEDS: SIROLIMUS 1 MG/ML NG SCH (05:51)
[2016-03-09] MEDS: FREE WATER G-TUBE SCH ×3 (05:54→20:27)
[2016-03-09 07:05] LABS: BICARBONATE 35.2 MEQ/L (21.0-32.0); MAGNESIUM 1.8 MG/DL (1.5-2.5); POTASSIUM 3.4 MEQ/L (3.5-5.1)
[2016-03-09 07:22] LABS: AUTOMATED NEUTROPHIL # 7.1 TH/MM3 (1.8-7.7); BASOPHIL # 0.1 TH/MM3 (0-0.2); EOSINOPHIL # 0.1 TH/MM3 (0-0.4); HEMATOCRIT 27.1 % (35.0-46.0); LYMPH % 9.3 % (9.0-44.0); LYMPHOCYTE # 0.8 TH/MM3 (1.0-4.8); MEAN CELL VOLUME 88.3 FL (80.0-100.0); MEAN CORPUSCULAR HGB CONC 31.7 % (32.0-36.0); NEUT % 81.7 % (16.0-70.0); PLATELET COUNT 76 TH/MM3 (150-450); RED BLOOD COUNT 3.07 MIL/MM3 (4.00-5.30); RED CELL DISTRIBUTION WIDTH 16.8 % (11.6-17.2); WHITE BLOOD COUNT 8.7 TH/MM3 (4.0-11.0)
[2016-03-09] MEDS ORDERED: POTASSIUM PHOSPHATE INJ 30 MMOL in SODIUM CHLOR 0.9% 250 ML INJ 250 ML IV ONE (07:30)
--- NOTE | 2016-03-09 07:33 | HHI.CCPN ---
Subjective Remarks/Hospital Course 70-year-old female with history of lung cancer status post left lobectomy, and kidney transplant 2006 presented to the ED with worsening pulmonary symptoms. Her medical history is significant for DM, HTN. She presented to the ED today because worsening cough, shortness of breath, dyspnea on exertion, and fevers. The patient is dependent on home O2 at 4 L nasal cannula, and scheduled DuoNeb treatment. The patient was hospitalized for several months 11/2015-12/22 . During this hospitalization she reports having a fungal pulmonary infection and a seizure resulting in "coma for a few weeks". She was transferred to a rehabilitation facility [facility] for approximately 2 months ago. The patient was then transferred to [facility] approximately 3 weeks ago at which time she fractured her left ankle, and was transferred to [facility]. She was recently discharged from [facility] on 02/15/2016. The patient states that she began having worsening symptoms over the last 3-4 days, that resembled her fungal pneumonia. Critical care medicine was consulted for management. 02/28 Upon arrival to ICU last evening, bronchoscopy was performed, and specimens were sent for culture. The patient was maintained on IV fluids 100 cc an hour, and discontinued at 2 AM secondary to oliguria. CVP ranged 14 throughout the night, with original BNP 1035. Postintubation the patient remains GCS 11 T, following commands. The patient continues to be oliguric with hourly urinary output 7-10 cc an hour. 03/01 On levophed 8mcg/min. UOP around 10 mL/hr. Received Bumex 2 mg IV and UOP still ~20 Ml/hr last hour. CVP 18-20. In Afib rate controlled. Awakens on CPAP 5/5. 03/02 UOP 1068 overnight on bumex drip. Creatinine up to 3.28. Placing on CPAP 5 /5. Afebrile. Levophed weaned to 2 mcg/min with MAP 77. CVP 24 Subjective: 03/03 Creatinine up to 3.32. Nonoliguric with Bumex drip. CVP down to 14. Tolerating CPAP. Off levophed. 03/04 Patient was on BIPAP 10/5 with 60% FIO2 overnight. Patient looked lethargic and started desating she was subsequently intubated and placed on mechanical ventilation. On Bumex drip 2mg/hr. Positive C-diff this morning. 03/05 Patient is sedated with Diprivan and intubated. Afebrile. Remains on Bumex drip 2mg/hr. 03/06 No acute events overnight. Tolerated CPAP all day yesterday. On Bumex 2mg /hr. Sedated with Diprivan and intubated. 03/07 Patient s/p extubation yesterday placed on BIPAP overnight 10/5 with 40% FIO2. Afebrile. Off Bumex drip. 03/08 No acute events overnight. On BIPAP 10/5 with 40$ FIO2 overnight. Afebrile. Renal function improving with Cr: 1.97 today from 2.32 03/09 Patient remains on BIPAP 10/5 with 40% FIO2. Afebrile. Objective Vital Signs Date Time Temp Pulse Resp B/P Pulse Ox O2 Delivery O2 Flow Rate FiO2 03/09/16 06:00 94 03/09/16 04:00 98.3 23 126/60 95 03/09/16 03:06 40 03/08/16 23:00 Bi-Pap 03/08/16 00:00 4.00 Intake and Output 03/08/16 03/08/16 03/08/16 07:59 15:59 23:59 Intake Total 735 ml 840 ml 915 ml Output Total 925 ml 1100 ml 930 ml Balance -190 ml -260 ml -15 ml Result Diagram: 03/08/16 0349 03/09/16 0340 Other Results Laboratory Tests Test 03/09/16 03:40 Sodium Level 149 MEQ/L Potassium Level 3.4 MEQ/L Chloride Level 104 MEQ/L Carbon Dioxide Level 35.2 MEQ/L Anion Gap 10 MEQ/L Blood Urea Nitrogen 69 MG/DL Creatinine 1.72 MG/DL Estimat Glomerular Filtration 29 ML/MIN Rate Random Glucose 231 MG/DL Calcium Level 8.2 MG/DL Phosphorus Level 0.9 MG/DL Magnesium Level 1.8 MG/DL Imaging Last Impressions Chest X-Ray 03/04/16 0000 Signed Impressions: Service Date/Time: Friday, March 04, 2016 08:04 - CONCLUSION: 1. Developing nodular opacities involving the right lung. These are new from the prior exam. Their interval appearance would suggest an infectious etiology. 2. Slight improvement in aeration of the left mid lung. Michael Robbins Jr., MD Renal Ultrasound 03/01/16 0000 Signed Impressions: Service Date/Time: Tuesday, March 01, 2016 10:45 - CONCLUSION: No evidence of hydronephrosis or focal abnormality. The resistive indices are within normal Sumit Laws MD Abdomen X-Ray 03/01/16 0000 Signed Impressions: Service Date/Time: Tuesday, March 01, 2016 15:32 - CONCLUSION: G-tube inside the stomach. Angelita Birmingham MD Objective Remarks Nepro 40 ml/hr GENERAL: Morbidly obese elderly female on BIPAP overnight. , SKIN: Warm and dry. Multiple ecchymotic bruising neck, chest, bilateral extremities upper and lower HEAD: Atraumatic. Normocephalic. EYES: Pupils equal and round. No scleral icterus. No injection or drainage. ENT: No nasal bleeding or discharge. Mucous membranes pink and moist. NECK: Trachea midline. Supple, no JVD, adenopathy, orally intubated. CARDIOVASCULAR: Tachycardic, nl S1, S2. RESPIRATORY: Coarse BS on right. GASTROINTESTINAL: Abdomen soft, non-tender, nondistended. Gastric tube no erythema or drainage. MUSCULOSKELETAL: Extremities without clubbing, cyanosis, trace edema NEUROLOGICAL: Awake and alert. Date of Insertion: Feb 28, 2016 Date of Insertion: Feb 28, 2016 Line: Central Venous Catheter Side: Left Location: Internal, Jugular (vasoactive medications, CVP monitoring) A/P Assessment and Plan Plan by systems: Neurologic: Seizure disorder Herniated discs Neuropathy - Awake and alert, avoid sedatives. -Neurochecks per ICU protocol -Gabapentin 100 q8. Respiratory: Acute hypoxic respiratory failure History of non-small cell lung cancer S/P left lung lobectomy 2013 Home O2 dependency Presumed Hospital-acquired pneumonia (previous HCAP treatment 10/22) Left lung opacity-chronic History of tracheostomy-decannulated 12/22/15 -02/27 Intubated , extubated 03/03 reintubated 03/04, extubated 03/06 -Continue with oxygen keep sat >92% -Bronchodilators. IS, NIPPV PRN for resp distress -Pulmonology Following, Cardiovascular: HTN Atrial fibrillation-rate control Acute on chronic systolic CHF RV overload, pulmonary HTN Hyperlipidemia -Continue Lopressor 12.5mg BID Maintain HR and BP keep MAP>65mmHg -2D ECHO 02/28mildly reduced systolic function with EF 45-50%. Mild RV dilatation. Mild to moderate tricuspid regurg. Pulmonary artery peak systolic pressure 53 mmHg. -Continue pravastatin FEN/Renal: S/P kidney transplant ANNABELLA, ..improving Hypokalemia -Monitor renal function, I/O's, avoid nephrotoxins. Will need K, phos replacement today. -On Bumex 1mg daily, Free Water 250ml Q8 ,monitor sodium level. -Shaker Repairer -Dr. Juarez -Renal function improving with Cr 1.72 from 1.97, UO 2125ml in 24 hrs -Sirolimus level: 9 on 03/01. On Sirolimus 2 mg every other day per nephrology. -On prednisone 5mg daily per nephrology, GI: Morbid obesity -Change TF-Glucerna 1.5 with goal rate 45ml/hr mL/hr via PEG. -Zofran PRN for nausea -Protonix GI prophylaxis ID: Pneumonia-HCAP Positive Cdiff Continue with abx per ID (Cefepime, Zithromax,, PO Vanco, Voriconazole, Flagyl) 02/27 - Influenza screen negative. 02/27 Blood cultures -NGTD 02/27 Bronchial washings- Gram positive cocci, fungal stain negative. 02/28 cryptococcal- serum antigen negative 03/01 urine legionella and pneumococcal antigen negative. Heme: Monitor CBC, Hep PLT ab negative Endocrine: DM Hypothyroidism -Continue medium dose sliding scale q4 hours, -T4 4.7 (norm 4.8), TSH 33.60( elevated) -Continue Synthroid 224 mcg/d MSK: - Specialty bed -Wound care consult, noted admission to ED with sacral decubitus wound Prophylaxis: GI Prophylaxis Protonix IV DVT Prophylaxis -- SCDs, heparin SQ on hold(Thrombocytopenia) Hep PLT ab negative. Lines: L IJ Central line placed in ED 02/27, place peripheral IV's and d/c central line Level 3 Isael Belcher MD Mar 09, 2016 07:33
[2016-03-09 07:38] LABS: HEMO FLAGS AUTO DIFF
--- NOTE | 2016-03-09 07:59 | HHI.FPPN ---
Subjective Remarks ON NC O2 SLEEPING, AROUSES TO VOICE LETHARGIC D/W RN D/W CCM MD DR WEBB Objective Vitals Vital Signs Date Time Temp Pulse Resp B/P Pulse Ox O2 Delivery O2 Flow Rate FiO2 03/09/16 07:40 99 Nasal Cannula 4.00 03/09/16 07:00 Nasal Cannula 4.00 03/09/16 06:00 94 03/09/16 04:00 98.3 96 23 126/60 95 03/09/16 04:00 96 03/09/16 03:06 98 40 03/09/16 02:00 97 03/09/16 00:07 96 40 03/09/16 00:00 98.3 93 23 127/59 96 03/09/16 00:00 93 03/08/16 23:00 Bi-Pap 40 03/08/16 22:00 81 03/08/16 20:00 100 03/08/16 20:00 98.2 100 16 143/65 98 Arterial Line 03/08/16 19:41 100 40 03/08/16 18:00 98 03/08/16 16:00 98.4 99 20 127/58 98 03/08/16 16:00 98 03/08/16 15:54 95 40 03/08/16 15:00 Bi-Pap 40 03/08/16 14:00 98 03/08/16 12:00 95 03/08/16 12:00 98.8 101 24 107/58 95 03/08/16 11:34 94 40 03/08/16 10:00 95 03/08/16 08:00 95 03/08/16 08:00 98.2 121 24 121/57 97 I/O 03/08/16 03/08/16 03/08/16 03/09/16 03/09/16 03/09/16 07:00 15:00 23:00 07:00 15:00 23:00 Intake Total 735 ml 840 ml 915 ml 708 ml Output Total 925 ml 1100 ml 930 ml 585 ml Balance -190 ml -260 ml -15 ml 123 ml Intake IV Total 275 ml 840 ml 284 ml 168 ml Tube Feeding 335 ml 381 ml 290 ml Other 125 ml 250 ml 250 ml Output Urine Total 850 ml 1000 ml 750 ml 375 ml Stool Total 75 ml 100 ml 180 ml 210 ml Result Diagram: 03/09/16 0630 03/09/16 0340 Objective Remarks GENERAL: on NC; chronically ill appearing SKIN: Warm and dry. HEAD: Atraumatic. Normocephalic. EYES: Pupils equal and round. No scleral icterus. No injection or drainage. ENT: No nasal bleeding or discharge. Mucous membranes pink and moist. NECK: Trachea midline. No JVD. CARDIOVASCULAR: Regular rate and rhythm. RESPIRATORY: No accessory muscle use. Slight Bilateral ronchi, good air movement. Breath sounds equal bilaterally. GASTROINTESTINAL: Abdomen soft, non-tender, nondistended. Hepatic and splenic margins not palpable. MUSCULOSKELETAL: Extremities without clubbing, cyanosis, or edema. No obvious deformities. NEUROLOGICAL: Awake and alert. No obvious cranial nerve deficits. Motor grossly within normal limits. PSYCHIATRIC: Appropriate mood and affect; Date of Insertion: Feb 28, 2016 Date of Insertion: Feb 28, 2016 Line: Central Venous Catheter Side: Left Location: Internal, Jugular (vasoactive medications, CVP monitoring) A/P Assessment and Plan SEPTIC SHOCK, RESOLVED, OFF PRESSORS RESPIRATORY FAILURE, S/P BRONCH FEB 27, EXTUBATED MAR 03, REINTUBATED MAR 04, EXTUBATED MAR 06, HCAP, FUNGAL PNA LUNG CA COPD C DIF SCHF AC ON CRF RENAL TRANSPLANT, RENAL US NORMAL. AF HYPOTHYROID PLAN: NC O2 IV ABX IVF GTF'S IV BUMEX, OFF DRIP STEROID PGT BLOOD CULTURES DUONEBS HEPARIN 5000 BID FOR PROPHYLAXIS IV PROTONIX CCM CONSULT, NOTES REVIEWED NEPHRO CONSULT, NOTES REVIEWED PULMONARY CONSULT PT OT ST ICU CARE FOLLOWUP LABS MEDS ABOVE. Herbert Kaba MD Mar 09, 2016 07:59
[2016-03-09] MEDS: SODIUM CHLORIDE 0.9% FLUSH 5 ML FLUSH IV FLUSH SCH ×2 (08:00→20:24)
[2016-03-09] MEDS: metroNIDAZOLE 500 MG INJ 100 ML IV SCH ×2 (08:04→16:34)
[2016-03-09] MEDS: METOPROLOL TARTRATE 25 MG TAB PO SCH ×2 (08:05→20:25)
[2016-03-09] MEDS: VORICONAZOLE 200 MG TAB PO SCH ×2 (08:05→20:26)
[2016-03-09] MEDS: BUMETANIDE 1 MG TAB G-TUBE SCH (08:06)
[2016-03-09] MEDS: AZITHROMYCIN 250 MG TAB PO SCH (08:06)
[2016-03-09] MEDS: predniSONE 5 MG TAB PO SCH (08:06)
[2016-03-09] MEDS: NYSTATIN 100,000 U/GM PWD 15 GM BTL TOP SCH ×2 (08:07→20:26)
[2016-03-09] MEDS: PANTOPRAZOLE SODIUM 40 MG VIAL IV PUSH SCH (11:58)
--- NOTE | 2016-03-09 14:06 | HHI.PR ---
Subjective Remarks 70 YOWF with COPD,Renal transplant,ca lung, s/p resection with RF Extubated Tired has Techycardia PO Bumex Used BIPAP, now weaned to NC Objective Vital Signs Vital Signs Date Time Temp Pulse Resp B/P Pulse Ox O2 Delivery O2 Flow Rate FiO2 03/09/16 12:00 89 03/09/16 12:00 98.2 93 24 112/57 95 03/09/16 10:00 89 03/09/16 08:00 89 03/09/16 08:00 98.4 97 20 114/56 96 03/09/16 07:40 99 Nasal Cannula 4.00 03/09/16 07:00 Nasal Cannula 4.00 03/09/16 06:00 94 03/09/16 04:00 98.3 96 23 126/60 95 03/09/16 04:00 96 03/09/16 03:06 98 40 03/09/16 02:00 97 03/09/16 00:07 96 40 03/09/16 00:00 98.3 93 23 127/59 96 03/09/16 00:00 93 03/08/16 23:00 Bi-Pap 40 03/08/16 22:00 81 03/08/16 20:00 100 03/08/16 20:00 98.2 100 16 143/65 98 Arterial Line 03/08/16 19:41 100 40 03/08/16 18:00 98 03/08/16 16:00 98.4 99 20 127/58 98 03/08/16 16:00 98 03/08/16 15:54 95 40 03/08/16 15:00 Bi-Pap 40 I/O 03/08/16 03/08/16 03/08/16 03/09/16 03/09/16 03/09/16 07:00 15:00 23:00 07:00 15:00 23:00 Intake Total 735 ml 840 ml 915 ml 708 ml Output Total 925 ml 1100 ml 930 ml 585 ml Balance -190 ml -260 ml -15 ml 123 ml Intake IV Total 275 ml 840 ml 284 ml 168 ml Tube Feeding 335 ml 381 ml 290 ml Other 125 ml 250 ml 250 ml Output Urine Total 850 ml 1000 ml 750 ml 375 ml Stool Total 75 ml 100 ml 180 ml 210 ml Result Diagram: 03/09/16 0630 03/09/16 0340 Objective Remarks GENERALMBMN female, SOB: SKIN: Warm and dry. HEAD: Normocephalic. EYES: No scleral icterus. No injection or drainage. NECK: Supple, trachea midline. No JVD or lymphadenopathy. CARDIOVASCULAR: Regular rate and rhythm without murmurs, gallops, or rubs. RESPIRATORY: Breath sounds equal bilaterally. No accessory muscle use. Bilat coarse crackles. GASTROINTESTINAL: Abdomen soft, non-tender, nondistended. MUSCULOSKELETAL: No cyanosis, ++ edema. BACK: Nontender without obvious deformity. No CVA tenderness. A/P Assessment and Plan VDRF, extubated 03/06 Pneumonia Sepsis sund renal transplant Ca lung, s/p resection PLAN: On Bumex PO Cont Monitor BS Abx Zithro, Zyvox and Cefepime and Voriconazole per ID Cont NC, BIPAP PRN and at night Supplement 02 to keep sat >90% Alverto Armas MD Mar 09, 2016 14:06
[2016-03-09 14:20] LABS: PLATELET ESTIMATE SMEAR LOW (NORMAL); PLATELET MORPHOLOGY NORMAL (NORMAL); SCAN/DIFF AUTO DIFF CONFIRMED
--- NOTE | 2016-03-09 15:01 | HHI.NPPN ---
Subjective Renal Failure: Acute History of Present Illness 70-year-old female with a history of renal transplant presenting with respiratory distress with clinical evidence of pneumonia and acute renal failure. Interval History The patient is nonverbal nodding head to simple questions. Review of Systems General General Remarks Not obtainable. Objective Data Data 03/08/16 03/09/16 19:00 07:00 Intake Total 840 ml 1623 ml Output Total 1100 ml 1515 ml Balance -260 ml 108 ml Intake IV Total 840 ml 452 ml Tube Feeding 671 ml Other 500 ml Output Urine Total 1000 ml 1125 ml Stool Total 100 ml 390 ml Vital Signs Date Time Temp Pulse Resp B/P Pulse Ox O2 Delivery O2 Flow Rate FiO2 03/09/16 14:00 89 03/09/16 12:00 89 03/09/16 12:00 98.2 93 24 112/57 95 03/09/16 10:00 89 03/09/16 08:00 89 03/09/16 08:00 98.4 97 20 114/56 96 03/09/16 07:40 99 Nasal Cannula 4.00 03/09/16 07:00 Nasal Cannula 4.00 03/09/16 06:00 94 03/09/16 04:00 98.3 96 23 126/60 95 03/09/16 04:00 96 03/09/16 03:06 98 40 03/09/16 02:00 97 03/09/16 00:07 96 40 03/09/16 00:00 98.3 93 23 127/59 96 03/09/16 00:00 93 03/08/16 23:00 Bi-Pap 40 03/08/16 22:00 81 03/08/16 20:00 100 03/08/16 20:00 98.2 100 16 143/65 98 Arterial Line 03/08/16 19:41 100 40 03/08/16 18:00 98 03/08/16 16:00 98.4 99 20 127/58 98 03/08/16 16:00 98 03/08/16 15:54 95 40 03/08/16 15:00 Bi-Pap 40 -: 03/09/16 0630 03/09/16 0340 Medication Review Current Medications Acetaminophen (Tylenol) 650 mg Q4H PRN PO TEMP > 100.4 Last administered on at 17:24; Start 02/28/16 at 11:30 Ondansetron HCl (Zofran Inj) 4 mg Q6H PRN IVP NAUSEA OR VOMITING; Start at 11:30 Bisacodyl (Dulcolax Supp) 10 mg DAILY PRN ID CONSTIPATION; Start 02/28/16 at 11:30 Magnesium Hydroxide (Milk Of Magnesia Liq) 30 ml Q12H PRN PO CONSTIPATION; Start 02/28/16 at 11:30 Sennosides (Senokot) 17.2 mg Q12H PRN PO CONSTIPATION; Start 02/28/16 at 11:30 Zolpidem Tartrate (Ambien) 5 mg HS PRN PO INSOMNIA; Start 02/28/16 at 11:30; Stop 02/29/16 at 12:57; Status DC Heparin Sodium (Porcine) (Heparin Inj) 5,000 units Q12H SQ Last administered on 03/05/16at 22:52; Start 02/28/16 at 12:00; Status Hold Naloxone HCl (Narcan Inj) 0.4 mg UNSCH PRN IV SEE LABEL COMMENTS; Start at 11:30 Albuterol/ Ipratropium (Duoneb Neb) 1 ampule QID NEB NEB ; Start 02/28/16 at 12:00; Stop 02/28/16 at 12:27; Status DC Methylprednisolone Sodium Succinate (SoluMEDROL INJ) 80 mg Q6H IV PUSH Last administered on 02/29/16at 05:41; Start 02/28/16 at 17:00; Stop 02/29/16 at 11 :31; Status DC Pantoprazole Sodium (Protonix Inj) 40 mg Q24H IV PUSH Last administered on t 11:58; Start 02/28/16 at 13:00 IV Flush (NS Flush) 2 ml UNSCH PRN IV FLUSH FLUSH AFTER USING IV ACCESS; Start 02/28/16 at 12:00; Status UNV IV Flush (NS Flush) 2 ml BID IV FLUSH ; Start 02/28/16 at 21:00; Status UNV Albuterol/ Ipratropium (Duoneb Neb) 1 ampule Q6HR NEB INH Last administered on 03/04/16at 03:23; Start 02/28/16 at 12:00; Stop 03/04/16 at 07:38; Status DC Miscellaneous Information 1 Q361D XX ; Start 02/28/16 at 12:00 Chlorhexidine Gluconate (Chlorhexidine 2% Cloth) 3 pack Taper DAILY@04 TOP ; Start 02/29/16 at 04:00; Stop 02/29/16 at 04:00; Status DC Chlorhexidine Gluconate 3 pack 3 pack UNSCH PRN TOP HYGIENIC CARE; Start 02/27 at 12:00; Stop 02/28/16 at 17:50; Status DC Potassium Chloride 100 ml @ 50 mls/hr Q2H PRN IV For Potassium 2.8 - 3.2 mEq/L ; Start 02/28/16 at 12:00; Status Cancel Potassium Chloride (KCl 20 Meq Premix Inj) 100 ml @ 50 mls/hr Q2H PRN IV For Potassium 2.8 - 3.2 mEq/L; Start 02/28/16 at 12:00; Status Cancel Potassium Chloride 40 meq 40 meq UNSCH PRN PO/TUBE For Potassium 3.3 - 3.5 mEq/ L; Start 02/28/16 at 12:00; Status UNV Potassium Chloride 100 ml @ 25 mls/hr UNSCH PRN IV For Potassium 3.3 - 3.5 mEq /L; Start 02/28/16 at 12:00; Status Cancel Potassium Chloride 100 ml @ 50 mls/hr Q2H PRN IV For Potassium 3.3 - 3.5 mEq/L ; Start 02/28/16 at 12:00; Status Cancel Magnesium Sulfate/ Sodium Chloride (Magnesium Sulfate Inj/NS Inj) 100 ml @ 50 mls/hr UNSCH PRN IV For Magnesium 0.9 - 1.1 mg/dL; Start 02/28/16 at 12:00; Status UNV Magnesium Oxide 800 mg 800 mg UNSCH PRN PO For Magnesium 1.2 - 1.6 mg/dL; Start 02/28/16 at 12:00; Status UNV Magnesium Sulfate/ Sodium Chloride (Magnesium Sulfate Inj/NS Inj) 100 ml @ 50 mls/hr UNSCH PRN IV For Magnesium 1.2 - 1.6 mg/dL; Start 02/28/16 at 12:00; Status UNV Potassium Phosphate 2000 mg 2,000 mg Q4H PRN PO For Phosphorus < 2.5 mg/dL; Start 02/28/16 at 12:00; Status UNV Sodium Phosphate/ Sodium Chloride (Sodium Phosphate Inj/NS 250 ml Inj) 250 ml @ 42 mls/hr UNSCH PRN IV For Phosphorus < 2.5 mg/dL; Start 02/28/16 at 12:00; Status UNV Potassium Chloride (KCl 40 Meq/30 ml Liq) 40 meq UNSCH PRN PO/TUBE SEE LABEL COMMENTS; Start 02/28/16 at 12:00; Status UNV Potassium Phosphate 2000 mg 2,000 mg UNSCH PRN PO/TUBE SEE LABEL COMMENTS; Start 02/28/16 at 12:00; Status UNV Potassium Phosphate 30 mmol/ Sodium Chloride 260 ml @ 42 mls/hr UNSCH PRN IV SEE LABEL COMMENTS; Start 02/28/16 at 12:00; Status UNV Phenylephrine HCl/ Dextrose (Neosynephrine Inj/D5W 500 ml Inj) 500 ml @ 0 mls/ hr TITRATE IV ; Start 02/28/16 at 17:00; Status UNV Terbutaline Sulfate 1 mg 1 mg UNSCH PRN SQ For Extravasation; Start 02/28/16 at 16:00; Stop 02/29/16 at 12:57; Status DC Phenylephrine HCl/ Dextrose (Neosynephrine Inj/D5W 500 ml Inj) 500 ml @ 0 mls/ hr TITRATE IV ; Start 02/28/16 at 18:00; Stop 02/29/16 at 12:57; Status DC IV Flush (NS Flush) 2 ml UNSCH PRN IV FLUSH FLUSH AFTER USING IV ACCESS Last administered on 03/01/16at 08:00; Start 02/28/16 at 16:15 IV Flush 2 ml 2 ml BID IV FLUSH Last administered on 03/08/16at 20:24; Start 02/28/16 at 21:00 Pharmacy Profile Note 0 ml @ 0 mls/hr UNSCH OTHER ; Start 02/28/16 at 16:15; Stop 03/01/16 at 14:17; Status DC Piperacillin Sod/ Tazobactam Sod 50 ml @ 200 mls/hr Q6H IV Last administered on 03/03/16at 18:12; Start 02/28/16 at 18:00; Stop 03/03/16 at 18:34; Status DC Azithromycin/ Sodium Chloride (Zithromax Inj/ NS 250 ml Inj) 250 ml @ 250 mls/ hr Q24H IV Last administered on 03/02/16at 10:00; Start 02/29/16 at 11:00; Stop 03/02/16 at 13:51; Status DC Miscellaneous Information 1 Q361D XX ; Start 02/28/16 at 16:15; Stop 02/28/16 at 19:23; Status DC Chlorhexidine Gluconate (Chlorhexidine 2% Cloth) 3 pack Taper DAILY@04 TOP ; Start 02/29/16 at 04:00; Stop 02/29/16 at 04:00; Status DC Chlorhexidine Gluconate (Chlorhexidine 2% Cloth) 3 pack UNSCH PRN TOP HYGIENIC CARE; Start 02/28/16 at 16:15; Stop 02/28/16 at 19:23; Status DC Etomidate (Amidate Inj) 20 mg STK-MED ONCE .ROUTE ; Start 02/28/16 at 16:26; Stop 02/28/16 at 16:27; Status DC Rocuronium Bouton (Zemuron Inj) 50 mg STK-MED ONCE .ROUTE ; Start 02/28/16 at 16:26; Stop 02/28/16 at 16:27; Status DC Rocuronium Bouton (Zemuron Inj) 50 mg STK-MED ONCE .ROUTE ; Start 02/28/16 at 16:29; Stop 02/28/16 at 16:30; Status DC Norepinephrine Bitartrate 4 mg 4 mg STK-MED ONCE .ROUTE ; Start 02/28/16 at 16: 35; Stop 02/28/16 at 16:36; Status DC Fentanyl Citrate 250 ml @ 0 mls/hr TITRATE IV Last administered on 03/03/16at 04:54; Start 02/28/16 at 17:00; Stop 03/07/16 at 07:55; Status DC Fentanyl Citrate 250 ml @ As Directed STK-MED ONCE .ROUTE ; Start 02/28/16 at 16:53; Stop 02/28/16 at 16:54; Status DC Vancomycin HCl/ Sodium Chloride (Vancomycin Inj/ NS 250 ml Inj) 250 ml @ 250 mls/hr NOW ONCE IV Last administered on 02/28/16at 17:34; Start 02/28/16 at 17:15; Stop 02/28/16 at 18:14; Status DC Dextrose (D50w (Vial) Inj) 25 ml UNSCH PRN IV PUSH HYPOGLYCEMIA-SEE COMMENTS; Start 02/28/16 at 18:30 Glucagon (Glucagon Inj) 1 mg UNSCH PRN OTHER HYPOGLYCEMIA-SEE COMMENTS; Start 02/28/16 at 18:30 Insulin Aspart (NovoLOG SUPPLEMENTAL SCALE) 1 ACHS SLIDING SCALE SQ Last administered on 03/01/16at 10:52; Start 02/28/16 at 21:00; Stop 03/01/16 at 15 :33; Status DC Gabapentin (Neurontin) 100 mg Q8H PO Last administered on 03/09/16t 11:58; Start 02/28/16 at 20:00 Nystatin (Mycostatin Powder) 1 applic BID TOP Last administered on 03/09/16t 08: 07; Start 02/28/16 at 21:00 Pravastatin Sodium (Pravachol) 40 mg HS PO Last administered on 03/08/16at 20: 25; Start 02/28/16 at 21:00 Sirolimus (Rapamune) 2 mg EVERY OTHER DAY PO Last administered on 03/03/16at 08:51; Start 03/01/16 at 09:00; Stop 03/04/16 at 11:44; Status DC Sirolimus (Rapamune) 1 mg DAILY@06 PO Last administered on 03/04/16at 05:18; Start 02/29/16 at 06:00; Stop 03/04/16 at 11:44; Status DC Hydrocortisone Sodium Succinate (SoluCORTEF INJ) 100 mg Q8HR IV PUSH Last administered on 03/05/16at 13:17; Start 02/28/16 at 22:00; Stop 03/05/16 at 13 :56; Status DC Miscellaneous Information Patient in critical care unit? Ass... Q361D XX ; Start 02/28/16 at 19:30 Chlorhexidine Gluconate (Chlorhexidine 2% Cloth) 3 pack DAILY@04 TOP Last administered on 03/04/16at 04:38; Start 02/29/16 at 04:00; Stop 03/04/16 at 04 :01; Status DC Chlorhexidine Gluconate (Chlorhexidine 2% Cloth) 3 pack UNSCH PRN TOP HYGIENIC CARE; Start 02/28/16 at 19:30; Stop 03/04/16 at 19:22; Status DC Midazolam HCl (Versed Inj) 5 mg STK-MED ONCE .ROUTE Last administered on at 21:51; Start 02/28/16 at 19:32; Stop 02/28/16 at 19:33; Status DC Rocuronium Bouton (Zemuron Inj) 50 mg STK-MED ONCE .ROUTE Last administered on 02/28/16at 19:33; Start 02/28/16 at 19:33; Stop 02/28/16 at 19:34; Status DC Succinylcholine Chloride 200 mg 200 mg STK-MED ONCE .ROUTE ; Start 02/29/16 at 01:23; Stop 02/29/16 at 01:24; Status DC Vancomycin HCl 1000 mg/Sodium Chloride 250 ml @ 250 mls/hr ONCE ONCE IV Last administered on 02/29/16at 11:00; Start 02/29/16 at 11:00; Stop 02/29/16 at 17 :52; Status DC Calcium Gluconate 2 gm/Sodium Chloride 120 ml @ 120 mls/hr ONCE ONCE IV Last administered on 02/29/16at 15:58; Start 02/29/16 at 12:30; Stop 02/29/16 at 13 :29; Status DC Norepinephrine Bitartrate 250 ml @ 0 mls/hr TITRATE IV ; Start 02/29/16 at 13: 00; Status UNV Norepinephrine Bitartrate/Sodium Chloride (Levophed Inj/NS 250 ml Inj) 250 ml @ 0 mls/hr TITRATE IV Last administered on 03/02/16at 04:34; Start 02/29/16 at 14:00; Stop 03/04/16 at 07:35; Status DC Terbutaline Sulfate (Brethine Inj) 1 mg UNSCH PRN SQ For Extravasation; Start 02/29/16 at 13:00 Levothyroxine Sodium (Synthroid) 224 mcg DAILY@0600 PO Last administered on 03/09t 05:50; Start 03/01/16 at 06:00 Bumetanide (Bumex Inj) 2 mg ONCE ONCE IV PUSH Last administered on 02/29/16at 15:55; Start 02/29/16 at 16:00; Stop 02/29/16 at 16:01; Status DC Diatrizoate Meglum/ Diatrizoate Sod 10 ml 10 ml STK-MED ONCE PEG Last administered on 02/29/16at 17:06; Start 02/29/16 at 17:06; Stop 02/29/16 at 17 :07; Status DC Linezolid 300 ml @ 300 mls/hr Q12H IV Last administered on 03/02/16at 05:00; Start 02/29/16 at 18:00; Stop 03/02/16 at 13:51; Status DC Magnesium Sulfate 2 gm/Sodium Chloride 104 ml @ 52 mls/hr STAT ONCE IV Last administered on 03/01/16at 06:07; Start 03/01/16 at 05:30; Stop 03/01/16 at 07 :29; Status DC Vancomycin HCl/ Sodium Chloride (Vancomycin Inj/ NS 500 ml Inj) 515 ml @ 257.5 mls/ hr ONCE ONCE IV Last administered on 03/01/16at 10:28; Start 03/01/16 at 10:00; Stop 03/01/16 at 11:59; Status DC Bumetanide 2 mg 2 mg TID IV PUSH Last administered on 03/01/16at 12:59; Start 03/01/16 at 13:00; Stop 03/01/16 at 14:32; Status DC Bumetanide (Bumex Inj) 100 ml @ 6 mls/hr CONTINUOUS IV ; Start 03/01/16 at 17: 00; Stop 03/02/16 at 08:58; Status DC Dextrose (D50w (Vial) Inj) 25 ml UNSCH PRN IV PUSH HYPOGLYCEMIA-SEE COMMENTS; Start 03/01/16 at 15:45; Stop 03/01/16 at 15:45; Status DC Glucagon (Glucagon Inj) 1 mg UNSCH PRN OTHER HYPOGLYCEMIA-SEE COMMENTS; Start 03/01/16 at 15:45; Stop 03/01/16 at 15:45; Status DC Insulin Aspart 1 1 Q4H SQ Last administered on 03/09/16t 11:57; Start 03/01/16 at 16:00 Bumetanide (Bumex Inj) 100 ml @ 2 mls/hr CONTINUOUS IV Last administered on at 14:44; Start 03/02/16 at 11:00; Stop 03/06/16 at 19:12; Status DC Azithromycin (Zithromax 200 Mg/5 ml Liq) 500 mg Q24H TUBE Last administered on 03/06/16at 12:07; Start 03/03/16 at 11:00; Stop 03/07/16 at 10:13; Status DC Linezolid (Zyvox Liq) 600 mg Q12HR TUBE Last administered on 03/03/16at 08:50 ; Start 03/02/16 at 21:00; Stop 03/03/16 at 18:34; Status DC Albumin Human (Albumin 25% Inj) 12.5 gm Q8H IV Last administered on 03/06/16at 04:25; Start 03/02/16 at 14:00; Stop 03/06/16 at 07:31; Status DC Insulin Detemir 5 units 5 units Q12HR SQ Last administered on 03/06/16at 19:40 ; Start 03/02/16 at 21:00; Stop 03/07/16 at 07:55; Status DC Potassium Chloride (KCl 40 Meq Premix Inj) 100 ml @ 50 mls/hr ONCE ONCE IV Last administered on 03/02/16at 21:31; Start 03/02/16 at 21:30; Stop 03/02/16 at 23:29; Status DC Potassium Chloride (KCl 40 Meq/30 ml Liq) 40 meq NOW ONCE PEG Last administered on 03/02/16at 21:31; Start 03/02/16 at 21:30; Stop 03/02/16 at 21 :32; Status DC Albuterol Sulfate (Albuterol Neb) 2.5 mg Q2HR NEB PRN NEB WHEEZING Last administered on 03/03/16at 11:34; Start 03/03/16 at 10:45 Chlorothiazide Sodium (Diuril Inj) 500 mg ONCE ONCE IV ; Start 03/03/16 at 16: 30; Stop 03/03/16 at 16:35; Status DC Chlorothiazide Sodium 500 mg 500 mg ONCE ONCE IV Last administered on at 18:11; Start 03/03/16 at 17:45; Stop 03/03/16 at 17:46; Status DC Ceftriaxone Sodium 2000 mg/ Sodium Chloride 100 ml @ 200 mls/hr Q24H IV Last administered on 03/03/16at 20:27; Start 03/03/16 at 20:00; Stop 03/04/16 at 19 :01; Status DC Potassium Chloride (KCl 40 Meq Premix Inj) 100 ml @ 25 mls/hr BOLUS ONCE IV Last administered on 03/03/16at 20:28; Start 03/03/16 at 19:30; Stop 03/03/16 at 23:29; Status DC Potassium Chloride (KCl 40 Meq/30 ml Liq) 40 meq ONCE ONCE TUBE Last administered on 03/03/16at 20:26; Start 03/03/16 at 19:30; Stop 03/03/16 at 19 :31; Status DC Potassium Chloride 40 meq 40 meq ONCE ONCE PO ; Start 03/03/16 at 19:45; Stop 03/03/16 at 19:49; Status DC Potassium Chloride (KCl 40 Meq Premix Inj) 100 ml @ 25 mls/hr BOLUS ONCE IV ; Start 03/03/16 at 19:45; Stop 03/03/16 at 19:49; Status DC Etomidate 20 mg 20 mg STK-MED ONCE .ROUTE Last administered on 03/04/16at 07:02 ; Start 03/04/16 at 07:02; Stop 03/04/16 at 07:13; Status DC Propofol 100 ml @ As Directed STK-MED ONCE .ROUTE ; Start 03/04/16 at 07:02; Stop 03/04/16 at 07:13; Status DC Propofol (Diprivan 1000 Mg/100ml Inj) 100 ml @ 0 mls/hr TITRATE IV Last administered on 03/06/16at 01:34; Start 03/04/16 at 07:30; Stop 03/07/16 at 07 :55; Status DC Albuterol/ Ipratropium 1 ampule 1 ampule Q6HR NEB NEB Last administered on at 09:05; Start 03/04/16 at 10:00; Stop 03/06/16 at 13:54; Status DC Metronidazole (Flagyl 500 Mg Inj) 100 ml @ 100 mls/hr Q8H IV Last administered on 03/09/16t 08:04; Start 03/04/16 at 08:00 Sirolimus (Rapamune Liq) 1.25 mg DAILY@06 NG Last administered on 03/06/16at 04 :24; Start 03/05/16 at 06:00; Stop 03/06/16 at 19:12; Status DC Voriconazole (Vfend) 400 mg Q12H PO ; Start 03/04/16 at 15:00; Stop 03/05/16 at 03:01; Status Cancel Voriconazole (Vfend) 200 mg Q12HR PO Last administered on 03/09/16 08:05; Start 03/05/16 at 09:00 Vancomycin HCl (VANCOMYCIN for oral use only) 500 mg Q6H PO Last administered on 03/09/16 14:23; Start 03/04/16 at 15:00 Hydralazine HCl (Apresoline Inj) 10 mg Q6H PRN IV PUSH SYS BP GREATER THAN 160 MMHG; Start 03/06/16 at 07:30 Albuterol/ Ipratropium (Duoneb Neb) 1 ampule Q4HR NEB NEB Last administered on 03/09/16 11:15; Start 03/06/16 at 16:00 Albuterol/ Ipratropium (Duoneb Neb) 1 ampule Q2HR NEB PRN NEB SHORTNESS OF BREATH; Start 03/06/16 at 14:00 Sirolimus (Rapamune Liq) 0.5 mg DAILY@06 NG Last administered on 03/09/16 05:51 ; Start 03/07/16 at 06:00 Bumetanide (Bumex Inj) 1 mg Q8HR IV PUSH Last administered on 03/07/16at 04:21 ; Start 03/06/16 at 22:00; Stop 03/07/16 at 13:42; Status DC Prednisone (Deltasone) 5 mg DAILY PO Last administered on 03/09/16 08:06; Start 03/07/16 at 09:00 Potassium Chloride 40 meq 40 meq NOW ONCE PEG Last administered on 03/07/16at 04:24; Start 03/07/16 at 04:30; Stop 03/07/16 at 04:31; Status DC Potassium Chloride (KCl 40 Meq Premix Inj) 100 ml @ 25 mls/hr Q4H IV Last administered on 03/07/16at 10:33; Start 03/07/16 at 04:30; Stop 03/07/16 at 16 :29; Status DC Water (Free Water) 250 ml Q12HR G-TUBE Last administered on 03/07/16at 19:12; Start 03/07/16 at 09:00; Stop 03/08/16 at 07:43; Status DC Azithromycin (Zithromax) 500 mg DAILY PO Last administered on 03/09/16 08:06; Start 03/07/16 at 10:15 Bumetanide (Bumex Inj) 0.5 mg Q12HR IV PUSH Last administered on 03/08/16at 09: 19; Start 03/07/16 at 21:00; Stop 03/08/16 at 12:40; Status DC Water (Free Water) 250 ml Q8HR G-TUBE Last administered on 03/09/16 14:00; Start 03/08/16 at 14:00 Metoprolol Tartrate 12.5 mg 12.5 mg Q12HR PO Last administered on 03/09/16 08: 05; Start 03/08/16 at 09:00 Magnesium Sulfate/ Dextrose 100 ml @ 100 mls/hr Q1H IV Last administered on at 08:45; Start 03/08/16 at 07:45; Stop 03/08/16 at 09:44; Status DC Potassium Phosphate/Sodium Chloride (Potassium Phosphate Inj/NS Inj) 155 ml @ 38.75 mls/ hr ONCE ONCE IV Last administered on 03/08/16at 08:55; Start 03/08 at 09:00; Stop 03/08/16 at 12:59; Status DC Miscellaneous (Pill Splitter) 1 ea UNSCH PRN OTHER SEE LABEL COMMENTS; Start 03/08/16 at 08:00 Bumetanide (Bumetanide) 1 mg DAILY G-TUBE Last administered on 03/09/16 08:06; Start 03/09/16 at 09:00 Potassium Chloride 20 meq 20 meq ONCE ONCE G-TUBE Last administered on at 16:18; Start 03/08/16 at 15:30; Stop 03/08/16 at 15:31; Status DC Potassium Phosphate/Sodium Chloride (Potassium Phosphate Inj/NS 250 ml Inj) 260 ml @ 43.333 mls/ hr ONCE ONCE IV Last administered on 03/09/16 08:07; Start 03/09/16 at 07:30; Stop 03/09/16 at 13:29; Status DC Physical Exam General Appearance: No Acute Distress, Comfortable Eyes Eye Exam: Pupils Equal, Pupils Reactive Pulmonary Resp Exam: Rhonchi Cardiology CV Exam: Regular, Normal Sinus Rhythm, Good Perfusion Gastrointestinal/Abdomen GI Exam: Bowel Sounds Present Musculoskeletal MS Exam: Joints Intact, Good Strength Integumentary Skin Exam: Clear, Warm, Dry, Intact Extremeties Extremities Exam: Trace Edema, Dependent Edema Neurologic Neuro Exam: Awake Assessment/Plan Assessment Summary: Transplant Kidney Status Problem List: (1) Renal transplant, status post Plan: It is noted there is concern for fungal pneumonia and Voriconazole therapy has been initiated by infectious disease for life-threatening pneumonia. The situation was discussed with the transplant multimedia coordinator at [facility]. The transplant multimedia coordinator felt that changing to cyclosporine or Prograf would not make much difference as these drugs can interact with voriconazole as well and he recommended continuance of sirolimus at a lower dosage of 0.5 mg daily with monitoring of levels and adjusting dosage as indicated by subsequent levels. Risk-benefit ratio is being considered here as we are trying to preserve the transplanted kidney. Patient's creatinine level is improving nicely every day. Urine output is also quite good. The Rapamune level however is low at 3.8. I will increase the dosage to 1 mg daily with follow-up level. Continue Prednisone as ordered. (2) Acute kidney failure Plan: Patient creatinine level has now fallen below 2.0 and getting further improvement in renal function. Her creatinine was around 1.2 in October of this year, suggesting reasonably well preserved GFR after transplant in 2006. ANNABELLA likely due to ATN. Change bumetanide as ordered to enteral route 1 mg daily. Patient appears to be developing a contraction alkalosis. Monitor creatinine and fluid status. (3) Pneumonia Plan: Mgmt as per ID (4) Sepsis Plan: with septic shock--improving (5) Heart failure Plan: EF of 35 % previously. Rin Juarez MD Mar 09, 2016 15:01
--- NOTE | 2016-03-09 18:17 | HHI.IDPN ---
Subjective Subjective Remarks remains NC O2 afebrile cont to have liquid diarrhea seems to less prominent Antibiotics cefepime azithromycin flagyl IV vanco po voriconazole Lines [facility]J TLC Past Medical History renal transpant ESRD Allergies: Coded Allergies: Labetalol (Verified Allergy, Severe, NAUSEA AND VOMITING, 02/28/16) Lortab (Verified Adverse Reaction, Severe, VOMITING, 02/28/16) Objective . Vital Signs Date Time Temp Pulse Resp B/P Pulse Ox O2 Delivery O2 Flow Rate FiO2 03/09/16 16:12 96 40 03/09/16 16:00 98.4 94 22 117/56 98 03/09/16 16:00 89 03/09/16 15:00 Nasal Cannula 4.00 03/09/16 14:00 89 03/09/16 12:00 89 03/09/16 12:00 98.2 93 24 112/57 95 03/09/16 10:00 89 03/09/16 08:00 89 03/09/16 08:00 98.4 97 20 114/56 96 03/09/16 07:40 99 Nasal Cannula 4.00 03/09/16 07:00 Nasal Cannula 4.00 03/09/16 06:00 94 03/09/16 04:00 98.3 96 23 126/60 95 03/09/16 04:00 96 03/09/16 03:06 98 40 03/09/16 02:00 97 03/09/16 00:07 96 40 03/09/16 00:00 98.3 93 23 127/59 96 03/09/16 00:00 93 03/08/16 23:00 Bi-Pap 40 03/08/16 22:00 81 03/08/16 20:00 100 03/08/16 20:00 98.2 100 16 143/65 98 Arterial Line 03/08/16 19:41 100 40 03/08/16 18:00 98 03/08/16 03/08/16 03/09/16 15:00 23:00 07:00 Intake Total 840 ml 915 ml 708 ml Output Total 1100 ml 930 ml 585 ml Balance -260 ml -15 ml 123 ml Intake IV Total 840 ml 284 ml 168 ml Tube Feeding 381 ml 290 ml Other 250 ml 250 ml Output Urine Total 1000 ml 750 ml 375 ml Stool Total 100 ml 180 ml 210 ml . Laboratory Tests Test 03/08/16 03/09/16 03:49 06:30 White Blood Count 7.7 TH/MM3 8.7 TH/MM3 Red Blood Count 3.08 MIL/MM3 3.07 MIL/MM3 Hemoglobin 8.7 GM/DL 8.6 GM/DL Hematocrit 26.6 % 27.1 % Mean Corpuscular Volume 86.1 FL 88.3 FL Mean Corpuscular Hemoglobin 28.3 PG 28.0 PG Mean Corpuscular Hemoglobin 32.9 % 31.7 % Concent Red Cell Distribution Width 16.7 % 16.8 % Platelet Count 70 TH/MM3 76 TH/MM3 Mean Platelet Volume 9.7 FL 11.1 FL Neutrophils (%) (Auto) 83.8 % 81.7 % Lymphocytes (%) (Auto) 6.8 % 9.3 % Monocytes (%) (Auto) 8.2 % 7.0 % Eosinophils (%) (Auto) 0.9 % 1.0 % Basophils (%) (Auto) 0.3 % 1.0 % Neutrophils # (Auto) 6.4 TH/MM3 7.1 TH/MM3 Lymphocytes # (Auto) 0.5 TH/MM3 0.8 TH/MM3 Monocytes # (Auto) 0.6 TH/MM3 0.6 TH/MM3 Eosinophils # (Auto) 0.1 TH/MM3 0.1 TH/MM3 Basophils # (Auto) 0.0 TH/MM3 0.1 TH/MM3 CBC Comment AUTO DIFF AUTO DIFF Differential Comment AUTO DIFF AUTO DIFF CONFIRMED CONFIRMED Platelet Estimate LOW LOW Platelet Morphology Comment NORMAL NORMAL Keratocytes OCC Laboratory Tests Test 03/07/16 03/08/16 03/09/16 18:20 03:49 03:40 Potassium Level 4.4 MEQ/L 3.6 MEQ/L 3.4 MEQ/L Sodium Level 149 MEQ/L 149 MEQ/L Chloride Level 103 MEQ/L 104 MEQ/L Carbon Dioxide Level 36.1 MEQ/L 35.2 MEQ/L Anion Gap 10 MEQ/L 10 MEQ/L Blood Urea Nitrogen 75 MG/DL 69 MG/DL Creatinine 1.97 MG/DL 1.72 MG/DL Estimat Glomerular Filtration 25 ML/MIN 29 ML/MIN Rate Random Glucose 149 MG/DL 231 MG/DL Calcium Level 7.9 MG/DL 8.2 MG/DL Phosphorus Level 0.3 MG/DL 0.9 MG/DL Magnesium Level 1.4 MG/DL 1.8 MG/DL Imaging Last Impressions Chest X-Ray 03/04/16 0000 Signed Impressions: Service Date/Time: Friday, March 04, 2016 08:04 - CONCLUSION: 1. Developing nodular opacities involving the right lung. These are new from the prior exam. Their interval appearance would suggest an infectious etiology. 2. Slight improvement in aeration of the left mid lung. Michael Robbins Jr., MD Renal Ultrasound 03/01/16 0000 Signed Impressions: Service Date/Time: Tuesday, March 01, 2016 10:45 - CONCLUSION: No evidence of hydronephrosis or focal abnormality. The resistive indices are within normal Sumit Laws MD Abdomen X-Ray 03/01/16 0000 Signed Impressions: Service Date/Time: Tuesday, March 01, 2016 15:32 - CONCLUSION: G-tube inside the stomach. Angelita Birmingham MD Physical Exam CONSTITUTIONAL/GENERAL: awake, alert, some resp distress SKIN: Warm and dry. Stage I-II sacral decub on sacrum EYES: No scleral icterus. No injection or drainage. ENT: . Nose without bleeding or purulent drainage. Oral mucosa moist NECK: Trachea midline. Supple, nontender. Line ok CARDIOVASCULAR: Regular rate and rhythm without murmurs, gallops, or rubs. No JVD. Peripheral pulses symmetric. RESPIRATORY/CHEST: No BS on the L, diffuse rhonchi R GASTROINTESTINAL: Abdomen soft, non-tender, nondistended. No guarding. Bowel sounds present. Incontinent of liquid light brown stool GENITOURINARY: Malik catheter in place with small amount clear yellow urine MUSCULOSKELETAL: Extremities without clubbing, cyanosis, or edema in BLE. No mottling or clubbing. 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
[2016-03-09] MEDS: CEFEPIME INJ 2,000 MG in SODIUM CHLORIDE 0.9% INJ 100 ML IV SCH (20:23)
[2016-03-09] MEDS: PRAVASTATIN SOD 40 MG TAB PO SCH (20:26)
[2016-03-10] VITALS (16 sets, daily range): BP systolic 115–131; BP diastolic 55–58; PULSE 76–98; RESP 18–24; TEMP 98.2–98.8; O2SAT 94–100
[2016-03-10] MEDS: RESP: ALBUTEROL 2.5 MG/IPRATROPIUM 0.5 MG NEB (SCH) NEB ×5 (00:12→15:00)
[2016-03-10] MEDS: INSULIN ASPART SUPPLEMENTAL SCALE SQ SCH ×6 (00:43→20:31)
[2016-03-10] MEDS: GABAPENTIN 100 MG CAP PO SCH ×3 (03:39→20:31)
[2016-03-10] MEDS: VANCOMYCIN 500 MG VIAL (FOR ORAL USE ONLY) PO SCH ×4 (03:39→20:33)
[2016-03-10 05:45] LABS: AUTOMATED NEUTROPHIL # 5.3 TH/MM3 (1.8-7.7); BASOPHIL % 0.4 % (0.0-2.0); EOSINOPHIL % 0.7 % (0.0-4.0); HEMATOCRIT 24.8 % (35.0-46.0); LYMPH % 9.7 % (9.0-44.0); LYMPHOCYTE # 0.6 TH/MM3 (1.0-4.8); MEAN CELL VOLUME 88.5 FL (80.0-100.0); MEAN CORPUSCULAR HEMOGLOBIN 28.1 PG (27.0-34.0); MEAN CORPUSCULAR HGB CONC 31.7 % (32.0-36.0); NEUT % 81.2 % (16.0-70.0); PLATELET COUNT 62 TH/MM3 (150-450); RED CELL DISTRIBUTION WIDTH 16.9 % (11.6-17.2); WHITE BLOOD COUNT 6.5 TH/MM3 (4.0-11.0)
[2016-03-10 05:51] LABS: HEMO FLAGS AUTO DIFF
[2016-03-10] MEDS: SIROLIMUS 1 MG/ML NG SCH (06:00)
[2016-03-10] MEDS: FREE WATER G-TUBE SCH ×3 (06:00→18:00)
[2016-03-10] MEDS: LEVOTHYROXINE SODIUM 112 MCG TAB PO SCH (06:10)
[2016-03-10 06:16] LABS: MAGNESIUM 1.6 MG/DL (1.5-2.5); POTASSIUM 3.2 MEQ/L (3.5-5.1)
[2016-03-10 07:05] LABS: PLATELET ESTIMATE SMEAR LOW (NORMAL); PLATELET MORPHOLOGY NORMAL (NORMAL); SCAN/DIFF AUTO DIFF CONFIRMED
[2016-03-10] MEDS ORDERED: POTASSIUM PHOSPHATE MONOBASIC 500 MG TAB PO/TUBE PRN (07:45)
[2016-03-10] MEDS ORDERED: POTASSIUM PHOSPHATE INJ 30 MMOL in SODIUM CHLOR 0.9% 250 ML INJ 250 ML IV PRN (07:45)
[2016-03-10] MEDS ORDERED: POTASSIUM CHLOR 20 MEQ PREMIX 100 ML IV PRN ×2 (07:45)
[2016-03-10] MEDS ORDERED: POTASSIUM CL 40 MEQ/30 ML LIQ UDC PO/TUBE PRN ×2 (07:45)
[2016-03-10] MEDS ORDERED: POTASSIUM CHLOR 40 MEQ PREMIX 100 ML IV PRN (07:45)
[2016-03-10] MEDS ORDERED: MAGNESIUM SULFATE INJ 4 GM in SODIUM CHLORIDE 0.9% INJ 92 ML IV PRN (07:45)
[2016-03-10] MEDS ORDERED: MAGNESIUM OXIDE 400 MG TAB PO PRN (07:45)
[2016-03-10] MEDS ORDERED: SODIUM PHOSPHATE INJ 30 MMOL in SODIUM CHLOR 0.9% 250 ML INJ 240 ML IV PRN (07:45)
[2016-03-10] MEDS ORDERED: MAGNESIUM SULFATE INJ 2 GM in SODIUM CHLORIDE 0.9% INJ 96 ML IV PRN (07:45)
[2016-03-10] MEDS ORDERED: POTASSIUM PHOSPHATE MONOBASIC 500 MG TAB PO PRN (07:45)
--- NOTE | 2016-03-10 07:52 | HHI.CCPN ---
Subjective Remarks/Hospital Course 70-year-old female with history of lung cancer status post left lobectomy, and kidney transplant 2006 presented to the ED with worsening pulmonary symptoms. Her medical history is significant for DM, HTN. She presented to the ED today because worsening cough, shortness of breath, dyspnea on exertion, and fevers. The patient is dependent on home O2 at 4 L nasal cannula, and scheduled DuoNeb treatment. The patient was hospitalized for several months 11/2015-12/22 . During this hospitalization she reports having a fungal pulmonary infection and a seizure resulting in "coma for a few weeks". She was transferred to a rehabilitation facility [facility] for approximately 2 months ago. The patient was then transferred to [facility] approximately 3 weeks ago at which time she fractured her left ankle, and was transferred to [facility]. She was recently discharged from [facility] on 02/15/2016. The patient states that she began having worsening symptoms over the last 3-4 days, that resembled her fungal pneumonia. Critical care medicine was consulted for management. 02/28 Upon arrival to ICU last evening, bronchoscopy was performed, and specimens were sent for culture. The patient was maintained on IV fluids 100 cc an hour, and discontinued at 2 AM secondary to oliguria. CVP ranged 14 throughout the night, with original BNP 1035. Postintubation the patient remains GCS 11 T, following commands. The patient continues to be oliguric with hourly urinary output 7-10 cc an hour. 03/01 On levophed 8mcg/min. UOP around 10 mL/hr. Received Bumex 2 mg IV and UOP still ~20 Ml/hr last hour. CVP 18-20. In Afib rate controlled. Awakens on CPAP 5/5. 03/02 UOP 1068 overnight on bumex drip. Creatinine up to 3.28. Placing on CPAP 5 /5. Afebrile. Levophed weaned to 2 mcg/min with MAP 77. CVP 24 Subjective: 03/03 Creatinine up to 3.32. Nonoliguric with Bumex drip. CVP down to 14. Tolerating CPAP. Off levophed. 03/04 Patient was on BIPAP 10/5 with 60% FIO2 overnight. Patient looked lethargic and started desating she was subsequently intubated and placed on mechanical ventilation. On Bumex drip 2mg/hr. Positive C-diff this morning. 03/05 Patient is sedated with Diprivan and intubated. Afebrile. Remains on Bumex drip 2mg/hr. 03/06 No acute events overnight. Tolerated CPAP all day yesterday. On Bumex 2mg /hr. Sedated with Diprivan and intubated. 03/07 Patient s/p extubation yesterday placed on BIPAP overnight 10 with 40% FIO2. Afebrile. Off Bumex drip. 03/08 No acute events overnight. On BIPAP 10/5 with 40$ FIO2 overnight. Afebrile. Renal function improving with Cr: 1.97 today from 2.32 03/09 Patient remains on BIPAP 10/5 with 40% FIO2. Afebrile. 03/10 No events overnight. On BIPAP with 40% FIO2, afebrile. Renal function improving with Cr: 1.5 today. Objective Vital Signs Date Time Temp Pulse Resp B/P Pulse Ox O2 Delivery O2 Flow Rate FiO2 03/10/16 07:22 96 Nasal Cannula 4.00 03/10/16 06:00 98 03/10/16 04:00 98.5 22 116/56 03/10/16 03:45 40 Intake and Output 03/09/16 03/09/16 03/09/16 07:59 15:59 23:59 Intake Total 708 ml 1007 ml 834 ml Output Total 585 ml 700 ml 550 ml Balance 123 ml 307 ml 284 ml Result Diagram: 03/10/16 0330 03/10/16 0330 Other Results Laboratory Tests Test 03/10/16 03:30 White Blood Count 6.5 TH/MM3 Red Blood Count 2.80 MIL/MM3 Hemoglobin 7.9 GM/DL Hematocrit 24.8 % Mean Corpuscular Volume 88.5 FL Mean Corpuscular Hemoglobin 28.1 PG Mean Corpuscular Hemoglobin 31.7 % Concent Red Cell Distribution Width 16.9 % Platelet Count 62 TH/MM3 Mean Platelet Volume 10.3 FL Neutrophils (%) (Auto) 81.2 % Lymphocytes (%) (Auto) 9.7 % Monocytes (%) (Auto) 8.0 % Eosinophils (%) (Auto) 0.7 % Basophils (%) (Auto) 0.4 % Neutrophils # (Auto) 5.3 TH/MM3 Lymphocytes # (Auto) 0.6 TH/MM3 Monocytes # (Auto) 0.5 TH/MM3 Eosinophils # (Auto) 0.0 TH/MM3 Basophils # (Auto) 0.0 TH/MM3 CBC Comment AUTO DIFF Differential Comment AUTO DIFF CONFIRMED Platelet Estimate LOW Platelet Morphology Comment NORMAL Sodium Level 149 MEQ/L Potassium Level 3.2 MEQ/L Chloride Level 102 MEQ/L Carbon Dioxide Level 36.0 MEQ/L Anion Gap 11 MEQ/L Blood Urea Nitrogen 66 MG/DL Creatinine 1.50 MG/DL Estimat Glomerular Filtration 35 ML/MIN Rate Random Glucose 204 MG/DL Calcium Level 7.8 MG/DL Phosphorus Level 2.4 MG/DL Magnesium Level 1.6 MG/DL Imaging Last Impressions Chest X-Ray 03/04/16 0000 Signed Impressions: Service Date/Time: Friday, March 04, 2016 08:04 - CONCLUSION: 1. Developing nodular opacities involving the right lung. These are new from the prior exam. Their interval appearance would suggest an infectious etiology. 2. Slight improvement in aeration of the left mid lung. Michael Robbins Jr., MD Renal Ultrasound 03/01/16 0000 Signed Impressions: Service Date/Time: Tuesday, March 01, 2016 10:45 - CONCLUSION: No evidence of hydronephrosis or focal abnormality. The resistive indices are within normal Sumit Laws MD Abdomen X-Ray 03/01/16 0000 Signed Impressions: Service Date/Time: Tuesday, March 01, 2016 15:32 - CONCLUSION: G-tube inside the stomach. Angelita Birmingham MD Objective Remarks Nepro 40 ml/hr GENERAL: Morbidly obese elderly female on BIPAP overnight. , SKIN: Warm and dry. Multiple ecchymotic bruising neck, chest, bilateral extremities upper and lower HEAD: Atraumatic. Normocephalic. EYES: Pupils equal and round. No scleral icterus. No injection or drainage. ENT: No nasal bleeding or discharge. Mucous membranes pink and moist. NECK: Trachea midline. Supple, no JVD, adenopathy, orally intubated. CARDIOVASCULAR: Tachycardic, nl S1, S2. RESPIRATORY: Coarse BS on right. GASTROINTESTINAL: Abdomen soft, non-tender, nondistended. Gastric tube no erythema or drainage. MUSCULOSKELETAL: Extremities without clubbing, cyanosis, trace edema NEUROLOGICAL: Awake and alert. Date of Insertion: Feb 28, 2016 Date of Insertion: Feb 28, 2016 Line: Central Venous Catheter Side: Left Location: Internal, Jugular (vasoactive medications, CVP monitoring) A/P Assessment and Plan Plan by systems: Neurologic: Seizure disorder Herniated discs Neuropathy - Awake and alert, avoid sedatives. -Neurochecks per ICU protocol -Gabapentin 100 q8. Respiratory: Acute hypoxic respiratory failure History of non-small cell lung cancer S/P left lung lobectomy 2013 Home O2 dependency Presumed Hospital-acquired pneumonia (previous HCAP treatment 10/22) Left lung opacity-chronic History of tracheostomy-decannulated 12/22/15 -02/27 Intubated , extubated 03/03 reintubated 03/04, extubated 03/06 -Continue with oxygen keep sat >92%. Check CXR -Bronchodilators. IS, NIPPV PRN for resp distress -Pulmonology Following, Cardiovascular: HTN Atrial fibrillation-rate control Acute on chronic systolic CHF RV overload, pulmonary HTN Hyperlipidemia -Continue Lopressor 12.5mg BID Maintain HR and BP keep MAP>65mmHg -2D ECHO 02/28mildly reduced systolic function with EF 45-50%. Mild RV dilatation. Mild to moderate tricuspid regurg. Pulmonary artery peak systolic pressure 53 mmHg. -Continue pravastatin FEN/Renal: S/P kidney transplant ANNABELLA, ..improving Hypokalemia -Monitor renal function, I/O's, electrolytes replacement per protocol. -On Bumex 1mg daily, change Free Water 250ml Q6 ,monitor sodium level. 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 Juarez -Renal function improving with Cr: 1.5 today -Sirolimus level: 9 on 03/01. On Sirolimus 2 mg every other day per nephrology. -On prednisone 5mg daily per nephrology, GI: Morbid obesity -Change TF-Glucerna 1.5 with goal rate 45ml/hr mL/hr via PEG. -Zofran PRN for nausea -Protonix GI prophylaxis ID: Pneumonia-HCAP Positive Cdiff Continue with abx per ID (Cefepime, Zithromax,, PO Vanco, Voriconazole) 02/27 - Influenza screen negative. 02/27 Blood cultures -NGTD 02/27 Bronchial washings- Gram positive cocci, fungal stain negative. 02/28 cryptococcal- serum antigen negative 03/01 urine legionella and pneumococcal antigen negative. Heme: Monitor CBC, Hep PLT ab negative Endocrine: DM Hypothyroidism -Continue medium dose sliding scale q4 hours, -T4 4.7 (norm 4.8), TSH 33.60( elevated) -Continue Synthroid 224 mcg/d MSK: - Specialty bed -Wound care consult, noted admission to ED with sacral decubitus wound Prophylaxis: GI Prophylaxis Protonix IV DVT Prophylaxis -- SCDs, heparin SQ on hold(Thrombocytopenia) Hep PLT ab negative. Lines: L IJ Central line placed in ED 02/27, place peripheral IV's and d/c central line Level 3 Isael Belcher MD Mar 10, 2016 07:51
--- NOTE | 2016-03-10 08:05 | HHI.FPPN ---
Subjective Remarks VERY WEAK HARSH COUGH TELE REVIEWED IN ICU, ON NC D/W DR WEBB D/W RN Objective Vitals Vital Signs Date Time Temp Pulse Resp B/P Pulse Ox O2 Delivery O2 Flow Rate FiO2 03/10/16 07:22 96 Nasal Cannula 4.00 03/10/16 06:00 98 03/10/16 04:00 94 03/10/16 04:00 98.5 94 22 116/56 96 03/10/16 03:45 97 40 03/10/16 02:00 95 03/10/16 00:12 97 40 03/10/16 00:00 98.4 92 23 119/55 94 03/10/16 00:00 92 03/09/16 23:00 Bi-Pap 40 03/09/16 22:00 90 03/09/16 20:00 104 03/09/16 20:00 98.6 104 22 129/62 95 03/09/16 19:31 96 40 03/09/16 18:00 89 03/09/16 16:12 96 40 03/09/16 16:00 98.4 94 22 117/56 98 03/09/16 16:00 89 03/09/16 15:00 Nasal Cannula 4.00 03/09/16 14:00 89 03/09/16 12:00 89 03/09/16 12:00 98.2 93 24 112/57 95 03/09/16 10:00 89 I/O 03/09/16 03/09/16 03/09/16 03/10/16 03/10/16 03/10/16 07:00 15:00 23:00 07:00 15:00 23:00 Intake Total 708 ml 1007 ml 834 ml 598 ml Output Total 585 ml 700 ml 550 ml 500 ml Balance 123 ml 307 ml 284 ml 98 ml Intake IV Total 168 ml 473 ml 267 ml 75 ml Tube Feeding 290 ml 334 ml 317 ml 273 ml Other 250 ml 200 ml 250 ml 250 ml Output Urine Total 375 ml 600 ml 450 ml 400 ml Stool Total 210 ml 100 ml 100 ml 100 ml Result Diagram: 03/10/1632903/10/16329 Objective Remarks GENERAL: on NC; chronically ill appearing SKIN: Warm and dry. HEAD: Atraumatic. Normocephalic. EYES: Pupils equal and round. No scleral icterus. No injection or drainage. ENT: No nasal bleeding or discharge. Mucous membranes pink and moist. NECK: Trachea midline. No JVD. CARDIOVASCULAR: Regular rate and rhythm. RESPIRATORY: No accessory muscle use. Slight Bilateral ronchi, good air movement. Breath sounds equal bilaterally. GASTROINTESTINAL: Abdomen soft, non-tender, nondistended. Hepatic and splenic margins not palpable. MUSCULOSKELETAL: Extremities without clubbing, cyanosis, or edema. No obvious deformities. NEUROLOGICAL: Awake and alert. No obvious cranial nerve deficits. Motor grossly within normal limits. 03/13 all extr's PSYCHIATRIC: Appropriate mood and affect; Medications and IVs Current Medications Medications (Trade) Dose Ordered Sig/Reymundo Route Start Time Stop Time Status Last Admin (Tylenol) 650 mg Q4H PRN PO 02/28/16 11:30 03/06/16 17:24 (Zofran Inj) 4 mg Q6H PRN IVP 02/28/16 11:30 (Dulcolax Supp) 10 mg DAILY PRN NC 02/28/16 11:30 (Milk Of Phoresteben Lijuilo) 30 ml Q12H PRN PO 02/28/16 11:30 (Senokot) 17.2 mg Q12H PRN PO 02/28/16 11:30 (Heparin Inj) 5,000 units Q12H SQ 02/28/16 12:00 Hold 03/05/16 22:52 (Narcan Inj) 0.4 mg UNSCH PRN IV 02/28/16 11:30 (Protonix Inj) 40 mg Q24H IV PUSH 02/28/16 13:00 03/09/16 11:58 Miscellaneous Information 1 Q361D XX 02/28/16 12:00 (NS Flush) 2 ml UNSCH PRN IV FLUSH 02/28/16 16:15 03/01/16 08:00 (NS Flush) 2 ml BID IV FLUSH 02/28/16 21:00 03/09/16 20:24 (D50w (Vial) Inj) 25 ml UNSCH PRN IV PUSH 02/28/16 18:30 (Glucagon Inj) 1 mg UNSCH PRN OTHER 02/28/16 18:30 (Neurontin) 100 mg Q8H PO 02/28/16 20:00 03/10/16 03:39 (Mycostatin Powder) 1 applic BID TOP 02/28/16 21:00 03/09/16 20:26 (Pravachol) 40 mg HS PO 02/28/16 21:00 03/09/16 20:26 Miscellaneous Information Patient in critical care unit? Ass... Q361D XX 02/28/16 19:30 (Brethine Inj) 1 mg UNSCH PRN SQ 02/29/16 13:00 (Synthroid) 224 mcg DAILY@0600 PO 03/01/16 06:00 03/10/16 06:10 (NovoLOG SUPPLEMENTAL SCALE) 1 Q4H SQ 03/01/16 16:00 03/10/16 03:39 (Vfend) 200 mg Q12HR PO 03/05/16 09:00 03/09/16 20:26 Vancomycin HCl 500 mg 500 mg Q6H PO 03/04/16 15:00 03/10/16 03:39 (Maxipime Inj/NS Inj) 100 ml @ 200 mls/hr Q24H IV 03/04/16 20:00 03/09/16 20:23 (Apresoline Inj) 10 mg Q6H PRN IV PUSH 03/06/16 07:30 (Deltasone) 5 mg DAILY PO 03/07/16 09:00 03/09/16 08:06 (Zithromax) 500 mg DAILY PO 03/07/16 10:15 03/09/16 08:06 (Lopressor) 12.5 mg Q12HR PO 03/08/16 09:00 03/09/16 20:25 (Pill Splitter) 1 ea UNSCH PRN OTHER 03/08/16 08:00 (Bumetanide) 1 mg DAILY G-TUBE 03/09/16 09:00 03/09/16 08:06 (Rapamune Liq) 1 mg DAILY@06 NG 03/10/16 06:00 03/10/16 06:00 Water 250 ml 250 ml Q6HR G-TUBE 03/10/16 12:00 UNV Potassium Chloride 100 ml @ 50 mls/hr Q2H PRN IV 03/10/16 07:45 UNV (KCl 20 Meq Premix Inj) 100 ml @ 50 mls/hr Q2H PRN IV 03/10/16 07:45 UNV Potassium Chloride 40 meq 40 meq UNSCH PRN PO/TUBE 03/10/16 07:45 UNV Potassium Chloride 100 ml @ 25 mls/hr UNSCH PRN IV 03/10/16 07:45 UNV Potassium Chloride 100 ml @ 50 mls/hr Q2H PRN IV 03/10/16 07:45 UNV (Magnesium Sulfate Inj/NS Inj) 100 ml @ 50 mls/hr UNSCH PRN IV 03/10/16 07:45 UNV Magnesium Oxide 800 mg 800 mg UNSCH PRN PO 03/10/16 07:45 UNV (Magnesium Sulfate Inj/NS Inj) 100 ml @ 50 mls/hr UNSCH PRN IV 03/10/16 07:45 UNV Potassium Phosphate 2000 mg 2,000 mg Q4H PRN PO 03/10/16 07:45 UNV (Sodium Phosphate Inj/NS 250 ml Inj) 250 ml @ 42 mls/hr UNSCH PRN IV 03/10/16 07:45 UNV (KCl 40 Meq/30 ml Liq) 40 meq UNSCH PRN PO/TUBE 03/10/16 07:45 UNV Potassium Phosphate 2000 mg 2,000 mg UNSCH PRN PO/TUBE 03/10/16 07:45 UNV (Potassium Phosphate Inj/NS 250 ml Inj) 260 ml @ 42 mls/hr UNSCH PRN IV 03/10/16 07:45 UNV Date of Insertion: Feb 28, 2016 Date of Insertion: Feb 28, 2016 Line: Central Venous Catheter Side: Left Location: Internal, Jugular (vasoactive medications, CVP monitoring) A/P Assessment and Plan SEPTIC SHOCK, RESOLVED, OFF PRESSORS RESPIRATORY FAILURE, S/P BRONCH FEB 27, EXTUBATED MAR 03, REINTUBATED MAR 04, EXTUBATED MAR 06, HCAP, FUNGAL PNA LUNG CA COPD C DIF SCHF AC ON CRF RENAL TRANSPLANT, RENAL US NORMAL. AF THROMBOCYTOPENIA HYPOTHYROID PLAN: NC O2 IV ABX IVF GTF'S IV BUMEX, OFF DRIP STEROID PGT BLOOD CULTURES DUONEBS HEPARIN 5000 BID FOR PROPHYLAXIS ON HOLD DUE TO THROMBOCYTOPENIA. IV PROTONIX CCM CONSULT, NOTES REVIEWED NEPHRO CONSULT, NOTES REVIEWED PULMONARY CONSULT, NOTES REVIEWED. PT OT ST ICU CARE FOLLOWUP LABS MEDS ABOVE. Herbert Kaba MD Mar 10, 2016 08:05
[2016-03-10] MEDS: predniSONE 5 MG TAB PO SCH (08:21)
[2016-03-10] MEDS: VORICONAZOLE 200 MG TAB PO SCH ×2 (08:21→20:31)
[2016-03-10] MEDS: BUMETANIDE 1 MG TAB G-TUBE SCH (08:21)
[2016-03-10] MEDS: AZITHROMYCIN 250 MG TAB PO SCH (08:21)
[2016-03-10] MEDS: METOPROLOL TARTRATE 25 MG TAB PO SCH ×2 (08:22→20:32)
[2016-03-10] MEDS: POTASSIUM CHLOR 40 MEQ PREMIX 100 ML IV PRN ×2 (08:22→10:08)
--- NOTE | 2016-03-10 08:59 | RADRPT ---
EXAM DATE/TIME: 03/10/2016 07:59 [place] COMPARISON: CHEST SINGLE AP, March 04, 2016, 8:04. INDICATIONS : Short of breath MEDICAL HISTORY : Carcinoma, lung. SURGICAL HISTORY : Lobectomy. ENCOUNTER: Subsequent ACUITY: 1 week PAIN SCORE: Non-responsive. LOCATION: Bilateral chest FINDINGS: There is improved aeration of the right lung the mild alveolar and interstitial opacity remains. Comp lete opacification of the left hemithorax is now seen. Left jugular line tip overlies the SVC. Aortic calcification. Osseous structures are intact. CONCLUSION: Improved aeration on the right with complete opacification on the left. Sergio Renteria MD on March 10, 2016 at 8:57 Board Certified Radiologist. This report was verified electronically.
[2016-03-10] MEDS: SODIUM CHLORIDE 0.9% FLUSH 5 ML FLUSH IV FLUSH SCH ×2 (09:00→20:32)
[2016-03-10] MEDS: PANTOPRAZOLE SODIUM 40 MG VIAL IV PUSH SCH (13:19)
[2016-03-10] MEDS: NYSTATIN 100,000 U/GM PWD 15 GM BTL TOP SCH ×2 (13:20→20:33)
--- NOTE | 2016-03-10 17:19 | HHI.NPPN ---
Subjective Renal Failure: Acute History of Present Illness 70-year-old female with a history of renal transplant presenting with respiratory distress with clinical evidence of pneumonia and acute renal failure. Interval History Patient following simple commands and responding to simple questions. In no distress with no complaints. Review of Systems General General Remarks Not obtainable. Objective Data Data 03/09/16 03/10/16 19:00 07:00 Intake Total 1007 ml 1432 ml Output Total 700 ml 1050 ml Balance 307 ml 382 ml Intake IV Total 473 ml 342 ml Tube Feeding 334 ml 590 ml Other 200 ml 500 ml Output Urine Total 600 ml 850 ml Stool Total 100 ml 200 ml Vital Signs Date Time Temp Pulse Resp B/P Pulse Ox O2 Delivery O2 Flow Rate FiO2 03/10/16 15:00 Nasal Cannula 4.00 03/10/16 14:00 76 03/10/16 12:00 76 03/10/16 12:00 98.4 93 24 115/57 100 03/10/16 10:00 76 03/10/16 08:00 76 03/10/16 08:00 98.2 86 24 119/55 100 03/10/16 07:22 96 Nasal Cannula 4.00 03/10/16 07:00 Nasal Cannula 4.00 03/10/16 06:00 98 03/10/16 04:00 94 03/10/16 04:00 98.5 94 22 116/56 96 03/10/16 03:45 97 40 03/10/16 02:00 95 03/10/16 00:12 97 40 03/10/16 00:00 98.4 92 23 119/55 94 03/10/16 00:00 92 03/09/16 23:00 Bi-Pap 40 03/09/16 22:00 90 03/09/16 20:00 104 03/09/16 20:00 98.6 104 22 129/62 95 03/09/16 19:31 96 40 03/09/16 18:00 89 -: 03/10/16 0330 03/10/16 0330 Physical Exam General Appearance: No Acute Distress, Comfortable Eyes Eye Exam: Pupils Equal, Pupils Reactive Pulmonary Resp Exam: Rhonchi, Diminished Breath Sounds (left hemithorax.) Cardiology CV Exam: Regular, Normal Sinus Rhythm, Good Perfusion Gastrointestinal/Abdomen GI Exam: Bowel Sounds Present Musculoskeletal MS Exam: Joints Intact, Good Strength Integumentary Skin Exam: Clear, Warm, Dry, Intact Extremeties Extremities Exam: Trace Edema, Dependent Edema Neurologic Neuro Exam: Awake Assessment/Plan Assessment Summary: Transplant Kidney Status Problem List: (1) Renal transplant, status post Plan: It is noted there is concern for fungal pneumonia and Voriconazole therapy has been initiated by infectious disease for life-threatening pneumonia. The situation was discussed with the transplant felting machine operator helper at [facility]. The transplant felting machine operator helper felt that changing to cyclosporine or Prograf would not make much difference as these drugs can interact with voriconazole as well and he recommended continuance of sirolimus at a lower dosage of 0.5 mg daily with monitoring of levels and adjusting dosage as indicated by subsequent levels. Risk-benefit ratio is being considered here as we are trying to preserve the transplanted kidney. Patient's creatinine level is improving nicely every day. Urine output is also quite good. The Rapamune level however was low at 3.8. I will increased the dosage to 1 mg daily with follow-up level. Patient still with hypernatremia. We will decrease bumetanide. Continue Prednisone as ordered. (2) Acute kidney failure Plan: Patient creatinine level has now fallen below 2.0 and getting further improvement in renal function. Her creatinine was around 1.2 in October of this year, suggesting reasonably well preserved GFR after transplant in 2006. ANNABELLA likely due to ATN. Change bumetanide as ordered to enteral route 1 mg daily. Patient appears to be developing a contraction alkalosis. Monitor creatinine and fluid status. (3) Pneumonia Plan: Mgmt as per ID. Chest x-ray today shows complete opacification of the right hemithorax. I discussed this with the nurse who will ensure that critical care is aware. Defer management to them. (4) Sepsis Plan: with septic shock--improving (5) Heart failure Plan: EF of 35 % previously. Rin Jaurez MD Mar 10, 2016 17:19
--- NOTE | 2016-03-10 17:22 | HHI.PR ---
Subjective Remarks 70 YOWF with COPD,Renal transplant,ca lung, s/p resection with RF Extubated Tired has Techycardia PO Bumex Used BIPAP, now weaned to NC Intermittentally confused Objective Vital Signs Vital Signs Date Time Temp Pulse Resp B/P Pulse Ox O2 Delivery O2 Flow Rate FiO2 03/10/16 15:00 Nasal Cannula 4.00 03/10/16 14:00 76 03/10/16 12:00 76 03/10/16 12:00 98.4 93 24 115/57 100 03/10/16 10:00 76 03/10/16 08:00 76 03/10/16 08:00 98.2 86 24 119/55 100 03/10/16 07:22 96 Nasal Cannula 4.00 03/10/16 07:00 Nasal Cannula 4.00 03/10/16 06:00 98 03/10/16 04:00 94 03/10/16 04:00 98.5 94 22 116/56 96 03/10/16 03:45 97 40 03/10/16 02:00 95 03/10/16 00:12 97 40 03/10/16 00:00 98.4 92 23 119/55 94 03/10/16 00:00 92 03/09/16 23:00 Bi-Pap 40 03/09/16 22:00 90 03/09/16 20:00 104 03/09/16 20:00 98.6 104 22 129/62 95 03/09/16 19:31 96 40 03/09/16 18:00 89 I/O 03/09/16 03/09/16 03/09/16 03/10/16 03/10/16 03/10/16 07:00 15:00 23:00 07:00 15:00 23:00 Intake Total 708 ml 1007 ml 834 ml 598 ml 1148 ml Output Total 585 ml 700 ml 550 ml 500 ml 600 ml Balance 123 ml 307 ml 284 ml 98 ml 548 ml Intake IV Total 168 ml 473 ml 267 ml 75 ml 626 ml Tube Feeding 290 ml 334 ml 317 ml 273 ml 322 ml Other 250 ml 200 ml 250 ml 250 ml 200 ml Output Urine Total 375 ml 600 ml 450 ml 400 ml 600 ml Stool Total 210 ml 100 ml 100 ml 100 ml Result Diagram: 03/10/16 0330 03/10/16 0330 Objective Remarks GENERALMBMN female, SOB: SKIN: Warm and dry. HEAD: Normocephalic. EYES: No scleral icterus. No injection or drainage. NECK: Supple, trachea midline. No JVD or lymphadenopathy. CARDIOVASCULAR: Regular rate and rhythm without murmurs, gallops, or rubs. RESPIRATORY: Breath sounds equal bilaterally. No accessory muscle use. Bilat coarse crackles. GASTROINTESTINAL: Abdomen soft, non-tender, nondistended. MUSCULOSKELETAL: No cyanosis, ++ edema. BACK: Nontender without obvious deformity. No CVA tenderness. A/P Assessment and Plan VDRF, extubated 03/06 Pneumonia Sepsis sund renal transplant Ca lung, s/p resection PLAN: On Bumex PO Cont Monitor BS Abx Zithro, Zyvox and Cefepime and Voriconazole per ID Supplement 02 to keep sat >90% Supplement 02 with NC BIPAP prn Alverto Armas MD Mar 10, 2016 17:22
[2016-03-10] MEDS: CEFEPIME INJ 2,000 MG in SODIUM CHLORIDE 0.9% INJ 100 ML IV SCH (20:31)
[2016-03-10] MEDS: PRAVASTATIN SOD 40 MG TAB PO SCH (20:31)
[2016-03-10] MEDS: RESP: ALBUTEROL 2.5 MG/IPRATROPIUM 0.5 MG NEB (PRN) NEB (21:02)
[2016-03-11] VITALS (19 sets, daily range): BP systolic 122–143; BP diastolic 58–74; PULSE 86–105; RESP 20–28; TEMP 88.3–98.5; O2SAT 91–100
[2016-03-11] MEDS: VANCOMYCIN 500 MG VIAL (FOR ORAL USE ONLY) PO SCH ×4 (03:08→21:16)
[2016-03-11] MEDS: GABAPENTIN 100 MG CAP PO SCH ×3 (03:08→21:15)
[2016-03-11] MEDS ORDERED: BUMETANIDE INJ 1 MG/4 ML VIAL IV PUSH ONE (03:45)
[2016-03-11] MEDS: INSULIN ASPART SUPPLEMENTAL SCALE SQ SCH ×6 (04:21→21:15)
[2016-03-11 04:36] LABS: BICARBONATE 28.9 MEQ/L (21.0-32.0); INDIRECT BILIRUBIN 0.3 MG/DL (0.0-0.8); MAGNESIUM 1.4 MG/DL (1.5-2.5); POTASSIUM 4.5 MEQ/L (3.5-5.1); TOTAL BILIRUBIN ADULT 0.4 MG/DL (0.2-1.0)
[2016-03-11] MEDS: SIROLIMUS 1 MG/ML NG SCH (06:00)
[2016-03-11] MEDS: FREE WATER G-TUBE SCH ×4 (06:00→16:27)
[2016-03-11] MEDS: LEVOTHYROXINE SODIUM 112 MCG TAB PO SCH (06:01)
[2016-03-11 06:50] LABS: AUTOMATED NEUTROPHIL # 6.2 TH/MM3 (1.8-7.7); BASOPHIL % 0.3 % (0.0-2.0); EOSINOPHIL % 0.6 % (0.0-4.0); HEMATOCRIT 31.7 % (35.0-46.0); LYMPH % 7.4 % (9.0-44.0); LYMPHOCYTE # 0.5 TH/MM3 (1.0-4.8); MEAN CELL VOLUME 91.6 FL (80.0-100.0); MEAN CORPUSCULAR HGB CONC 30.5 % (32.0-36.0); MONO % 6.8 % (0.0-8.0); NEUT % 84.9 % (16.0-70.0); PLATELET COUNT 79 TH/MM3 (150-450); RED BLOOD COUNT 3.46 MIL/MM3 (4.00-5.30); RED CELL DISTRIBUTION WIDTH 17.9 % (11.6-17.2); WHITE BLOOD COUNT 7.3 TH/MM3 (4.0-11.0)
[2016-03-11 07:08] LABS: HEMO FLAGS AUTO DIFF
[2016-03-11 08:34] LABS: SCAN/DIFF AUTO DIFF CONFIRMED
[2016-03-11 08:35] LABS: PLATELET ESTIMATE SMEAR LOW (NORMAL); PLATELET MORPHOLOGY NORMAL (NORMAL)
--- NOTE | 2016-03-11 08:49 | HHI.CCPN ---
Subjective Remarks/Hospital Course 70-year-old female with history of lung cancer status post left lobectomy, and kidney transplant 2006 presented to the ED with worsening pulmonary symptoms. Her medical history is significant for DM, HTN. She presented to the ED today because worsening cough, shortness of breath, dyspnea on exertion, and fevers. The patient is dependent on home O2 at 4 L nasal cannula, and scheduled DuoNeb treatment. The patient was hospitalized for several months 11/2015-12/22 . During this hospitalization she reports having a fungal pulmonary infection and a seizure resulting in "coma for a few weeks". She was transferred to a rehabilitation facility [facility] for approximately 2 months ago. The patient was then transferred to [facility] approximately 3 weeks ago at which time she fractured her left ankle, and was transferred to [facility]. She was recently discharged from [facility] on 02/15/2016. The patient states that she began having worsening symptoms over the last 3-4 days, that resembled her fungal pneumonia. Critical care medicine was consulted for management. 02/28 Upon arrival to ICU last evening, bronchoscopy was performed, and specimens were sent for culture. The patient was maintained on IV fluids 100 cc an hour, and discontinued at 2 AM secondary to oliguria. CVP ranged 14 throughout the night, with original BNP 1035. Postintubation the patient remains GCS 11 T, following commands. The patient continues to be oliguric with hourly urinary output 7-10 cc an hour. 03/01 On levophed 8mcg/min. UOP around 10 mL/hr. Received Bumex 2 mg IV and UOP still ~20 Ml/hr last hour. CVP 18-20. In Afib rate controlled. Awakens on CPAP 5/5. 03/02 UOP 1068 overnight on bumex drip. Creatinine up to 3.28. Placing on CPAP 5 /5. Afebrile. Levophed weaned to 2 mcg/min with MAP 77. CVP 24 Subjective: 03/03 Creatinine up to 3.32. Nonoliguric with Bumex drip. CVP down to 14. Tolerating CPAP. Off levophed. 03/04 Patient was on BIPAP 10/5 with 60% FIO2 overnight. Patient looked lethargic and started desating she was subsequently intubated and placed on mechanical ventilation. On Bumex drip 2mg/hr. Positive C-diff this morning. 03/05 Patient is sedated with Diprivan and intubated. Afebrile. Remains on Bumex drip 2mg/hr. 03/06 No acute events overnight. Tolerated CPAP all day yesterday. On Bumex 2mg /hr. Sedated with Diprivan and intubated. 03/07 Patient s/p extubation yesterday placed on BIPAP overnight 10 with 40% FIO2. Afebrile. Off Bumex drip. 03/08 No acute events overnight. On BIPAP 10/ with 40$ FIO2 overnight. Afebrile. Renal function improving with Cr: 1.97 today from 2.32 03/09 Patient remains on BIPAP 10/5 with 40% FIO2. Afebrile. 03/10 No events overnight. On BIPAP with 40% FIO2, afebrile. Renal function improving with Cr: 1.5 today. 03/11 Patient is off BIPAP given Bumex 1mg x1 at 4: 21 this morning on 5L oxygen. Objective Vital Signs Date Time Temp Pulse Resp B/P Pulse Ox O2 Delivery O2 Flow Rate FiO2 03/11/16 06:00 103 03/11/16 05:00 Nasal Cannula 5.00 03/11/16 04:00 98.5 24 136/65 98 03/11/16 02:30 50 Intake and Output 03/10/16 03/10/16 03/11/16 08:00 16:00 00:00 Intake Total 598 ml 1148 ml 579 ml Output Total 500 ml 600 ml 1285.0 ml Balance 98 ml 548 ml -706.0 ml Result Diagram: 03/11/16 0514 03/11/16 0316 Other Results Laboratory Tests Test 03/11/16 03/11/16 03:16 05:14 Sodium Level 146 MEQ/L Potassium Level 4.5 MEQ/L Chloride Level 107 MEQ/L Carbon Dioxide Level 28.9 MEQ/L Anion Gap 10 MEQ/L Blood Urea Nitrogen 63 MG/DL Creatinine 1.42 MG/DL Estimat Glomerular Filtration 37 ML/MIN Rate Random Glucose 214 MG/DL Calcium Level 8.3 MG/DL Phosphorus Level 2.5 MG/DL Magnesium Level 1.4 MG/DL Total Bilirubin 0.4 MG/DL Direct Bilirubin 0.1 MG/DL Indirect Bilirubin 0.3 MG/DL Aspartate Amino Transf 27 U/L (AST/SGOT) Alanine Aminotransferase 13 U/L (ALT/SGPT) Alkaline Phosphatase 139 U/L Total Protein 6.2 GM/DL Albumin 2.2 GM/DL White Blood Count 7.3 TH/MM3 Red Blood Count 3.46 MIL/MM3 Hemoglobin 9.7 GM/DL Hematocrit 31.7 % Mean Corpuscular Volume 91.6 FL Mean Corpuscular Hemoglobin 28.0 PG Mean Corpuscular Hemoglobin 30.5 % Concent Red Cell Distribution Width 17.9 % Platelet Count 79 TH/MM3 Mean Platelet Volume 10.9 FL Neutrophils (%) (Auto) 84.9 % Lymphocytes (%) (Auto) 7.4 % Monocytes (%) (Auto) 6.8 % Eosinophils (%) (Auto) 0.6 % Basophils (%) (Auto) 0.3 % Neutrophils # (Auto) 6.2 TH/MM3 Lymphocytes # (Auto) 0.5 TH/MM3 Monocytes # (Auto) 0.5 TH/MM3 Eosinophils # (Auto) 0.0 TH/MM3 Basophils # (Auto) 0.0 TH/MM3 CBC Comment AUTO DIFF Differential Comment AUTO DIFF CONFIRMED Platelet Estimate LOW Platelet Morphology Comment NORMAL Imaging Last Impressions Chest X-Ray 03/10/16 0000 Signed Impressions: Service Date/Time: Thursday, March 10, 2016 07:59 - CONCLUSION: Improved aeration on the right with complete opacification on the left. Sergio Renteria MD Renal Ultrasound 03/01/16 0000 Signed Impressions: Service Date/Time: Tuesday, March 01, 2016 10:45 - CONCLUSION: No evidence of hydronephrosis or focal abnormality. The resistive indices are within normal Sumit Laws MD Abdomen X-Ray 03/01/16 0000 Signed Impressions: Service Date/Time: Tuesday, March 01, 2016 15:32 - CONCLUSION: G-tube inside the stomach. Angelita Birmingham MD Objective Remarks Nepro 40 ml/hr GENERAL: Morbidly obese elderly female on BIPAP overnight. , SKIN: Warm and dry. Multiple ecchymotic bruising neck, chest, bilateral extremities upper and lower HEAD: Atraumatic. Normocephalic. EYES: Pupils equal and round. No scleral icterus. No injection or drainage. ENT: No nasal bleeding or discharge. Mucous membranes pink and moist. NECK: Trachea midline. Supple, no JVD, adenopathy, orally intubated. CARDIOVASCULAR: Tachycardic, nl S1, S2. RESPIRATORY: Coarse BS on right. GASTROINTESTINAL: Abdomen soft, non-tender, nondistended. Gastric tube no erythema or drainage. MUSCULOSKELETAL: Extremities without clubbing, cyanosis, trace edema NEUROLOGICAL: Awake and alert. Date of Insertion: Feb 28, 2016 Date of Insertion: Feb 28, 2016 Line: Central Venous Catheter Side: Left Location: Internal, Jugular (vasoactive medications, CVP monitoring) A/P Assessment and Plan Plan by systems: Neurologic: Seizure disorder Herniated discs Neuropathy - Awake and alert, avoid sedatives. -Neurochecks per ICU protocol -Gabapentin 100 q8. Respiratory: Acute hypoxic respiratory failure History of non-small cell lung cancer S/P left lung lobectomy 2013 Home O2 dependency Presumed Hospital-acquired pneumonia (previous HCAP treatment 10/22) Left lung opacity-chronic History of tracheostomy-decannulated 12/22/15 -02/27 Intubated , extubated 03/03 reintubated 03/04, extubated 03/06 -Continue with oxygen keep sat >92%. Check CXR -Bronchodilators. IS, NIPPV PRN for resp distress -Pulmonology Following, Cardiovascular: HTN Atrial fibrillation-rate control Acute on chronic systolic CHF RV overload, pulmonary HTN Hyperlipidemia -Continue Lopressor 12.5mg BID Maintain HR and BP keep MAP>65mmHg -2D ECHO 02/28mildly reduced systolic function with EF 45-50%. Mild RV dilatation. Mild to moderate tricuspid regurg. Pulmonary artery peak systolic pressure 53 mmHg. -Continue pravastatin FEN/Renal: S/P kidney transplant ANNABELLA, ..improving Hypernatremia -Monitor renal function, I/O's, electrolytes replacement per protocol. Will need Mag replacement today -On Bumex 0.5mg daily, Free Water 250ml Q6 ,monitor sodium level. -Software Sales Manager -Dr. Juarez -Renal function improving with Cr: 1.42 today from 1.5 with UO: 1247ml in 24 hrs -Sirolimus level: 9 on 03/01. On Sirolimus 2 mg every other day per nephrology. -On prednisone 5mg daily per nephrology, GI: Morbid obesity -TF-Glucerna 1.5 with goal rate 45ml/hr mL/hr via PEG. -Zofran PRN for nausea -Protonix GI prophylaxis ID: Pneumonia-HCAP Positive Cdiff Continue with abx per ID (Cefepime, Zithromax,, PO Vanco, Voriconazole) 02/27 - Influenza screen negative. 02/27 Blood cultures -NGTD 02/27 Bronchial washings- Gram positive cocci, fungal stain negative. 02/28 cryptococcal- serum antigen negative 03/01 urine legionella and pneumococcal antigen negative. Heme: Monitor CBC, Hep PLT ab negative Endocrine: DM Hypothyroidism -Continue medium dose sliding scale q4 hours, -T4 4.7 (norm 4.8), TSH 33.60( elevated) -Continue Synthroid 224 mcg/d MSK: - Specialty bed -Wound care consult, noted admission to ED with sacral decubitus wound Prophylaxis: GI Prophylaxis Protonix IV DVT Prophylaxis -- SCDs, heparin SQ on hold(Thrombocytopenia) Hep PLT ab negative. Lines: Peripheral IV's Palliative care eval to asses goals of care Level 3 Isael Belcher MD Mar 11, 2016 08:49
[2016-03-11] MEDS: METOPROLOL TARTRATE 25 MG TAB PO SCH ×2 (09:00→21:16)
[2016-03-11] MEDS: predniSONE 5 MG TAB PO SCH (09:00)
[2016-03-11] MEDS: SODIUM CHLORIDE 0.9% FLUSH 5 ML FLUSH IV FLUSH SCH ×2 (09:00→21:16)
[2016-03-11] MEDS: VORICONAZOLE 200 MG TAB PO SCH ×2 (09:00→21:15)
[2016-03-11] MEDS: AZITHROMYCIN 250 MG TAB PO SCH (09:00)
[2016-03-11] MEDS: BUMETANIDE 1 MG TAB G-TUBE SCH (09:00)
[2016-03-11] MEDS: NYSTATIN 100,000 U/GM PWD 15 GM BTL TOP SCH ×2 (09:00→21:16)
[2016-03-11] MEDS: RESP: ALBUTEROL 2.5 MG/IPRATROPIUM 0.5 MG NEB (PRN) NEB (09:10)
--- NOTE | 2016-03-11 10:14 | HHI.FPPN ---
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 REVIEWED LABS REVIEWED FLEXSEAL W OUTPUT GRIJALVA CLEAR Objective Vitals Vital Signs Date Time Temp Pulse Resp B/P Pulse Ox O2 Delivery O2 Flow Rate FiO2 03/11/16 10:03 88 03/11/16 09:10 98 Nasal Cannula 4.00 03/11/16 07:00 Nasal Cannula 5.00 03/11/16 06:00 103 03/11/16 05:00 Nasal Cannula 5.00 03/11/16 04:00 98.5 104 24 136/65 98 03/11/16 04:00 104 03/11/16 02:30 Venturi Mask 50 03/11/16 02:00 101 03/11/16 02:00 Bi-Pap 50 03/11/16 01:30 94 40 03/11/16 01:25 Bi-Pap 40 03/11/16 00:00 86 03/11/16 00:00 97.9 86 20 128/59 100 03/11/16 00:00 100 Nasal Cannula 5.00 03/10/16 22:00 88 03/10/16 20:00 100 Nasal Cannula 4.00 03/10/16 20:00 98.5 90 18 131/58 100 03/10/16 20:00 90 03/10/16 19:20 100 Nasal Cannula 4.00 03/10/16 18:00 76 03/10/16 16:00 98.8 80 22 115/58 100 03/10/16 16:00 76 03/10/16 15:00 Nasal Cannula 4.00 03/10/16 14:00 76 03/10/16 12:00 76 03/10/16 12:00 98.4 93 24 115/57 100 I/O 03/10/16 03/10/16 03/10/16 03/11/16 03/11/16 03/11/16 07:00 15:00 23:00 07:00 15:00 23:00 Intake Total 598 ml 1148 ml 579 ml 911 ml Output Total 500 ml 600 ml 1285 ml 522 ml Balance 98 ml 548 ml -706 ml 389 ml Intake IV Total 75 ml 626 ml 387 ml 66 ml Tube Feeding 273 ml 322 ml 162 ml 315 ml Other 250 ml 200 ml 30 ml 530 ml Output Urine Total 400 ml 600 ml 425 ml 222 ml Stool Total 100 ml 860 ml 300 ml Tube Feeding Residual Discard 0 ml 0 ml Result Diagram: 03/11/16 0514 03/11/16 0316 Objective Remarks GENERAL: on NC; chronically ill appearing SKIN: Warm and dry. HEAD: Atraumatic. Normocephalic. EYES: Pupils equal and round. No scleral icterus. No injection or drainage. ENT: No nasal bleeding or discharge. Mucous membranes pink and moist. NECK: Trachea midline. No JVD. CARDIOVASCULAR: Regular rate and rhythm. RESPIRATORY: No accessory muscle use. Slight Bilateral ronchi, good air movement. Breath sounds equal bilaterally. GASTROINTESTINAL: Abdomen soft, non-tender, nondistended. Hepatic and splenic margins not palpable. MUSCULOSKELETAL: Extremities without clubbing, cyanosis, or edema. No obvious deformities. NEUROLOGICAL: Awake and alert. No obvious cranial nerve deficits. Motor grossly within normal limits. 03/13 all extr's PSYCHIATRIC: Appropriate mood and affect; Medications and IVs Current Medications Medications (Trade) Dose Ordered Sig/Reymundo Route Start Time Stop Time Status Last Admin (Tylenol) 650 mg Q4H PRN PO 02/28/16 11:30 03/06/16 17:24 (Zofran Inj) 4 mg Q6H PRN IVP 02/28/16 11:30 (Dulcolax Supp) 10 mg DAILY PRN VA 02/28/16 11:30 (Milk Of Magnesia Liq) 30 ml Q12H PRN PO 02/28/16 11:30 (Senokot) 17.2 mg Q12H PRN PO 02/28/16 11:30 (Heparin Inj) 5,000 units Q12H SQ 02/28/16 12:00 Hold 03/05/16 22:52 (Narcan Inj) 0.4 mg UNSCH PRN IV 02/28/16 11:30 (Protonix Inj) 40 mg Q24H IV PUSH 02/28/16 13:00 03/10/16 13:19 Miscellaneous Information 1 Q361D XX 02/28/16 12:00 (NS Flush) 2 ml UNSCH PRN IV FLUSH 02/28/16 16:15 03/01/16 08:00 (NS Flush) 2 ml BID IV FLUSH 02/28/16 21:00 03/10/16 20:32 (D50w (Vial) Inj) 25 ml UNSCH PRN IV PUSH 02/28/16 18:30 (Glucagon Inj) 1 mg UNSCH PRN OTHER 02/28/16 18:30 (Neurontin) 100 mg Q8H PO 02/28/16 20:00 03/11/16 03:08 (Mycostatin Powder) 1 applic BID TOP 02/28/16 21:00 03/10/16 20:33 (Pravachol) 40 mg HS PO 02/28/16 21:00 03/10/16 20:31 Miscellaneous Information Patient in critical care unit? Ass... Q361D XX 02/28/16 19:30 (Brethine Inj) 1 mg UNSCH PRN SQ 02/29/16 13:00 (Synthroid) 224 mcg DAILY@0600 PO 03/01/16 06:00 03/11/16 06:01 (NovoLOG SUPPLEMENTAL SCALE) 1 Q4H SQ 03/01/16 16:00 03/11/16 04:21 (Vfend) 200 mg Q12HR PO 03/05/16 09:00 03/10/16 20:31 Vancomycin HCl 500 mg 500 mg Q6H PO 03/04/16 15:00 03/11/16 03:08 (Maxipime Inj/NS Inj) 100 ml @ 200 mls/hr Q24H IV 03/04/16 20:00 03/10/16 20:31 (Apresoline Inj) 10 mg Q6H PRN IV PUSH 03/06/16 07:30 (Deltasone) 5 mg DAILY PO 03/07/16 09:00 03/10/16 08:21 (Zithromax) 500 mg DAILY PO 03/07/16 10:15 03/10/16 08:21 (Lopressor) 12.5 mg Q12HR PO 03/08/16 09:00 03/10/16 20:32 (Pill Splitter) 1 ea UNSCH PRN OTHER 03/08/16 08:00 (Rapamune Liq) 1 mg DAILY@06 NG 03/10/16 06:00 03/11/16 06:00 Water 250 ml 250 ml Q6HR G-TUBE 03/10/16 12:00 03/11/16 06:00 Potassium Chloride 100 ml @ 50 mls/hr Q2H PRN IV 03/10/16 07:45 03/10/16 10:08 (KCl 20 Meq Premix Inj) 100 ml @ 50 mls/hr Q2H PRN IV 03/10/16 07:45 Potassium Chloride 40 meq 40 meq UNSCH PRN PO/TUBE 03/10/16 07:45 Potassium Chloride 100 ml @ 25 mls/hr UNSCH PRN IV 03/10/16 07:45 Potassium Chloride 100 ml @ 50 mls/hr Q2H PRN IV 03/10/16 07:45 (Magnesium Sulfate Inj/NS Inj) 100 ml @ 50 mls/hr UNSCH PRN IV 03/10/16 07:45 Magnesium Oxide 800 mg 800 mg UNSCH PRN PO 03/10/16 07:45 (Magnesium Sulfate Inj/NS Inj) 100 ml @ 50 mls/hr UNSCH PRN IV 03/10/16 07:45 Potassium Phosphate 2000 mg 2,000 mg Q4H PRN PO 03/10/16 07:45 (Sodium Phosphate Inj/NS 250 ml Inj) 250 ml @ 42 mls/hr UNSCH PRN IV 03/10/16 07:45 (KCl 40 Meq/30 ml Liq) 40 meq UNSCH PRN PO/TUBE 03/10/16 07:45 Potassium Phosphate 2000 mg 2,000 mg UNSCH PRN PO/TUBE 03/10/16 07:45 (Potassium Phosphate Inj/NS 250 ml Inj) 260 ml @ 42 mls/hr UNSCH PRN IV 03/10/16 07:45 (Bumetanide) 0.5 mg DAILY G-TUBE 03/11/16 09:00 Urinary Catheter: Yes Assessment to: Continue Grijalva insert reason: ICU Pt Getting Diuretics Date of Insertion: Feb 28, 2016 Vascular Central Line Catheter: Yes Date of Insertion: Feb 28, 2016 Line: Central Venous Catheter Side: Left Location: Internal, Jugular (vasoactive medications, CVP monitoring) A/P Assessment and Plan SEPTIC SHOCK, RESOLVED, OFF PRESSORS RESPIRATORY FAILURE, S/P BRONCH FEB 27, EXTUBATED MAR 03, REINTUBATED MAR 04, EXTUBATED MAR 06, HCAP, FUNGAL PNA LUNG CA COPD C DIF SCHF AC ON CRF RENAL TRANSPLANT, RENAL US NORMAL. AF THROMBOCYTOPENIA HYPOTHYROID PLAN: NC O2 IV ABX IVF GTF'S PGT BUMEX, OFF DRIP STEROID PGT BLOOD CULTURES DUONEBS HEPARIN 5000 BID FOR PROPHYLAXIS ON HOLD DUE TO THROMBOCYTOPENIA. IV PROTONIX CCM CONSULT, NOTES REVIEWED NEPHRO CONSULT, NOTES REVIEWED PULMONARY CONSULT, NOTES REVIEWED. PT OT ST ICU CARE FOLLOWUP LABS MEDS ABOVE. Herbert Kaba MD Mar 11, 2016 10:14
[2016-03-11 11:31] LABS: BLOOD GAS BASE EXCESS 10.2 mmol/L (-2-2); BLOOD GAS HCO3 35 mmol/L (22-26); BLOOD GAS METHEMOGLOBIN 1.2 % (0-2); BLOOD GAS O2 HGB SATURATION 91 % (90-100); BLOOD GAS OXYGEN CONTENT 10.5 Vol % (12.0-20.0); BLOOD GAS PCO2 49 mmHg (38-42); BLOOD GAS PO2 70 mmHg (61-120); BLOOD GAS TOTAL HGB 8.1 G/DL (12.0-16.0); CRITICAL VALUE NO; DRAW SITE RT RADIAL; FIO2 40 %; NUMBER OF ARTERIAL PUNCTURES 1; OXYGEN DEVICE BIPAP 12IPAP/5EPAP; STAT NO; TEMP CORR TO 98.6; ULNAR PULSE PRESENT
[2016-03-11] MEDS: PANTOPRAZOLE SODIUM 40 MG VIAL IV PUSH SCH (13:38)
--- NOTE | 2016-03-11 13:39 | HHI.NPPN ---
Subjective Renal Failure: Acute History of Present Illness 70-year-old female with a history of renal transplant presenting with respiratory distress with clinical evidence of pneumonia and acute renal failure. Interval History The patient's respiratory status is worsening. Now on BiPAP. ABG ordered today with talks of potential reintubation. (Janeth Frederick) Review of Systems General General Remarks Not obtainable. (Janeth Frederick) Objective Data Data 03/10/16 03/11/16 19:00 07:00 Intake Total 1148 ml 1490 ml Output Total 600 ml 1807.0 ml Balance 548 ml -317.0 ml Intake IV Total 626 ml 453 ml Tube Feeding 322 ml 477 ml Other 200 ml 560 ml Output Urine Total 600 ml 647 ml Stool Total 1160 ml Tube Feeding Residual Discard 0 ml Vital Signs Date Time Temp Pulse Resp B/P Pulse Ox O2 Delivery O2 Flow Rate FiO2 03/11/16 12:17 98.1 93 28 122/58 96 03/11/16 12:15 95 03/11/16 11:54 94 40 03/11/16 10:03 88 03/11/16 09:10 98 Nasal Cannula 4.00 03/11/16 08:00 88.3 100 22 128/74 100 03/11/16 07:00 Nasal Cannula 5.00 03/11/16 06:00 103 03/11/16 05:00 Nasal Cannula 5.00 03/11/16 04:00 98.5 104 24 136/65 98 03/11/16 04:00 104 03/11/16 02:30 Venturi Mask 50 03/11/16 02:00 101 03/11/16 02:00 Bi-Pap 50 03/11/16 01:30 94 40 03/11/16 01:25 Bi-Pap 40 03/11/16 00:00 86 03/11/16 00:00 97.9 86 20 128/59 100 03/11/16 00:00 100 Nasal Cannula 5.00 03/10/16 22:00 88 03/10/16 20:00 100 Nasal Cannula 4.00 03/10/16 20:00 98.5 90 18 131/58 100 03/10/16 20:00 90 03/10/16 19:20 100 Nasal Cannula 4.00 03/10/16 18:00 76 03/10/16 16:00 98.8 80 22 115/58 100 03/10/16 16:00 76 03/10/16 15:00 Nasal Cannula 4.00 03/10/16 14:00 76 (Janeth Frederick) -: 03/11/16 0514 03/11/16 0316 Medication Review Current Medications Medications (Trade) Dose Ordered Sig/Reymundo Route Start Time Stop Time Status Last Admin (Tylenol) 650 mg Q4H PRN PO 02/28/16 11:30 03/06/16 17:24 (Zofran Inj) 4 mg Q6H PRN IVP 02/28/16 11:30 (Dulcolax Supp) 10 mg DAILY PRN [place] 02/28/16 11:30 (Milk Of Magnesia Liq) 30 ml Q12H PRN PO 02/28/16 11:30 (Senokot) 17.2 mg Q12H PRN PO 02/28/16 11:30 (Heparin Inj) 5,000 units Q12H SQ 02/28/16 12:00 Hold 03/05/16 22:52 (Narcan Inj) 0.4 mg UNSCH PRN IV 02/28/16 11:30 (Protonix Inj) 40 mg Q24H IV PUSH 02/28/16 13:00 03/10/16 13:19 Miscellaneous Information 1 Q361D XX 02/28/16 12:00 (NS Flush) 2 ml UNSCH PRN IV FLUSH 02/28/16 16:15 03/01/16 08:00 (NS Flush) 2 ml BID IV FLUSH 02/28/16 21:00 03/11/16 09:00 (D50w (Vial) Inj) 25 ml UNSCH PRN IV PUSH 02/28/16 18:30 (Glucagon Inj) 1 mg UNSCH PRN OTHER 02/28/16 18:30 (Neurontin) 100 mg Q8H PO 02/28/16 20:00 03/11/16 03:08 (Mycostatin Powder) 1 applic BID TOP 02/28/16 21:00 03/11/16 09:00 (Pravachol) 40 mg HS PO 02/28/16 21:00 03/10/16 20:31 Miscellaneous Information Patient in critical care unit? Ass... Q361D XX 02/28/16 19:30 (Brethine Inj) 1 mg UNSCH PRN SQ 02/29/16 13:00 (Synthroid) 224 mcg DAILY@0600 PO 03/01/16 06:00 03/11/16 06:01 (NovoLOG SUPPLEMENTAL SCALE) 1 Q4H SQ 03/01/16 16:00 03/11/16 08:00 (Vfend) 200 mg Q12HR PO 03/05/16 09:00 03/11/16 09:00 Vancomycin HCl 500 mg 500 mg Q6H PO 03/04/16 15:00 03/11/16 09:00 (Maxipime Inj/NS Inj) 100 ml @ 200 mls/hr Q24H IV 03/04/16 20:00 03/10/16 20:31 (Apresoline Inj) 10 mg Q6H PRN IV PUSH 03/06/16 07:30 (Deltasone) 5 mg DAILY PO 03/07/16 09:00 03/11/16 09:00 (Zithromax) 500 mg DAILY PO 03/07/16 10:15 03/11/16 09:00 (Lopressor) 12.5 mg Q12HR PO 03/08/16 09:00 03/11/16 09:00 (Pill Splitter) 1 ea UNSCH PRN OTHER 03/08/16 08:00 (Rapamune Liq) 1 mg DAILY@06 NG 03/10/16 06:00 03/11/16 06:00 Water 250 ml 250 ml Q6HR G-TUBE 03/10/16 12:00 03/11/16 06:00 Potassium Chloride 100 ml @ 50 mls/hr Q2H PRN IV 03/10/16 07:45 03/10/16 10:08 (KCl 20 Meq Premix Inj) 100 ml @ 50 mls/hr Q2H PRN IV 03/10/16 07:45 Potassium Chloride 40 meq 40 meq UNSCH PRN PO/TUBE 03/10/16 07:45 Potassium Chloride 100 ml @ 25 mls/hr UNSCH PRN IV 03/10/16 07:45 Potassium Chloride 100 ml @ 50 mls/hr Q2H PRN IV 03/10/16 07:45 (Magnesium Sulfate Inj/NS Inj) 100 ml @ 50 mls/hr UNSCH PRN IV 03/10/16 07:45 Magnesium Oxide 800 mg 800 mg UNSCH PRN PO 03/10/16 07:45 (Magnesium Sulfate Inj/NS Inj) 100 ml @ 50 mls/hr UNSCH PRN IV 03/10/16 07:45 Potassium Phosphate 2000 mg 2,000 mg Q4H PRN PO 03/10/16 07:45 (Sodium Phosphate Inj/NS 250 ml Inj) 250 ml @ 42 mls/hr UNSCH PRN IV 03/10/16 07:45 (KCl 40 Meq/30 ml Liq) 40 meq UNSCH PRN PO/TUBE 03/10/16 07:45 Potassium Phosphate 2000 mg 2,000 mg UNSCH PRN PO/TUBE 03/10/16 07:45 (Potassium Phosphate Inj/NS 250 ml Inj) 260 ml @ 42 mls/hr UNSCH PRN IV 03/10/16 07:45 (Bumetanide) 0.5 mg DAILY G-TUBE 03/11/16 09:00 03/11/16 09:00 (Janeth Frederick) Physical Exam General Appearance: No Acute Distress (Janeth Frederick) Eyes Eye Exam: Pupils Equal, Pupils Reactive (Janeth Frederick) Pulmonary Resp Exam: Rhonchi, Diminished Breath Sounds (left hemithorax.) Resp Remarks Course rhonchi throughout. Difficult to assess if any underlying rales. (Janeth Frederick) Cardiology CV Exam: Regular, Normal Sinus Rhythm, Good Perfusion (Janeth Frederick) Gastrointestinal/Abdomen GI Exam: Bowel Sounds Present (Janeth Frederick) Musculoskeletal MS Exam: Joints Intact, Good Strength (Janeth Frederick) Integumentary Skin Exam: Clear, Warm, Dry, Intact (Janeth Frederick) Extremeties Extremities Exam: No Edema (Janeth Frederick) Neurologic Neuro Exam: Obtunded (Janeth Frederick) Assessment/Plan Assessment Summary: Transplant Kidney Status Problem List: (1) Renal transplant, status post Plan: It is noted there is concern for fungal pneumonia and Voriconazole therapy has been initiated by infectious disease for life-threatening pneumonia. The situation was discussed with the transplant cuffing machine operator at [facility]. The transplant cuffing machine operator felt that changing to cyclosporine or Prograf would not make much difference as these drugs can interact with voriconazole as well and he recommended continuance of sirolimus at a lower dosage of 0.5 mg daily with monitoring of levels and adjusting dosage as indicated by subsequent levels. Risk-benefit ratio is being considered here as we are trying to preserve the transplanted kidney. SCr improving and UOP remains good. Monitor. Pending Sirolimus levels since dose adjustment. Hypernatremia improving. Continue on Bumetanide as ordered Continue Prednisone as ordered. (2) Acute kidney failure Plan: Patient creatinine level has now fallen below 2.0 and getting further improvement in renal function. Her creatinine was around 1.2 in October of this year, suggesting reasonably well preserved GFR after transplant in 2006. ANNABELLA likely due to ATN. Change bumetanide as ordered to enteral route 1 mg daily. Patient appears to be developing a contraction alkalosis. Monitor creatinine and fluid status. (3) Pneumonia Plan: Mgmt as per ID. Chest x-ray today shows complete opacification of the right hemithorax (4) Sepsis Plan: with septic shock--improving (5) Heart failure Plan: EF of 35 % previously. (Janeth Frederick) Plan Physical examination, evaluation and assessment reviewed and discussed with my PA. I was fully involved in the evaluation and plan of care this patient. Doctor Larry. (Rin Juarez MD) Janeth Frederick Mar 11, 2016 13:39 Rin Juarez MD Apr 15, 2016 11:18
[2016-03-11] MEDS ORDERED: MAGNESIUM SULFATE 1 GM PREMIX 100 ML ONE (13:51)
--- NOTE | 2016-03-11 15:32 | PD.CONS ---
Consult Service Palliative Care . Consult Requested By Dr. Belcher . Primary Care Physician Herbert Kaba MD . Reason for Consultation a. To assist with evaluation and management of symptoms including: Dyspnea, pain, b. To assist medical decision maker(s) with: better understanding of current medical conditions; weighing benefits/burdens of medical treatment options; making medical treatment decisions. . (Veronika Allen) HPI History of Present Illness Mrs. Alejo is a 70-year-old female patient who presented the EMS to [facility] ED in [place] on 02/28/16 for evaluation of worsening cough , shortness of breath, dyspnea on exertion and fevers. The patient is dependent on home oxygen at 4 L via nasal cannula with scheduled DuoNeb treatments. She has history of lung cancer s/p left lobectomy and chemo/ radiation, follows Dr. Dixon and Dr. Jj. The patient is also status post kidney transplant in 2006- on Sirolimus. Mrs. Alejo was hospitalized from to 12/2015. While hospitalized the patient had a fungal pulmonary infection and a seizure resulting in a "coma for several weeks". She was transferred to a rehabilitation facility [facility] for approximately 2 months ago. The patient was then transferred to [facility] approximately 3 weeks ago at which time she fractured her left ankle, and was transferred to [facility]. The patient was recently discharged home from [facility] on 02/15/2016, her is her caregiver. The patient reported having progressively worsening symptoms over a 3 to 4 day period that were similar to her fungal pneumonia. Additional past medical history includes DM, hypertension, history of coronary artery disease status post stent placement, end-stage renal disease status post kidney transplant, GERD, dyslipidemia, atrial fibrillation, congestive heart failure, gastroparesis seizures, scoliosis, and hypothyroidism. Additional diagnostic findings: The ED include: * Vital signs: Pulse 90, respirations 26, BP 86/44, oxygen saturation 92% on 3 L via nasal cannula, axillary temperature 97.8 * WBC: 5.9, hemoglobin 11.0, hematocrit 35.5, platelets 196, neutrophils 85.1% * Sodium: 142, potassium 4.9, chloride 107, carbon dioxide 21.5, random glucose 138, calcium 7.8 * BUN: 33, creatinine 2.79, GFR 17 * Total bilirubin: 0.2, AST 33, ALT 12 * Alkaline phosphatase: 149 * Total creatine kinase: 100 * Troponin <0.02 * Total protein: 6.8, albumin 2.0 * PT: 11.6, INR 1.0, APTT 33.6 * Blood cultures negative * Bronchial Washings: negative * Negative for flu a and B antigens * Chest x-ray: Right lung patchiness consistent with possible pneumonia versus pulmonary vascular congestion. Stable complete opacification of the left hemithorax with tiny right pleural effusion. Patient progressively declined while in the ED with audible auditory wheezing and rales status post nebulizer treatment and hypotension. On Levophed. The patient was intubated and critical care was consulted for medical management. Upon arrival to the ICU 02/29/16, a bronchoscopy was performed and specimens were sent for culture. Bronchial washings: Gram positive cocci, fungal stain negative. Echocardiogram showed mildly reduced systolic function with EF 4550 percent, mild RV dilatation, mild to moderate tricuspid agitation, pulmonary artery peak systolic pressure 53mmHg. atrial fibrillationrate controlled. Pulmonology following, Dr. Armas. The patient was intubated 02/28/16 -03/03/16 and again 03/04/16 -03/06/16. Intermittently on BiPAP and CPAP. Nephrology was consulted for recommendations on patient status post living, related renal transplant in 2006- Sirolimus. 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 Creatinine level was approximately 1.2 in 10/2015, suggesting reasonably well-preserved GFR status post transplant. 03/02/16: Decreased urine output, bumex drip initiated overnight. Creatinine up to 3.28, but now trending downward. Infectious disease was also consulted for recommendations. Patient remains on Cefepime, Zithromax, Vancomycin and Voriconazole per ID. 02/28/16 - Influenza screen negative. 02/28/16: Blood cultures- NGTD 02/28/16: Bronchial washings - Gram positive cocci, fungal stain negative. 02/29/16: cryptococcal- serum antigen negative 03/01/16: urine legionella and pneumococcal antigen negative. 03/04/16: C. difficile positive 03/11/16: Patient now tolerating BiPAP with 40% FIO2. Afebrile. WBC 7.8. Renal function improving with Cr: 1.5 today. Follow up chest x-ray on 03/11/16 showing improved aeration on the right with complete opacification on the left. Palliative Care was consulted to assist with symptom management and to discuss with the patient/family the benefits and burdens of her current illnesses and the options regarding future care. . Function/Cognitive Trajectory Spoke to patient's , Ash Alejo, via telephone to introduce Palliative Care. Briefly discussed this patient complicated medical and current hospitalization. Tentative family meeting scheduled for tomorrow afternoon . . (Veronika Allen) Review of Systems ROS Limitations: Clinical Condition, Intubated, Altered Mental Status Constitutional: COMPLAINS OF: Pain, Generalized weakness Ears, nose, mouth, throat: DENIES: Epistaxis Respiratory: COMPLAINS OF: Shortness of breath Cardiovascular: COMPLAINS OF: Dyspnea on Exertion Musculoskeletal: COMPLAINS OF: Decreased range of motion Hematologic/Lymphatics: COMPLAINS OF: Bruising Neurologic: COMPLAINS OF: Seizures Psychiatric: COMPLAINS OF: Anxiety (Veronika Allen) Past Family Social History Coded Allergies: Labetalol (Verified Allergy, Severe, NAUSEA AND VOMITING, 02/28/16) Lortab (Verified Adverse Reaction, Severe, VOMITING, 02/28/16) Past Medical History DM Hypertension History of lung cancer status post left lobectomy History of coronary artery disease status post stent placement. End-stage renal disease status post kidney transplant in 2006 GERD Dyslipidemia Hypothyroidism Atrial fibrillation Congestive heart failure Seizures . Past Surgical History Peritoneal dialysis catheter placement and removal Left ankle surgery 1990 Kidney transplant 11/18/2006 Cholecystectomy Bilateral cataract surgery 2004 . Reported Medications K-Tab (Potassium Chloride) 10 Meq Tab 10 Meq PO DAILY Zocor (Simvastatin) 20 Mg Tab 20 Mg PO HS Nystatin Topical 100,000 Unit/Gm Pow 1 Applic TOP BID Sirolimus 1 Mg Tab 1 Mg PO EVERY OTHER DAY Sirolimus 2 Mg Tab 2 Mg PO EVERY OTHER DAY Vitamin D3 (Cholecalciferol) 2,000 Unit Tab 2,000 Units PO BID Levothyroxine (Levothyroxine Sodium) 112 Mcg Tab 224 Mcg PO DAILY Novolin N Inj (Insulin Human NPH) 100 Unit/Ml Inj 60 Units SQ HS Novolin N Inj (Insulin Human NPH) 100 Unit/Ml Inj 70 Units SQ DAILY Cranberry (Cranberry (Vaccinium Macrocarpon)) 125 Mg Tab 125 Mg PO BID Culturelle (Lactobacillus Rhamnosus (GG)) 10 B Cell Cap 1 Cap PO DAILY Torsemide 20 Mg Tab 20 Mg PO DAILY Sodium Bicarbonate 650 Mg Tab 650 Mg PO BID Oxycodone ER (Oxycodone HCl) 40 Mg Tab 40 Mg PO Q8HR Cozaar (Losartan Potassium) 50 Mg Tab 50 Mg PO DAILY Bactrim (Sulfamethoxazole-Trimethoprim) 400-80 Mg Tab 1 Tab PO MOWEFR Multiple Vitamin 1 Tab 1 Tab PO DAILY Novolog Inj (Insulin Aspart) 1,000 Unit/10 Ml Vial 0 SQ DIRECTED Sliding Scale as directed. Carvedilol 25 Mg Tab 25 Mg PO DAILY . Current Medications Medications (Trade) Dose Ordered Sig/Reymundo Route Start Time Stop Time Status Last Admin (Tylenol) 650 mg Q4H PRN PO 02/28/16 11:30 03/06/16 17:24 (Zofran Inj) 4 mg Q6H PRN IVP 02/28/16 11:30 (Dulcolax Supp) 10 mg DAILY PRN MS 02/28/16 11:30 (Milk Of Magnesia Liq) 30 ml Q12H PRN PO 02/28/16 11:30 (Senokot) 17.2 mg Q12H PRN PO 02/28/16 11:30 (Heparin Inj) 5,000 units Q12H SQ 02/28/16 12:00 Hold 03/05/16 22:52 (Narcan Inj) 0.4 mg UNSCH PRN IV 02/28/16 11:30 (Protonix Inj) 40 mg Q24H IV PUSH 02/28/16 13:00 03/10/16 13:19 Miscellaneous Information 1 Q361D XX 02/28/16 12:00 (NS Flush) 2 ml UNSCH PRN IV FLUSH 02/28/16 16:15 03/01/16 08:00 (NS Flush) 2 ml BID IV FLUSH 02/28/16 21:00 03/11/16 09:00 (D50w (Vial) Inj) 25 ml UNSCH PRN IV PUSH 02/28/16 18:30 (Glucagon Inj) 1 mg UNSCH PRN OTHER 02/28/16 18:30 (Neurontin) 100 mg Q8H PO 02/28/16 20:00 03/11/16 03:08 (Mycostatin Powder) 1 applic BID TOP 02/28/16 21:00 03/11/16 09:00 (Pravachol) 40 mg HS PO 02/28/16 21:00 03/10/16 20:31 Miscellaneous Information Patient in critical care unit? Ass... Q361D XX 02/28/16 19:30 (Brethine Inj) 1 mg UNSCH PRN SQ 02/29/16 13:00 (Synthroid) 224 mcg DAILY@0600 PO 03/01/16 06:00 03/11/16 06:01 (NovoLOG SUPPLEMENTAL SCALE) 1 Q4H SQ 03/01/16 16:00 03/11/16 08:00 (Vfend) 200 mg Q12HR PO 03/05/16 09:00 03/11/16 09:00 Vancomycin HCl 500 mg 500 mg Q6H PO 03/04/16 15:00 03/11/16 09:00 (Maxipime Inj/NS Inj) 100 ml @ 200 mls/hr Q24H IV 03/04/16 20:00 03/10/16 20:31 (Apresoline Inj) 10 mg Q6H PRN IV PUSH 03/06/16 07:30 (Deltasone) 5 mg DAILY PO 03/07/16 09:00 03/11/16 09:00 (Zithromax) 500 mg DAILY PO 03/07/16 10:15 03/11/16 09:00 (Lopressor) 12.5 mg Q12HR PO 03/08/16 09:00 03/11/16 09:00 (Pill Splitter) 1 ea UNSCH PRN OTHER 03/08/16 08:00 (Rapamune Liq) 1 mg DAILY@06 NG 03/10/16 06:00 03/11/16 06:00 Water 250 ml 250 ml Q6HR G-TUBE 03/10/16 12:00 03/11/16 06:00 Potassium Chloride 100 ml @ 50 mls/hr Q2H PRN IV 03/10/16 07:45 03/10/16 10:08 (KCl 20 Meq Premix Inj) 100 ml @ 50 mls/hr Q2H PRN IV 03/10/16 07:45 Potassium Chloride 40 meq 40 meq UNSCH PRN PO/TUBE 03/10/16 07:45 Potassium Chloride 100 ml @ 25 mls/hr UNSCH PRN IV 03/10/16 07:45 Potassium Chloride 100 ml @ 50 mls/hr Q2H PRN IV 03/10/16 07:45 (Magnesium Sulfate Inj/NS Inj) 100 ml @ 50 mls/hr UNSCH PRN IV 03/10/16 07:45 Magnesium Oxide 800 mg 800 mg UNSCH PRN PO 03/10/16 07:45 (Magnesium Sulfate Inj/NS Inj) 100 ml @ 50 mls/hr UNSCH PRN IV 03/10/16 07:45 Potassium Phosphate 2000 mg 2,000 mg Q4H PRN PO 03/10/16 07:45 (Sodium Phosphate Inj/NS 250 ml Inj) 250 ml @ 42 mls/hr UNSCH PRN IV 03/10/16 07:45 (KCl 40 Meq/30 ml Liq) 40 meq UNSCH PRN PO/TUBE 03/10/16 07:45 Potassium Phosphate 2000 mg 2,000 mg UNSCH PRN PO/TUBE 03/10/16 07:45 (Potassium Phosphate Inj/NS 250 ml Inj) 260 ml @ 42 mls/hr UNSCH PRN IV 03/10/16 07:45 (Bumetanide) 0.5 mg DAILY G-TUBE 03/11/16 09:00 03/11/16 09:00 . Family History Father of 41, to call history of cancer and coronary artery disease. Mother at the age of 75 from complications related to heart disease. Patient's sister also diagnosed with fibrillary glomerulonephritis. . Substance Use Tobacco: Previous smoker, 1/2 PPD x 30 years. Quit approximately 10+ years ago. Alcohol: None known Prescription med abuse: None known Illicits: None known . Psychosocial History The patient is from [place]. She is to her , Ash. She has one daughter and one son. . Spiritual/Cultural Factors Taoism heena . (Veronika Allen) Today's verbally stated goals: NA Family/friends goals: Pending family meeting . Ethical and Legal Issues Per [place] statutes, in the absence of written advanced directives healthcare proxy decision making will fall to the patient's Ash Alejo. . (Veronika Allen) Physical Exam Vital Signs Date Time Temp Pulse Resp B/P Pulse Ox O2 Delivery O2 Flow Rate FiO2 1/3/17 12:17 98.1 93 28 122/58 96 03/11/16 12:15 95 03/11/16 11:54 94 40 03/11/16 10:03 88 03/11/16 09:10 98 Nasal Cannula 4.00 03/11/16 08:00 88.3 100 22 128/74 100 03/11/16 07:00 Nasal Cannula 5.00 03/11/16 06:00 103 03/11/16 05:00 Nasal Cannula 5.00 03/11/16 04:00 98.5 104 24 136/65 98 03/11/16 04:00 104 03/11/16 02:30 Venturi Mask 50 03/11/16 02:00 101 03/11/16 02:00 Bi-Pap 50 03/11/16 01:30 94 40 03/11/16 01:25 Bi-Pap 40 03/11/16 00:00 86 03/11/16 00:00 97.9 86 20 128/59 100 03/11/16 00:00 100 Nasal Cannula 5.00 03/10/16 22:00 88 03/10/16 20:00 100 Nasal Cannula 4.00 03/10/16 20:00 98.5 90 18 131/58 100 03/10/16 20:00 90 03/10/16 19:20 100 Nasal Cannula 4.00 03/10/16 18:00 76 03/10/16 16:00 98.8 80 22 115/58 100 03/10/16 16:00 76 03/10/16 15:00 Nasal Cannula 4.00 03/10/16 14:00 76 . 03/10/16 03/11/16 19:00 07:00 Intake Total 1148 ml 1490 ml Output Total 600 ml 1807.0 ml Balance 548 ml -317.0 ml Intake IV Total 626 ml 453 ml Tube Feeding 322 ml 477 ml Other 200 ml 560 ml Output Urine Total 600 ml 647 ml Stool Total 1160 ml Tube Feeding Residual Discard 0 ml . Exam CONSTITUTIONAL/GENERAL: This is an adequately nourished, chronically ill elderly female patient patient, in no apparent distress. TUBES/LINES/DRAINS: PIV x 2, G-tube, rectal tube, Malik SKIN: . Ecchymoses on upper extremities. No wounds seen anteriorly. Skin temperature appropriate. Not diaphoretic. HEAD: Atraumatic. Normocephalic. EYES: Eyes closed, BiPAP mask in place. ENT: Nose without bleeding or purulent drainage. NECK: Trachea midline. Supple, nontender. No palpable thyroid enlargement or nodularity. CARDIOVASCULAR: Regular rate and rhythm without murmurs, gallops, or rubs. No JVD. Peripheral pulses symmetric. RESPIRATORY/CHEST: On BiPAP. Bilateral rhonchi, good air movement. No accessory muscle use. GASTROINTESTINAL: Abdomen soft, non-tender, nondistended. No guarding. Bowel sounds present. GENITOURINARY: Without palpable bladder distension. Malik catheter in place. MUSCULOSKELETAL: Extremities without clubbing or cyanosis. No obvious deformities. LYMPHATICS: No palpable cervical or supraclavicular adenopathy. NEUROLOGICAL: Lethargic, arouses to verbal stimuli. Moves upper extremities spontaneously. PSYCHIATRIC: No obvious anxiety/depression. . (Veronika Allen) Diagnostic Tests Laboratory Laboratory Tests Test 03/09/16 03/09/16 03/10/16 03/11/16 03:40 06:30 03:30 03:16 Sodium Level 149 MEQ/L 149 MEQ/L 146 MEQ/L (136-145) (136-145) (136-145) Potassium Level 3.4 MEQ/L 3.2 MEQ/L 4.5 MEQ/L (3.5-5.1) (3.5-5.1) (3.5-5.1) Chloride Level 104 MEQ/L 102 MEQ/L 107 MEQ/L (98-107) (98-107) (98-107) Carbon Dioxide Level 35.2 MEQ/L 36.0 MEQ/L 28.9 MEQ/L (21.0-32.0) (21.0-32.0) (21.0-32.0) Anion Gap 10 MEQ/L (5-15) 11 MEQ/L (5-15) 10 MEQ/L (5-15) Blood Urea Nitrogen 69 MG/DL (7-18) 66 MG/DL (7-18) 63 MG/DL (7-18) Creatinine 1.72 MG/DL 1.50 MG/DL 1.42 MG/DL (0.50-1.00) (0.50-1.00) (0.50-1.00) Estimat Glomerular Filtration 29 ML/MIN (>89) 35 ML/MIN (>89) 37 ML/MIN (>89) Rate Random Glucose 231 MG/DL 204 MG/DL 214 MG/DL (74-106) (74-106) (74-106) Calcium Level 8.2 MG/DL 7.8 MG/DL 8.3 MG/DL (8.5-10.1) (8.5-10.1) (8.5-10.1) Phosphorus Level 0.9 MG/DL 2.4 MG/DL 2.5 MG/DL (2.5-4.9) (2.5-4.9) (2.5-4.9) Magnesium Level 1.8 MG/DL 1.6 MG/DL 1.4 MG/DL (1.5-2.5) (1.5-2.5) (1.5-2.5) White Blood Count 8.7 TH/MM3 6.5 TH/MM3 (4.0-11.0) (4.0-11.0) Red Blood Count 3.07 MIL/MM3 2.80 MIL/MM3 (4.00-5.30) (4.00-5.30) Hemoglobin 8.6 GM/DL 7.9 GM/DL (11.6-15.3) (11.6-15.3) Hematocrit 27.1 % 24.8 % (35.0-46.0) (35.0-46.0) Mean Corpuscular Volume 88.3 FL 88.5 FL (80.0-100.0) (80.0-100.0) Mean Corpuscular Hemoglobin 28.0 PG 28.1 PG (27.0-34.0) (27.0-34.0) Mean Corpuscular Hemoglobin 31.7 % 31.7 % Concent (32.0-36.0) (32.0-36.0) Red Cell Distribution Width 16.8 % 16.9 % (11.6-17.2) (11.6-17.2) Platelet Count 76 TH/MM3 62 TH/MM3 (150-450) (150-450) Mean Platelet Volume 11.1 FL 10.3 FL (7.0-11.0) (7.0-11.0) Neutrophils (%) (Auto) 81.7 % 81.2 % (16.0-70.0) (16.0-70.0) Lymphocytes (%) (Auto) 9.3 % 9.7 % (9.0-44.0) (9.0-44.0) Monocytes (%) (Auto) 7.0 % (0.0-8.0) 8.0 % (0.0-8.0) Eosinophils (%) (Auto) 1.0 % (0.0-4.0) 0.7 % (0.0-4.0) Basophils (%) (Auto) 1.0 % (0.0-2.0) 0.4 % (0.0-2.0) Neutrophils # (Auto) 7.1 TH/MM3 5.3 TH/MM3 (1.8-7.7) (1.8-7.7) Lymphocytes # (Auto) 0.8 TH/MM3 0.6 TH/MM3 (1.0-4.8) (1.0-4.8) Monocytes # (Auto) 0.6 TH/MM3 0.5 TH/MM3 (0-0.9) (0-0.9) Eosinophils # (Auto) 0.1 TH/MM3 0.0 TH/MM3 (0-0.4) (0-0.4) Basophils # (Auto) 0.1 TH/MM3 0.0 TH/MM3 (0-0.2) (0-0.2) CBC Comment AUTO DIFF AUTO DIFF Differential Comment AUTO DIFF AUTO DIFF CONFIRMED CONFIRMED Platelet Estimate LOW (NORMAL) LOW (NORMAL) Platelet Morphology Comment NORMAL NORMAL (NORMAL) (NORMAL) Total Bilirubin 0.4 MG/DL (0.2-1.0) Direct Bilirubin 0.1 MG/DL (0.0-0.2) Indirect Bilirubin 0.3 MG/DL (0.0-0.8) Aspartate Amino Transf 27 U/L (15-37) (AST/SGOT) Alanine Aminotransferase 13 U/L (10-53) (ALT/SGPT) Alkaline Phosphatase 139 U/L (45-117) Total Protein 6.2 GM/DL (6.4-8.2) Albumin 2.2 GM/DL (3.4-5.0) Test 03/11/16 03/11/16 05:14 11:24 White Blood Count 7.3 TH/MM3 (4.0-11.0) Red Blood Count 3.46 MIL/MM3 (4.00-5.30) Hemoglobin 9.7 GM/DL (11.6-15.3) Hematocrit 31.7 % (35.0-46.0) Mean Corpuscular Volume 91.6 FL (80.0-100.0) Mean Corpuscular Hemoglobin 28.0 PG (27.0-34.0) Mean Corpuscular Hemoglobin 30.5 % Concent (32.0-36.0) Red Cell Distribution Width 17.9 % (11.6-17.2) Platelet Count 79 TH/MM3 (150-450) Mean Platelet Volume 10.9 FL (7.0-11.0) Neutrophils (%) (Auto) 84.9 % (16.0-70.0) Lymphocytes (%) (Auto) 7.4 % (9.0-44.0) Monocytes (%) (Auto) 6.8 % (0.0-8.0) Eosinophils (%) (Auto) 0.6 % (0.0-4.0) Basophils (%) (Auto) 0.3 % (0.0-2.0) Neutrophils # (Auto) 6.2 TH/MM3 (1.8-7.7) Lymphocytes # (Auto) 0.5 TH/MM3 (1.0-4.8) Monocytes # (Auto) 0.5 TH/MM3 (0-0.9) Eosinophils # (Auto) 0.0 TH/MM3 (0-0.4) Basophils # (Auto) 0.0 TH/MM3 (0-0.2) CBC Comment AUTO DIFF Differential Comment AUTO DIFF CONFIRMED Platelet Estimate LOW (NORMAL) Platelet Morphology Comment NORMAL (NORMAL) Blood Gas Puncture Site RT RADIAL Blood Gas Patient Temperature 98.6 Blood Gas HCO3 35 mmol/L (22-26) Blood Gas Base Excess 10.2 mmol/L (-2-2) Blood Gas Oxygen Saturation 91 % (90-100) Arterial Blood pH 7.46 (7.380-7.420) Arterial Blood Partial 49 mmHg (38-42) Pressure CO2 Arterial Blood Partial 70 mmHg Pressure O2 (61-120) Arterial Blood Oxygen Content 10.5 Vol % (12.0-20.0) Arterial Blood 2.0 % (0-4) Carboxyhemoglobin Arterial Blood Methemoglobin 1.2 % (0-2) Blood Gas Hemoglobin 8.1 G/DL (12.0-16.0) Oxygen Delivery Device BIPAP 12IPAP/5EPAP Blood Gas Inspired Oxygen 40 % . (Veronika Allen) Result Diagram: 03/11/16 0514 03/11/16 0316 Imaging Last 72 hours Impressions Chest X-Ray 03/10/16 0000 Signed Impressions: Service Date/Time: Thursday, March 10, 2016 07:59 - CONCLUSION: Improved aeration on the right with complete opacification on the left. Sergio Renteria MD . Procedures 02/28/16: Intubation 02/28/16: Left IJ central line placed 02/28/16: Right radial arterial line placed 02/28/16: Diagnostic/therapeutic fiberoptic bronchoscopy 03/03/16: Extubation 03/04/16: Intubation 03/06/16: Extubation . (Veronika Allen) Patient/Family Conference Present at Family Conference: Spoke to patient's , Ash Alejo, via telephone to introduce Palliative Care. Briefly discussed this patient complicated medical and current hospitalization. Tentative family meeting scheduled for tomorrow afternoon . . Family Conference Location: Telephone Issues Discussed: * Palliative care role, purpose, approach * Additional medical, psychosocial, and spiritual history * Patients general health, functional status, and cognitive changes in the months leading up to the current hospitalization * Patient/family understanding of the current medical problems * Patient/family understanding of prognosis * Patients goals of care as best understood from advance directives and/or conversations and/or values * Current medical treatment options and benefits/burdens of those options * Likely scenarios comparing ongoing aggressive care with a transition to comfort measures only * Questions answered to the best of my ability * Palliative care contact information provided . (Veronika Allen) Assessment and Plan Disease Oriented Problem List: (1) Chronic hypoxemic respiratory failure (2) Atrial fibrillation (3) Anemia (4) Dysphagia (5) Hypothyroidism (6) Chronic renal failure (7) Hypertension (8) Status epilepticus (9) Non-small cell lung cancer (10) Chronic systolic heart failure (11) Chronic kidney disease, stage IV (severe) (12) Impaired mobility and activities of daily living (13) Obesity (BMI 30.0-34.9) (14) Pressure ulcer, stage 1 (15) Recurrent left pleural effusion (16) Acute on chronic respiratory failure with hypoxia and hypercapnia (17) Acute kidney failure (18) Pneumonia (19) Sepsis (20) Heart failure Symptom Scale: Pertinent Non-Medical Issues Psychosocial: The patient is from [place]. She is to her , Ash. She has one daughter and one son. Spiritual: Taoism heena. Legal: Per [place] statutes, in absence of written advanced directives healthcare proxy decision making will fall to the patient's . Ethical issues impacting care: No known ethical issues impacting care at this time. . Important Contacts Ash Alejo, spouse: [phone] Jackie, daughter: [phone] . . Prognosis Patient is a 70 year old female with an extensive medical history that includes a kidney transplant in 2006 (on Sirolimus) and non-small cell lung cancer status post left lobectomy with chemotherapy/radiation. 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 She was transferred to a rehabilitation facility upon discharge and was subsequently transferred to several facilities, discharged home on 02/15/16. Patient is now admitted with ammonia and severe sepsis. Patient is immunocompromised related to her anti-rejection medication and generalized debilitation. Prognosis is poor. . Code Status: No Code Plan * NO CODE * Decision making: Per [place] statutes, in the absence of written advanced directives, healthcare proxy decision making will fall to the patient's Ash Alejo. * Goals: Goals remain aggressive up to the point of cardiopulmonary resuscitation, pending family meeting. * Spoke to patient's , Ash Alejo, via telephone to introduce Palliative Care and provide contact information. Briefly discussed this patient complicated medical and current hospitalization. * Attempted to contact patient's daughter via telephone, no answer. Message left for patient's (Jackie) on [employer] #[phone]. * Tentative family meeting scheduled for tomorrow afternoon 03/12/16. * Spoke with patient's , Ash Alejo, to introduce the role of the Palliative Care team. We discussed the patient's past medical history and current clinical condition. Patient's states he and his have talked about this and he wants her to be a DNR, she's been through enough. The process of cardiology pulmonary resuscitation (including compressions, medications, cardioversion and intubation/mechanical ventilation) was discussed with Mr. Alejo at length. Mr. Alejo again states his does not "want all that" and request that the patient's code status be changed to NO CODE- DNR/DNI. * Palliative care will continue to follow this patient throughout her hospitalization to establish trust, assist with symptom management and clarification of medical treatment goals. . (Veronika Allen) Thank you for the opportunity to participate in the care of Ms. Alejo. . (Veronika Allen) Attestation To help prompt me to consider important information that might be impacting today's encounter and assessment, information from prior notes written by myself or my colleagues may have been "brought forward" into today's note. My signature on this note, however, is an attestation that I personally performed the exam, history, and/or decision-making noted today, and, unless otherwise indicated, the interactions with patient, family, and staff as well as the review of records all occurred today. I also attest that the listed assessment and stated plan reflect my best clinical judgment today based on the combination of historical information, prior notes, and today's exam/ interactions. When time spent is documented, it refers only to time spent today by the signer, or if indicated, combined time spent today by collaborating physician/nurse practitioner. . (Veronika Allen) Collaborating MD Comments Chart reviewed. Case discussed with palliative care CLAIM BENEFIT SPECIALIST. I have reviewed above CLAIM BENEFIT SPECIALIST note and I concur. . (Kyaw Samuels MD) Veronika Allen Mar 11, 2016 14:39 Kyaw Samuels MD Apr 26, 2016 13:19
--- NOTE | 2016-03-11 19:37 | HHI.PR ---
Subjective Remarks 70 YOWF with COPD,Renal transplant,ca lung, s/p resection with RF Extubated Tired has Techycardia PO Bumex On BIPAP Lethargic made her DNR Objective Vital Signs Vital Signs Date Time Temp Pulse Resp B/P Pulse Ox O2 Delivery O2 Flow Rate FiO2 03/11/16 18:01 101 03/11/16 16:51 98 35 03/11/16 16:25 98.4 99 28 132/60 96 03/11/16 16:22 101 03/11/16 15:00 95 Bi-Pap 40 03/11/16 12:17 98.1 93 28 122/58 96 03/11/16 12:15 95 03/11/16 11:54 94 40 03/11/16 10:03 88 03/11/16 09:10 98 Nasal Cannula 4.00 03/11/16 08:00 88.3 100 22 128/74 100 03/11/16 07:00 Nasal Cannula 5.00 03/11/16 06:00 103 03/11/16 05:00 Nasal Cannula 5.00 03/11/16 04:00 98.5 104 24 136/65 98 03/11/16 04:00 104 03/11/16 02:30 Venturi Mask 50 03/11/16 02:00 101 03/11/16 02:00 Bi-Pap 50 03/11/16 01:30 94 40 03/11/16 01:25 Bi-Pap 40 03/11/16 00:00 86 03/11/16 00:00 97.9 86 20 128/59 100 03/11/16 00:00 100 Nasal Cannula 5.00 03/10/16 22:00 88 03/10/16 20:00 100 Nasal Cannula 4.00 03/10/16 20:00 98.5 90 18 131/58 100 03/10/16 20:00 90 I/O 03/10/16 03/10/16 03/10/16 03/11/16 03/11/16 03/11/16 07:00 15:00 23:00 07:00 15:00 23:00 Intake Total 598 ml 1148 ml 579 ml 911 ml 350 ml 810 ml Output Total 500 ml 600 ml 1285 ml 522 ml 850 ml 0 ml Balance 98 ml 548 ml -706 ml 389 ml -500 ml 810 ml Intake IV Total 75 ml 626 ml 387 ml 66 ml 185 ml 200 ml Tube Feeding 273 ml 322 ml 162 ml 315 ml 165 ml 110 ml Other 250 ml 200 ml 30 ml 530 ml 500 ml Output Urine Total 400 ml 600 ml 425 ml 222 ml 450 ml Stool Total 100 ml 860 ml 300 ml 400 ml 0 ml Tube Feeding Residual Discard 0 ml 0 ml Result Diagram: 03/11/16 0514 03/11/16 0316 Objective Remarks GENERALMBMN female, SOB: SKIN: Warm and dry. HEAD: Normocephalic. EYES: No scleral icterus. No injection or drainage. NECK: Supple, trachea midline. No JVD or lymphadenopathy. CARDIOVASCULAR: Regular rate and rhythm without murmurs, gallops, or rubs. RESPIRATORY: Breath sounds equal bilaterally. No accessory muscle use. Bilat coarse crackles. GASTROINTESTINAL: Abdomen soft, non-tender, nondistended. MUSCULOSKELETAL: No cyanosis, ++ edema. BACK: Nontender without obvious deformity. No CVA tenderness. A/P Assessment and Plan VDRF, extubated 03/06 Pneumonia Sepsis sund renal transplant Ca lung, s/p resection PLAN: On Bumex PO Cont Monitor BS Abx Zithro, Zyvox and Cefepime and Voriconazole per ID Supplement 02 to keep sat >90% Supplement 02 with NC BIPAP Code status DNR Alverto Armas MD Mar 11, 2016 19:37
[2016-03-11] MEDS: PRAVASTATIN SOD 40 MG TAB PO SCH (21:15)
[2016-03-11] MEDS: CEFEPIME INJ 2,000 MG in SODIUM CHLORIDE 0.9% INJ 100 ML IV SCH (21:16)
[2016-03-12] VITALS (16 sets, daily range): BP systolic 105–132; BP diastolic 51–60; PULSE 81–100; RESP 20–26; TEMP 98–98.8; O2SAT 92–98
[2016-03-12] MEDS: INSULIN ASPART SUPPLEMENTAL SCALE SQ SCH ×6 (00:36→20:43)
[2016-03-12] MEDS ORDERED: BUMETANIDE INJ 1 MG/4 ML VIAL IV PUSH ONE (01:30)
[2016-03-12] MEDS: VANCOMYCIN 500 MG VIAL (FOR ORAL USE ONLY) PO SCH ×4 (02:11→20:45)
[2016-03-12] MEDS: GABAPENTIN 100 MG CAP PO SCH ×3 (04:21→20:44)
[2016-03-12 04:46] LABS: AUTOMATED NEUTROPHIL # 6.2 TH/MM3 (1.8-7.7); BASOPHIL # 0.1 TH/MM3 (0-0.2); BASOPHIL % 0.9 % (0.0-2.0); EOSINOPHIL # 0.1 TH/MM3 (0-0.4); HEMATOCRIT 27.3 % (35.0-46.0); LYMPH % 9.4 % (9.0-44.0); LYMPHOCYTE # 0.7 TH/MM3 (1.0-4.8); MEAN CELL VOLUME 91.5 FL (80.0-100.0); MEAN CORPUSCULAR HGB CONC 30.7 % (32.0-36.0); NEUT % 79.7 % (16.0-70.0); PLATELET COUNT 94 TH/MM3 (150-450); RED BLOOD COUNT 2.99 MIL/MM3 (4.00-5.30); RED CELL DISTRIBUTION WIDTH 18.1 % (11.6-17.2); WHITE BLOOD COUNT 7.8 TH/MM3 (4.0-11.0)
[2016-03-12 04:50] LABS: HEMO FLAGS AUTO DIFF
[2016-03-12 05:15] LABS: BICARBONATE 33.8 MEQ/L (21.0-32.0); POTASSIUM 4.3 MEQ/L (3.5-5.1)
[2016-03-12] MEDS: SIROLIMUS 1 MG/ML NG SCH (06:00)
[2016-03-12] MEDS: FREE WATER G-TUBE SCH ×4 (06:00→18:00)
[2016-03-12] MEDS: LEVOTHYROXINE SODIUM 112 MCG TAB PO SCH (06:45)
[2016-03-12 08:09] LABS: BANDS 7 % (0-6); NEUTROPHIL # MANUAL DIFF 6.7 TH/MM3 (1.8-7.7); PLATELET ESTIMATE SMEAR NORMAL (NORMAL); PLATELET MORPHOLOGY ENLARGED (NORMAL); POLYS (SEG NEUTROPHILS) 79 % (16-70); SCAN/DIFF FINAL DIFF MANUAL; WBC DIFF SAMPLE 100
[2016-03-12] MEDS: METOPROLOL TARTRATE 25 MG TAB PO SCH ×2 (09:05→20:45)
[2016-03-12] MEDS: BUMETANIDE 1 MG TAB G-TUBE SCH (09:05)
[2016-03-12] MEDS: VORICONAZOLE 200 MG TAB PO SCH ×2 (09:05→20:45)
[2016-03-12] MEDS: AZITHROMYCIN 250 MG TAB PO SCH (09:05)
[2016-03-12] MEDS: predniSONE 5 MG TAB PO SCH (09:05)
[2016-03-12] MEDS: NYSTATIN 100,000 U/GM PWD 15 GM BTL TOP SCH ×2 (09:06→20:46)
[2016-03-12] MEDS: SODIUM CHLORIDE 0.9% FLUSH 5 ML FLUSH IV FLUSH SCH ×2 (09:06→20:50)
[2016-03-12] MEDS: RESP: ALBUTEROL 2.5 MG/3 ML NEB (PRN) NEB ×3 (11:18→19:26)
--- NOTE | 2016-03-12 11:57 | HHI.FPPN ---
Subjective Remarks ON BIPAP LETHARGIC D/W RN Objective Vitals Vital Signs Date Time Temp Pulse Resp B/P Pulse Ox O2 Delivery O2 Flow Rate FiO2 03/12/16 11:18 98 45 03/12/16 08:00 Bi-Pap 5.00 45 03/12/16 08:00 98.1 96 22 106/ 96 03/12/16 08:00 96 03/12/16 07:21 98 45 03/12/16 06:00 100 03/12/16 04:01 95 45 03/12/16 04:00 98.8 98 26 132/59 95 03/12/16 04:00 98 03/12/16 02:00 96 03/12/16 01:13 96 45 03/12/16 00:00 96 Bi-Pap 45 03/12/16 00:00 90 03/12/16 00:00 98.3 90 22 128/60 96 03/11/16 22:11 95 45 03/11/16 22:00 93 03/11/16 20:30 89 Bi-Pap 45 03/11/16 20:25 98 45 03/11/16 20:00 98.2 105 27 143/63 91 03/11/16 20:00 105 03/11/16 18:01 101 03/11/16 16:51 98 35 03/11/16 16:25 98.4 99 28 132/60 96 03/11/16 16:22 101 03/11/16 15:00 95 Bi-Pap 40 03/11/16 12:17 98.1 93 28 122/58 96 03/11/16 12:15 95 I/O 03/11/16 03/11/16 03/11/16 03/12/16 03/12/16 03/12/16 07:00 15:00 23:00 07:00 15:00 23:00 Intake Total 911 ml 350 ml 1816 ml 1170 ml Output Total 522 ml 850 ml 410 ml 950 ml Balance 389 ml -500 ml 1406 ml 220 ml Intake IV Total 66 ml 185 ml 430 ml 74 ml Tube Feeding 315 ml 165 ml 856 ml 566 ml Other 530 ml 530 ml 530 ml Output Urine Total 222 ml 450 ml 350 ml 650 ml Stool Total 300 ml 400 ml 60 ml 300 ml Tube Feeding Residual Discard 0 ml 0 ml 0 ml Result Diagram: 03/12/16 0308 03/12/16 0308 Objective Remarks GENERAL: on NC; chronically ill appearing SKIN: Warm and dry. HEAD: Atraumatic. Normocephalic. EYES: Pupils equal and round. No scleral icterus. No injection or drainage. ENT: No nasal bleeding or discharge. Mucous membranes pink and moist. NECK: Trachea midline. No JVD. CARDIOVASCULAR: Regular rate and rhythm. RESPIRATORY: No accessory muscle use. Slight Bilateral ronchi, good air movement. Breath sounds equal bilaterally. GASTROINTESTINAL: Abdomen soft, non-tender, nondistended. Hepatic and splenic margins not palpable. MUSCULOSKELETAL: Extremities without clubbing, cyanosis, or edema. No obvious deformities. NEUROLOGICAL: Awake and alert. No obvious cranial nerve deficits. Motor grossly within normal limits. 03/13 all extr's PSYCHIATRIC: Appropriate mood and affect; Medications and IVs Current Medications Medications (Trade) Dose Ordered Sig/Reymundo Route Start Time Stop Time Status Last Admin (Tylenol) 650 mg Q4H PRN PO 02/28/16 11:30 03/06/16 17:24 (Zofran Inj) 4 mg Q6H PRN IVP 02/28/16 11:30 (Dulcolax Supp) 10 mg DAILY PRN LA 02/28/16 11:30 (Milk Of Magnesia Liq) 30 ml Q12H PRN PO 02/28/16 11:30 (Senokot) 17.2 mg Q12H PRN PO 02/28/16 11:30 (Heparin Inj) 5,000 units Q12H SQ 02/28/16 12:00 Hold 03/05/16 22:52 (Narcan Inj) 0.4 mg UNSCH PRN IV 02/28/16 11:30 (Protonix Inj) 40 mg Q24H IV PUSH 02/28/16 13:00 03/11/16 13:38 Miscellaneous Information 1 Q361D XX 02/28/16 12:00 (NS Flush) 2 ml UNSCH PRN IV FLUSH 02/28/16 16:15 03/01/16 08:00 (NS Flush) 2 ml BID IV FLUSH 02/28/16 21:00 03/12/16 09:06 (D50w (Vial) Inj) 25 ml UNSCH PRN IV PUSH 02/28/16 18:30 (Glucagon Inj) 1 mg UNSCH PRN OTHER 02/28/16 18:30 (Neurontin) 100 mg Q8H PO 02/28/16 20:00 03/12/16 04:21 (Mycostatin Powder) 1 applic BID TOP 02/28/16 21:00 03/12/16 09:06 (Pravachol) 40 mg HS PO 02/28/16 21:00 03/11/16 21:15 Miscellaneous Information Patient in critical care unit? Ass... Q361D XX 02/28/16 19:30 (Brethine Inj) 1 mg UNSCH PRN SQ 02/29/16 13:00 (Synthroid) 224 mcg DAILY@0600 PO 03/01/16 06:00 03/12/16 06:45 (NovoLOG SUPPLEMENTAL SCALE) 1 Q4H SQ 03/01/16 16:00 03/12/16 09:05 (Vfend) 200 mg Q12HR PO 03/05/16 09:00 03/12/16 09:05 Vancomycin HCl 500 mg 500 mg Q6H PO 03/04/16 15:00 03/12/16 09:05 (Maxipime Inj/NS Inj) 100 ml @ 200 mls/hr Q24H IV 03/04/16 20:00 03/11/16 21:16 (Apresoline Inj) 10 mg Q6H PRN IV PUSH 03/06/16 07:30 (Deltasone) 5 mg DAILY PO 03/07/16 09:00 03/12/16 09:05 (Zithromax) 500 mg DAILY PO 03/07/16 10:15 03/12/16 09:05 (Lopressor) 12.5 mg Q12HR PO 03/08/16 09:00 03/12/16 09:05 (Pill Splitter) 1 ea UNSCH PRN OTHER 03/08/16 08:00 (Rapamune Liq) 1 mg DAILY@06 NG 03/10/16 06:00 03/12/16 06:00 Water 250 ml 250 ml Q6HR G-TUBE 03/10/16 12:00 03/12/16 06:00 Potassium Chloride 100 ml @ 50 mls/hr Q2H PRN IV 03/10/16 07:45 03/10/16 10:08 (KCl 20 Meq Premix Inj) 100 ml @ 50 mls/hr Q2H PRN IV 03/10/16 07:45 Potassium Chloride 40 meq 40 meq UNSCH PRN PO/TUBE 03/10/16 07:45 Potassium Chloride 100 ml @ 25 mls/hr UNSCH PRN IV 03/10/16 07:45 Potassium Chloride 100 ml @ 50 mls/hr Q2H PRN IV 03/10/16 07:45 (Magnesium Sulfate Inj/NS Inj) 100 ml @ 50 mls/hr UNSCH PRN IV 03/10/16 07:45 Magnesium Oxide 800 mg 800 mg UNSCH PRN PO 03/10/16 07:45 (Magnesium Sulfate Inj/NS Inj) 100 ml @ 50 mls/hr UNSCH PRN IV 03/10/16 07:45 Potassium Phosphate 2000 mg 2,000 mg Q4H PRN PO 03/10/16 07:45 (Sodium Phosphate Inj/NS 250 ml Inj) 250 ml @ 42 mls/hr UNSCH PRN IV 03/10/16 07:45 (KCl 40 Meq/30 ml Liq) 40 meq UNSCH PRN PO/TUBE 03/10/16 07:45 Potassium Phosphate 2000 mg 2,000 mg UNSCH PRN PO/TUBE 03/10/16 07:45 (Potassium Phosphate Inj/NS 250 ml Inj) 260 ml @ 42 mls/hr UNSCH PRN IV 03/10/16 07:45 (Bumetanide) 0.5 mg DAILY G-TUBE 03/11/16 09:00 03/12/16 09:05 Date of Insertion: Feb 28, 2016 Date of Insertion: Feb 28, 2016 Line: Central Venous Catheter Side: Left Location: Internal, Jugular (vasoactive medications, CVP monitoring) A/P Assessment and Plan SEPTIC SHOCK, RESOLVED, OFF PRESSORS RESPIRATORY FAILURE, S/P BRONCH FEB 27, EXTUBATED MAR 03, REINTUBATED MAR 04, EXTUBATED MAR 06, HCAP, FUNGAL PNA LUNG CA COPD C DIF SCHF AC ON CRF RENAL TRANSPLANT, RENAL US NORMAL. AF THROMBOCYTOPENIA HYPOTHYROID PLAN: BIPAP IV ABX IVF GTF'S PGT BUMEX, OFF DRIP STEROID PGT BLOOD CULTURES DUONEBS HEPARIN 5000 BID FOR PROPHYLAXIS ON HOLD DUE TO THROMBOCYTOPENIA. IV PROTONIX CCM CONSULT, NOTES REVIEWED NEPHRO CONSULT, NOTES REVIEWED PULMONARY CONSULT, NOTES REVIEWED. PT OT ST ICU CARE FOLLOWUP LABS MEDS ABOVE. Herbert Kaba MD Mar 12, 2016 11:57
[2016-03-12] MEDS: PANTOPRAZOLE SODIUM 40 MG VIAL IV PUSH SCH (12:57)
--- NOTE | 2016-03-12 13:45 | HHI.CCPN ---
Subjective Remarks/Hospital Course 70-year-old female with history of lung cancer status post left lobectomy, and kidney transplant 2006 presented to the ED with worsening pulmonary symptoms. Her medical history is significant for DM, HTN. She presented to the ED today because worsening cough, shortness of breath, dyspnea on exertion, and fevers. The patient is dependent on home O2 at 4 L nasal cannula, and scheduled DuoNeb treatment. The patient was hospitalized for several months 11/2015-12/22 . During this hospitalization she reports having a fungal pulmonary infection and a seizure resulting in "coma for a few weeks". She was transferred to a rehabilitation facility [facility] for approximately 2 months ago. The patient was then transferred to [facility] approximately 3 weeks ago at which time she fractured her left ankle, and was transferred to [facility]. She was recently discharged from [facility] on 02/15/2016. The patient states that she began having worsening symptoms over the last 3-4 days, that resembled her fungal pneumonia. Critical care medicine was consulted for management. 02/28 Upon arrival to ICU last evening, bronchoscopy was performed, and specimens were sent for culture. The patient was maintained on IV fluids 100 cc an hour, and discontinued at 2 AM secondary to oliguria. CVP ranged 14 throughout the night, with original BNP 1035. Postintubation the patient remains GCS 11 T, following commands. The patient continues to be oliguric with hourly urinary output 7-10 cc an hour. 03/01 On levophed 8mcg/min. UOP around 10 mL/hr. Received Bumex 2 mg IV and UOP still ~20 Ml/hr last hour. CVP 18-20. In Afib rate controlled. Awakens on CPAP 5/5. 03/02 UOP 1068 overnight on bumex drip. Creatinine up to 3.28. Placing on CPAP 5 /5. Afebrile. Levophed weaned to 2 mcg/min with MAP 77. CVP 24 Subjective: 03/03 Creatinine up to 3.32. Nonoliguric with Bumex drip. CVP down to 14. Tolerating CPAP. Off levophed. 03/04 Patient was on BIPAP 10/5 with 60% FIO2 overnight. Patient looked lethargic and started desating she was subsequently intubated and placed on mechanical ventilation. On Bumex drip 2mg/hr. Positive C-diff this morning. 03/05 Patient is sedated with Diprivan and intubated. Afebrile. Remains on Bumex drip 2mg/hr. 03/06 No acute events overnight. Tolerated CPAP all day yesterday. On Bumex 2mg /hr. Sedated with Diprivan and intubated. 03/07 Patient s/p extubation yesterday placed on BIPAP overnight 10 with 40% FIO2. Afebrile. Off Bumex drip. 03/08 No acute events overnight. On BIPAP 10/5 with 40$ FIO2 overnight. Afebrile. Renal function improving with Cr: 1.97 today from 2.32 03/09 Patient remains on BIPAP 10/5 with 40% FIO2. Afebrile. 03/10 No events overnight. On BIPAP with 40% FIO2, afebrile. Renal function improving with Cr: 1.5 today. 03/11 Patient is off BIPAP given Bumex 1mg x1 at 4: 21 this morning on 5L oxygen. 03/12 on BiPAP currently. Remains encephalopathic. Objective Vital Signs Date Time Temp Pulse Resp B/P Pulse Ox O2 Delivery O2 Flow Rate FiO2 03/12/16 11:18 98 45 03/12/16 08:00 Bi-Pap 5.00 03/12/16 08:00 98.1 96 22 106/ Intake and Output 03/11/16 03/11/16 03/11/16 07:59 15:59 23:59 Intake Total 911 ml 350 ml 1816 ml Output Total 522 ml 850 ml 410 ml Balance 389 ml -500 ml 1406 ml Result Diagram: 03/12/16 0308 03/12/16 0308 Imaging Last Impressions Chest X-Ray 03/10/16 0000 Signed Impressions: Service Date/Time: Thursday, March 10, 2016 07:59 - CONCLUSION: Improved aeration on the right with complete opacification on the left. Sergio Renteria MD Renal Ultrasound 03/01/16 0000 Signed Impressions: Service Date/Time: Tuesday, March 01, 2016 10:45 - CONCLUSION: No evidence of hydronephrosis or focal abnormality. The resistive indices are within normal Sumit Laws MD Abdomen X-Ray 03/01/16 0000 Signed Impressions: Service Date/Time: Tuesday, March 01, 2016 15:32 - CONCLUSION: G-tube inside the stomach. Angelita Birmingham MD Objective Remarks Nepro 40 ml/hr GENERAL: Morbidly obese elderly female on BIPAP overnight. , SKIN: Warm and dry. Multiple ecchymotic bruising neck, chest, bilateral extremities upper and lower HEAD: Atraumatic. Normocephalic. EYES: Pupils equal and round. No scleral icterus. No injection or drainage. ENT: No nasal bleeding or discharge. Mucous membranes pink and moist. NECK: Trachea midline. Supple, no JVD, adenopathy CARDIOVASCULAR: Tachycardic, nl S1, S2. RESPIRATORY: On BiPAP with full facemask, Coarse BS on right. GASTROINTESTINAL: Abdomen soft, non-tender, nondistended. Gastric tube no erythema or drainage. MUSCULOSKELETAL: Extremities without clubbing, cyanosis, trace edema NEUROLOGICAL: Drowsy, arousable, encephalopathic, not following commands. Date of Insertion: Feb 28, 2016 Date of Insertion: Feb 28, 2016 Line: Central Venous Catheter Side: Left Location: Internal, Jugular (vasoactive medications, CVP monitoring) A/P Assessment and Plan Plan by systems: Neurologic: Encephalopathy Seizure disorder Herniated discs Neuropathy - avoid sedatives. -Neurochecks per ICU protocol -Gabapentin 100 q8. Respiratory: Acute hypoxic respiratory failure History of non-small cell lung cancer S/P left lung lobectomy 2013 Home O2 dependency Presumed Hospital-acquired pneumonia (previous HCAP treatment 10/22) Left lung opacity-chronic History of tracheostomy-decannulated 12/22/15 -02/27 Intubated , extubated 03/03 reintubated 03/04, extubated 03/06 -Continue with oxygen keep sat >92%. Check CXR -Bronchodilators. IS, NIPPV PRN for resp distress -Pulmonology Following, Cardiovascular: HTN Atrial fibrillation-rate control Acute on chronic systolic CHF RV overload, pulmonary HTN Hyperlipidemia -Continue Lopressor 12.5mg BID Maintain HR and BP keep MAP>65mmHg -2D ECHO 02/28mildly reduced systolic function with EF 45-50%. Mild RV dilatation. Mild to moderate tricuspid regurg. Pulmonary artery peak systolic pressure 53 mmHg. -Continue pravastatin FEN/Renal: S/P kidney transplant ANNABELLA, ..improving Hypernatremia -Monitor renal function, I/O's, electrolytes replacement per protocol. Will need Mag replacement today -On Bumex 0.5mg daily, Free Water 250ml Q6 ,monitor sodium level. 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 Juarez -Renal function improving with Cr: 1.42 today from 1.5 with UO: 1247ml in 24 hrs -Sirolimus level: 9 on 03/01. On Sirolimus 2 mg every other day per nephrology. -On prednisone 5mg daily per nephrology, GI: Morbid obesity -TF-Glucerna 1.5 with goal rate 45ml/hr mL/hr via PEG. -Zofran PRN for nausea -Protonix GI prophylaxis ID: Pneumonia-HCAP Positive Cdiff Continue with abx per ID (Cefepime, Zithromax,, PO Vanco, Voriconazole) 02/27 - Influenza screen negative. 02/27 Blood cultures -NGTD 02/27 Bronchial washings- Gram positive cocci, fungal stain negative. 02/28 cryptococcal- serum antigen negative 03/01 urine legionella and pneumococcal antigen negative. Heme: Monitor CBC, Hep PLT ab negative Endocrine: DM Hypothyroidism -Continue medium dose sliding scale q4 hours, -T4 4.7 (norm 4.8), TSH 33.60( elevated) -Continue Synthroid 224 mcg/d MSK: - Specialty bed -Wound care consult, noted admission to ED with sacral decubitus wound Prophylaxis: GI Prophylaxis Protonix IV DVT Prophylaxis -- SCDs, heparin SQ on hold(Thrombocytopenia) Hep PLT ab negative. Lines: Peripheral IV's Palliative care eval to asses goals of care. Patient's and decided to make her DNR/DNI status. Erich Rodriguez MD Mar 12, 2016 13:45
--- NOTE | 2016-03-12 16:14 | HHI.HCPN ---
Reason for visit a. To assist with evaluation and management of symptoms including: Dyspnea, pain, anxiety b. To assist medical decision maker(s) with: better understanding of current medical conditions; weighing benefits/burdens of medical treatment options; making medical treatment decisions. . (Veronika Allen) Subjective/Interval History Mrs. Alejo is a 70-year-old female patient who presented the EMS to [facility] ED in [place] with clinical evidence of pneumonia and acute renal failure. Patient seen and assessed in [facility] [place], room 500. Also present patient's (Catrachito) and son (See Ross). Patient remains encephalopathic. Arouses to verbal stimuli but does not follow commands on exam. Soft restraints in place. Afebrile. White blood count: 7.8, hemoglobin 8.4, hematocrit 27.3, platelets 94 , neutrophils 79.7%. Blood cultures - NGTD. Urine cultures-presumptive negative for Legionella and Streptococcus. Acute renal failure resolving, urine output improved. BUN: 70, creatinine 1.52 , GFR 34. Received 1mg Bumex IV x 1 overnight, remains on Bumex 0.5 mg daily via G-tube. On BiPAP with full face mask. Coarse air exchange, right greater than left. No accessory muscles used. Follow up chest x-ray on 03/11/16 showing improved aeration on the right with complete opacification on the left. Bronchial washings, right lower lobe, growing yeast. Tolerating G-tube feedings at 45mL's per hour. Patient continues to have frequent brown, liquid diarrhea - C. difficile positive 03/04/16. . Family/friend interactions Spoke to patient's daughter, Jackie, via telephone early this morning. Later met with patient's (Catrachito) and son ( See Ross) to discuss patient's complex medical history/current hospitalization, review recent diagnostic results and clarify medical treatment goals. . (Veroinka Allen) Advance Directives Living Will: Never completed Health Care Surrogate: Never completed Durable Power of Baker Apprentice: Never completed (Veronika Allen) Advance Directive Specifics Significant change in goals: Patient's verbalizes understanding that he is critically ill, and he does not believe she will survive this hospitalization stating "I don't want to lose her, but I think she's had enough." He is considering transitioning to comfort focus goals, possible hospice consult tomorrow 03/13/16. . (Veronika Allen) Objective Vital Signs Date Time Temp Pulse Resp B/P Pulse Ox O2 Delivery O2 Flow Rate FiO2 03/12/16 11:18 98 45 03/12/16 08:00 Bi-Pap 5.00 45 03/12/16 08:00 98.1 96 22 106/ 96 03/12/16 08:00 96 03/12/16 07:21 98 45 03/12/16 06:00 100 03/12/16 04:01 95 45 03/12/16 04:00 98.8 98 26 132/59 95 03/12/16 04:00 98 03/12/16 02:00 96 03/12/16 01:13 96 45 03/12/16 00:00 96 Bi-Pap 45 03/12/16 00:00 90 03/12/16 00:00 98.3 90 22 128/60 96 03/11/16 22:11 95 45 03/11/16 22:00 93 03/11/16 20:30 89 Bi-Pap 45 03/11/16 20:25 98 45 03/11/16 20:00 98.2 105 27 143/63 91 03/11/16 20:00 105 03/11/16 18:01 101 03/11/16 16:51 98 35 03/11/16 16:25 98.4 99 28 132/60 96 03/11/16 16:22 101 Intake & Output 03/12/16 03/12/16 07:00 19:00 Intake Total 2176 ml Output Total 1360.0 ml Balance 816.0 ml Intake IV Total 304 ml Tube Feeding 1312 ml Other 560 ml Output Urine Total 1000 ml Stool Total 360 ml Tube Feeding Residual Discard 0 ml . Physical Exam CONSTITUTIONAL/GENERAL: This is an adequately nourished, chronically ill elderly female patient patient on BiPAP. TUBES/LINES/DRAINS: PIV x 2, G-tube, rectal tube, Syed SKIN: . Ecchymoses on upper extremities and chest.Skin temperature appropriate. Not diaphoretic. HEAD: Atraumatic. Normocephalic. EYES: Eyes closed, BiPAP mask in place. ENT: Nose without bleeding or purulent drainage. NECK: Trachea midline. CARDIOVASCULAR: Regular rate and rhythm without murmurs, gallops, or rubs. No JVD. Peripheral pulses symmetric. RESPIRATORY/CHEST: On BiPAP. Coarse air exchange. No accessory muscle use. GASTROINTESTINAL: Abdomen soft, non-tender, nondistended. No guarding. Bowel sounds present. G-tube in place, no redness or drainage. GENITOURINARY: Without palpable bladder distension. Syed catheter in place. MUSCULOSKELETAL: Extremities without clubbing or cyanosis. No obvious deformities. LYMPHATICS: No palpable cervical or supraclavicular adenopathy. NEUROLOGICAL: Lethargic, Patient remains encephalopathic. Arouses to verbal stimuli but does not follow commands on exam. Soft restraints in place. PSYCHIATRIC: No obvious anxiety/depression. . (Veronika Allen) Diagnostic Tests Laboratory Laboratory Tests Test 03/10/16 03/11/16 03/11/16 03/11/16 03:30 03:16 05:14 11:24 White Blood Count 6.5 TH/MM3 7.3 TH/MM3 (4.0-11.0) (4.0-11.0) Red Blood Count 2.80 MIL/MM3 3.46 MIL/MM3 (4.00-5.30) (4.00-5.30) Hemoglobin 7.9 GM/DL 9.7 GM/DL (11.6-15.3) (11.6-15.3) Hematocrit 24.8 % 31.7 % (35.0-46.0) (35.0-46.0) Mean Corpuscular Volume 88.5 FL 91.6 FL (80.0-100.0) (80.0-100.0) Mean Corpuscular Hemoglobin 28.1 PG 28.0 PG (27.0-34.0) (27.0-34.0) Mean Corpuscular Hemoglobin 31.7 % 30.5 % Concent (32.0-36.0) (32.0-36.0) Red Cell Distribution Width 16.9 % 17.9 % (11.6-17.2) (11.6-17.2) Platelet Count 62 TH/MM3 79 TH/MM3 (150-450) (150-450) Mean Platelet Volume 10.3 FL 10.9 FL (7.0-11.0) (7.0-11.0) Neutrophils (%) (Auto) 81.2 % 84.9 % (16.0-70.0) (16.0-70.0) Lymphocytes (%) (Auto) 9.7 % 7.4 % (9.0-44.0) (9.0-44.0) Monocytes (%) (Auto) 8.0 % (0.0-8.0) 6.8 % (0.0-8.0) Eosinophils (%) (Auto) 0.7 % (0.0-4.0) 0.6 % (0.0-4.0) Basophils (%) (Auto) 0.4 % (0.0-2.0) 0.3 % (0.0-2.0) Neutrophils # (Auto) 5.3 TH/MM3 6.2 TH/MM3 (1.8-7.7) (1.8-7.7) Lymphocytes # (Auto) 0.6 TH/MM3 0.5 TH/MM3 (1.0-4.8) (1.0-4.8) Monocytes # (Auto) 0.5 TH/MM3 0.5 TH/MM3 (0-0.9) (0-0.9) Eosinophils # (Auto) 0.0 TH/MM3 0.0 TH/MM3 (0-0.4) (0-0.4) Basophils # (Auto) 0.0 TH/MM3 0.0 TH/MM3 (0-0.2) (0-0.2) CBC Comment AUTO DIFF AUTO DIFF Differential Comment AUTO DIFF AUTO DIFF CONFIRMED CONFIRMED Platelet Estimate LOW (NORMAL) LOW (NORMAL) Platelet Morphology Comment NORMAL NORMAL (NORMAL) (NORMAL) Sodium Level 149 MEQ/L 146 MEQ/L (136-145) (136-145) Potassium Level 3.2 MEQ/L 4.5 MEQ/L (3.5-5.1) (3.5-5.1) Chloride Level 102 MEQ/L 107 MEQ/L (98-107) (98-107) Carbon Dioxide Level 36.0 MEQ/L 28.9 MEQ/L (21.0-32.0) (21.0-32.0) Anion Gap 11 MEQ/L (5-15) 10 MEQ/L (5-15) Blood Urea Nitrogen 66 MG/DL (7-18) 63 MG/DL (7-18) Creatinine 1.50 MG/DL 1.42 MG/DL (0.50-1.00) (0.50-1.00) Estimat Glomerular Filtration 35 ML/MIN (>89) 37 ML/MIN (>89) Rate Random Glucose 204 MG/DL 214 MG/DL (74-106) (74-106) Calcium Level 7.8 MG/DL 8.3 MG/DL (8.5-10.1) (8.5-10.1) Phosphorus Level 2.4 MG/DL 2.5 MG/DL (2.5-4.9) (2.5-4.9) Magnesium Level 1.6 MG/DL 1.4 MG/DL (1.5-2.5) (1.5-2.5) Sirolimus Level 4.0 ng/mL (()) Total Bilirubin 0.4 MG/DL (0.2-1.0) Direct Bilirubin 0.1 MG/DL (0.0-0.2) Indirect Bilirubin 0.3 MG/DL (0.0-0.8) Aspartate Amino Transf 27 U/L (15-37) (AST/SGOT) Alanine Aminotransferase 13 U/L (10-53) (ALT/SGPT) Alkaline Phosphatase 139 U/L (45-117) Total Protein 6.2 GM/DL (6.4-8.2) Albumin 2.2 GM/DL (3.4-5.0) Blood Gas Puncture Site RT RADIAL Blood Gas Patient Temperature 98.6 Blood Gas HCO3 35 mmol/L (22-26) Blood Gas Base Excess 10.2 mmol/L (-2-2) Blood Gas Oxygen Saturation 91 % (90-100) Arterial Blood pH 7.46 (7.380-7.420) Arterial Blood Partial 49 mmHg (38-42) Pressure CO2 Arterial Blood Partial 70 mmHg Pressure O2 (61-120) Arterial Blood Oxygen Content 10.5 Vol % (12.0-20.0) Arterial Blood 2.0 % (0-4) Carboxyhemoglobin Arterial Blood Methemoglobin 1.2 % (0-2) Blood Gas Hemoglobin 8.1 G/DL (12.0-16.0) Oxygen Delivery Device BIPAP 12IPAP/5EPAP Blood Gas Inspired Oxygen 40 % Test 03/12/16 03:08 White Blood Count 7.8 TH/MM3 (4.0-11.0) Red Blood Count 2.99 MIL/MM3 (4.00-5.30) Hemoglobin 8.4 GM/DL (11.6-15.3) Hematocrit 27.3 % (35.0-46.0) Mean Corpuscular Volume 91.5 FL (80.0-100.0) Mean Corpuscular Hemoglobin 28.0 PG (27.0-34.0) Mean Corpuscular Hemoglobin 30.7 % Concent (32.0-36.0) Red Cell Distribution Width 18.1 % (11.6-17.2) Platelet Count 94 TH/MM3 (150-450) Mean Platelet Volume 10.8 FL (7.0-11.0) Neutrophils (%) (Auto) 79.7 % (16.0-70.0) Lymphocytes (%) (Auto) 9.4 % (9.0-44.0) Monocytes (%) (Auto) 9.0 % (0.0-8.0) Eosinophils (%) (Auto) 1.0 % (0.0-4.0) Basophils (%) (Auto) 0.9 % (0.0-2.0) Neutrophils # (Auto) 6.2 TH/MM3 (1.8-7.7) Lymphocytes # (Auto) 0.7 TH/MM3 (1.0-4.8) Monocytes # (Auto) 0.7 TH/MM3 (0-0.9) Eosinophils # (Auto) 0.1 TH/MM3 (0-0.4) Basophils # (Auto) 0.1 TH/MM3 (0-0.2) CBC Comment AUTO DIFF Differential Total Cells 100 Counted Neutrophils % (Manual) 79 % (16-70) Band Neutrophils % 7 % (0-6) Lymphocytes % 9 % (9-44) Monocytes % 5 % (0-8) Neutrophils # (Manual) 6.7 TH/MM3 (1.8-7.7) Differential Comment FINAL DIFF MANUAL Platelet Estimate NORMAL (NORMAL) Platelet Morphology Comment ENLARGED (NORMAL) Sodium Level 148 MEQ/L (136-145) Potassium Level 4.3 MEQ/L (3.5-5.1) Chloride Level 105 MEQ/L (98-107) Carbon Dioxide Level 33.8 MEQ/L (21.0-32.0) Anion Gap 9 MEQ/L (5-15) Blood Urea Nitrogen 70 MG/DL (7-18) Creatinine 1.52 MG/DL (0.50-1.00) Estimat Glomerular Filtration 34 ML/MIN (>89) Rate Random Glucose 155 MG/DL (74-106) Calcium Level 8.4 MG/DL (8.5-10.1) Phosphorus Level 1.6 MG/DL (2.5-4.9) Magnesium Level 2.0 MG/DL (1.5-2.5) . (Veronika Allen) Result Diagram: 03/12/16 0308 03/12/16 0308 Imaging Last 72 hours Impressions Chest X-Ray 03/10/16 0000 Signed Impressions: Service Date/Time: Thursday, March 10, 2016 07:59 - CONCLUSION: Improved aeration on the right with complete opacification on the left. Sergio Renteria MD . Procedures 02/28/16: Intubation 02/28/16: Left IJ central line placed 02/28/16: Right radial arterial line placed 02/28/16: Diagnostic/therapeutic fiberoptic bronchoscopy 03/03/16: Extubation 03/04/16: Intubation 03/06/16: Extubation . (Veronika Allen) Assessment and Plan Disease Oriented Problem List: (1) Chronic hypoxemic respiratory failure (2) Atrial fibrillation (3) Anemia (4) Dysphagia (5) Hypothyroidism (6) Chronic renal failure (7) Hypertension (8) Status epilepticus (9) Non-small cell lung cancer (10) Chronic systolic heart failure (11) Chronic kidney disease, stage IV (severe) (12) Impaired mobility and activities of daily living (13) Obesity (BMI 30.0-34.9) (14) Pressure ulcer, stage 1 (15) Recurrent left pleural effusion (16) Acute on chronic respiratory failure with hypoxia and hypercapnia (17) Acute kidney failure (18) Pneumonia (19) Sepsis (20) Heart failure Symptom Scale: (1) Dyspnea 0-10 Scale: Unable to quantify Comment: On BiPAP with full face mask. Coarse air exchange, right greater than left. Follow up chest x-ray on 03/11/16 showing improved aeration on the right with complete opacification on the left. Bronchial washings, right lower lobe, growing yeast. . (2) Pain 0-10 Scale: Unable to quantify Comment: Probable cause of pain include BiPAP mask, syed catheter, rectal tube, intravenous lines, immobility, pulmonary infection, neuropathy, skin breakdown etc. Patient currently on gabapentin 100 mg by mouth/G-tube every 8 hours. PRN acetaminophen is also available. On exam, patient showing no signs of nonverbal pain such as grimacing, moaning or furrowed brow. Palliative care will continue to montitor and make recommendations as indicated. . (3) Anxiety 0-10 Scale: Unable to quantify Pertinent Non-Medical Issues Psychosocial: The patient is from [place], [place]. She has one sister. Debbie met her when he was stating her friend, she was only 16 years old. She her (Catrachito) in 1967 after he returned from the [place]. Debbie worked in a [employer] and a [employer] that [employer]. They moved to [place] in 1990. Together Debbie and Catrachito have 2 children. Their daughter , Jackie, lives near [place]. There is son, See, lives locally in [place]. Have been for approximately 49 years. Spiritual: Hinduism heena. Legal: Per [place] statutes, in absence of written advanced directives healthcare proxy decision making will fall to the patient's . Ethical issues impacting care: No known ethical issues impacting care at this time. . Important Contacts Ash Alejo (Bob), spouse: [phone] Ash Alejo Jr (Rob)., son: [phone] Jackie, daughter: [phone] . Prognosis Patient is a 70 year old female with an extensive medical history that includes a kidney transplant in 2006 (on Sirolimus) and non-small cell lung cancer status post left lobectomy with chemotherapy/radiation. 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 She was transferred to a rehabilitation facility upon discharge and was subsequently transferred to several facilities, discharged home on 02/15/16. Patient is now admitted with ammonia and severe sepsis. Patient is immunocompromised related to her anti-rejection medication and generalized debilitation. Prognosis is poor. . Code Status: No Code Plan * NO CODE * Decision making: Per [place] statutes, in the absence of written advanced directives, healthcare proxy decision making will fall to the patient's Ash Alejo. * Goals: Patient's verbalizes understanding that he is critically ill, and he does not believe she will survive this hospitalization stating "I don't want to lose her, but I think she's had enough." He is considering transitioning to comfort focus goals, possible hospice consult tomorrow 03/13/16. * Spoke to patient's daughter, Jackie, via telephone early this morning. Later met with patient's (Catrachito) and son ( See Ross) to discuss patient's complex medical history/current hospitalization, review recent diagnostic results and clarify medical treatment goals. * Discussed with Dr. Rodriguez and nurse Melisa. * Symptom managementdyspnea: On BiPAP with full face mask. Coarse air exchange , right greater than left. Follow up chest x-ray on 03/11/16 showing improved aeration on the right with complete opacification on the left. Bronchial washings, right lower lobe, growing yeast. * Symptom managementpain: Probable cause of pain include BiPAP mask, syed catheter, rectal tube, intravenous lines, immobility, pulmonary infection, neuropathy, skin breakdown etc. Patient currently on gabapentin 100 mg by mouth /G-tube every 8 hours. PRN acetaminophen is also available. On exam, patient showing no signs of nonverbal pain such as grimacing, moaning or furrowed brow. Palliative care will continue to montitor and make recommendations as indicated. * 03/11/16: Spoke with patient's , Ash Alejo, to introduce the role of the Palliative Care team. We discussed the patient's past medical history and current clinical condition. Patient's states he and his have talked about this and he wants her to be a DNR, she's been through enough. The process of cardiology pulmonary resuscitation (including compressions, medications, cardioversion and intubation/mechanical ventilation) was discussed with Mr. Alejo at length. Mr. Alejo again states his does not "want all that" and request that the patient's code status be changed to NO CODE- DNR/DNI. * Palliative care will continue to follow this patient throughout her hospitalization to establish trust, assist with symptom management and clarification of medical treatment goals. . (Veronika Allen) Attestation To help prompt me to consider important information that might be impacting today's encounter and assessment, information from prior notes written by myself or my colleagues may have been "brought forward" into today's note. My signature on this note, however, is an attestation that I personally performed the exam, history, and/or decision-making noted today, and, unless otherwise indicated, the interactions with patient, family, and staff as well as the review of records all occurred today. I also attest that the listed assessment and stated plan reflect my best clinical judgment today based on the combination of historical information, prior notes, and today's exam/ interactions. When time spent is documented, it refers only to time spent today by the signer, or if indicated, combined time spent today by collaborating physician/nurse practitioner. . (Veronika Allen) Collaborating MD Comments Chart reviewed. Case discussed with palliative care MECHANICAL DESIGN DRAFTER. Above ANGIE note reviewed and I concur. . (Kyaw Samuels MD) Veronika Allen Mar 12, 2016 16:13 Kyaw Samuels MD Apr 26, 2016 14:06
--- NOTE | 2016-03-12 18:19 | HHI.NPPN ---
Subjective Renal Failure: Acute History of Present Illness 70-year-old female with a history of renal transplant presenting with respiratory distress with clinical evidence of pneumonia and acute renal failure. Interval History Patient awake but not responding to questions. Review of Systems General General Remarks Not obtainable. Objective Data Data 03/11/16 03/12/16 19:00 07:00 Intake Total 1160 ml 2176 ml Output Total 850 ml 1360.0 ml Balance 310 ml 816.0 ml Intake IV Total 385 ml 304 ml Tube Feeding 275 ml 1312 ml Other 500 ml 560 ml Output Urine Total 450 ml 1000 ml Stool Total 400 ml 360 ml Tube Feeding Residual Discard 0 ml Vital Signs Date Time Temp Pulse Resp B/P Pulse Ox O2 Delivery O2 Flow Rate FiO2 03/12/16 15:33 92 Venturi Mask 50 03/12/16 11:18 98 45 03/12/16 08:00 Bi-Pap 5.00 45 03/12/16 08:00 98.1 96 22 106/ 96 03/12/16 08:00 96 03/12/16 07:21 98 45 03/12/16 06:00 100 03/12/16 04:01 95 45 03/12/16 04:00 98.8 98 26 132/59 95 03/12/16 04:00 98 03/12/16 02:00 96 03/12/16 01:13 96 45 03/12/16 00:00 96 Bi-Pap 45 03/12/16 00:00 90 03/12/16 00:00 98.3 90 22 128/60 96 03/11/16 22:11 95 45 03/11/16 22:00 93 03/11/16 20:30 89 Bi-Pap 45 03/11/16 20:25 98 45 03/11/16 20:00 98.2 105 27 143/63 91 03/11/16 20:00 105 -: 03/12/16 0308 03/12/16 0308 Physical Exam General Appearance: No Acute Distress Eyes Eye Exam: Pupils Equal, Pupils Reactive Pulmonary Resp Exam: Rhonchi, Diminished Breath Sounds (left hemithorax.) Cardiology CV Exam: Regular, Normal Sinus Rhythm, Good Perfusion Gastrointestinal/Abdomen GI Exam: Bowel Sounds Present Musculoskeletal MS Exam: Joints Intact, Good Strength Integumentary Skin Exam: Clear, Warm, Dry, Intact Extremeties Extremities Exam: No Edema Neurologic Neuro Exam: Obtunded Assessment/Plan Assessment Summary: Transplant Kidney Status Problem List: (1) Renal transplant, status post Plan: The patient's renal function did improve however her overall condition appears to be deteriorating and the patient does have severe chronic debilitation and multiple comorbidities. Is point in time hospice would be an appropriate consideration and will likely be instituted tomorrow. If the patient does go to hospice will sign off. Thanks. (2) Acute kidney failure Plan: Patient creatinine level has now fallen below 2.0 and getting further improvement in renal function. Her creatinine was around 1.2 in October of this year, suggesting reasonably well preserved GFR after transplant in 2006. ANNABELLA likely due to ATN. . (3) Pneumonia Plan: Mgmt as per ID. Chest x-ray today shows complete opacification of the right hemithorax (4) Sepsis Plan: with septic shock--improving (5) Heart failure Plan: EF of 35 % previously. Rin Juarez MD Mar 12, 2016 18:18
--- NOTE | 2016-03-12 18:36 | HHI.PR ---
Subjective Remarks 70 YOWF with COPD,Renal transplant,ca lung, s/p resection with RF Extubated Tired has Techycardia PO Bumex On VM Lethargic made her DNR Family considering Hospice Objective Vital Signs Vital Signs Date Time Temp Pulse Resp B/P Pulse Ox O2 Delivery O2 Flow Rate FiO2 03/12/16 15:33 92 Venturi Mask 50 03/12/16 11:18 98 45 03/12/16 08:00 Bi-Pap 5.00 45 03/12/16 08:00 98.1 96 22 106/ 96 03/12/16 08:00 96 03/12/16 07:21 98 45 03/12/16 06:00 100 03/12/16 04:01 95 45 03/12/16 04:00 98.8 98 26 132/59 95 03/12/16 04:00 98 03/12/16 02:00 96 03/12/16 01:13 96 45 03/12/16 00:00 96 Bi-Pap 45 03/12/16 00:00 90 03/12/16 00:00 98.3 90 22 128/60 96 03/11/16 22:11 95 45 03/11/16 22:00 93 03/11/16 20:30 89 Bi-Pap 45 03/11/16 20:25 98 45 03/11/16 20:00 98.2 105 27 143/63 91 03/11/16 20:00 105 I/O 03/11/16 03/11/16 03/11/16 03/12/16 03/12/16 03/12/16 07:00 15:00 23:00 07:00 15:00 23:00 Intake Total 911 ml 350 ml 1816 ml 1170 ml Output Total 522 ml 850 ml 410 ml 950 ml Balance 389 ml -500 ml 1406 ml 220 ml Intake IV Total 66 ml 185 ml 430 ml 74 ml Tube Feeding 315 ml 165 ml 856 ml 566 ml Other 530 ml 530 ml 530 ml Output Urine Total 222 ml 450 ml 350 ml 650 ml Stool Total 300 ml 400 ml 60 ml 300 ml Tube Feeding Residual Discard 0 ml 0 ml 0 ml Result Diagram: 03/12/16 0308 03/12/16 0308 Objective Remarks GENERALMBMN female, SOB: SKIN: Warm and dry. HEAD: Normocephalic. EYES: No scleral icterus. No injection or drainage. NECK: Supple, trachea midline. No JVD or lymphadenopathy. CARDIOVASCULAR: Regular rate and rhythm without murmurs, gallops, or rubs. RESPIRATORY: Breath sounds equal bilaterally. No accessory muscle use. Bilat coarse crackles. GASTROINTESTINAL: Abdomen soft, non-tender, nondistended. MUSCULOSKELETAL: No cyanosis, ++ edema. BACK: Nontender without obvious deformity. No CVA tenderness. A/P Assessment and Plan VDRF, extubated 03/06 Pneumonia Sepsis sund renal transplant Ca lung, s/p resection PLAN: On Bumex PO Cont Monitor BS Abx Zithro, Zyvox and Cefepime and Voriconazole per ID Supplement 02 to keep sat >90% Supplement 02 with NC BIPAP Code status DNR Hospice consulted. Alverto Armas MD Mar 12, 2016 18:36
[2016-03-12] MEDS: PRAVASTATIN SOD 40 MG TAB PO SCH (20:45)
[2016-03-12] MEDS: CEFEPIME INJ 2,000 MG in SODIUM CHLORIDE 0.9% INJ 100 ML IV SCH (20:45)
[2016-03-13] VITALS (20 sets, daily range): BP systolic 106–128; BP diastolic 51–60; PULSE 83–96; RESP 18–24; TEMP 97.7–98.7; O2SAT 94–100
[2016-03-13] MEDS: INSULIN ASPART SUPPLEMENTAL SCALE SQ SCH ×5 (00:17→21:08)
[2016-03-13] MEDS: GABAPENTIN 100 MG CAP PO SCH ×3 (03:37→21:09)
[2016-03-13] MEDS: VANCOMYCIN 500 MG VIAL (FOR ORAL USE ONLY) PO SCH ×4 (03:37→21:09)
[2016-03-13 04:03] LABS: AUTOMATED NEUTROPHIL # 7.1 TH/MM3 (1.8-7.7); BASOPHIL # 0.1 TH/MM3 (0-0.2); EOSINOPHIL # 0.1 TH/MM3 (0-0.4); EOSINOPHIL % 0.7 % (0.0-4.0); HEMATOCRIT 25.4 % (35.0-46.0); LYMPH % 7.5 % (9.0-44.0); LYMPHOCYTE # 0.6 TH/MM3 (1.0-4.8); MEAN CELL VOLUME 89.5 FL (80.0-100.0); MEAN CORPUSCULAR HGB CONC 31.3 % (32.0-36.0); MONO % 6.6 % (0.0-8.0); NEUT % 84.2 % (16.0-70.0); PLATELET COUNT 98 TH/MM3 (150-450); RED BLOOD COUNT 2.84 MIL/MM3 (4.00-5.30); RED CELL DISTRIBUTION WIDTH 18.2 % (11.6-17.2); WHITE BLOOD COUNT 8.4 TH/MM3 (4.0-11.0)
[2016-03-13 04:21] LABS: HEMO FLAGS AUTO DIFF
[2016-03-13 04:25] LABS: BICARBONATE 35.1 MEQ/L (21.0-32.0); POTASSIUM 4.7 MEQ/L (3.5-5.1)
[2016-03-13] MEDS: SIROLIMUS 1 MG/ML NG SCH (06:00)
[2016-03-13] MEDS: FREE WATER G-TUBE SCH ×4 (06:00→17:18)
[2016-03-13] MEDS: LEVOTHYROXINE SODIUM 112 MCG TAB PO SCH (06:09)
[2016-03-13 07:30] LABS: PLATELET MORPHOLOGY ENLARGED (NORMAL); SCAN/DIFF AUTO DIFF CONFIRMED
[2016-03-13] MEDS: METOPROLOL TARTRATE 25 MG TAB PO SCH ×2 (08:50→21:09)
[2016-03-13] MEDS: BUMETANIDE 1 MG TAB G-TUBE SCH (08:50)
[2016-03-13] MEDS: predniSONE 5 MG TAB PO SCH (08:50)
[2016-03-13] MEDS: VORICONAZOLE 200 MG TAB PO SCH ×2 (08:50→21:09)
[2016-03-13] MEDS: AZITHROMYCIN 250 MG TAB PO SCH (08:50)
[2016-03-13] MEDS: NYSTATIN 100,000 U/GM PWD 15 GM BTL TOP SCH ×2 (08:51→21:09)
[2016-03-13] MEDS: SODIUM CHLORIDE 0.9% FLUSH 5 ML FLUSH IV FLUSH SCH ×2 (08:51→21:09)
--- NOTE | 2016-03-13 10:42 | HHI.FPPN ---
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 REVIEWED CONSULTANTS NOTES Objective Vitals Vital Signs Date Time Temp Pulse Resp B/P Pulse Ox O2 Delivery O2 Flow Rate FiO2 03/13/16 10:13 98 Venturi Mask 6.00 50 03/13/16 10:02 88 03/13/16 08:00 98.0 87 24 109/58 100 03/13/16 08:00 84 03/13/16 07:00 99 Bi-Pap 45 03/13/16 06:00 87 03/13/16 04:05 98 45 03/13/16 04:00 97.7 89 23 128/59 100 03/13/16 04:00 89 03/13/16 02:00 85 03/13/16 01:24 98 45 03/13/16 00:00 97.9 87 18 106/51 99 03/13/16 00:00 87 03/12/16 23:00 98 Bi-Pap 45 03/12/16 22:25 96 45 03/12/16 22:00 96 45 03/12/16 22:00 81 03/12/16 20:00 98.3 96 21 119/56 97 03/12/16 20:00 96 03/12/16 19:26 96 Venturi Mask 6.00 50 03/12/16 19:00 97 Venturi Mask 40 03/12/16 16:00 98.2 95 22 130/60 96 03/12/16 15:33 92 Venturi Mask 50 03/12/16 15:00 Bi-Pap 5.00 45 03/12/16 12:00 98.0 90 20 108/52 96 03/12/16 11:18 98 45 I/O 03/12/16 03/12/16 03/12/16 03/13/16 03/13/16 03/13/16 07:00 15:00 23:00 07:00 15:00 23:00 Intake Total 1170 ml 845 ml 563 ml 602 ml Output Total 950 ml 750 ml 700 ml 350 ml 0 ml Balance 220 ml 95 ml -137 ml 252 ml 0 ml Intake IV Total 74 ml 120 ml 141 ml 74 ml Tube Feeding 566 ml 485 ml 172 ml 278 ml Other 530 ml 240 ml 250 ml 250 ml Output Urine Total 650 ml 550 ml 300 ml 250 ml Stool Total 300 ml 200 ml 400 ml 100 ml Tube Feeding Residual Discard 0 ml 0 ml Result Diagram: 03/13/16 0306 03/13/16 0306 Objective Remarks GENERAL: on NRB; chronically ill appearing SKIN: Warm and dry. HEAD: Atraumatic. Normocephalic. EYES: Pupils equal and round. No scleral icterus. No injection or drainage. ENT: No nasal bleeding or discharge. Mucous membranes pink and moist. NECK: Trachea midline. No JVD. CARDIOVASCULAR: Regular rate and rhythm. RESPIRATORY: No accessory muscle use. Slight Bilateral ronchi, good air movement. Breath sounds equal bilaterally. GASTROINTESTINAL: Abdomen soft, non-tender, nondistended. Hepatic and splenic margins not palpable. MUSCULOSKELETAL: Extremities without clubbing, cyanosis, or edema. No obvious deformities. NEUROLOGICAL: Awake and alert. No obvious cranial nerve deficits. Motor grossly within normal limits. 03/13 all extr's PSYCHIATRIC: Appropriate mood and affect; Medications and IVs Current Medications Medications (Trade) Dose Ordered Sig/Reymundo Route Start Time Stop Time Status Last Admin (Tylenol) 650 mg Q4H PRN PO 02/28/16 11:30 03/06/16 17:24 (Zofran Inj) 4 mg Q6H PRN IVP 02/28/16 11:30 (Dulcolax Supp) 10 mg DAILY PRN NM 02/28/16 11:30 (Milk Of Magnesia Liq) 30 ml Q12H PRN PO 02/28/16 11:30 (Senokot) 17.2 mg Q12H PRN PO 02/28/16 11:30 (Heparin Inj) 5,000 units Q12H SQ 02/28/16 12:00 Hold 03/05/16 22:52 (Narcan Inj) 0.4 mg UNSCH PRN IV 02/28/16 11:30 (Protonix Inj) 40 mg Q24H IV PUSH 02/28/16 13:00 03/12/16 12:57 Miscellaneous Information 1 Q361D XX 02/28/16 12:00 (NS Flush) 2 ml UNSCH PRN IV FLUSH 02/28/16 16:15 03/01/16 08:00 (NS Flush) 2 ml BID IV FLUSH 02/28/16 21:00 03/13/16 08:51 (D50w (Vial) Inj) 25 ml UNSCH PRN IV PUSH 02/28/16 18:30 (Glucagon Inj) 1 mg UNSCH PRN OTHER 02/28/16 18:30 (Neurontin) 100 mg Q8H PO 02/28/16 20:00 03/13/16 03:37 (Mycostatin Powder) 1 applic BID TOP 02/28/16 21:00 03/13/16 08:51 (Pravachol) 40 mg HS PO 02/28/16 21:00 03/12/16 20:45 Miscellaneous Information Patient in critical care unit? Ass... Q361D XX 02/28/16 19:30 (Brethine Inj) 1 mg UNSCH PRN SQ 02/29/16 13:00 (Synthroid) 224 mcg DAILY@0600 PO 03/01/16 06:00 03/13/16 06:09 (NovoLOG SUPPLEMENTAL SCALE) 1 Q4H SQ 03/01/16 16:00 03/13/16 03:37 (Vfend) 200 mg Q12HR PO 03/05/16 09:00 03/13/16 08:50 Vancomycin HCl 500 mg 500 mg Q6H PO 03/04/16 15:00 03/13/16 08:51 (Maxipime Inj/NS Inj) 100 ml @ 200 mls/hr Q24H IV 03/04/16 20:00 03/12/16 20:45 (Apresoline Inj) 10 mg Q6H PRN IV PUSH 03/06/16 07:30 (Deltasone) 5 mg DAILY PO 03/07/16 09:00 03/13/16 08:50 (Zithromax) 500 mg DAILY PO 03/07/16 10:15 03/13/16 08:50 (Lopressor) 12.5 mg Q12HR PO 03/08/16 09:00 03/13/16 08:50 (Pill Splitter) 1 ea UNSCH PRN OTHER 03/08/16 08:00 (Rapamune Liq) 1 mg DAILY@06 NG 03/10/16 06:00 03/13/16 06:00 Water 250 ml 250 ml Q6HR G-TUBE 03/10/16 12:00 03/13/16 06:00 Potassium Chloride 100 ml @ 50 mls/hr Q2H PRN IV 03/10/16 07:45 03/10/16 10:08 (KCl 20 Meq Premix Inj) 100 ml @ 50 mls/hr Q2H PRN IV 03/10/16 07:45 Potassium Chloride 40 meq 40 meq UNSCH PRN PO/TUBE 03/10/16 07:45 Potassium Chloride 100 ml @ 25 mls/hr UNSCH PRN IV 03/10/16 07:45 Potassium Chloride 100 ml @ 50 mls/hr Q2H PRN IV 03/10/16 07:45 (Magnesium Sulfate Inj/NS Inj) 100 ml @ 50 mls/hr UNSCH PRN IV 03/10/16 07:45 Magnesium Oxide 800 mg 800 mg UNSCH PRN PO 03/10/16 07:45 (Magnesium Sulfate Inj/NS Inj) 100 ml @ 50 mls/hr UNSCH PRN IV 03/10/16 07:45 Potassium Phosphate 2000 mg 2,000 mg Q4H PRN PO 03/10/16 07:45 (Sodium Phosphate Inj/NS 250 ml Inj) 250 ml @ 42 mls/hr UNSCH PRN IV 03/10/16 07:45 (KCl 40 Meq/30 ml Liq) 40 meq UNSCH PRN PO/TUBE 03/10/16 07:45 Potassium Phosphate 2000 mg 2,000 mg UNSCH PRN PO/TUBE 03/10/16 07:45 (Potassium Phosphate Inj/NS 250 ml Inj) 260 ml @ 42 mls/hr UNSCH PRN IV 03/10/16 07:45 (Bumetanide) 0.5 mg DAILY G-TUBE 03/11/16 09:00 03/13/16 08:50 Date of Insertion: Feb 28, 2016 Date of Insertion: Feb 28, 2016 Line: Central Venous Catheter Side: Left Location: Internal, Jugular (vasoactive medications, CVP monitoring) A/P Assessment and Plan SEPTIC SHOCK, RESOLVED, OFF PRESSORS RESPIRATORY FAILURE, S/P BRONCH FEB 27, EXTUBATED MAR 03, REINTUBATED MAR 04, EXTUBATED MAR 06, HCAP, FUNGAL PNA LUNG CA COPD C DIF SCHF AC ON CRF RENAL TRANSPLANT, RENAL US NORMAL. AF THROMBOCYTOPENIA HYPOTHYROID PLAN: ON NRB 02, OFF BIPAP FOR NOW IV ABX IVF GTF'S PGT BUMEX, OFF DRIP STEROID PGT BLOOD CULTURES DUONEBS HEPARIN 5000 BID FOR PROPHYLAXIS ON HOLD DUE TO THROMBOCYTOPENIA. IV PROTONIX CCM CONSULT, NOTES REVIEWED NEPHRO CONSULT, NOTES REVIEWED PULMONARY CONSULT, NOTES REVIEWED. PALLIATIVE CONSULT, FAMILY MENTIONING HOSPICE PT OT ST ICU CARE FOLLOWUP LABS MEDS ABOVE. Herbert Kaba MD Mar 13, 2016 10:42
--- NOTE | 2016-03-13 11:12 | HHI.CCPN ---
Subjective Remarks/Hospital Course 70-year-old female with history of lung cancer status post left lobectomy, and kidney transplant 2006 presented to the ED with worsening pulmonary symptoms. Her medical history is significant for DM, HTN. She presented to the ED today because worsening cough, shortness of breath, dyspnea on exertion, and fevers. The patient is dependent on home O2 at 4 L nasal cannula, and scheduled DuoNeb treatment. The patient was hospitalized for several months 11/2015-12/22 . During this hospitalization she reports having a fungal pulmonary infection and a seizure resulting in "coma for a few weeks". She was transferred to a rehabilitation facility [facility] for approximately 2 months ago. The patient was then transferred to [facility] approximately 3 weeks ago at which time she fractured her left ankle, and was transferred to [facility]. She was recently discharged from [facility] on 02/15/2016. The patient states that she began having worsening symptoms over the last 3-4 days, that resembled her fungal pneumonia. Critical care medicine was consulted for management. 02/28 Upon arrival to ICU last evening, bronchoscopy was performed, and specimens were sent for culture. The patient was maintained on IV fluids 100 cc an hour, and discontinued at 2 AM secondary to oliguria. CVP ranged 14 throughout the night, with original BNP 1035. Postintubation the patient remains GCS 11 T, following commands. The patient continues to be oliguric with hourly urinary output 7-10 cc an hour. 03/01 On levophed 8mcg/min. UOP around 10 mL/hr. Received Bumex 2 mg IV and UOP still ~20 Ml/hr last hour. CVP 18-20. In Afib rate controlled. Awakens on CPAP 5/5. 03/02 UOP 1068 overnight on bumex drip. Creatinine up to 3.28. Placing on CPAP 5 /5. Afebrile. Levophed weaned to 2 mcg/min with MAP 77. CVP 24 Subjective: 03/03 Creatinine up to 3.32. Nonoliguric with Bumex drip. CVP down to 14. Tolerating CPAP. Off levophed. 03/04 Patient was on BIPAP 10/5 with 60% FIO2 overnight. Patient looked lethargic and started desating she was subsequently intubated and placed on mechanical ventilation. On Bumex drip 2mg/hr. Positive C-diff this morning. 03/05 Patient is sedated with Diprivan and intubated. Afebrile. Remains on Bumex drip 2mg/hr. 03/06 No acute events overnight. Tolerated CPAP all day yesterday. On Bumex 2mg /hr. Sedated with Diprivan and intubated. 03/07 Patient s/p extubation yesterday placed on BIPAP overnight 12/11 with 40% FIO2. Afebrile. Off Bumex drip. 03/08 No acute events overnight. On BIPAP 10/5 with 40$ FIO2 overnight. Afebrile. Renal function improving with Cr: 1.97 today from 2.32 03/09 Patient remains on BIPAP 10/5 with 40% FIO2. Afebrile. 03/10 No events overnight. On BIPAP with 40% FIO2, afebrile. Renal function improving with Cr: 1.5 today. 03/11 Patient is off BIPAP given Bumex 1mg x1 at 4: 21 this morning on 5L oxygen. 03/12 on BiPAP currently. Remains encephalopathic. 03/13: Off BiPAP since this morning on facemask liters per minute. Awake and alert. Wanting restraints off. Objective Vital Signs Date Time Temp Pulse Resp B/P Pulse Ox O2 Delivery O2 Flow Rate FiO2 03/13/16 10:13 98 Venturi Mask 6.00 50 03/13/16 10:02 88 03/13/16 08:00 98.0 24 109/58 Intake and Output 03/12/16 03/12/16 03/12/16 07:59 15:59 23:59 Intake Total 1170 ml 845 ml 563 ml Output Total 950 ml 750 ml 700 ml Balance 220 ml 95 ml -137 ml Result Diagram: 03/13/16 0306 03/13/16 0306 Imaging Last Impressions Chest X-Ray 03/10/16 0000 Signed Impressions: Service Date/Time: Thursday, March 10, 2016 07:59 - CONCLUSION: Improved aeration on the right with complete opacification on the left. Sergio Renteria MD Renal Ultrasound 03/01/16 0000 Signed Impressions: Service Date/Time: Tuesday, March 01, 2016 10:45 - CONCLUSION: No evidence of hydronephrosis or focal abnormality. The resistive indices are within normal Sumit Laws MD Abdomen X-Ray 03/01/16 0000 Signed Impressions: Service Date/Time: Tuesday, March 01, 2016 15:32 - CONCLUSION: G-tube inside the stomach. Angelita Birmingham MD Objective Remarks Nepro 40 ml/hr GENERAL: Morbidly obese elderly female on BIPAP overnight, now on facemask. SKIN: Warm and dry. Multiple ecchymotic bruising neck, chest, bilateral extremities upper and lower HEAD: Atraumatic. Normocephalic. EYES: Pupils equal and round. No scleral icterus. No injection or drainage. ENT: No nasal bleeding or discharge. Mucous membranes pink and moist. NECK: Trachea midline. Supple, no JVD, adenopathy CARDIOVASCULAR: Tachycardic, nl S1, S2. RESPIRATORY: On BiPAP with full facemask, Coarse BS on right. GASTROINTESTINAL: Abdomen soft, non-tender, nondistended. Gastric tube no erythema or drainage. MUSCULOSKELETAL: Extremities without clubbing, cyanosis, trace edema NEUROLOGICAL: Awake, alert, following commands. Date of Insertion: Feb 28, 2016 Date of Insertion: Feb 28, 2016 Line: Central Venous Catheter Side: Left Location: Internal, Jugular (vasoactive medications, CVP monitoring) A/P Assessment and Plan Plan by systems: Neurologic: Encephalopathy Seizure disorder Herniated discs Neuropathy - avoid sedatives. -Neurochecks per ICU protocol -Gabapentin 100 q8. Respiratory: Acute hypoxic respiratory failure History of non-small cell lung cancer S/P left lung lobectomy 2013 Home O2 dependency Presumed Hospital-acquired pneumonia (previous HCAP treatment 10/22) Left lung opacity-chronic History of tracheostomy-decannulated 12/22/15 -02/27 Intubated , extubated 03/03 reintubated 03/04, extubated 03/06 -Continue with oxygen keep sat >92%. Check CXR -Bronchodilators. IS, NIPPV PRN for resp distress -Pulmonology Following, Cardiovascular: HTN Atrial fibrillation-rate control Acute on chronic systolic CHF RV overload, pulmonary HTN Hyperlipidemia -Continue Lopressor 12.5mg BID Maintain HR and BP keep MAP>65mmHg -2D ECHO 02/28mildly reduced systolic function with EF 45-50%. Mild RV dilatation. Mild to moderate tricuspid regurg. Pulmonary artery peak systolic pressure 53 mmHg. -Continue pravastatin FEN/Renal: S/P kidney transplant ANNABELLA, ..improving Hypernatremia -Monitor renal function, I/O's, electrolytes replacement per protocol. -On Bumex 0.5mg daily, Free Water 250ml Q6 ,monitor sodium level. 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 Juarez -Sirolimus level: 9 on 03/01. On Sirolimus 2 mg every other day per nephrology. -On prednisone 5mg daily per nephrology, GI: Morbid obesity -TF-Glucerna 1.5 with goal rate 45ml/hr mL/hr via PEG. -Zofran PRN for nausea -Protonix GI prophylaxis ID: Pneumonia-HCAP Positive Cdiff Continue with abx per ID (Cefepime, Zithromax,, PO Vanco, Voriconazole) 02/27 - Influenza screen negative. 02/27 Blood cultures -NGTD 02/27 Bronchial washings- Gram positive cocci, fungal stain negative. 02/28 cryptococcal- serum antigen negative 03/01 urine legionella and pneumococcal antigen negative. Heme: Monitor CBC, Hep PLT ab negative Endocrine: DM Hypothyroidism -Continue medium dose sliding scale q4 hours, -T4 4.7 (norm 4.8), TSH 33.60( elevated) -Continue Synthroid 224 mcg/d MSK: - Specialty bed -Wound care consult, noted admission to ED with sacral decubitus wound Prophylaxis: GI Prophylaxis Protonix IV DVT Prophylaxis -- SCDs, heparin SQ on hold(Thrombocytopenia) Hep PLT ab negative. Lines: Peripheral IV's Palliative care eval to asses goals of care. Patient's and decided to make her DNR/DNI status. Erich Rodriguez MD Mar 13, 2016 11:12
[2016-03-13] MEDS: PANTOPRAZOLE SODIUM 40 MG VIAL IV PUSH SCH (13:00)
--- NOTE | 2016-03-13 14:07 | HHI.IDPN ---
Subjective Subjective Remarks doing poorly Not tolerating being of BIPAP afebrile cont to have liquid diarrhea Antibiotics cefepime azithromycin vanco po voriconazole Lines LIJ TLC Past Medical History renal transpant ESRD Allergies: Coded Allergies: Labetalol (Verified Allergy, Severe, NAUSEA AND VOMITING, 02/28/16) Lortab (Verified Adverse Reaction, Severe, VOMITING, 02/28/16) Objective . Vital Signs Date Time Temp Pulse Resp B/P Pulse Ox O2 Delivery O2 Flow Rate FiO2 03/13/16 12:00 88 03/13/16 10:13 98 Venturi Mask 6.00 50 03/13/16 10:02 88 03/13/16 08:00 98.0 87 24 109/58 100 03/13/16 08:00 84 03/13/16 07:00 99 Bi-Pap 45 03/13/16 06:00 87 03/13/16 04:05 98 45 03/13/16 04:00 97.7 89 23 128/59 100 03/13/16 04:00 89 03/13/16 02:00 85 03/13/16 01:24 98 45 03/13/16 00:00 97.9 87 18 106/51 99 03/13/16 00:00 87 03/12/16 23:00 98 Bi-Pap 45 03/12/16 22:25 96 45 03/12/16 22:00 96 45 03/12/16 22:00 81 03/12/16 20:00 98.3 96 21 119/56 97 03/12/16 20:00 96 03/12/16 19:26 96 Venturi Mask 6.00 50 03/12/16 19:00 97 Venturi Mask 40 03/12/16 16:00 98.2 95 22 130/60 96 03/12/16 15:33 92 Venturi Mask 50 03/12/16 15:00 Bi-Pap 5.00 45 03/12/16 03/12/16 03/13/16 15:00 23:00 07:00 Intake Total 845 ml 563 ml 602 ml Output Total 750 ml 700 ml 350 ml Balance 95 ml -137 ml 252 ml Intake IV Total 120 ml 141 ml 74 ml Tube Feeding 485 ml 172 ml 278 ml Other 240 ml 250 ml 250 ml Output Urine Total 550 ml 300 ml 250 ml Stool Total 200 ml 400 ml 100 ml . Laboratory Tests Test 03/12/16 03/13/16 03:08 03:06 White Blood Count 7.8 TH/MM3 8.4 TH/MM3 Red Blood Count 2.99 MIL/MM3 2.84 MIL/MM3 Hemoglobin 8.4 GM/DL 8.0 GM/DL Hematocrit 27.3 % 25.4 % Mean Corpuscular Volume 91.5 FL 89.5 FL Mean Corpuscular Hemoglobin 28.0 PG 28.0 PG Mean Corpuscular Hemoglobin 30.7 % 31.3 % Concent Red Cell Distribution Width 18.1 % 18.2 % Platelet Count 94 TH/MM3 98 TH/MM3 Mean Platelet Volume 10.8 FL 10.8 FL Neutrophils (%) (Auto) 79.7 % 84.2 % Lymphocytes (%) (Auto) 9.4 % 7.5 % Monocytes (%) (Auto) 9.0 % 6.6 % Eosinophils (%) (Auto) 1.0 % 0.7 % Basophils (%) (Auto) 0.9 % 1.0 % Neutrophils # (Auto) 6.2 TH/MM3 7.1 TH/MM3 Lymphocytes # (Auto) 0.7 TH/MM3 0.6 TH/MM3 Monocytes # (Auto) 0.7 TH/MM3 0.6 TH/MM3 Eosinophils # (Auto) 0.1 TH/MM3 0.1 TH/MM3 Basophils # (Auto) 0.1 TH/MM3 0.1 TH/MM3 CBC Comment AUTO DIFF AUTO DIFF Differential Total Cells 100 Counted Neutrophils % (Manual) 79 % Band Neutrophils % 7 % Lymphocytes % 9 % Monocytes % 5 % Neutrophils # (Manual) 6.7 TH/MM3 Differential Comment FINAL DIFF AUTO DIFF MANUAL CONFIRMED Platelet Estimate NORMAL Platelet Morphology Comment ENLARGED ENLARGED Laboratory Tests Test 03/12/16 03/13/16 03:08 03:06 Sodium Level 148 MEQ/L 147 MEQ/L Potassium Level 4.3 MEQ/L 4.7 MEQ/L Chloride Level 105 MEQ/L 106 MEQ/L Carbon Dioxide Level 33.8 MEQ/L 35.1 MEQ/L Anion Gap 9 MEQ/L 6 MEQ/L Blood Urea Nitrogen 70 MG/DL 74 MG/DL Creatinine 1.52 MG/DL 1.56 MG/DL Estimat Glomerular Filtration 34 ML/MIN 33 ML/MIN Rate Random Glucose 155 MG/DL 198 MG/DL Calcium Level 8.4 MG/DL 8.4 MG/DL Phosphorus Level 1.6 MG/DL Magnesium Level 2.0 MG/DL Imaging Last Impressions Chest X-Ray 03/10/16 0000 Signed Impressions: Service Date/Time: Thursday, March 10, 2016 07:59 - CONCLUSION: Improved aeration on the right with complete opacification on the left. Sergio Renteria MD Renal Ultrasound 03/01/16 0000 Signed Impressions: Service Date/Time: Tuesday, March 01, 2016 10:45 - CONCLUSION: No evidence of hydronephrosis or focal abnormality. The resistive indices are within normal Sumit Laws MD Abdomen X-Ray 03/01/16 0000 Signed Impressions: Service Date/Time: Tuesday, March 01, 2016 15:32 - CONCLUSION: G-tube inside the stomach. Angelita Birmingham MD Physical Exam CONSTITUTIONAL/GENERAL: awake, alert, some resp distress SKIN: Warm and dry. EYES: No scleral icterus. No injection or drainage. ENT: .part face BIPAP mask in place NECK: Trachea midline. Supple, nontender. Line ok CARDIOVASCULAR: Regular rate and rhythm without murmurs, gallops, or rubs. No JVD. Peripheral pulses symmetric. RESPIRATORY/CHEST: No BS on the L, diffuse rhonchi R absent BS L GASTROINTESTINAL: Abdomen soft, non-tender, nondistended. No guarding. Bowel sounds present. Incontinent of large amount of liquid light brown stool GENITOURINARY: Malik catheter in place with small amount clear dark yellow urine MUSCULOSKELETAL: Extremities without clubbing, cyanosis, or edema in BLE. No mottling or clubbing. Hands edematous with extensive ecchymoses NEUROLOGICAL: awake alert PSYCHIATRIC: anxious LINE: No evidence of infection Assessment & Plan Remarks IMPRESSION Respiratory failure - no improvement on /off BIPAP - family considering comfort measures rtransitioning Pneumonia recent h/o fungal pulmonary infx - chart reviewed : per ID business continuity consultant note Dr Goldberg pt grew out C.albicans - nodular infiltrates on recent CXR, improved - fungal clx with non cryptococcal yeast: probably no cliln significance in this pt with pprolonged abx use - Galactomannann negative - aspergilla AB P Previous L lung surgery for lung CA, completely opacified L hemithorax (no change compared to CXR ) S/P renal transplant - ARF in transplant Profound hypothyroidism, 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
--- NOTE | 2016-03-13 17:17 | HHI.NPPN ---
Subjective Renal Failure: Acute History of Present Illness 70-year-old female with a history of renal transplant presenting with respiratory distress with clinical evidence of pneumonia and acute renal failure. Interval History Pt off BiPAP. Daughter and granddaughter in room. Is awake, but not making any meaningful conversation. (Janeth Frederick) Review of Systems General General Remarks Not obtainable. (Janeth Frederick) Objective Data Data 03/12/16 03/13/16 19:00 07:00 Intake Total 845 ml 1165 ml Output Total 750 ml 1050 ml Balance 95 ml 115 ml Intake IV Total 120 ml 215 ml Tube Feeding 485 ml 450 ml Other 240 ml 500 ml Output Urine Total 550 ml 550 ml Stool Total 200 ml 500 ml Vital Signs Date Time Temp Pulse Resp B/P Pulse Ox O2 Delivery O2 Flow Rate FiO2 03/13/16 16:22 98.7 88 24 120/57 94 03/13/16 16:21 87 03/13/16 15:52 98 Face Tent 6.00 50 03/13/16 15:07 99 Bi-Pap 45 03/13/16 14:00 85 03/13/16 12:33 98.4 88 24 127/60 96 03/13/16 12:00 88 03/13/16 10:13 98 Venturi Mask 6.00 50 03/13/16 10:02 88 03/13/16 08:00 98.0 87 24 109/58 100 03/13/16 08:00 84 03/13/16 07:00 99 Bi-Pap 45 03/13/16 06:00 87 03/13/16 04:05 98 45 03/13/16 04:00 97.7 89 23 128/59 100 03/13/16 04:00 89 03/13/16 02:00 85 03/13/16 01:24 98 45 03/13/16 00:00 97.9 87 18 106/51 99 03/13/16 00:00 87 03/12/16 23:00 98 Bi-Pap 45 03/12/16 22:25 96 45 03/12/16 22:00 96 45 03/12/16 22:00 81 03/12/16 20:00 98.3 96 21 119/56 97 03/12/16 20:00 96 03/12/16 19:26 96 Venturi Mask 6.00 50 03/12/16 19:00 97 Venturi Mask 40 (Janeth Frederick) -: 03/13/16 0306 03/13/16 0306 Medication Review Current Medications Medications (Trade) Dose Ordered Sig/Reymundo Route Start Time Stop Time Status Last Admin (Tylenol) 650 mg Q4H PRN PO 02/28/16 11:30 03/06/16 17:24 (Zofran Inj) 4 mg Q6H PRN IVP 02/28/16 11:30 (Dulcolax Supp) 10 mg DAILY PRN AK 02/28/16 11:30 (Milk Of Magnesia Liq) 30 ml Q12H PRN PO 02/28/16 11:30 (Senokot) 17.2 mg Q12H PRN PO 02/28/16 11:30 (Heparin Inj) 5,000 units Q12H SQ 02/28/16 12:00 Hold 03/05/16 22:52 (Narcan Inj) 0.4 mg UNSCH PRN IV 02/28/16 11:30 (Protonix Inj) 40 mg Q24H IV PUSH 02/28/16 13:00 03/12/16 12:57 Miscellaneous Information 1 Q361D XX 02/28/16 12:00 (NS Flush) 2 ml UNSCH PRN IV FLUSH 02/28/16 16:15 03/01/16 08:00 (NS Flush) 2 ml BID IV FLUSH 02/28/16 21:00 03/13/16 08:51 (D50w (Vial) Inj) 25 ml UNSCH PRN IV PUSH 02/28/16 18:30 (Glucagon Inj) 1 mg UNSCH PRN OTHER 02/28/16 18:30 (Neurontin) 100 mg Q8H PO 02/28/16 20:00 03/13/16 03:37 (Mycostatin Powder) 1 applic BID TOP 02/28/16 21:00 03/13/16 08:51 (Pravachol) 40 mg HS PO 02/28/16 21:00 03/12/16 20:45 Miscellaneous Information Patient in critical care unit? Ass... Q361D XX 02/28/16 19:30 (Brethine Inj) 1 mg UNSCH PRN SQ 02/29/16 13:00 (Synthroid) 224 mcg DAILY@0600 PO 03/01/16 06:00 03/13/16 06:09 (NovoLOG SUPPLEMENTAL SCALE) 1 Q4H SQ 03/01/16 16:00 03/13/16 09:30 (Vfend) 200 mg Q12HR PO 03/05/16 09:00 03/13/16 08:50 Vancomycin HCl 500 mg 500 mg Q6H PO 03/04/16 15:00 03/13/16 08:51 (Maxipime Inj/NS Inj) 100 ml @ 200 mls/hr Q24H IV 03/04/16 20:00 03/12/16 20:45 (Apresoline Inj) 10 mg Q6H PRN IV PUSH 03/06/16 07:30 (Deltasone) 5 mg DAILY PO 03/07/16 09:00 03/13/16 08:50 (Zithromax) 500 mg DAILY PO 03/07/16 10:15 03/13/16 08:50 (Lopressor) 12.5 mg Q12HR PO 03/08/16 09:00 03/13/16 08:50 (Pill Splitter) 1 ea UNSCH PRN OTHER 03/08/16 08:00 (Rapamune Liq) 1 mg DAILY@06 NG 03/10/16 06:00 03/13/16 06:00 Water 250 ml 250 ml Q6HR G-TUBE 03/10/16 12:00 03/13/16 10:57 Potassium Chloride 100 ml @ 50 mls/hr Q2H PRN IV 03/10/16 07:45 03/10/16 10:08 (KCl 20 Meq Premix Inj) 100 ml @ 50 mls/hr Q2H PRN IV 03/10/16 07:45 Potassium Chloride 40 meq 40 meq UNSCH PRN PO/TUBE 03/10/16 07:45 Potassium Chloride 100 ml @ 25 mls/hr UNSCH PRN IV 03/10/16 07:45 Potassium Chloride 100 ml @ 50 mls/hr Q2H PRN IV 03/10/16 07:45 (Magnesium Sulfate Inj/NS Inj) 100 ml @ 50 mls/hr UNSCH PRN IV 03/10/16 07:45 Magnesium Oxide 800 mg 800 mg UNSCH PRN PO 03/10/16 07:45 (Magnesium Sulfate Inj/NS Inj) 100 ml @ 50 mls/hr UNSCH PRN IV 03/10/16 07:45 Potassium Phosphate 2000 mg 2,000 mg Q4H PRN PO 03/10/16 07:45 (Sodium Phosphate Inj/NS 250 ml Inj) 250 ml @ 42 mls/hr UNSCH PRN IV 03/10/16 07:45 (KCl 40 Meq/30 ml Liq) 40 meq UNSCH PRN PO/TUBE 03/10/16 07:45 Potassium Phosphate 2000 mg 2,000 mg UNSCH PRN PO/TUBE 03/10/16 07:45 (Potassium Phosphate Inj/NS 250 ml Inj) 260 ml @ 42 mls/hr UNSCH PRN IV 03/10/16 07:45 (Bumetanide) 0.5 mg DAILY G-TUBE 03/11/16 09:00 03/13/16 08:50 (Janeth Frederick) Physical Exam General Appearance: No Acute Distress (Janeth Frederick) Eyes Eye Exam: Pupils Equal, Pupils Reactive (Janeth Frederick) Pulmonary Resp Exam: Rhonchi, Diminished Breath Sounds (Janeth Frederick) Cardiology CV Exam: Regular, Normal Sinus Rhythm, Good Perfusion (Janeth Frederick) Gastrointestinal/Abdomen GI Exam: Bowel Sounds Present (Janeth Frederick) Musculoskeletal MS Exam: Joints Intact, Good Strength (Janeth Frederick) Integumentary Skin Exam: Clear, Warm, Dry, Intact (Janeth Frederick) Extremeties Extremities Exam: No Edema (Janeth Frederick) Neurologic Neuro Exam: Obtunded (Janeth Frederick) Assessment/Plan Assessment Summary: Transplant Kidney Status Problem List: (1) Renal transplant, status post Plan: The patient's renal function did improve however her overall condition appears to be deteriorating and the patient does have severe chronic debilitation and multiple comorbidities. Is point in time hospice would be an appropriate consideration and will likely be instituted tomorrow. If the patient does go to hospice will sign off. Thanks. (2) Acute kidney failure Plan: Patient creatinine level has now fallen below 2.0 and getting further improvement in renal function. Her creatinine was around 1.2 in October of this year, suggesting reasonably well preserved GFR after transplant in 2006. ANNABELLA likely due to ATN. . (3) Pneumonia Plan: Mgmt as per ID. Chest x-ray today shows complete opacification of the right hemithorax (4) Sepsis Plan: with septic shock--improving (5) Heart failure Plan: EF of 35 % previously. (Janeth Frederick) Plan The exam, history, and the medical decision-making described in the above note were completed with the assistance of the PA-C. I reviewed and agree with the findings presented. I. (Rin Juarez MD) Janeth Frederick Mar 13, 2016 17:17 Rin Juarez MD Mar 15, 2016 16:26
--- NOTE | 2016-03-13 17:45 | HHI.HCPN ---
Reason for visit a. To assist with evaluation and management of symptoms including: Dyspnea, pain, anxiety b. To assist medical decision maker(s) with: better understanding of current medical conditions; weighing benefits/burdens of medical treatment options; making medical treatment decisions. . (Veronika Allen) Subjective/Interval History [place] [facility] [place] Patient is more awake and alert today, having difficulty communicating verbally. On and off BiPAP. Patient Tolerating face-mask on 6L oxygen with saturations in the high 90s. Afebrile. 03/13/16: WBC 8.4, hemoglobin 8.0, hematocrit 25.4, platelets 98, neutrophils 84.2 % Sodium 147, potassium 4.7, chloride 106, carbon dioxide 35.1, BUN 74 , creatinine 1.56, GFR 33, glucose 198, calcium 8.[address] Rodriguez who recommendations continued aggressive intervention and completion of antibiotic course. Discussed with patient/spouse who is agreeable but would like to consider transitioning to comfort focus care upon discharge. . Family/friend interactions Spoke with patient's and patient at bedside. . (Veronika Allen) Advance Directives Living Will: Never completed Health Care Surrogate: Never completed Durable Power of Border Measurer: Never completed (Veronika Allen) Objective Vital Signs Date Time Temp Pulse Resp B/P Pulse Ox O2 Delivery O2 Flow Rate FiO2 03/13/16 16:22 98.7 88 24 120/57 94 03/13/16 16:21 87 03/13/16 15:52 98 Face Tent 6.00 50 03/13/16 15:07 99 Bi-Pap 45 03/13/16 14:00 85 03/13/16 12:33 98.4 88 24 127/60 96 03/13/16 12:00 88 03/13/16 10:13 98 Venturi Mask 6.00 50 03/13/16 10:02 88 03/13/16 08:00 98.0 87 24 109/58 100 03/13/16 08:00 84 03/13/16 07:00 99 Bi-Pap 45 03/13/16 06:00 87 03/13/16 04:05 98 45 03/13/16 04:00 97.7 89 23 128/59 100 03/13/16 04:00 89 03/13/16 02:00 85 03/13/16 01:24 98 45 03/13/16 00:00 97.9 87 18 106/51 99 03/13/16 00:00 87 03/12/16 23:00 98 Bi-Pap 45 03/12/16 22:25 96 45 03/12/16 22:00 96 45 03/12/16 22:00 81 03/12/16 20:00 98.3 96 21 119/56 97 03/12/16 20:00 96 03/12/16 19:26 96 Venturi Mask 6.00 50 03/12/16 19:00 97 Venturi Mask 40 Intake & Output 03/13/16 03/13/16 07:00 19:00 Intake Total 1165 ml 582 ml Output Total 1050 ml 450 ml Balance 115 ml 132 ml Intake IV Total 215 ml 110 ml Tube Feeding 450 ml 222 ml Other 500 ml 250 ml Output Urine Total 550 ml 350 ml Stool Total 500 ml 100 ml Tube Feeding Residual Discard 0 ml . Physical Exam CONSTITUTIONAL/GENERAL: This is an adequately nourished, chronically ill elderly female patient patient on BiPAP. TUBES/LINES/DRAINS: PIV x 2, G-tube, rectal tube, Syed SKIN: . Ecchymoses on upper extremities and chest.Skin temperature appropriate. Not diaphoretic. HEAD: Atraumatic. Normocephalic. EYES: No sclerae icterus. No injection or drainage. ENT: Nose without bleeding or purulent drainage. NECK: Trachea midline. CARDIOVASCULAR: Regular rate and rhythm without murmurs, gallops, or rubs. No JVD. Peripheral pulses symmetric. RESPIRATORY/CHEST: On/off BiPAP. Diffuse rhonchi GASTROINTESTINAL: Abdomen soft, non-tender, nondistended. No guarding. Bowel sounds present. G-tube in place, no redness or drainage. GENITOURINARY: Without palpable bladder distension. Syed catheter in place. MUSCULOSKELETAL: Extremities without clubbing or cyanosis. No obvious deformities. LYMPHATICS: No palpable cervical or supraclavicular adenopathy. NEUROLOGICAL: More awake and alert today, attempting to communicate. PSYCHIATRIC: No obvious anxiety/depression. . (Veronika Allen) Diagnostic Tests Laboratory Laboratory Tests Test 03/11/16 03/11/16 03/11/16 03/12/16 03:16 05:14 11:24 03:08 Sodium Level 146 MEQ/L 148 MEQ/L (136-145) (136-145) Potassium Level 4.5 MEQ/L 4.3 MEQ/L (3.5-5.1) (3.5-5.1) Chloride Level 107 MEQ/L 105 MEQ/L (98-107) (98-107) Carbon Dioxide Level 28.9 MEQ/L 33.8 MEQ/L (21.0-32.0) (21.0-32.0) Anion Gap 10 MEQ/L (5-15) 9 MEQ/L (5-15) Blood Urea Nitrogen 63 MG/DL (7-18) 70 MG/DL (7-18) Creatinine 1.42 MG/DL 1.52 MG/DL (0.50-1.00) (0.50-1.00) Estimat Glomerular Filtration 37 ML/MIN (>89) 34 ML/MIN (>89) Rate Random Glucose 214 MG/DL 155 MG/DL (74-106) (74-106) Calcium Level 8.3 MG/DL 8.4 MG/DL (8.5-10.1) (8.5-10.1) Phosphorus Level 2.5 MG/DL 1.6 MG/DL (2.5-4.9) (2.5-4.9) Magnesium Level 1.4 MG/DL 2.0 MG/DL (1.5-2.5) (1.5-2.5) Total Bilirubin 0.4 MG/DL (0.2-1.0) Direct Bilirubin 0.1 MG/DL (0.0-0.2) Indirect Bilirubin 0.3 MG/DL (0.0-0.8) Aspartate Amino Transf 27 U/L (15-37) (AST/SGOT) Alanine Aminotransferase 13 U/L (10-53) (ALT/SGPT) Alkaline Phosphatase 139 U/L (45-117) Total Protein 6.2 GM/DL (6.4-8.2) Albumin 2.2 GM/DL (3.4-5.0) White Blood Count 7.3 TH/MM3 7.8 TH/MM3 (4.0-11.0) (4.0-11.0) Red Blood Count 3.46 MIL/MM3 2.99 MIL/MM3 (4.00-5.30) (4.00-5.30) Hemoglobin 9.7 GM/DL 8.4 GM/DL (11.6-15.3) (11.6-15.3) Hematocrit 31.7 % 27.3 % (35.0-46.0) (35.0-46.0) Mean Corpuscular Volume 91.6 FL 91.5 FL (80.0-100.0) (80.0-100.0) Mean Corpuscular Hemoglobin 28.0 PG 28.0 PG (27.0-34.0) (27.0-34.0) Mean Corpuscular Hemoglobin 30.5 % 30.7 % Concent (32.0-36.0) (32.0-36.0) Red Cell Distribution Width 17.9 % 18.1 % (11.6-17.2) (11.6-17.2) Platelet Count 79 TH/MM3 94 TH/MM3 (150-450) (150-450) Mean Platelet Volume 10.9 FL 10.8 FL (7.0-11.0) (7.0-11.0) Neutrophils (%) (Auto) 84.9 % 79.7 % (16.0-70.0) (16.0-70.0) Lymphocytes (%) (Auto) 7.4 % 9.4 % (9.0-44.0) (9.0-44.0) Monocytes (%) (Auto) 6.8 % (0.0-8.0) 9.0 % (0.0-8.0) Eosinophils (%) (Auto) 0.6 % (0.0-4.0) 1.0 % (0.0-4.0) Basophils (%) (Auto) 0.3 % (0.0-2.0) 0.9 % (0.0-2.0) Neutrophils # (Auto) 6.2 TH/MM3 6.2 TH/MM3 (1.8-7.7) (1.8-7.7) Lymphocytes # (Auto) 0.5 TH/MM3 0.7 TH/MM3 (1.0-4.8) (1.0-4.8) Monocytes # (Auto) 0.5 TH/MM3 0.7 TH/MM3 (0-0.9) (0-0.9) Eosinophils # (Auto) 0.0 TH/MM3 0.1 TH/MM3 (0-0.4) (0-0.4) Basophils # (Auto) 0.0 TH/MM3 0.1 TH/MM3 (0-0.2) (0-0.2) CBC Comment AUTO DIFF AUTO DIFF Differential Comment AUTO DIFF FINAL DIFF CONFIRMED MANUAL Platelet Estimate LOW (NORMAL) NORMAL (NORMAL) Platelet Morphology Comment NORMAL ENLARGED (NORMAL) (NORMAL) Blood Gas Puncture Site RT RADIAL Blood Gas Patient Temperature 98.6 Blood Gas HCO3 35 mmol/L (22-26) Blood Gas Base Excess 10.2 mmol/L (-2-2) Blood Gas Oxygen Saturation 91 % (90-100) Arterial Blood pH 7.46 (7.380-7.420) Arterial Blood Partial 49 mmHg (38-42) Pressure CO2 Arterial Blood Partial 70 mmHg Pressure O2 (61-120) Arterial Blood Oxygen Content 10.5 Vol % (12.0-20.0) Arterial Blood 2.0 % (0-4) Carboxyhemoglobin Arterial Blood Methemoglobin 1.2 % (0-2) Blood Gas Hemoglobin 8.1 G/DL (12.0-16.0) Oxygen Delivery Device BIPAP 12IPAP/5EPAP Blood Gas Inspired Oxygen 40 % Differential Total Cells 100 Counted Neutrophils % (Manual) 79 % (16-70) Band Neutrophils % 7 % (0-6) Lymphocytes % 9 % (9-44) Monocytes % 5 % (0-8) Neutrophils # (Manual) 6.7 TH/MM3 (1.8-7.7) Sirolimus Level 10.2 ng/mL (()) Test 03/13/16 03:06 White Blood Count 8.4 TH/MM3 (4.0-11.0) Red Blood Count 2.84 MIL/MM3 (4.00-5.30) Hemoglobin 8.0 GM/DL (11.6-15.3) Hematocrit 25.4 % (35.0-46.0) Mean Corpuscular Volume 89.5 FL (80.0-100.0) Mean Corpuscular Hemoglobin 28.0 PG (27.0-34.0) Mean Corpuscular Hemoglobin 31.3 % Concent (32.0-36.0) Red Cell Distribution Width 18.2 % (11.6-17.2) Platelet Count 98 TH/MM3 (150-450) Mean Platelet Volume 10.8 FL (7.0-11.0) Neutrophils (%) (Auto) 84.2 % (16.0-70.0) Lymphocytes (%) (Auto) 7.5 % (9.0-44.0) Monocytes (%) (Auto) 6.6 % (0.0-8.0) Eosinophils (%) (Auto) 0.7 % (0.0-4.0) Basophils (%) (Auto) 1.0 % (0.0-2.0) Neutrophils # (Auto) 7.1 TH/MM3 (1.8-7.7) Lymphocytes # (Auto) 0.6 TH/MM3 (1.0-4.8) Monocytes # (Auto) 0.6 TH/MM3 (0-0.9) Eosinophils # (Auto) 0.1 TH/MM3 (0-0.4) Basophils # (Auto) 0.1 TH/MM3 (0-0.2) CBC Comment AUTO DIFF Differential Comment AUTO DIFF CONFIRMED Platelet Morphology Comment ENLARGED (NORMAL) Sodium Level 147 MEQ/L (136-145) Potassium Level 4.7 MEQ/L (3.5-5.1) Chloride Level 106 MEQ/L (98-107) Carbon Dioxide Level 35.1 MEQ/L (21.0-32.0) Anion Gap 6 MEQ/L (5-15) Blood Urea Nitrogen 74 MG/DL (7-18) Creatinine 1.56 MG/DL (0.50-1.00) Estimat Glomerular Filtration 33 ML/MIN (>89) Rate Random Glucose 198 MG/DL (74-106) Calcium Level 8.4 MG/DL (8.5-10.1) . (Veronika Allen) Result Diagram: 03/13/1630503/13/16 0306 Imaging Last 72 hours Impressions Chest X-Ray 03/15/16 0600 Signed Impressions: Service Date/Time: Tuesday, March 15, 2016 03:05 - CONCLUSION: Some mild residual interstitial prominence in the right lung. Complete opacification of the left hemithorax. Michael Osorio MD . Procedures 02/28/16: Intubation 02/28/16: Left IJ central line placed 02/28/16: Right radial arterial line placed 02/28/16: Diagnostic/therapeutic fiberoptic bronchoscopy 03/03/16: Extubation 03/04/16: Intubation 03/06/16: Extubation . (Veronika Allen) Assessment and Plan Disease Oriented Problem List: (1) Chronic hypoxemic respiratory failure (2) Atrial fibrillation (3) Anemia (4) Dysphagia (5) Hypothyroidism (6) Chronic renal failure (7) Hypertension (8) Status epilepticus (9) Non-small cell lung cancer (10) Chronic systolic heart failure (11) Chronic kidney disease, stage IV (severe) (12) Impaired mobility and activities of daily living (13) Obesity (BMI 30.0-34.9) (14) Pressure ulcer, stage 1 (15) Recurrent left pleural effusion (16) Acute on chronic respiratory failure with hypoxia and hypercapnia (17) Acute kidney failure (18) Pneumonia (19) Sepsis (20) Heart failure Symptom Scale: (1) Dyspnea 0-10 Scale: Unable to quantify Comment: On/OFF BiPAP. Coarse air exchange, right greater than left. Follow up chest x-ray on 03/11/16 showing improved aeration on the right with complete opacification on the left. Bronchial washings, right lower lobe, growing yeast. . (2) Pain 0-10 Scale: Unable to quantify Comment: Probable cause of pain include BiPAP mask, syed catheter, rectal tube, intravenous lines, immobility, pulmonary infection, neuropathy, skin breakdown etc. Patient currently on gabapentin 100 mg by mouth/G-tube every 8 hours. PRN acetaminophen is also available. On exam, patient showing no signs of nonverbal pain such as grimacing, moaning or furrowed brow. Palliative care will continue to montitor and make recommendations as indicated. . (3) Anxiety 0-10 Scale: Unable to quantify Pertinent Non-Medical Issues Psychosocial: The patient is from [place], [place]. She has one sister. Debbie met her when he was stating her friend, she was only 16 years old. She her (Catrachito) in 1967 after he returned from the [place]. Debbie worked in a [employer] that made maps. They moved to [place] in 1990. Together Debbie and Catrachito have 2 children. Their daughter , Jackie, lives near [place]. There is son, See, lives locally in [place]. Have been for approximately 49 years. Spiritual: Zoroastrian heena. Legal: Per [place] statutes, in absence of written advanced directives healthcare proxy decision making will fall to the patient's . Ethical issues impacting care: No known ethical issues impacting care at this time. . Important Contacts Ash Alejo (Bob), spouse: [phone] Ash Alejo Jr (Rob)., son: [phone] Jackie, daughter: [phone] . Prognosis Patient is a 70 year old female with an extensive medical history that includes a kidney transplant in 2006 (on Sirolimus) and non-small cell lung cancer status post left lobectomy with chemotherapy/radiation. 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 She was transferred to a rehabilitation facility upon discharge and was subsequently transferred to several facilities, discharged home on 02/15/16. Patient is now admitted with ammonia and severe sepsis. Patient is immunocompromised related to her anti-rejection medication and generalized debilitation. Prognosis is poor. . Code Status: No Code Plan * NO CODE * Decision making: Per [place] statutes, in the absence of written advanced directives, healthcare proxy decision making will fall to the patient's Ash Alejo. * Goals: Goals will remain aggressive at this time up to the point of resuscitation. Plan to complete antibiotic course-will consider transitioning to comfort focus goals at discharge. * Discussed with Dr. Rodriguez and nurse Medina * Symptom managementdyspnea: On/OFF BiPAP.. Coarse air exchange, right greater than left. Follow up chest x-ray on 03/11/16 showing improved aeration on the right with complete opacification on the left. Bronchial washings, right lower lobe, growing yeast. * Symptom managementpain: Probable cause of pain include BiPAP mask, syed catheter, rectal tube, intravenous lines, immobility, pulmonary infection, neuropathy, skin breakdown etc. Patient currently on gabapentin 100 mg by mouth /G-tube every 8 hours. PRN acetaminophen is also available. On exam, patient showing no signs of nonverbal pain such as grimacing, moaning or furrowed brow. Palliative care will continue to montitor and make recommendations as indicated. * Palliative care will continue to follow this patient throughout her hospitalization to establish trust, assist with symptom management and clarification of medical treatment goals. . (Veronika Allen) Attestation To help prompt me to consider important information that might be impacting today's encounter and assessment, information from prior notes written by myself or my colleagues may have been "brought forward" into today's note. My signature on this note, however, is an attestation that I personally performed the exam, history, and/or decision-making noted today, and, unless otherwise indicated, the interactions with patient, family, and staff as well as the review of records all occurred today. I also attest that the listed assessment and stated plan reflect my best clinical judgment today based on the combination of historical information, prior notes, and today's exam/ interactions. When time spent is documented, it refers only to time spent today by the signer, or if indicated, combined time spent today by collaborating physician/nurse practitioner. . (Vreonika Allen) Collaborating MD Comments Chart reviewed. Case discussed with palliative care COMBINATION MAN. Above COMBINATION MAN note reviewed and I concur. . (Kyaw Samuels MD) Veronika Allen Mar 13, 2016 17:45 Kyaw Samuels MD Apr 26, 2016 14:49
--- NOTE | 2016-03-13 18:24 | HHI.PR ---
Subjective Remarks 70 YOWF with COPD,Renal transplant,ca lung, s/p resection with RF Extubated Tired has Techycardia PO Bumex Lethargic made her DNR Using BIPAP 02/10, Fi02 45% Opens eyes Objective Vital Signs Vital Signs Date Time Temp Pulse Resp B/P Pulse Ox O2 Delivery O2 Flow Rate FiO2 03/13/16 18:12 93 03/13/16 16:22 98.7 88 24 120/57 94 03/13/16 16:21 87 03/13/16 15:52 98 Face Tent 6.00 50 03/13/16 15:07 99 Bi-Pap 45 03/13/16 14:00 85 03/13/16 12:33 98.4 88 24 127/60 96 03/13/16 12:00 88 03/13/16 10:13 98 Venturi Mask 6.00 50 03/13/16 10:02 88 03/13/16 08:00 98.0 87 24 109/58 100 03/13/16 08:00 84 03/13/16 07:00 99 Bi-Pap 45 03/13/16 06:00 87 03/13/16 04:05 98 45 03/13/16 04:00 97.7 89 23 128/59 100 03/13/16 04:00 89 03/13/16 02:00 85 03/13/16 01:24 98 45 03/13/16 00:00 97.9 87 18 106/51 99 03/13/16 00:00 87 03/12/16 23:00 98 Bi-Pap 45 03/12/16 22:25 96 45 03/12/16 22:00 96 45 03/12/16 22:00 81 03/12/16 20:00 98.3 96 21 119/56 97 03/12/16 20:00 96 03/12/16 19:26 96 Venturi Mask 6.00 50 03/12/16 19:00 97 Venturi Mask 40 I/O 03/12/16 03/12/16 03/12/16 03/13/16 03/13/16 03/13/16 07:00 15:00 23:00 07:00 15:00 23:00 Intake Total 1170 ml 845 ml 563 ml 602 ml 582 ml Output Total 950 ml 750 ml 700 ml 350 ml 450 ml Balance 220 ml 95 ml -137 ml 252 ml 132 ml Intake IV Total 74 ml 120 ml 141 ml 74 ml 110 ml Tube Feeding 566 ml 485 ml 172 ml 278 ml 222 ml Other 530 ml 240 ml 250 ml 250 ml 250 ml Output Urine Total 650 ml 550 ml 300 ml 250 ml 350 ml Stool Total 300 ml 200 ml 400 ml 100 ml 100 ml Tube Feeding Residual Discard 0 ml 0 ml Result Diagram: 03/13/1630503/13/16 030 Objective Remarks GENERALMBMN female, SOB: SKIN: Warm and dry. HEAD: Normocephalic. EYES: No scleral icterus. No injection or drainage. NECK: Supple, trachea midline. No JVD or lymphadenopathy. CARDIOVASCULAR: Regular rate and rhythm without murmurs, gallops, or rubs. RESPIRATORY: Breath sounds equal bilaterally. No accessory muscle use. Bilat coarse crackles. GASTROINTESTINAL: Abdomen soft, non-tender, nondistended. MUSCULOSKELETAL: No cyanosis, ++ edema. BACK: Nontender without obvious deformity. No CVA tenderness. A/P Assessment and Plan VDRF, extubated 03/06 Pneumonia Sepsis sund renal transplant Ca lung, s/p resection PLAN: On Bumex PO Cont Monitor BS Abx Zithro, Zyvox and Cefepime and Voriconazole per ID Supplement 02 to keep sat >90% Supplement 02 with NC BIPAP Code status DNR Palliative care following Alverto Armas MD Mar 13, 2016 18:24
[2016-03-13] MEDS: CEFEPIME INJ 2,000 MG in SODIUM CHLORIDE 0.9% INJ 100 ML IV SCH (21:07)
[2016-03-13] MEDS: PRAVASTATIN SOD 40 MG TAB PO SCH (21:09)
[2016-03-14] VITALS (19 sets, daily range): BP systolic 119–135; BP diastolic 57–64; PULSE 82–104; RESP 25–28; TEMP 98.4–99.1; O2SAT 98–100
[2016-03-14] MEDS: INSULIN ASPART SUPPLEMENTAL SCALE SQ SCH ×6 (01:04→20:24)
[2016-03-14] MEDS: VANCOMYCIN 500 MG VIAL (FOR ORAL USE ONLY) PO SCH ×4 (03:41→20:19)
[2016-03-14] MEDS: GABAPENTIN 100 MG CAP PO SCH ×3 (03:41→20:19)
[2016-03-14] MEDS: SIROLIMUS 1 MG/ML NG SCH (06:00)
[2016-03-14] MEDS: FREE WATER G-TUBE SCH ×4 (06:00→16:48)
[2016-03-14] MEDS: LEVOTHYROXINE SODIUM 112 MCG TAB PO SCH (06:07)
[2016-03-14 06:18] LABS: AUTOMATED NEUTROPHIL # 6.8 TH/MM3 (1.8-7.7); BASOPHIL # 0.1 TH/MM3 (0-0.2); BASOPHIL % 1.1 % (0.0-2.0); EOSINOPHIL # 0.1 TH/MM3 (0-0.4); EOSINOPHIL % 1.1 % (0.0-4.0); HEMATOCRIT 28.6 % (35.0-46.0); HEMO FLAGS DIFF FINAL; LYMPH % 10.8 % (9.0-44.0); LYMPHOCYTE # 0.9 TH/MM3 (1.0-4.8); MEAN CORPUSCULAR HEMOGLOBIN 28.5 PG (27.0-34.0); MEAN CORPUSCULAR HGB CONC 31.3 % (32.0-36.0); MONO % 5.6 % (0.0-8.0); NEUT % 81.4 % (16.0-70.0); PLATELET COUNT 103 TH/MM3 (150-450); RED BLOOD COUNT 3.14 MIL/MM3 (4.00-5.30); RED CELL DISTRIBUTION WIDTH 18.9 % (11.6-17.2); WHITE BLOOD COUNT 8.3 TH/MM3 (4.0-11.0)
[2016-03-14 07:04] LABS: POTASSIUM 4.5 MEQ/L (3.5-5.1)
[2016-03-14] MEDS: BUMETANIDE 1 MG TAB G-TUBE SCH (09:00)
[2016-03-14] MEDS: VORICONAZOLE 200 MG TAB PO SCH ×2 (09:00→20:20)
[2016-03-14] MEDS: predniSONE 5 MG TAB PO SCH (09:00)
[2016-03-14] MEDS: SODIUM CHLORIDE 0.9% FLUSH 5 ML FLUSH IV FLUSH SCH ×2 (09:00→20:21)
[2016-03-14] MEDS: AZITHROMYCIN 250 MG TAB PO SCH (09:49)
[2016-03-14] MEDS: NYSTATIN 100,000 U/GM PWD 15 GM BTL TOP SCH ×2 (09:50→20:21)
[2016-03-14] MEDS: METOPROLOL TARTRATE 25 MG TAB PO SCH ×2 (09:50→20:20)
--- NOTE | 2016-03-14 11:18 | HHI.FPPN ---
Subjective Remarks CALM LOOKS BETTER ON O2 MASK D/W RN Objective Vitals Vital Signs Date Time Temp Pulse Resp B/P Pulse Ox O2 Delivery O2 Flow Rate FiO2 03/14/16 10:36 82 03/14/16 08:34 88 03/14/16 07:00 98 Bi-Pap 45 03/14/16 06:00 91 03/14/16 04:03 98 45 03/14/16 04:00 90 03/14/16 04:00 99.1 90 28 124/60 100 03/14/16 02:00 87 03/14/16 01:30 98 45 03/14/16 00:00 88 03/14/16 00:00 98.9 88 25 119/57 100 03/13/16 23:00 99 Bi-Pap 45 03/13/16 22:10 98 45 03/13/16 22:00 83 03/13/16 20:00 98.7 94 21 122/57 99 03/13/16 20:00 96 03/13/16 19:05 98 BiPAP 45 03/13/16 19:05 98 45 03/13/16 18:12 93 03/13/16 16:22 98.7 88 24 120/57 94 03/13/16 16:21 87 03/13/16 15:52 98 Face Tent 6.00 50 03/13/16 15:07 99 Bi-Pap 45 03/13/16 14:00 85 03/13/16 12:33 98.4 88 24 127/60 96 03/13/16 12:00 88 I/O 03/13/16 03/13/16 03/13/16 03/14/16 03/14/16 03/14/16 07:00 15:00 23:00 07:00 15:00 23:00 Intake Total 602 ml 582 ml 1067 ml 602 ml Output Total 350 ml 450 ml 550 ml 625 ml Balance 252 ml 132 ml 517 ml -23 ml Intake IV Total 74 ml 110 ml 198 ml 34 ml Tube Feeding 278 ml 222 ml 619 ml 318 ml Other 250 ml 250 ml 250 ml 250 ml Output Urine Total 250 ml 350 ml 400 ml 325 ml Stool Total 100 ml 100 ml 150 ml 300 ml Tube Feeding Residual Discard 0 ml Result Diagram: 03/14/16 0435 03/14/16 0435 Objective Remarks GENERAL: on NRB; chronically ill appearing SKIN: Warm and dry. HEAD: Atraumatic. Normocephalic. EYES: Pupils equal and round. No scleral icterus. No injection or drainage. ENT: No nasal bleeding or discharge. Mucous membranes pink and moist. NECK: Trachea midline. No JVD. CARDIOVASCULAR: Regular rate and rhythm. RESPIRATORY: No accessory muscle use. Slight Bilateral ronchi, good air movement. Breath sounds equal bilaterally. GASTROINTESTINAL: Abdomen soft, non-tender, nondistended. Hepatic and splenic margins not palpable. MUSCULOSKELETAL: Extremities without clubbing, cyanosis, or edema. No obvious deformities. NEUROLOGICAL: Awake and alert. No obvious cranial nerve deficits. Motor grossly within normal limits. 03/13 all extr's PSYCHIATRIC: Appropriate mood and affect; Medications and IVs Current Medications Medications (Trade) Dose Ordered Sig/Reymundo Route Start Time Stop Time Status Last Admin (Tylenol) 650 mg Q4H PRN PO 02/28/16 11:30 03/06/16 17:24 (Zofran Inj) 4 mg Q6H PRN IVP 02/28/16 11:30 (Dulcolax Supp) 10 mg DAILY PRN IA 02/28/16 11:30 (Milk Of Magneben Liq) 30 ml Q12H PRN PO 02/28/16 11:30 (Senokot) 17.2 mg Q12H PRN PO 02/28/16 11:30 (Heparin Inj) 5,000 units Q12H SQ 02/28/16 12:00 Hold 03/05/16 22:52 (Narcan Inj) 0.4 mg UNSCH PRN IV 02/28/16 11:30 (Protonix Inj) 40 mg Q24H IV PUSH 02/28/16 13:00 03/13/16 13:00 Miscellaneous Information 1 Q361D XX 02/28/16 12:00 (NS Flush) 2 ml UNSCH PRN IV FLUSH 02/28/16 16:15 03/01/16 08:00 (NS Flush) 2 ml BID IV FLUSH 02/28/16 21:00 03/13/16 21:09 (D50w (Vial) Inj) 25 ml UNSCH PRN IV PUSH 02/28/16 18:30 (Glucagon Inj) 1 mg UNSCH PRN OTHER 02/28/16 18:30 (Neurontin) 100 mg Q8H PO 02/28/16 20:00 03/14/16 03:41 (Mycostatin Powder) 1 applic BID TOP 02/28/16 21:00 03/14/16 09:50 (Pravachol) 40 mg HS PO 02/28/16 21:00 03/13/16 21:09 Miscellaneous Information Patient in critical care unit? Ass... Q361D XX 02/28/16 19:30 (Brethine Inj) 1 mg UNSCH PRN SQ 02/29/16 13:00 (Synthroid) 224 mcg DAILY@0600 PO 03/01/16 06:00 03/14/16 06:07 (NovoLOG SUPPLEMENTAL SCALE) 1 Q4H SQ 03/01/16 16:00 03/14/16 09:51 (Vfend) 200 mg Q12HR PO 03/05/16 09:00 03/14/16 09:00 Vancomycin HCl 500 mg 500 mg Q6H PO 03/04/16 15:00 03/14/16 09:50 (Maxipime Inj/NS Inj) 100 ml @ 200 mls/hr Q24H IV 03/04/16 20:00 03/13/16 21:07 (Apresoline Inj) 10 mg Q6H PRN IV PUSH 03/06/16 07:30 (Deltasone) 5 mg DAILY PO 03/07/16 09:00 03/14/16 09:00 (Zithromax) 500 mg DAILY PO 03/07/16 10:15 03/14/16 09:49 (Lopressor) 12.5 mg Q12HR PO 03/08/16 09:00 03/14/16 09:50 (Pill Splitter) 1 ea UNSCH PRN OTHER 03/08/16 08:00 (Rapamune Liq) 1 mg DAILY@06 NG 03/10/16 06:00 03/14/16 06:00 Water 250 ml 250 ml Q6HR G-TUBE 03/10/16 12:00 03/14/16 06:00 Potassium Chloride 100 ml @ 50 mls/hr Q2H PRN IV 03/10/16 07:45 03/10/16 10:08 (KCl 20 Meq Premix Inj) 100 ml @ 50 mls/hr Q2H PRN IV 03/10/16 07:45 Potassium Chloride 40 meq 40 meq UNSCH PRN PO/TUBE 03/10/16 07:45 Potassium Chloride 100 ml @ 25 mls/hr UNSCH PRN IV 03/10/16 07:45 Potassium Chloride 100 ml @ 50 mls/hr Q2H PRN IV 03/10/16 07:45 (Magnesium Sulfate Inj/NS Inj) 100 ml @ 50 mls/hr UNSCH PRN IV 03/10/16 07:45 Magnesium Oxide 800 mg 800 mg UNSCH PRN PO 03/10/16 07:45 (Magnesium Sulfate Inj/NS Inj) 100 ml @ 50 mls/hr UNSCH PRN IV 03/10/16 07:45 Potassium Phosphate 2000 mg 2,000 mg Q4H PRN PO 03/10/16 07:45 (Sodium Phosphate Inj/NS 250 ml Inj) 250 ml @ 42 mls/hr UNSCH PRN IV 03/10/16 07:45 (KCl 40 Meq/30 ml Liq) 40 meq UNSCH PRN PO/TUBE 03/10/16 07:45 Potassium Phosphate 2000 mg 2,000 mg UNSCH PRN PO/TUBE 03/10/16 07:45 (Potassium Phosphate Inj/NS 250 ml Inj) 260 ml @ 42 mls/hr UNSCH PRN IV 03/10/16 07:45 (Bumetanide) 0.5 mg DAILY G-TUBE 03/11/16 09:00 03/14/16 09:00 Date of Insertion: Feb 28, 2016 Date of Insertion: Feb 28, 2016 Line: Central Venous Catheter Side: Left Location: Internal, Jugular (vasoactive medications, CVP monitoring) A/P Assessment and Plan SEPTIC SHOCK, RESOLVED, OFF PRESSORS RESPIRATORY FAILURE, S/P BRONCH FEB 27, EXTUBATED MAR 03, REINTUBATED MAR 04, EXTUBATED MAR 06, HCAP, FUNGAL PNA LUNG CA COPD C DIF SCHF AC ON CRF RENAL TRANSPLANT, RENAL US NORMAL. AF THROMBOCYTOPENIA HYPOTHYROID PLAN: ON NRB 02, OFF BIPAP FOR NOW IV ABX IVF GTF'S PGT BUMEX, OFF DRIP STEROID PGT BLOOD CULTURES DUONEBS HEPARIN 5000 BID FOR PROPHYLAXIS ON HOLD DUE TO THROMBOCYTOPENIA. IV PROTONIX CCM CONSULT, NOTES REVIEWED NEPHRO CONSULT, NOTES REVIEWED PULMONARY CONSULT, NOTES REVIEWED. PALLIATIVE CONSULT, FAMILY MENTIONING HOSPICE PT OT ST ICU CARE FOLLOWUP LABS MEDS ABOVE. Herbert Kaba MD Mar 14, 2016 11:17
[2016-03-14] MEDS: PANTOPRAZOLE SODIUM 40 MG VIAL IV PUSH SCH (13:10)
--- NOTE | 2016-03-14 17:24 | HHI.NPPN ---
Subjective Renal Failure: Acute History of Present Illness 70-year-old female with a history of renal transplant presenting with respiratory distress with clinical evidence of pneumonia and acute renal failure. Interval History The patient has worsened again today and is now on BiPAP. She is rousable, but not making any meaningful conversation. Apparently, hospice transfer has been held (Janeth Frederick) Review of Systems General General Remarks Not obtainable. (Janeth Frederick) Objective Data Data 03/13/16 03/14/16 19:00 07:00 Intake Total 582 ml 1669 ml Output Total 450 ml 1175 ml Balance 132 ml 494 ml Intake IV Total 110 ml 232 ml Tube Feeding 222 ml 937 ml Other 250 ml 500 ml Output Urine Total 350 ml 725 ml Stool Total 100 ml 450 ml Tube Feeding Residual Discard 0 ml Vital Signs Date Time Temp Pulse Resp B/P Pulse Ox O2 Delivery O2 Flow Rate FiO2 03/14/16 16:58 98.8 90 28 124/57 100 03/14/16 16:30 87 03/14/16 15:04 98 Bi-Pap 45 03/14/16 14:00 89 03/14/16 12:23 88 03/14/16 12:00 99.1 104 28 122/64 100 03/14/16 11:44 98 Face Tent 6.00 50 03/14/16 10:36 82 03/14/16 08:34 88 03/14/16 07:00 98 Bi-Pap 45 03/14/16 06:00 91 03/14/16 04:03 98 45 03/14/16 04:00 90 03/14/16 04:00 99.1 90 28 124/60 100 03/14/16 02:00 87 03/14/16 01:30 98 45 03/14/16 00:00 88 03/14/16 00:00 98.9 88 25 119/57 100 03/13/16 23:00 99 Bi-Pap 45 03/13/16 22:10 98 45 03/13/16 22:00 83 03/13/16 20:00 98.7 94 21 122/57 99 03/13/16 20:00 96 03/13/16 19:05 98 BiPAP 45 03/13/16 19:05 98 45 03/13/16 18:12 93 (Janeth Frederick) -: 03/14/16 0435 03/14/165 Medication Review Current Medications Medications (Trade) Dose Ordered Sig/Reymundo Route Start Time Stop Time Status Last Admin (Tylenol) 650 mg Q4H PRN PO 02/28/16 11:30 03/06/16 17:24 (Zofran Inj) 4 mg Q6H PRN IVP 02/28/16 11:30 (Dulcolax Supp) 10 mg DAILY PRN OK 02/28/16 11:30 (Milk Of Magnesia Liq) 30 ml Q12H PRN PO 02/28/16 11:30 (Senokot) 17.2 mg Q12H PRN PO 02/28/16 11:30 (Heparin Inj) 5,000 units Q12H SQ 02/28/16 12:00 Hold 03/05/16 22:52 (Narcan Inj) 0.4 mg UNSCH PRN IV 02/28/16 11:30 (Protonix Inj) 40 mg Q24H IV PUSH 02/28/16 13:00 03/14/16 13:10 Miscellaneous Information 1 Q361D XX 02/28/16 12:00 (NS Flush) 2 ml UNSCH PRN IV FLUSH 02/28/16 16:15 03/01/16 08:00 (NS Flush) 2 ml BID IV FLUSH 02/28/16 21:00 03/13/16 21:09 (D50w (Vial) Inj) 25 ml UNSCH PRN IV PUSH 02/28/16 18:30 (Glucagon Inj) 1 mg UNSCH PRN OTHER 02/28/16 18:30 (Neurontin) 100 mg Q8H PO 02/28/16 20:00 03/14/16 12:00 (Mycostatin Powder) 1 applic BID TOP 02/28/16 21:00 03/14/16 09:50 (Pravachol) 40 mg HS PO 02/28/16 21:00 03/13/16 21:09 Miscellaneous Information Patient in critical care unit? Ass... Q361D XX 02/28/16 19:30 (Brethine Inj) 1 mg UNSCH PRN SQ 02/29/16 13:00 (Synthroid) 224 mcg DAILY@0600 PO 03/01/16 06:00 03/14/16 06:07 (NovoLOG SUPPLEMENTAL SCALE) 1 Q4H SQ 03/01/16 16:00 03/14/16 16:56 (Vfend) 200 mg Q12HR PO 03/05/16 09:00 03/14/16 09:00 Vancomycin HCl 500 mg 500 mg Q6H PO 03/04/16 15:00 03/14/16 16:47 (Maxipime Inj/NS Inj) 100 ml @ 200 mls/hr Q24H IV 03/04/16 20:00 03/13/16 21:07 (Apresoline Inj) 10 mg Q6H PRN IV PUSH 03/06/16 07:30 (Deltasone) 5 mg DAILY PO 03/07/16 09:00 03/14/16 09:00 (Zithromax) 500 mg DAILY PO 03/07/16 10:15 03/14/16 09:49 (Lopressor) 12.5 mg Q12HR PO 03/08/16 09:00 03/14/16 09:50 (Pill Splitter) 1 ea UNSCH PRN OTHER 03/08/16 08:00 (Rapamune Liq) 1 mg DAILY@06 NG 03/10/16 06:00 03/14/16 06:00 Water 250 ml 250 ml Q6HR G-TUBE 03/10/16 12:00 03/14/16 16:48 Potassium Chloride 100 ml @ 50 mls/hr Q2H PRN IV 03/10/16 07:45 03/10/16 10:08 (KCl 20 Meq Premix Inj) 100 ml @ 50 mls/hr Q2H PRN IV 03/10/16 07:45 Potassium Chloride 40 meq 40 meq UNSCH PRN PO/TUBE 03/10/16 07:45 Potassium Chloride 100 ml @ 25 mls/hr UNSCH PRN IV 03/10/16 07:45 Potassium Chloride 100 ml @ 50 mls/hr Q2H PRN IV 03/10/16 07:45 (Magnesium Sulfate Inj/NS Inj) 100 ml @ 50 mls/hr UNSCH PRN IV 03/10/16 07:45 Magnesium Oxide 800 mg 800 mg UNSCH PRN PO 03/10/16 07:45 (Magnesium Sulfate Inj/NS Inj) 100 ml @ 50 mls/hr UNSCH PRN IV 03/10/16 07:45 Potassium Phosphate 2000 mg 2,000 mg Q4H PRN PO 03/10/16 07:45 (Sodium Phosphate Inj/NS 250 ml Inj) 250 ml @ 42 mls/hr UNSCH PRN IV 03/10/16 07:45 (KCl 40 Meq/30 ml Liq) 40 meq UNSCH PRN PO/TUBE 03/10/16 07:45 Potassium Phosphate 2000 mg 2,000 mg UNSCH PRN PO/TUBE 03/10/16 07:45 (Potassium Phosphate Inj/NS 250 ml Inj) 260 ml @ 42 mls/hr UNSCH PRN IV 03/10/16 07:45 (Bumetanide) 0.5 mg DAILY G-TUBE 03/11/16 09:00 03/14/16 09:00 (Janeth Frederick) Physical Exam General Appearance: No Acute Distress (Janeth Frederick) Eyes Eye Exam: Pupils Equal, Pupils Reactive (Janeth Frederick) Pulmonary Resp Exam: Rhonchi, Diminished Breath Sounds (Janeth Frederick) Cardiology CV Exam: Regular, Normal Sinus Rhythm, Good Perfusion (Janeth Frederick) Gastrointestinal/Abdomen GI Exam: Bowel Sounds Present (Janeth Frederick) Musculoskeletal MS Exam: Joints Intact, Good Strength (Janeth Frederick) Integumentary Skin Exam: Clear, Warm, Dry, Intact (Janeth Frederick) Extremeties Extremities Exam: No Edema, Moderate Edema Extremeties Remarks 1+ pitting edema BUE and BLE up to knees. (Janeth Frederick) Neurologic Neuro Exam: Obtunded (Janeth Frederick) Assessment/Plan Assessment Summary: Transplant Kidney Status Problem List: (1) Renal transplant, status post Plan: The patient's clinical condition appears to be deteriorating and the patient does have severe chronic debilitation and multiple comorbidities. Hospice consultation is appropriate, but seems that her family has decided to hold on this. Renal functions stable Sirolimus ordered for tomorrow Will continue on current dose of Bumex. Consider Diuril tomorrow if edematous and hypernatremic still. Continue on free H2O via G-tube Prognosis is very poor. (2) Acute kidney failure Plan: As above (3) Pneumonia Plan: Mgmt as per ID. Chest x-ray today shows complete opacification of the right hemithorax (4) Sepsis Plan: with septic shock (5) Heart failure Plan: EF of 35 % previously. (Janeth Frederick) Plan The exam, history, and the medical decision-making described in the above note were completed with the assistance of the PA-Remington. I reviewed and agree with the findings presented. . (Rin Juarez MD) Janeth Frederick Mar 14, 2016 17:24 Rin Juarez MD Mar 15, 2016 16:25
--- NOTE | 2016-03-14 18:15 | HHI.PR ---
Subjective Remarks 70 YOWF with COPD,Renal transplant,ca lung, s/p resection with RF Extubated Tired Lethargic made her DNR Using BIPAP /, Fi02 45% Opens eyes Objective Vital Signs Vital Signs Date Time Temp Pulse Resp B/P Pulse Ox O2 Delivery O2 Flow Rate FiO2 03/14/16 16:58 98.8 90 28 124/57 100 03/14/16 16:30 87 03/14/16 15:04 98 Bi-Pap 45 03/14/16 14:00 89 03/14/16 12:23 88 03/14/16 12:00 99.1 104 28 122/64 100 03/14/16 11:44 98 Face Tent 6.00 50 03/14/16 10:36 82 03/14/16 08:34 88 03/14/16 07:00 98 Bi-Pap 45 03/14/16 06:00 91 03/14/16 04:03 98 45 03/14/16 04:00 90 03/14/16 04:00 99.1 90 28 124/60 100 03/14/16 02:00 87 03/14/16 01:30 98 45 03/14/16 00:00 88 03/14/16 00:00 98.9 88 25 119/57 100 03/13/16 23:00 99 Bi-Pap 45 03/13/16 22:10 98 45 03/13/16 22:00 83 03/13/16 20:00 98.7 94 21 122/57 99 03/13/16 20:00 96 03/13/16 19:05 98 BiPAP 45 03/13/16 19:05 98 45 I/O 03/13/16 03/13/16 03/13/16 03/14/16 03/14/16 03/14/16 07:00 15:00 23:00 07:00 15:00 23:00 Intake Total 602 ml 582 ml 1067 ml 602 ml 661 ml Output Total 350 ml 450 ml 550 ml 625 ml 325 ml Balance 252 ml 132 ml 517 ml -23 ml 336 ml Intake IV Total 74 ml 110 ml 198 ml 34 ml 110 ml Tube Feeding 278 ml 222 ml 619 ml 318 ml 301 ml Other 250 ml 250 ml 250 ml 250 ml 250 ml Output Urine Total 250 ml 350 ml 400 ml 325 ml 225 ml Stool Total 100 ml 100 ml 150 ml 300 ml 100 ml Tube Feeding Residual Discard 0 ml Result Diagram: 03/14/1643403/14/16434 Objective Remarks GENERALMBMN female, SOB: SKIN: Warm and dry. HEAD: Normocephalic. EYES: No scleral icterus. No injection or drainage. NECK: Supple, trachea midline. No JVD or lymphadenopathy. CARDIOVASCULAR: Regular rate and rhythm without murmurs, gallops, or rubs. RESPIRATORY: Breath sounds equal bilaterally. No accessory muscle use. Bilat coarse crackles. GASTROINTESTINAL: Abdomen soft, non-tender, nondistended. MUSCULOSKELETAL: No cyanosis, ++ edema. BACK: Nontender without obvious deformity. No CVA tenderness. A/P Assessment and Plan VDRF, extubated 03/06 Pneumonia Sepsis sund renal transplant Ca lung, s/p resection PLAN: Monitor BS Abx Zithro, and Cefepime and Voriconazole per ID PO Vancomycin Supplement 02 to keep sat >90% Supplement 02 with NC BIPAP Code status DNR Palliative care following Alverto Armas MD Mar 14, 2016 18:15
--- NOTE | 2016-03-14 19:31 | HHI.CCPN ---
Subjective Remarks/Hospital Course 70-year-old female with history of lung cancer status post left lobectomy, and kidney transplant 2006 presented to the ED with worsening pulmonary symptoms. Her medical history is significant for DM, HTN. She presented to the ED today because worsening cough, shortness of breath, dyspnea on exertion, and fevers. The patient is dependent on home O2 at 4 L nasal cannula, and scheduled DuoNeb treatment. The patient was hospitalized for several months 11/2015-12/22 . During this hospitalization she reports having a fungal pulmonary infection and a seizure resulting in "coma for a few weeks". She was transferred to a rehabilitation facility [facility] the [facility] for approximately 2 months ago. The patient was then transferred to [facility] approximately 3 weeks ago at which time she fractured her left ankle, and was transferred to [facility]. She was recently discharged from [facility] on 02/15/2016. The patient states that she began having worsening symptoms over the last 3-4 days, that resembled her fungal pneumonia. Critical care medicine was consulted for management. 02/28 Upon arrival to ICU last evening, bronchoscopy was performed, and specimens were sent for culture. The patient was maintained on IV fluids 100 cc an hour, and discontinued at 2 AM secondary to oliguria. CVP ranged 14 throughout the night, with original BNP 1035. Postintubation the patient remains GCS 11 T, following commands. The patient continues to be oliguric with hourly urinary output 7-10 cc an hour. 03/01 On levophed 8mcg/min. UOP around 10 mL/hr. Received Bumex 2 mg IV and UOP still ~20 Ml/hr last hour. CVP 18-20. In Afib rate controlled. Awakens on CPAP 5/5. 03/02 UOP 1068 overnight on bumex drip. Creatinine up to 3.28. Placing on CPAP 5 /5. Afebrile. Levophed weaned to 2 mcg/min with MAP 77. CVP 24 Subjective: 03/03 Creatinine up to 3.32. Nonoliguric with Bumex drip. CVP down to 14. Tolerating CPAP. Off levophed. 03/04 Patient was on BIPAP 10/5 with 60% FIO2 overnight. Patient looked lethargic and started desating she was subsequently intubated and placed on mechanical ventilation. On Bumex drip 2mg/hr. Positive C-diff this morning. 03/05 Patient is sedated with Diprivan and intubated. Afebrile. Remains on Bumex drip 2mg/hr. 03/06 No acute events overnight. Tolerated CPAP all day yesterday. On Bumex 2mg /hr. Sedated with Diprivan and intubated. 03/07 Patient s/p extubation yesterday placed on BIPAP overnight 12/11 with 40% FIO2. Afebrile. Off Bumex drip. 03/08 No acute events overnight. On BIPAP 10/5 with 40$ FIO2 overnight. Afebrile. Renal function improving with Cr: 1.97 today from 2.32 03/09 Patient remains on BIPAP 10/5 with 40% FIO2. Afebrile. 03/10 No events overnight. On BIPAP with 40% FIO2, afebrile. Renal function improving with Cr: 1.5 today. 03/11 Patient is off BIPAP given Bumex 1mg x1 at 4: 21 this morning on 5L oxygen. 03/12 on BiPAP currently. Remains encephalopathic. 03/13: Off BiPAP since this morning on facemask liters per minute. Awake and alert. Wanting restraints off. 03/14: Requiring intermittent BiPAP. Drowsy, easily arousable. Objective Vital Signs Date Time Temp Pulse Resp B/P Pulse Ox O2 Delivery O2 Flow Rate FiO2 03/14/16 18:15 92 03/14/16 16:58 98.8 28 124/57 100 03/14/16 15:04 Bi-Pap 45 03/14/16 11:44 6.00 Intake and Output 03/13/16 03/13/16 03/14/16 08:00 16:00 00:00 Intake Total 602 ml 582 ml 1067 ml Output Total 350.0 ml 450 ml 550 ml Balance 252.0 ml 132 ml 517 ml Result Diagram: 03/14/16 0435 03/14/16 0435 Imaging Last Impressions Chest X-Ray 03/10/16 0000 Signed Impressions: Service Date/Time: Thursday, March 10, 2016 07:59 - CONCLUSION: Improved aeration on the right with complete opacification on the left. Sergio Renteria MD Renal Ultrasound 12/24/16 0000 Signed Impressions: Service Date/Time: Tuesday, March 01, 2016 10:45 - CONCLUSION: No evidence of hydronephrosis or focal abnormality. The resistive indices are within normal Sumit Laws MD Abdomen X-Ray 03/01/16 0000 Signed Impressions: Service Date/Time: Tuesday, March 01, 2016 15:32 - CONCLUSION: G-tube inside the stomach. Angelita Birmingham MD Objective Remarks Nepro 40 ml/hr GENERAL: Morbidly obese elderly female on BIPAP SKIN: Warm and dry. Multiple ecchymotic bruising neck, chest, bilateral extremities upper and lower HEAD: Atraumatic. Normocephalic. EYES: Pupils equal and round. No scleral icterus. No injection or drainage. ENT: No nasal bleeding or discharge. Mucous membranes pink and moist. NECK: Trachea midline. Supple, no JVD, adenopathy CARDIOVASCULAR: Tachycardic, nl S1, S2. RESPIRATORY: On BiPAP with full facemask, Coarse BS on right. GASTROINTESTINAL: Abdomen soft, non-tender, nondistended. Gastric tube no erythema or drainage. MUSCULOSKELETAL: Extremities without clubbing, cyanosis, trace edema NEUROLOGICAL: Drowsy, arousable, following commands. Date of Insertion: Feb 28, 2016 Date of Insertion: Feb 28, 2016 Line: Central Venous Catheter Side: Left Location: Internal, Jugular (vasoactive medications, CVP monitoring) A/P Assessment and Plan Plan by systems: Neurologic: Encephalopathy Seizure disorder Herniated discs Neuropathy - avoid sedatives. -Neurochecks per ICU protocol -Gabapentin 100 q8. Respiratory: Acute hypoxic respiratory failure History of non-small cell lung cancer S/P left lung lobectomy 2013 Home O2 dependency Presumed Hospital-acquired pneumonia (previous HCAP treatment 10/22) Left lung opacity-chronic History of tracheostomy-decannulated 12/22/15 -02/27 Intubated , extubated 03/03 reintubated 03/04, extubated 03/06 -Continue with oxygen keep sat >92%. F/u CXR -Bronchodilators. IS, NIPPV PRN for resp distress -Pulmonology Following, Cardiovascular: HTN Atrial fibrillation-rate control Acute on chronic systolic CHF RV overload, pulmonary HTN Hyperlipidemia -Continue Lopressor 12.5mg BID Maintain HR and BP keep MAP>65mmHg -2D ECHO 12/23mildly reduced systolic function with EF 45-50%. Mild RV dilatation. Mild to moderate tricuspid regurg. Pulmonary artery peak systolic pressure 53 mmHg. -Continue pravastatin FEN/Renal: S/P kidney transplant ANNABELLA, ..improving Hypernatremia -Monitor renal function, I/O's, electrolytes replacement per protocol. -On Bumex 0.5mg daily, Free Water 250ml Q6 ,monitor sodium level. -Pin Sorter And Bagger -Dr. Juarez -Sirolimus level: 9 on 03/01. On Sirolimus 2 mg every other day per nephrology. -On prednisone 5mg daily per nephrology, GI: Morbid obesity -TF-Glucerna 1.5 with goal rate 45ml/hr mL/hr via PEG. -Zofran PRN for nausea -Protonix GI prophylaxis ID: Pneumonia-HCAP Positive Cdiff Continue with abx per ID (Cefepime, Zithromax,, PO Vanco, Voriconazole) 02/27 - Influenza screen negative. 02/27 Blood cultures -NGTD 02/27 Bronchial washings- Gram positive cocci, fungal stain negative. 02/28 cryptococcal- serum antigen negative 03/01 urine legionella and pneumococcal antigen negative. Heme: Monitor CBC, Hep PLT ab negative Endocrine: DM Hypothyroidism -Continue medium dose sliding scale q4 hours, -T4 4.7 (norm 4.8), TSH 33.60( elevated) -Continue Synthroid 224 mcg/d MSK: - Specialty bed -Wound care consult, noted admission to ED with sacral decubitus wound Prophylaxis: GI Prophylaxis Protonix IV DVT Prophylaxis -- SCDs, heparin SQ on hold(Thrombocytopenia) Hep PLT ab negative. Lines: Peripheral IV's Palliative care following. Patient's and decided to make her DNR/DNI status. Erich Rodriguez MD Mar 14, 2016 19:31
[2016-03-14] MEDS: RESP: ALBUTEROL 2.5 MG/IPRATROPIUM 0.5 MG NEB (PRN) NEB (19:49)
[2016-03-14] MEDS: PRAVASTATIN SOD 40 MG TAB PO SCH (20:20)
[2016-03-14] MEDS: CEFEPIME INJ 2,000 MG in SODIUM CHLORIDE 0.9% INJ 100 ML IV SCH (20:21)
[2016-03-15] VITALS (17 sets, daily range): BP systolic 113–138; BP diastolic 56–65; PULSE 88–132; RESP 22–24; TEMP 98.1–99.2; O2SAT 92–100
[2016-03-15] MEDS: INSULIN ASPART SUPPLEMENTAL SCALE SQ SCH ×6 (01:10→20:00)
[2016-03-15] MEDS: GABAPENTIN 100 MG CAP PO SCH ×3 (03:05→20:33)
[2016-03-15] MEDS: VANCOMYCIN 500 MG VIAL (FOR ORAL USE ONLY) PO SCH ×4 (03:05→20:33)
--- NOTE | 2016-03-15 04:41 | RADRPT ---
EXAM DATE/TIME: 03/15/2016 03:05 [place] COMPARISON: CHEST SINGLE AP, March 10, 2016, 7:59. INDICATIONS : Shortness of breath, possible pulmonary disease. MEDICAL HISTORY : Carcinoma, lung. SURGICAL HISTORY : Lobectomy ENCOUNTER: Subsequent ACUITY: 1 week PAIN SCORE: Non-responsive. LOCATION: Bilateral chest FINDINGS: There is complete opacification of the left hemithorax characteristic of prior lobectomy. Stable jorje earance to the lower lateral left rib fractures. The right lung is stable in appearance with some mi nimal interstitial prominence, but no focal areas of consolidation. CONCLUSION: Some mild residual interstitial prominence in the right lung. Complete opacification of the left hem ithorax. Michael Osorio MD on March 15, 2016 at 4:39 Board Certified Radiologist. This report was verified electronically.
[2016-03-15 05:00] LABS: AUTOMATED NEUTROPHIL # 5.4 TH/MM3 (1.8-7.7); BASOPHIL % 0.5 % (0.0-2.0); EOSINOPHIL # 0.1 TH/MM3 (0-0.4); HEMATOCRIT 26.7 % (35.0-46.0); HEMO FLAGS DIFF FINAL; LYMPH % 11.7 % (9.0-44.0); LYMPHOCYTE # 0.8 TH/MM3 (1.0-4.8); MEAN CELL VOLUME 91.1 FL (80.0-100.0); MEAN CORPUSCULAR HEMOGLOBIN 28.6 PG (27.0-34.0); MEAN CORPUSCULAR HGB CONC 31.3 % (32.0-36.0); MONO % 4.1 % (0.0-8.0); NEUT % 82.7 % (16.0-70.0); PLATELET COUNT 105 TH/MM3 (150-450); RED BLOOD COUNT 2.93 MIL/MM3 (4.00-5.30); RED CELL DISTRIBUTION WIDTH 18.3 % (11.6-17.2); WHITE BLOOD COUNT 6.5 TH/MM3 (4.0-11.0)
[2016-03-15 05:14] LABS: BICARBONATE 34.2 MEQ/L (21.0-32.0); POTASSIUM 4.9 MEQ/L (3.5-5.1)
[2016-03-15] MEDS: SIROLIMUS 1 MG/ML NG SCH (05:23)
[2016-03-15] MEDS: FREE WATER G-TUBE SCH ×5 (05:23→22:36)
[2016-03-15] MEDS: LEVOTHYROXINE SODIUM 112 MCG TAB PO SCH (05:23)
[2016-03-15] MEDS: BUMETANIDE 1 MG TAB G-TUBE SCH (08:00)
[2016-03-15] MEDS: METOPROLOL TARTRATE 25 MG TAB PO SCH ×2 (08:01→20:33)
[2016-03-15] MEDS: VORICONAZOLE 200 MG TAB PO SCH (08:01)
[2016-03-15] MEDS: NYSTATIN 100,000 U/GM PWD 15 GM BTL TOP SCH ×2 (08:01→21:00)
[2016-03-15] MEDS: AZITHROMYCIN 250 MG TAB PO SCH (08:01)
[2016-03-15] MEDS: predniSONE 5 MG TAB PO SCH (08:01)
[2016-03-15] MEDS: SODIUM CHLORIDE 0.9% FLUSH 5 ML FLUSH IV FLUSH SCH ×2 (09:00→20:34)
--- NOTE | 2016-03-15 10:25 | HHI.FPPN ---
Subjective Remarks MORE ALERT ON O2 VERY WEAK D/W RN Objective Vitals Vital Signs Date Time Temp Pulse Resp B/P Pulse Ox O2 Delivery O2 Flow Rate FiO2 03/15/16 10:00 95 03/15/16 08:48 92 Face Tent 50 03/15/16 08:00 91 03/15/16 08:00 98.1 98 24 138/65 100 03/15/16 07:00 Bi-Pap 45 03/15/16 06:00 93 03/15/16 04:09 98 40 03/15/16 04:00 97 03/15/16 04:00 98.3 97 24 123/58 98 03/15/16 02:00 98 03/15/16 01:20 98 40 03/15/16 00:00 88 03/15/16 00:00 98.7 91 24 130/60 100 03/14/16 23:00 100 Bi-Pap 45 03/14/16 22:10 99 40 03/14/16 22:00 89 03/14/16 20:00 98.4 91 25 135/63 100 03/14/16 20:00 91 03/14/16 19:49 98 BiPAP 45 03/14/16 19:49 98 45 03/14/16 18:15 92 03/14/16 16:58 98.8 90 28 124/57 100 03/14/16 16:30 87 03/14/16 15:04 98 Bi-Pap 45 03/14/16 14:00 89 03/14/16 12:23 88 03/14/16 12:00 99.1 104 28 122/64 100 03/14/16 11:44 98 Face Tent 6.00 50 03/14/16 10:36 82 I/O 03/14/16 03/14/16 03/14/16 03/15/16 03/15/16 03/15/16 07:00 15:00 23:00 07:00 15:00 23:00 Intake Total 602 ml 661 ml 1044 ml 583 ml Output Total 625 ml 325 ml 850 ml 550 ml Balance -23 ml 336 ml 194 ml 33 ml Intake IV Total 34 ml 110 ml 107 ml 0 ml Tube Feeding 318 ml 301 ml 587 ml 283 ml Other 250 ml 250 ml 350 ml 300 ml Output Urine Total 325 ml 225 ml 350 ml 350 ml Stool Total 300 ml 100 ml 500 ml 200 ml Result Diagram: 03/15/16 0347 03/15/16346 Objective Remarks GENERAL: on NRB; chronically ill appearing SKIN: Warm and dry. HEAD: Atraumatic. Normocephalic. EYES: Pupils equal and round. No scleral icterus. No injection or drainage. ENT: No nasal bleeding or discharge. Mucous membranes pink and moist. NECK: Trachea midline. No JVD. CARDIOVASCULAR: Regular rate and rhythm. RESPIRATORY: No accessory muscle use. Slight Bilateral ronchi, good air movement. Breath sounds equal bilaterally. GASTROINTESTINAL: Abdomen soft, non-tender, nondistended. Hepatic and splenic margins not palpable. MUSCULOSKELETAL: Extremities without clubbing, cyanosis, or edema. No obvious deformities. NEUROLOGICAL: Awake and alert. No obvious cranial nerve deficits. Motor grossly within normal limits. 03/13 all extr's PSYCHIATRIC: Appropriate mood and affect; Medications and IVs Current Medications Medications (Trade) Dose Ordered Sig/Reymundo Route Start Time Stop Time Status Last Admin (Tylenol) 650 mg Q4H PRN PO 02/28/16 11:30 03/06/16 17:24 (Zofran Inj) 4 mg Q6H PRN IVP 02/28/16 11:30 (Dulcolax Supp) 10 mg DAILY PRN DE 02/28/16 11:30 (Milk Of Magnesia Liq) 30 ml Q12H PRN PO 02/28/16 11:30 (Senokot) 17.2 mg Q12H PRN PO 02/28/16 11:30 (Heparin Inj) 5,000 units Q12H SQ 02/28/16 12:00 Hold 03/05/16 22:52 (Narcan Inj) 0.4 mg UNSCH PRN IV 02/28/16 11:30 (Protonix Inj) 40 mg Q24H IV PUSH 02/28/16 13:00 03/14/16 13:10 Miscellaneous Information 1 Q361D XX 02/28/16 12:00 (NS Flush) 2 ml UNSCH PRN IV FLUSH 02/28/16 16:15 03/01/16 08:00 (NS Flush) 2 ml BID IV FLUSH 02/28/16 21:00 03/14/16 20:21 (D50w (Vial) Inj) 25 ml UNSCH PRN IV PUSH 02/28/16 18:30 (Glucagon Inj) 1 mg UNSCH PRN OTHER 02/28/16 18:30 (Neurontin) 100 mg Q8H PO 02/28/16 20:00 03/15/16 03:05 (Mycostatin Powder) 1 applic BID TOP 02/28/16 21:00 03/15/16 08:01 (Pravachol) 40 mg HS PO 02/28/16 21:00 03/14/16 20:20 Miscellaneous Information Patient in critical care unit? Ass... Q361D XX 02/28/16 19:30 (Brethine Inj) 1 mg UNSCH PRN SQ 02/29/16 13:00 (Synthroid) 224 mcg DAILY@0600 PO 03/01/16 06:00 03/15/16 05:23 (NovoLOG SUPPLEMENTAL SCALE) 1 Q4H SQ 03/01/16 16:00 03/15/16 08:19 (Vfend) 200 mg Q12HR PO 03/05/16 09:00 03/15/16 08:01 Vancomycin HCl 500 mg 500 mg Q6H PO 03/04/16 15:00 03/15/16 08:00 (Maxipime Inj/NS Inj) 100 ml @ 200 mls/hr Q24H IV 03/04/16 20:00 03/14/16 20:21 (Apresoline Inj) 10 mg Q6H PRN IV PUSH 03/06/16 07:30 (Deltasone) 5 mg DAILY PO 03/07/16 09:00 03/15/16 08:01 (Zithromax) 500 mg DAILY PO 03/07/16 10:15 03/15/16 08:01 (Lopressor) 12.5 mg Q12HR PO 03/08/16 09:00 03/15/16 08:01 (Pill Splitter) 1 ea UNSCH PRN OTHER 03/08/16 08:00 (Rapamune Liq) 1 mg DAILY@06 NG 03/10/16 06:00 03/15/16 05:23 Water 250 ml 250 ml Q6HR G-TUBE 03/10/16 12:00 03/15/16 05:23 Potassium Chloride 100 ml @ 50 mls/hr Q2H PRN IV 03/10/16 07:45 03/10/16 10:08 (KCl 20 Meq Premix Inj) 100 ml @ 50 mls/hr Q2H PRN IV 03/10/16 07:45 Potassium Chloride 40 meq 40 meq UNSCH PRN PO/TUBE 03/10/16 07:45 Potassium Chloride 100 ml @ 25 mls/hr UNSCH PRN IV 03/10/16 07:45 Potassium Chloride 100 ml @ 50 mls/hr Q2H PRN IV 03/10/16 07:45 (Magnesium Sulfate Inj/NS Inj) 100 ml @ 50 mls/hr UNSCH PRN IV 03/10/16 07:45 Magnesium Oxide 800 mg 800 mg UNSCH PRN PO 03/10/16 07:45 (Magnesium Sulfate Inj/NS Inj) 100 ml @ 50 mls/hr UNSCH PRN IV 03/10/16 07:45 Potassium Phosphate 2000 mg 2,000 mg Q4H PRN PO 03/10/16 07:45 (Sodium Phosphate Inj/NS 250 ml Inj) 250 ml @ 42 mls/hr UNSCH PRN IV 03/10/16 07:45 (KCl 40 Meq/30 ml Liq) 40 meq UNSCH PRN PO/TUBE 03/10/16 07:45 Potassium Phosphate 2000 mg 2,000 mg UNSCH PRN PO/TUBE 03/10/16 07:45 (Potassium Phosphate Inj/NS 250 ml Inj) 260 ml @ 42 mls/hr UNSCH PRN IV 03/10/16 07:45 (Bumetanide) 0.5 mg DAILY G-TUBE 03/11/16 09:00 03/15/16 08:00 Urinary Catheter: Yes Malik insert reason: ICU Pt Getting Diuretics Date of Insertion: Feb 28, 2016 Vascular Central Line Catheter: Yes Date of Insertion: Feb 28, 2016 Line: Central Venous Catheter Side: Left Location: Internal, Jugular (vasoactive medications, CVP monitoring) A/P Assessment and Plan SEPTIC SHOCK, RESOLVED, OFF PRESSORS RESPIRATORY FAILURE, S/P BRONCH FEB 27, EXTUBATED MAR 03, REINTUBATED MAR 04, EXTUBATED MAR 06, HCAP, FUNGAL PNA LUNG CA COPD C DIF SCHF AC ON CRF RENAL TRANSPLANT, RENAL US NORMAL. AF THROMBOCYTOPENIA HYPOTHYROID PLAN: ON NRB 02, OFF BIPAP FOR NOW IV ABX IVF GTF'S PGT BUMEX, OFF DRIP STEROID PGT BLOOD CULTURES DUONEBS HEPARIN 5000 BID FOR PROPHYLAXIS ON HOLD DUE TO THROMBOCYTOPENIA. IV PROTONIX CCM CONSULT, NOTES REVIEWED NEPHRO CONSULT, NOTES REVIEWED PULMONARY CONSULT, NOTES REVIEWED. PALLIATIVE CONSULT, FAMILY MENTIONING HOSPICE PT OT ST ICU CARE FOLLOWUP LABS MEDS ABOVE. Herbert Kaba MD Mar 15, 2016 10:25
[2016-03-15] MEDS: PANTOPRAZOLE SODIUM 40 MG VIAL IV PUSH SCH (13:00)
--- NOTE | 2016-03-15 14:01 | HHI.CCPN ---
Subjective Remarks/Hospital Course 70-year-old female with history of lung cancer status post left lobectomy, and kidney transplant 2006 presented to the ED with worsening pulmonary symptoms. Her medical history is significant for DM, HTN. She presented to the ED today because worsening cough, shortness of breath, dyspnea on exertion, and fevers. The patient is dependent on home O2 at 4 L nasal cannula, and scheduled DuoNeb treatment. The patient was hospitalized for several months 11/2015-12/22 . During this hospitalization she reports having a fungal pulmonary infection and a seizure resulting in "coma for a few weeks". She was transferred to a rehabilitation facility [facility] for approximately 2 months ago. The patient was then transferred to [facility] approximately 3 weeks ago at which time she fractured her left ankle, and was transferred to [facility]. She was recently discharged from [facility] on 02/15/2016. The patient states that she began having worsening symptoms over the last 3-4 days, that resembled her fungal pneumonia. Critical care medicine was consulted for management. 02/28 Upon arrival to ICU last evening, bronchoscopy was performed, and specimens were sent for culture. The patient was maintained on IV fluids 100 cc an hour, and discontinued at 2 AM secondary to oliguria. CVP ranged 14 throughout the night, with original BNP 1035. Postintubation the patient remains GCS 11 T, following commands. The patient continues to be oliguric with hourly urinary output 7-10 cc an hour. 03/01 On levophed 8mcg/min. UOP around 10 mL/hr. Received Bumex 2 mg IV and UOP still ~20 Ml/hr last hour. CVP 18-20. In Afib rate controlled. Awakens on CPAP 5/5. 03/02 UOP 1068 overnight on bumex drip. Creatinine up to 3.28. Placing on CPAP 5 /5. Afebrile. Levophed weaned to 2 mcg/min with MAP 77. CVP 24 Subjective: 03/03 Creatinine up to 3.32. Nonoliguric with Bumex drip. CVP down to 14. Tolerating CPAP. Off levophed. 03/04 Patient was on BIPAP 10/5 with 60% FIO2 overnight. Patient looked lethargic and started desating she was subsequently intubated and placed on mechanical ventilation. On Bumex drip 2mg/hr. Positive C-diff this morning. 03/05 Patient is sedated with Diprivan and intubated. Afebrile. Remains on Bumex drip 2mg/hr. 03/06 No acute events overnight. Tolerated CPAP all day yesterday. On Bumex 2mg /hr. Sedated with Diprivan and intubated. 03/07 Patient s/p extubation yesterday placed on BIPAP overnight 12/11 with 40% FIO2. Afebrile. Off Bumex drip. 03/08 No acute events overnight. On BIPAP 10/ with 40$ FIO2 overnight. Afebrile. Renal function improving with Cr: 1.97 today from 2.32 03/09 Patient remains on BIPAP 10/5 with 40% FIO2. Afebrile. 03/10 No events overnight. On BIPAP with 40% FIO2, afebrile. Renal function improving with Cr: 1.5 today. 03/11 Patient is off BIPAP given Bumex 1mg x1 at 4: 21 this morning on 5L oxygen. 03/12 on BiPAP currently. Remains encephalopathic. 03/13: Off BiPAP since this morning on facemask liters per minute. Awake and alert. Wanting restraints off. 03/14: Requiring intermittent BiPAP. Drowsy, easily arousable. 03/15: A stent this morning. Awake and alert. Following commands. Objective Vital Signs Date Time Temp Pulse Resp B/P Pulse Ox O2 Delivery O2 Flow Rate FiO2 03/15/16 10:00 95 03/15/16 08:48 92 Face Tent 50 03/15/16 08:00 98.1 24 138/65 03/14/16 11:44 6.00 Intake and Output 03/14/16 03/14/16 03/15/16 08:00 16:00 00:00 Intake Total 602 ml 661 ml 1044 ml Output Total 625 ml 325 ml 850 ml Balance -23 ml 336 ml 194 ml Result Diagram: 03/15/16 0347 03/15/16 0347 Imaging Last Impressions Chest X-Ray 03/10/16 0000 Signed Impressions: Service Date/Time: Thursday, March 10, 2016 07:59 - CONCLUSION: Improved aeration on the right with complete opacification on the left. Sergio Renteria MD Renal Ultrasound 03/01/16 0000 Signed Impressions: Service Date/Time: Tuesday, March 01, 2016 10:45 - CONCLUSION: No evidence of hydronephrosis or focal abnormality. The resistive indices are within normal Sumit Laws MD Abdomen X-Ray 03/01/16 0000 Signed Impressions: Service Date/Time: Tuesday, March 01, 2016 15:32 - CONCLUSION: G-tube inside the stomach. K. Ric Birmingham MD Objective Remarks Nepro 40 ml/hr GENERAL: Morbidly obese elderly female on BIPAP SKIN: Warm and dry. Multiple ecchymotic bruising neck, chest, bilateral extremities upper and lower HEAD: Atraumatic. Normocephalic. EYES: Pupils equal and round. No scleral icterus. No injection or drainage. ENT: No nasal bleeding or discharge. Mucous membranes pink and moist. NECK: Trachea midline. Supple, no JVD, adenopathy CARDIOVASCULAR: Tachycardic, nl S1, S2. RESPIRATORY: On BiPAP with full facemask, Coarse BS on right. GASTROINTESTINAL: Abdomen soft, non-tender, nondistended. Gastric tube no erythema or drainage. MUSCULOSKELETAL: Extremities without clubbing, cyanosis, trace edema NEUROLOGICAL: Awake, alert, following commands. Date of Insertion: Feb 28, 2016 Date of Insertion: Feb 28, 2016 Line: Central Venous Catheter Side: Left Location: Internal, Jugular (vasoactive medications, CVP monitoring) A/P Assessment and Plan Plan by systems: Neurologic: Encephalopathy Seizure disorder Herniated discs Neuropathy - avoid sedatives. -Neurochecks per ICU protocol -Gabapentin 100 q8. Respiratory: Acute hypoxic respiratory failure History of non-small cell lung cancer S/P left lung lobectomy 2014 Home O2 dependency Presumed Hospital-acquired pneumonia (previous HCAP treatment 10/22) Left lung opacity-chronic History of tracheostomy-decannulated 12/22/15 -02/27 Intubated , extubated 03/03 reintubated 03/04, extubated 03/06 -Continue with oxygen keep sat >92%. F/u CXR -Bronchodilators. IS, on O2 via face tent currently. BiPAP as needed. -Pulmonology Following, Cardiovascular: HTN Atrial fibrillation-rate control Acute on chronic systolic CHF RV overload, pulmonary HTN Hyperlipidemia -Continue Lopressor 12.5mg BID Maintain HR and BP keep MAP>65mmHg -2D ECHO 02/28mildly reduced systolic function with EF 45-50%. Mild RV dilatation. Mild to moderate tricuspid regurg. Pulmonary artery peak systolic pressure 53 mmHg. -Continue pravastatin FEN/Renal: S/P kidney transplant ANNABELLA, ..improving Hypernatremia -Monitor renal function, I/O's, electrolytes replacement per protocol. -On Bumex 0.5mg daily, Free Water 250ml Q6 ,monitor sodium level. -[employer] -Dr. Juarez -Sirolimus level: 9 on 03/01. On Sirolimus 2 mg every other day per nephrology. -On prednisone 5mg daily per nephrology, GI: Morbid obesity -TF-Glucerna 1.5 with goal rate 45ml/hr mL/hr via PEG. -Zofran PRN for nausea -Protonix GI prophylaxis ID: Pneumonia-HCAP Positive Cdiff Continue with abx per ID (Cefepime, Zithromax,, PO Vanco, Voriconazole) 02/27 - Influenza screen negative. 02/27 Blood cultures -NGTD 02/27 Bronchial washings- Gram positive cocci, fungal stain negative. 02/28 cryptococcal- serum antigen negative 03/01 urine legionella and pneumococcal antigen negative. Heme: Monitor CBC, Hep PLT ab negative Endocrine: DM Hypothyroidism -Continue medium dose sliding scale q4 hours, -T4 4.7 (norm 4.8), TSH 33.60( elevated) -Continue Synthroid 224 mcg/d MSK: - Specialty bed -Wound care consult, noted admission to ED with sacral decubitus wound Prophylaxis: GI Prophylaxis Protonix IV DVT Prophylaxis -- SCDs, heparin SQ on hold(Thrombocytopenia) Hep PLT ab negative. Lines: Peripheral IV's Palliative care following. DNR/DNI status. Erich Rodriguez MD Mar 15, 2016 14:01
--- NOTE | 2016-03-15 16:25 | HHI.NPPN ---
Subjective Renal Failure: Acute History of Present Illness 70-year-old female with a history of renal transplant presenting with respiratory distress with clinical evidence of pneumonia and acute renal failure. Interval History Patient appears alert watching TV. No complaints. Review of Systems General General Remarks Not obtainable. Objective Data Data 03/14/16 03/15/16 19:00 07:00 Intake Total 661 ml 1627 ml Output Total 325 ml 1400 ml Balance 336 ml 227 ml Intake IV Total 110 ml 107 ml Tube Feeding 301 ml 870 ml Other 250 ml 650 ml Output Urine Total 225 ml 700 ml Stool Total 100 ml 700 ml Vital Signs Date Time Temp Pulse Resp B/P Pulse Ox O2 Delivery O2 Flow Rate FiO2 03/15/16 15:00 Bi-Pap 45 03/15/16 14:00 95 03/15/16 12:00 95 03/15/16 12:00 99.2 94 22 119/57 98 03/15/16 10:00 95 03/15/16 08:48 92 Face Tent 50 03/15/16 08:00 91 03/15/16 08:00 98.1 98 24 138/65 100 03/15/16 07:00 Bi-Pap 45 03/15/16 06:00 93 03/15/16 04:09 98 40 03/15/16 04:00 97 03/15/16 04:00 98.3 97 24 123/58 98 03/15/16 02:00 98 03/15/16 01:20 98 40 03/15/16 00:00 88 03/15/16 00:00 98.7 91 24 130/60 100 03/14/16 23:00 100 Bi-Pap 45 03/14/16 22:10 99 40 03/14/16 22:00 89 03/14/16 20:00 98.4 91 25 135/63 100 03/14/16 20:00 91 03/14/16 19:49 98 BiPAP 45 03/14/16 19:49 98 45 03/14/16 18:15 92 03/14/16 16:58 98.8 90 28 124/57 100 03/14/16 16:30 87 -: 03/15/16 0347 03/15/16 0347 Physical Exam General Appearance: No Acute Distress Eyes Eye Exam: Pupils Equal, Pupils Reactive Pulmonary Resp Exam: Decreased Bases (left side of chest.) Cardiology CV Exam: Regular, Normal Sinus Rhythm, Good Perfusion Gastrointestinal/Abdomen GI Exam: Bowel Sounds Present Musculoskeletal MS Exam: Joints Intact, Good Strength Integumentary Skin Exam: Clear, Warm, Dry, Intact Extremeties Extremities Exam: No Edema, Moderate Edema Neurologic Neuro Exam: Obtunded Assessment/Plan Discussed Condition With: Patient Assessment Summary: Transplant Kidney Status Problem List: (1) Renal transplant, status post Plan: Patient condition is somewhat improved and her renal function and volume status stable. Chest x-ray shows complete white out on the left side. Patient is severely debilitated also and even with maximal medical therapy I believe her long-term prognosis is likely poor. Repeat Rapamune level is pending and will be reviewed when available. Despite my order the blood drawer is being done earlier than I would like prior to a.m. dose. Renal functions stable Sirolimus ordered for tomorrow Will continue on current dose of Bumex. Consider Diuril tomorrow if edematous and hypernatremic still. Continue on free H2O via G-tube . (2) Acute kidney failure Plan: As above (3) Pneumonia Plan: Mgmt as per ID. Chest x-ray today shows complete opacification of the right hemithorax (4) Sepsis Plan: with septic shock (5) Heart failure Plan: EF of 35 % previously. Rin Juarez MD Mar 15, 2016 16:25
[2016-03-15] MEDS: PRAVASTATIN SOD 40 MG TAB PO SCH (20:33)
[2016-03-15] MEDS: CEFEPIME INJ 2,000 MG in SODIUM CHLORIDE 0.9% INJ 100 ML IV SCH (20:33)
[2016-03-16] VITALS (15 sets, daily range): BP systolic 94–148; BP diastolic 52–70; PULSE 92–117; RESP 16–28; TEMP 98–98.9; O2SAT 92–100
[2016-03-16] MEDS: LEVOTHYROXINE SODIUM 112 MCG TAB PO SCH (03:44)
[2016-03-16] MEDS: GABAPENTIN 100 MG CAP PO SCH ×3 (03:44→19:36)
[2016-03-16] MEDS: FREE WATER G-TUBE SCH ×3 (03:44→18:00)
[2016-03-16] MEDS: SIROLIMUS 1 MG/ML NG SCH (03:44)
[2016-03-16] MEDS: VANCOMYCIN 500 MG VIAL (FOR ORAL USE ONLY) PO SCH ×4 (03:44→19:36)
[2016-03-16] MEDS: INSULIN ASPART SUPPLEMENTAL SCALE SQ SCH ×5 (03:45→18:00)
--- NOTE | 2016-03-16 08:31 | HHI.FPPN ---
Subjective Remarks MORE ALERT C/O FINGER PAIN D/T ACCUCHECKS RN REQS DECR ACCUCHECKS D/W CANVAS REPAIRER REVIEWED LABS REVIEWED Objective Vitals Vital Signs Date Time Temp Pulse Resp B/P Pulse Ox O2 Delivery O2 Flow Rate FiO2 03/16/16 08:26 94 Face Tent 40 03/16/16 06:00 99 03/16/16 04:00 98 03/16/16 04:00 98.4 98 21 128/62 97 03/16/16 02:00 101 03/16/16 01:00 98 40 03/16/16 00:00 104 03/16/16 00:00 98.7 111 22 148/70 92 03/15/16 23:00 100 Bi-Pap 45 03/15/16 22:20 98 40 03/15/16 22:00 104 03/15/16 20:00 98.4 132 22 113/56 92 03/15/16 20:00 132 03/15/16 19:10 97 Face Tent 50 03/15/16 18:00 95 03/15/16 16:00 98.4 97 24 122/58 99 03/15/16 16:00 95 03/15/16 15:00 Bi-Pap 45 03/15/16 14:00 95 03/15/16 12:00 95 03/15/16 12:00 99.2 94 22 119/57 98 03/15/16 10:00 95 03/15/16 08:48 92 Face Tent 50 I/O 03/15/16 03/15/16 03/15/16 03/16/16 03/16/16 03/16/16 07:00 15:00 23:00 07:00 15:00 23:00 Intake Total 583 ml 724 ml 688 ml 526 ml Output Total 550 ml 1300 ml 800 ml 600 ml Balance 33 ml -576 ml -112 ml -74 ml Intake IV Total 0 ml 107 ml 0 ml Tube Feeding 283 ml 474 ml 331 ml 326 ml Other 300 ml 250 ml 250 ml 200 ml Output Urine Total 350 ml 1100 ml 350 ml 400 ml Stool Total 200 ml 200 ml 450 ml 200 ml Result Diagram: 03/15/1634603/15/16346 Objective Remarks GENERAL: on NRB; chronically ill appearing SKIN: Warm and dry. HEAD: Atraumatic. Normocephalic. EYES: Pupils equal and round. No scleral icterus. No injection or drainage. ENT: No nasal bleeding or discharge. Mucous membranes pink and moist. NECK: Trachea midline. No JVD. CARDIOVASCULAR: Regular rate and rhythm. RESPIRATORY: No accessory muscle use. Slight Bilateral ronchi, good air movement. Breath sounds equal bilaterally. GASTROINTESTINAL: Abdomen soft, non-tender, nondistended. Hepatic and splenic margins not palpable. MUSCULOSKELETAL: Extremities without clubbing, cyanosis, or edema. No obvious deformities. NEUROLOGICAL: Awake and alert. No obvious cranial nerve deficits. Motor grossly within normal limits. 03/13 all extr's PSYCHIATRIC: Appropriate mood and affect; Medications and IVs Current Medications Medications (Trade) Dose Ordered Sig/Reymundo Route Start Time Stop Time Status Last Admin (Tylenol) 650 mg Q4H PRN PO 02/28/16 11:30 03/06/16 17:24 (Zofran Inj) 4 mg Q6H PRN IVP 02/28/16 11:30 (Dulcolax Supp) 10 mg DAILY PRN [place] 02/28/16 11:30 (Milk Of Magnesia Liq) 30 ml Q12H PRN PO 02/28/16 11:30 (Senokot) 17.2 mg Q12H PRN PO 02/28/16 11:30 (Heparin Inj) 5,000 units Q12H SQ 02/28/16 12:00 Hold 03/05/16 22:52 (Narcan Inj) 0.4 mg UNSCH PRN IV 02/28/16 11:30 (Protonix Inj) 40 mg Q24H IV PUSH 02/28/16 13:00 03/15/16 13:00 Miscellaneous Information 1 Q361D XX 02/28/16 12:00 (NS Flush) 2 ml UNSCH PRN IV FLUSH 02/28/16 16:15 03/01/16 08:00 (NS Flush) 2 ml BID IV FLUSH 02/28/16 21:00 03/15/16 20:34 (D50w (Vial) Inj) 25 ml UNSCH PRN IV PUSH 02/28/16 18:30 (Glucagon Inj) 1 mg UNSCH PRN OTHER 02/28/16 18:30 (Neurontin) 100 mg Q8H PO 02/28/16 20:00 03/16/16 03:44 (Mycostatin Powder) 1 applic BID TOP 02/28/16 21:00 03/15/16 21:00 (Pravachol) 40 mg HS PO 02/28/16 21:00 03/15/16 20:33 Miscellaneous Information Patient in critical care unit? Ass... Q361D XX 02/28/16 19:30 (Brethine Inj) 1 mg UNSCH PRN SQ 02/29/16 13:00 (Synthroid) 224 mcg DAILY@0600 PO 03/01/16 06:00 03/16/16 03:44 (NovoLOG SUPPLEMENTAL SCALE) 1 Q4H SQ 03/01/16 16:00 03/16/16 03:45 Vancomycin HCl 500 mg 500 mg Q6H PO 03/04/16 15:00 03/16/16 03:44 (Maxipime Inj/NS Inj) 100 ml @ 200 mls/hr Q24H IV 03/04/16 20:00 03/15/16 20:33 (Apresoline Inj) 10 mg Q6H PRN IV PUSH 03/06/16 07:30 (Deltasone) 5 mg DAILY PO 03/07/16 09:00 03/15/16 08:01 (Zithromax) 500 mg DAILY PO 03/07/16 10:15 03/15/16 08:01 (Lopressor) 12.5 mg Q12HR PO 03/08/16 09:00 03/15/16 20:33 (Pill Splitter) 1 ea UNSCH PRN OTHER 03/08/16 08:00 (Rapamune Liq) 1 mg DAILY@06 NG 03/10/16 06:00 03/16/16 03:44 Water 250 ml 250 ml Q6HR G-TUBE 03/10/16 12:00 03/16/16 03:44 Potassium Chloride 100 ml @ 50 mls/hr Q2H PRN IV 03/10/16 07:45 03/10/16 10:08 (KCl 20 Meq Premix Inj) 100 ml @ 50 mls/hr Q2H PRN IV 03/10/16 07:45 Potassium Chloride 40 meq 40 meq UNSCH PRN PO/TUBE 03/10/16 07:45 Potassium Chloride 100 ml @ 25 mls/hr UNSCH PRN IV 03/10/16 07:45 Potassium Chloride 100 ml @ 50 mls/hr Q2H PRN IV 03/10/16 07:45 (Magnesium Sulfate Inj/NS Inj) 100 ml @ 50 mls/hr UNSCH PRN IV 03/10/16 07:45 Magnesium Oxide 800 mg 800 mg UNSCH PRN PO 03/10/16 07:45 (Magnesium Sulfate Inj/NS Inj) 100 ml @ 50 mls/hr UNSCH PRN IV 03/10/16 07:45 Potassium Phosphate 2000 mg 2,000 mg Q4H PRN PO 03/10/16 07:45 (Sodium Phosphate Inj/NS 250 ml Inj) 250 ml @ 42 mls/hr UNSCH PRN IV 03/10/16 07:45 (KCl 40 Meq/30 ml Liq) 40 meq UNSCH PRN PO/TUBE 03/10/16 07:45 Potassium Phosphate 2000 mg 2,000 mg UNSCH PRN PO/TUBE 03/10/16 07:45 (Potassium Phosphate Inj/NS 250 ml Inj) 260 ml @ 42 mls/hr UNSCH PRN IV 03/10/16 07:45 (Bumetanide) 0.5 mg DAILY G-TUBE 03/11/16 09:00 03/15/16 08:00 Urinary Catheter: Yes Malik insert reason: ICU Pt Getting Diuretics Date of Insertion: Feb 28, 2016 Vascular Central Line Catheter: Yes Assessment to: Continue Date of Insertion: Feb 28, 2016 Line: Central Venous Catheter Side: Left Location: Internal, Jugular (vasoactive medications, CVP monitoring) A/P Assessment and Plan SEPTIC SHOCK, RESOLVED, OFF PRESSORS RESPIRATORY FAILURE, S/P BRONCH FEB 27, EXTUBATED MAR 03, REINTUBATED MAR 04, EXTUBATED MAR 06, HCAP, FUNGAL PNA LUNG CA COPD C DIF SCHF AC ON CRF RENAL TRANSPLANT, RENAL US NORMAL. HYPERNATREMIA AF THROMBOCYTOPENIA HYPOTHYROID PLAN: ON NRB 02, OFF BIPAP FOR NOW IV ABX IVF GTF'S ACCUCHECKS Q SIX HOURS. PGT BUMEX, OFF DRIP STEROID PGT BLOOD CULTURES DUONEBS HEPARIN 5000 BID FOR PROPHYLAXIS ON HOLD DUE TO THROMBOCYTOPENIA. IV PROTONIX CCM CONSULT, NOTES REVIEWED NEPHRO CONSULT, NOTES REVIEWED PULMONARY CONSULT, NOTES REVIEWED. PALLIATIVE CONSULT, FAMILY MENTIONING HOSPICE PT OT ST ICU CARE FOLLOWUP LABS MEDS ABOVE. Herbert Kaba MD Mar 16, 2016 08:31
[2016-03-16] MEDS: METOPROLOL TARTRATE 25 MG TAB PO SCH ×2 (08:39→19:36)
[2016-03-16] MEDS: predniSONE 5 MG TAB PO SCH (08:39)
[2016-03-16] MEDS: NYSTATIN 100,000 U/GM PWD 15 GM BTL TOP SCH ×2 (08:40→19:37)
[2016-03-16] MEDS: BUMETANIDE 1 MG TAB G-TUBE SCH (08:40)
[2016-03-16] MEDS: AZITHROMYCIN 250 MG TAB PO SCH (08:40)
[2016-03-16] MEDS: SODIUM CHLORIDE 0.9% FLUSH 5 ML FLUSH IV FLUSH SCH ×2 (09:00→19:36)
--- NOTE | 2016-03-16 11:07 | HHI.NPPN ---
Subjective Renal Failure: Acute History of Present Illness 70-year-old female with a history of renal transplant presenting with respiratory distress with clinical evidence of pneumonia and acute renal failure. Interval History No new events (Janeth Frederick) Review of Systems General General Remarks Not obtainable. (Janeth Frederick) Objective Data Data 03/15/16 03/16/16 19:00 07:00 Intake Total 724 ml 1214 ml Output Total 1300 ml 1400 ml Balance -576 ml -186 ml Intake IV Total 107 ml Tube Feeding 474 ml 657 ml Other 250 ml 450 ml Output Urine Total 1100 ml 750 ml Stool Total 200 ml 650 ml Vital Signs Date Time Temp Pulse Resp B/P Pulse Ox O2 Delivery O2 Flow Rate FiO2 03/16/16 08:26 94 Face Tent 50 03/16/16 06:00 99 03/16/16 04:00 98 03/16/16 04:00 98.4 98 21 128/62 97 03/16/16 02:00 101 03/16/16 01:00 98 40 03/16/16 00:00 104 03/16/16 00:00 98.7 111 22 148/70 92 03/15/16 23:00 100 Bi-Pap 45 03/15/16 22:20 98 40 03/15/16 22:00 104 03/15/16 20:00 98.4 132 22 113/56 92 03/15/16 20:00 132 03/15/16 19:10 97 Face Tent 50 03/15/16 18:00 95 03/15/16 16:00 98.4 97 24 122/58 99 03/15/16 16:00 95 03/15/16 15:00 Bi-Pap 45 03/15/16 14:00 95 03/15/16 12:00 95 03/15/16 12:00 99.2 94 22 119/57 98 (Janeth Frederick) -: 03/15/1634603/15/16346 Medication Review Current Medications Medications (Trade) Dose Ordered Sig/Reymundo Route Start Time Stop Time Status Last Admin (Tylenol) 650 mg Q4H PRN PO 02/28/16 11:30 03/06/16 17:24 (Zofran Inj) 4 mg Q6H PRN IVP 02/28/16 11:30 (Dulcolax Supp) [address] 02/28/16 11:30 (Milk Of Magnesia Liq) 30 ml Q12H PRN PO 02/28/16 11:30 (Senokot) 17.2 mg Q12H PRN PO 02/28/16 11:30 (Heparin Inj) 5,000 units Q12H SQ 02/28/16 12:00 Hold 03/05/16 22:52 (Narcan Inj) 0.4 mg UNSCH PRN IV 02/28/16 11:30 (Protonix Inj) 40 mg Q24H IV PUSH 02/28/16 13:00 03/15/16 13:00 Miscellaneous Information 1 Q361D XX 02/28/16 12:00 (NS Flush) 2 ml UNSCH PRN IV FLUSH 02/28/16 16:15 03/01/16 08:00 (NS Flush) 2 ml BID IV FLUSH 02/28/16 21:00 03/15/16 20:34 (D50w (Vial) Inj) 25 ml UNSCH PRN IV PUSH 02/28/16 18:30 (Glucagon Inj) 1 mg UNSCH PRN OTHER 02/28/16 18:30 (Neurontin) 100 mg Q8H PO 02/28/16 20:00 03/16/16 03:44 (Mycostatin Powder) 1 applic BID TOP 02/28/16 21:00 03/15/16 21:00 (Pravachol) 40 mg HS PO 02/28/16 21:00 03/15/16 20:33 Miscellaneous Information Patient in critical care unit? Ass... Q361D XX 02/28/16 19:30 (Brethine Inj) 1 mg UNSCH PRN SQ 02/29/16 13:00 (Synthroid) 224 mcg DAILY@0600 PO 03/01/16 06:00 03/16/16 03:44 (NovoLOG SUPPLEMENTAL SCALE) 1 Q4H SQ 03/01/16 16:00 03/16/16 08:39 Vancomycin HCl 500 mg 500 mg Q6H PO 03/04/16 15:00 03/16/16 08:39 (Maxipime Inj/NS Inj) 100 ml @ 200 mls/hr Q24H IV 03/04/16 20:00 03/15/16 20:33 (Apresoline Inj) 10 mg Q6H PRN IV PUSH 03/06/16 07:30 (Deltasone) 5 mg DAILY PO 03/07/16 09:00 03/16/16 08:39 (Zithromax) 500 mg DAILY PO 03/07/16 10:15 03/16/16 08:40 (Lopressor) 12.5 mg Q12HR PO 03/08/16 09:00 03/16/16 08:39 (Pill Splitter) 1 ea UNSCH PRN OTHER 03/08/16 08:00 (Rapamune Liq) 1 mg DAILY@06 NG 03/10/16 06:00 03/16/16 03:44 Water 250 ml 250 ml Q6HR G-TUBE 03/10/16 12:00 03/16/16 03:44 Potassium Chloride 100 ml @ 50 mls/hr Q2H PRN IV 03/10/16 07:45 03/10/16 10:08 (KCl 20 Meq Premix Inj) 100 ml @ 50 mls/hr Q2H PRN IV 03/10/16 07:45 Potassium Chloride 40 meq 40 meq UNSCH PRN PO/TUBE 03/10/16 07:45 Potassium Chloride 100 ml @ 25 mls/hr UNSCH PRN IV 03/10/16 07:45 Potassium Chloride 100 ml @ 50 mls/hr Q2H PRN IV 03/10/16 07:45 (Magnesium Sulfate Inj/NS Inj) 100 ml @ 50 mls/hr UNSCH PRN IV 03/10/16 07:45 Magnesium Oxide 800 mg 800 mg UNSCH PRN PO 03/10/16 07:45 (Magnesium Sulfate Inj/NS Inj) 100 ml @ 50 mls/hr UNSCH PRN IV 03/10/16 07:45 Potassium Phosphate 2000 mg 2,000 mg Q4H PRN PO 03/10/16 07:45 (Sodium Phosphate Inj/NS 250 ml Inj) 250 ml @ 42 mls/hr UNSCH PRN IV 03/10/16 07:45 (KCl 40 Meq/30 ml Liq) 40 meq UNSCH PRN PO/TUBE 03/10/16 07:45 Potassium Phosphate 2000 mg 2,000 mg UNSCH PRN PO/TUBE 03/10/16 07:45 (Potassium Phosphate Inj/NS 250 ml Inj) 260 ml @ 42 mls/hr UNSCH PRN IV 03/10/16 07:45 (Bumetanide) 0.5 mg DAILY G-TUBE 03/11/16 09:00 03/16/16 08:40 (Janeth Frederick) Physical Exam General Appearance: No Acute Distress (Janeth Frederick) Eyes Eye Exam: Pupils Equal, Pupils Reactive (Janeth Frederick) Pulmonary Resp Exam: Decreased Bases (left side of chest.) (Janeth Frederick) Cardiology CV Exam: Regular, Normal Sinus Rhythm, Good Perfusion (Janeth Frederick) Gastrointestinal/Abdomen GI Exam: Bowel Sounds Present (Janeth Frederick) Musculoskeletal MS Exam: Joints Intact, Good Strength (Janeth Frederick) Integumentary Skin Exam: Clear, Warm, Dry, Intact (Janeth Frederick) Extremeties Extremities Exam: No Edema, Moderate Edema Extremeties Remarks 1+ pitting edema BUE and BLE up to knees. (Janeth Frederick) Neurologic Neuro Exam: Obtunded (Janeth Frederick) Assessment/Plan Discussed Condition With: Patient Assessment Summary: Transplant Kidney Status Problem List: (1) Renal transplant, status post Plan: Patient condition is somewhat improved and her renal function and volume status stable. Chest x-ray shows complete white out on the left side. Patient is severely debilitated also and even with maximal medical therapy I believe her long-term prognosis is likely poor. Repeat Rapamune level is pending and will be reviewed when available. Despite my order the blood drawer is being done earlier than I would like prior to a.m. dose. Dose of Diuril ordered. Continue on free H2O via G-tube (2) Acute kidney failure Plan: As above (3) Pneumonia Plan: Mgmt as per ID. Chest x-ray today shows complete opacification of the right hemithorax (4) Sepsis Plan: with septic shock (5) Heart failure Plan: EF of 35 % previously. (Janeth Frederick) Plan The exam, history, and the medical decision-making described in the above note were completed with the assistance of the [employer]. I reviewed and agree with the findings presented. (Rin Juarez MD) Janeth Frederick Mar 16, 2016 11:07 Rin Juarez MD Mar 16, 2016 18:11
[2016-03-16] MEDS ORDERED: CHLOROTHIAZIDE SOD 500 MG VIAL IV ONE (11:15)
[2016-03-16] MEDS: PANTOPRAZOLE SODIUM 40 MG VIAL IV PUSH SCH (13:03)
--- NOTE | 2016-03-16 13:05 | HHI.CCPN ---
Subjective Remarks/Hospital Course 70-year-old female with history of lung cancer status post left lobectomy, and kidney transplant 2006 presented to the ED with worsening pulmonary symptoms. Her medical history is significant for DM, HTN. She presented to the ED today because worsening cough, shortness of breath, dyspnea on exertion, and fevers. The patient is dependent on home O2 at 4 L nasal cannula, and scheduled DuoNeb treatment. The patient was hospitalized for several months 11/2015-12/22 . During this hospitalization she reports having a fungal pulmonary infection and a seizure resulting in "coma for a few weeks". She was transferred to a rehabilitation facility [facility] for approximately 2 months ago. The patient was then transferred to [facility] approximately 3 weeks ago at which time she fractured her left ankle, and was transferred to [facility]. She was recently discharged from [facility] on 02/15/2016. The patient states that she began having worsening symptoms over the last 3-4 days, that resembled her fungal pneumonia. Critical care medicine was consulted for management. 02/28 Upon arrival to ICU last evening, bronchoscopy was performed, and specimens were sent for culture. The patient was maintained on IV fluids 100 cc an hour, and discontinued at 2 AM secondary to oliguria. CVP ranged 14 throughout the night, with original BNP 1035. Postintubation the patient remains GCS 11 T, following commands. The patient continues to be oliguric with hourly urinary output 7-10 cc an hour. 03/01 On levophed 8mcg/min. UOP around 10 mL/hr. Received Bumex 2 mg IV and UOP still ~20 Ml/hr last hour. CVP 18-20. In Afib rate controlled. Awakens on CPAP 5/5. 03/02 UOP 1068 overnight on bumex drip. Creatinine up to 3.28. Placing on CPAP 5 /5. Afebrile. Levophed weaned to 2 mcg/min with MAP 77. CVP 24 Subjective: 03/03 Creatinine up to 3.32. Nonoliguric with Bumex drip. CVP down to 14. Tolerating CPAP. Off levophed. 03/04 Patient was on BIPAP 10/5 with 60% FIO2 overnight. Patient looked lethargic and started desating she was subsequently intubated and placed on mechanical ventilation. On Bumex drip 2mg/hr. Positive C-diff this morning. 03/05 Patient is sedated with Diprivan and intubated. Afebrile. Remains on Bumex drip 2mg/hr. 03/06 No acute events overnight. Tolerated CPAP all day yesterday. On Bumex 2mg /hr. Sedated with Diprivan and intubated. 03/07 Patient s/p extubation yesterday placed on BIPAP overnight 12/11 with 40% FIO2. Afebrile. Off Bumex drip. 03/08 No acute events overnight. On BIPAP 10/5 with 40$ FIO2 overnight. Afebrile. Renal function improving with Cr: 1.97 today from 2.32 03/09 Patient remains on BIPAP 10/5 with 40% FIO2. Afebrile. 03/10 No events overnight. On BIPAP with 40% FIO2, afebrile. Renal function improving with Cr: 1.5 today. 03/11 Patient is off BIPAP given Bumex 1mg x1 at 4: 21 this morning on 5L oxygen. 03/12 on BiPAP currently. Remains encephalopathic. 03/13: Off BiPAP since this morning on facemask liters per minute. Awake and alert. Wanting restraints off. 03/14: Requiring intermittent BiPAP. Drowsy, easily arousable. 03/15: On face stent this morning. Awake and alert. Following commands. 03/16: Awake and alert. Following commands. Remains on face tent currently. Objective Vital Signs Date Time Temp Pulse Resp B/P Pulse Ox O2 Delivery O2 Flow Rate FiO2 03/16/16 12:00 98.0 92 16 118/55 96 03/16/16 08:26 Face Tent 50 03/16/16 07:00 6.00 Intake and Output 03/15/16 03/15/16 03/16/16 08:00 16:00 00:00 Intake Total 583 ml 724 ml 688 ml Output Total 550 ml 1300 ml 800 ml Balance 33 ml -576 ml -112 ml Result Diagram: 03/15/16 0347 03/15/16 0347 Imaging Last Impressions Chest X-Ray 03/10/16 0000 Signed Impressions: Service Date/Time: Thursday, March 10, 2016 07:59 - CONCLUSION: Improved aeration on the right with complete opacification on the left. Sergio Renteria MD Renal Ultrasound 03/01/16 0000 Signed Impressions: Service Date/Time: Tuesday, March 01, 2016 10:45 - CONCLUSION: No evidence of hydronephrosis or focal abnormality. The resistive indices are within normal Sumit Laws MD Abdomen X-Ray 03/01/16 0000 Signed Impressions: Service Date/Time: Tuesday, March 01, 2016 15:32 - CONCLUSION: G-tube inside the stomach. Angelita Birmingham MD Objective Remarks Nepro 40 ml/hr GENERAL: Morbidly obese elderly female on face tent 50% FiO2 SKIN: Warm and dry. Multiple ecchymotic bruising neck, chest, bilateral extremities upper and lower HEAD: Atraumatic. Normocephalic. EYES: Pupils equal and round. No scleral icterus. No injection or drainage. ENT: No nasal bleeding or discharge. Mucous membranes pink and moist. NECK: Trachea midline. Supple, no JVD, adenopathy CARDIOVASCULAR: Tachycardic, nl S1, S2. RESPIRATORY: On face tent, Coarse BS on right. GASTROINTESTINAL: Abdomen soft, non-tender, nondistended. Gastric tube no erythema or drainage. MUSCULOSKELETAL: Extremities without clubbing, cyanosis, trace edema NEUROLOGICAL: Awake, alert, following commands. Date of Insertion: Feb 28, 2016 Date of Insertion: Feb 28, 2016 Line: Central Venous Catheter Side: Left Location: Internal, Jugular (vasoactive medications, CVP monitoring) A/P Assessment and Plan Plan by systems: Neurologic: Encephalopathy Seizure disorder Herniated discs Neuropathy - avoid sedatives. -Neurochecks per ICU protocol -Gabapentin 100 q8. Respiratory: Acute hypoxic respiratory failure History of non-small cell lung cancer S/P left lung lobectomy 2013 Home O2 dependency Presumed Hospital-acquired pneumonia (previous HCAP treatment 10/22) Left lung opacity-chronic History of tracheostomy-decannulated 12/22/15 -02/27 Intubated , extubated 03/03 reintubated 03/04, extubated 03/06 -Continue with oxygen keep sat >92%. F/u CXR -Bronchodilators. IS, on O2 via face tent currently. BiPAP as needed. -Pulmonology Following, Cardiovascular: HTN Atrial fibrillation-rate control Acute on chronic systolic CHF RV overload, pulmonary HTN Hyperlipidemia -Continue Lopressor 12.5mg BID Maintain HR and BP keep MAP>65mmHg -2D ECHO 02/28mildly reduced systolic function with EF 45-50%. Mild RV dilatation. Mild to moderate tricuspid regurg. Pulmonary artery peak systolic pressure 53 mmHg. -Continue pravastatin FEN/Renal: S/P kidney transplant ANNABELLA, ..improving Hypernatremia -Monitor renal function, I/O's, electrolytes replacement per protocol. -On Bumex 0.5mg daily, Free Water 250ml Q6 ,monitor sodium level. -[employer] -Dr. Juarez -Sirolimus level: 9 on 03/01. On Sirolimus 2 mg every other day per nephrology. -On prednisone 5mg daily per nephrology, GI: Morbid obesity -TF-Glucerna 1.5 with goal rate 45ml/hr mL/hr via PEG. -Zofran PRN for nausea -Protonix GI prophylaxis ID: Pneumonia-HCAP Positive Cdiff Continue with abx per ID (Cefepime, Zithromax,, PO Vanco, Voriconazole) 02/27 - Influenza screen negative. 02/27 Blood cultures -NGTD 02/27 Bronchial washings- Gram positive cocci, fungal stain negative. 02/28 cryptococcal- serum antigen negative 03/01 urine legionella and pneumococcal antigen negative. Heme: Monitor CBC, Hep PLT ab negative Endocrine: DM Hypothyroidism -Continue medium dose sliding scale q4 hours, -T4 4.7 (norm 4.8), TSH 33.60( elevated) -Continue Synthroid 224 mcg/d MSK: - Specialty bed -Wound care consult, noted admission to ED with sacral decubitus wound Prophylaxis: GI Prophylaxis Protonix IV DVT Prophylaxis -- SCDs, heparin SQ on hold(Thrombocytopenia) Hep PLT ab negative. Lines: Peripheral IV's Palliative care following. DNR/DNI status. Erich Rodriguez MD Mar 16, 2016 13:04
[2016-03-16] MEDS: CEFEPIME INJ 2,000 MG in SODIUM CHLORIDE 0.9% INJ 100 ML IV SCH (19:36)
[2016-03-16] MEDS: PRAVASTATIN SOD 40 MG TAB PO SCH (19:36)
[2016-03-17] VITALS (17 sets, daily range): BP systolic 67–132; BP diastolic 34–63; PULSE 92–101; RESP 22–31; TEMP 98–98.6; O2SAT 93–100
[2016-03-17] MEDS: INSULIN ASPART SUPPLEMENTAL SCALE SQ SCH ×4 (00:39→18:00)
[2016-03-17] MEDS: FREE WATER G-TUBE SCH ×4 (05:10→18:00)
[2016-03-17] MEDS: GABAPENTIN 100 MG CAP PO SCH ×3 (05:10→21:10)
[2016-03-17] MEDS: LEVOTHYROXINE SODIUM 112 MCG TAB PO SCH (05:10)
[2016-03-17] MEDS: SIROLIMUS 1 MG/ML NG SCH (05:10)
[2016-03-17] MEDS: VANCOMYCIN 500 MG VIAL (FOR ORAL USE ONLY) PO SCH ×4 (05:10→21:11)
[2016-03-17 05:41] LABS: BICARBONATE 34.1 MEQ/L (21.0-32.0)
[2016-03-17] MEDS: AZITHROMYCIN 250 MG TAB PO SCH (09:00)
[2016-03-17] MEDS: METOPROLOL TARTRATE 25 MG TAB PO SCH ×2 (09:00→21:00)
[2016-03-17] MEDS: NYSTATIN 100,000 U/GM PWD 15 GM BTL TOP SCH ×2 (09:00→21:00)
[2016-03-17] MEDS: predniSONE 5 MG TAB PO SCH (09:00)
[2016-03-17] MEDS: BUMETANIDE 1 MG TAB G-TUBE SCH (09:00)
[2016-03-17] MEDS: SODIUM CHLORIDE 0.9% FLUSH 5 ML FLUSH IV FLUSH SCH ×2 (09:00→21:10)
--- NOTE | 2016-03-17 10:11 | HHI.NPPN ---
Subjective Renal Failure: Acute History of Present Illness 70-year-old female with a history of renal transplant presenting with respiratory distress with clinical evidence of pneumonia and acute renal failure. Interval History Patient lethargic and not responding to my questions currently. Review of Systems General General Remarks Not obtainable. Objective Data Data 03/16/16 03/17/16 19:00 07:00 Intake Total 704 ml 1267 ml Output Total 800 ml 1350 ml Balance -96 ml -83 ml Intake Oral 0 ml IV Total 250 ml 100 ml Tube Feeding 454 ml 717 ml Other 450 ml Output Urine Total 700 ml 750 ml Stool Total 100 ml 600 ml Vital Signs Date Time Temp Pulse Resp B/P Pulse Ox O2 Delivery O2 Flow Rate FiO2 03/17/16 08:00 98.3 95 29 131/63 94 03/17/16 08:00 101 03/17/16 07:09 96 55 03/17/16 07:00 96 Blow By 40 03/17/16 06:00 93 03/17/16 04:00 92 03/17/16 04:00 98.5 96 31 121/56 93 03/17/16 03:35 93 45 03/17/16 03:30 96 Face Tent 40 03/17/16 02:00 93 03/17/16 00:00 94 03/17/16 00:00 98.4 94 30 132/58 95 03/16/16 23:00 100 Blow By 94 03/16/16 22:00 94 03/16/16 20:00 98.2 101 27 138/63 98 03/16/16 20:00 101 03/16/16 19:18 100 Face Tent 50 03/16/16 18:00 104 03/16/16 16:00 98.9 102 22 94/52 95 03/16/16 16:00 104 03/16/16 15:00 Blow By 40 03/16/16 14:00 104 03/16/16 12:00 98.0 92 16 118/55 96 03/16/16 12:00 99 -: 03/15/16 0347 03/17/16 0343 Physical Exam General Appearance: No Acute Distress Eyes Eye Exam: Pupils Equal, Pupils Reactive Pulmonary Resp Exam: Rhonchi (bilaterally throughout the chest with diminished breath sounds left side.), Decreased Bases (left side of chest.), Labored Cardiology CV Exam: Regular, Normal Sinus Rhythm, Good Perfusion Gastrointestinal/Abdomen GI Exam: Bowel Sounds Present Musculoskeletal MS Exam: Joints Intact, Good Strength Integumentary Skin Exam: Clear, Warm, Dry, Intact Extremeties Extremities Exam: No Edema, Moderate Edema Neurologic Neuro Exam: Obtunded Assessment/Plan Discussed Condition With: Patient Assessment Summary: Transplant Kidney Status Problem List: (1) Renal transplant, status post Plan: Chest x-ray shows complete white out on the left side. Patient is severely debilitated also and even with maximal medical therapy and the patient has shown evidence of failure to thrive recently. At this point in time I believe that the patient has a grave prognosis and I do believe comfort care would be appropriate at this point. (2) Acute kidney failure Plan: As above (3) Pneumonia Plan: Mgmt as per ID. Chest x-ray today shows complete opacification of the right hemithorax (4) Sepsis Plan: with septic shock (5) Heart failure Plan: EF of 35 % previously. Rin Juarez MD Mar 17, 2016 10:11
[2016-03-17] MEDS: PANTOPRAZOLE SODIUM 40 MG VIAL IV PUSH SCH (13:00)
--- NOTE | 2016-03-17 13:20 | HHI.FPPN ---
Subjective Remarks LETHARGIC SEEMS CALM D/W RN Objective Vitals Vital Signs Date Time Temp Pulse Resp B/P Pulse Ox O2 Delivery O2 Flow Rate FiO2 03/17/16 12:00 92 03/17/16 12:00 98.6 97 24 97/47 95 03/17/16 10:00 93 03/17/16 08:00 98.3 95 29 131/63 94 03/17/16 08:00 101 03/17/16 07:45 94 Partial Rebreather 15.00 03/17/16 07:09 96 55 03/17/16 07:00 96 Blow By 40 03/17/16 06:00 93 03/17/16 04:00 92 03/17/16 04:00 98.5 96 31 121/56 93 03/17/16 03:35 93 45 03/17/16 03:30 96 Face Tent 40 03/17/16 02:00 93 03/17/16 00:00 94 03/17/16 00:00 98.4 94 30 132/58 95 03/16/16 23:00 100 Blow By 94 03/16/16 22:00 94 03/16/16 20:00 98.2 101 27 138/63 98 03/16/16 20:00 101 03/16/16 19:18 100 Face Tent 50 03/16/16 18:00 104 03/16/16 16:00 98.9 102 22 94/52 95 03/16/16 16:00 104 03/16/16 15:00 Blow By 40 03/16/16 14:00 104 I/O 03/16/16 03/16/16 03/16/16 03/17/16 03/17/16 03/17/16 07:00 15:00 23:00 07:00 15:00 23:00 Intake Total 526 ml 704 ml 738 ml 529 ml Output Total 600 ml 800 ml 800 ml 550 ml Balance -74 ml -96 ml -62 ml -21 ml Intake Oral 0 ml IV Total 0 ml 250 ml 100 ml 0 ml Tube Feeding 326 ml 454 ml 388 ml 329 ml Other 200 ml 250 ml 200 ml Output Urine Total 400 ml 700 ml 400 ml 350 ml Stool Total 200 ml 100 ml 400 ml 200 ml Result Diagram: 03/15/16 0347 03/17/16 034 Objective Remarks GENERAL: on face tent; chronically ill appearing SKIN: Warm and dry. HEAD: Atraumatic. Normocephalic. EYES: Pupils equal and round. No scleral icterus. No injection or drainage. ENT: No nasal bleeding or discharge. Mucous membranes pink and moist. NECK: Trachea midline. No JVD. CARDIOVASCULAR: Regular rate and rhythm. RESPIRATORY: No accessory muscle use. Slight Bilateral ronchi, good air movement. Breath sounds equal bilaterally. GASTROINTESTINAL: Abdomen soft, non-tender, nondistended. Hepatic and splenic margins not palpable. MUSCULOSKELETAL: Extremities without clubbing, cyanosis, or edema. No obvious deformities. NEUROLOGICAL comatose Medications and IVs Current Medications Medications (Trade) Dose Ordered Sig/Reymundo Route Start Time Stop Time Status Last Admin (Tylenol) 650 mg Q4H PRN PO 02/28/16 11:30 03/06/16 17:24 (Zofran Inj) 4 mg Q6H PRN IVP 02/28/16 11:30 (Dulcolax Supp) 10 mg DAILY PRN CA 02/28/16 11:30 (Milk Of Socialscopeeben Liq) 30 ml Q12H PRN PO 02/28/16 11:30 (Senokot) 17.2 mg Q12H PRN PO 02/28/16 11:30 (Heparin Inj) 5,000 units Q12H SQ 02/28/16 12:00 Hold 03/05/16 22:52 (Narcan Inj) 0.4 mg UNSCH PRN IV 02/28/16 11:30 (Protonix Inj) 40 mg Q24H IV PUSH 02/28/16 13:00 03/17/16 13:00 Miscellaneous Information 1 Q361D XX 02/28/16 12:00 (NS Flush) 2 ml UNSCH PRN IV FLUSH 02/28/16 16:15 03/01/16 08:00 (NS Flush) 2 ml BID IV FLUSH 02/28/16 21:00 03/17/16 09:00 (D50w (Vial) Inj) 25 ml UNSCH PRN IV PUSH 02/28/16 18:30 (Glucagon Inj) 1 mg UNSCH PRN OTHER 02/28/16 18:30 (Neurontin) 100 mg Q8H PO 02/28/16 20:00 03/17/16 12:00 (Mycostatin Powder) 1 applic BID TOP 02/28/16 21:00 03/17/16 09:00 (Pravachol) 40 mg HS PO 02/28/16 21:00 03/16/16 19:36 Miscellaneous Information Patient in critical care unit? Ass... Q361D XX 02/28/16 19:30 (Brethine Inj) 1 mg UNSCH PRN SQ 02/29/16 13:00 (Synthroid) 224 mcg DAILY@0600 PO 03/01/16 06:00 03/17/16 05:10 Vancomycin HCl 500 mg 500 mg Q6H PO 03/04/16 15:00 03/17/16 09:00 (Maxipime Inj/NS Inj) 100 ml @ 200 mls/hr Q24H IV 03/04/16 20:00 03/16/16 19:36 (Apresoline Inj) 10 mg Q6H PRN IV PUSH 03/06/16 07:30 (Deltasone) 5 mg DAILY PO 03/07/16 09:00 03/17/16 09:00 (Zithromax) 500 mg DAILY PO 03/07/16 10:15 03/17/16 09:00 (Lopressor) 12.5 mg Q12HR PO 03/08/16 09:00 03/17/16 09:00 (Pill Splitter) 1 ea UNSCH PRN OTHER 03/08/16 08:00 (Rapamune Liq) 1 mg DAILY@06 NG 03/10/16 06:00 03/17/16 05:10 Water 250 ml 250 ml Q6HR G-TUBE 03/10/16 12:00 03/17/16 12:00 Potassium Chloride 100 ml @ 50 mls/hr Q2H PRN IV 03/10/16 07:45 03/10/16 10:08 (KCl 20 Meq Premix Inj) 100 ml @ 50 mls/hr Q2H PRN IV 03/10/16 07:45 Potassium Chloride 40 meq 40 meq UNSCH PRN PO/TUBE 03/10/16 07:45 Potassium Chloride 100 ml @ 25 mls/hr UNSCH PRN IV 03/10/16 07:45 Potassium Chloride 100 ml @ 50 mls/hr Q2H PRN IV 03/10/16 07:45 (Magnesium Sulfate Inj/NS Inj) 100 ml @ 50 mls/hr UNSCH PRN IV 03/10/16 07:45 Magnesium Oxide 800 mg 800 mg UNSCH PRN PO 03/10/16 07:45 (Magnesium Sulfate Inj/NS Inj) 100 ml @ 50 mls/hr UNSCH PRN IV 03/10/16 07:45 Potassium Phosphate 2000 mg 2,000 mg Q4H PRN PO 03/10/16 07:45 (Sodium Phosphate Inj/NS 250 ml Inj) 250 ml @ 42 mls/hr UNSCH PRN IV 03/10/16 07:45 (KCl 40 Meq/30 ml Liq) 40 meq UNSCH PRN PO/TUBE 03/10/16 07:45 Potassium Phosphate 2000 mg 2,000 mg UNSCH PRN PO/TUBE 03/10/16 07:45 (Potassium Phosphate Inj/NS 250 ml Inj) 260 ml @ 42 mls/hr UNSCH PRN IV 03/10/16 07:45 (Bumetanide) 0.5 mg DAILY G-TUBE 03/11/16 09:00 03/17/16 09:00 (NovoLOG SUPPLEMENTAL SCALE) 1 Q6H SQ 03/16/16 12:00 03/17/16 05:10 Date of Insertion: Feb 28, 2016 Date of Insertion: Feb 28, 2016 Line: Central Venous Catheter Side: Left Location: Internal, Jugular (vasoactive medications, CVP monitoring) A/P Assessment and Plan SEPTIC SHOCK, RESOLVED, OFF PRESSORS RESPIRATORY FAILURE, S/P BRONCH DEC , EXTUBATED DEC , REINTUBATED DEC , EXTUBATED DEC , HCAP, FUNGAL PNA LUNG CA COPD C DIF SCHF AC ON CRF RENAL TRANSPLANT, RENAL US NORMAL. HYPERNATREMIA AF THROMBOCYTOPENIA HYPOTHYROID PLAN: OFF BIPAP FOR NOW IV ABX IVF GTF'S ACCUCHECKS Q SIX HOURS. PGT BUMEX, OFF DRIP STEROID PGT BLOOD CULTURES DUONEBS HEPARIN 5000 BID FOR PROPHYLAXIS ON HOLD DUE TO THROMBOCYTOPENIA. IV PROTONIX CCM CONSULT, NOTES REVIEWED NEPHRO CONSULT, NOTES REVIEWED PULMONARY CONSULT, NOTES REVIEWED. PALLIATIVE CONSULT, FAMILY MENTIONING HOSPICE PT OT ST ICU CARE FOLLOWUP LABS MEDS ABOVE. Herbert Kaba MD Mar 17, 2016 13:20
--- NOTE | 2016-03-17 15:15 | HHI.CCPN ---
Subjective Remarks/Hospital Course 70-year-old female with history of lung cancer status post left lobectomy, and kidney transplant 2006 presented to the ED with worsening pulmonary symptoms. Her medical history is significant for DM, HTN. She presented to the ED today because worsening cough, shortness of breath, dyspnea on exertion, and fevers. The patient is dependent on home O2 at 4 L nasal cannula, and scheduled DuoNeb treatment. The patient was hospitalized for several months 11/2015-12/22 . During this hospitalization she reports having a fungal pulmonary infection and a seizure resulting in "coma for a few weeks". She was transferred to a rehabilitation facility [facility] for approximately 2 months ago. The patient was then transferred to [facility] approximately 3 weeks ago at which time she fractured her left ankle, and was transferred to [facility]. She was recently discharged from [facility] on 02/15/2016. The patient states that she began having worsening symptoms over the last 3-4 days, that resembled her fungal pneumonia. Critical care medicine was consulted for management. 02/28 Upon arrival to ICU last evening, bronchoscopy was performed, and specimens were sent for culture. The patient was maintained on IV fluids 100 cc an hour, and discontinued at 2 AM secondary to oliguria. CVP ranged 14 throughout the night, with original BNP 1035. Postintubation the patient remains GCS 11 T, following commands. The patient continues to be oliguric with hourly urinary output 7-10 cc an hour. 03/01 On levophed 8mcg/min. UOP around 10 mL/hr. Received Bumex 2 mg IV and UOP still ~20 Ml/hr last hour. CVP 18-20. In Afib rate controlled. Awakens on CPAP 5/5. 03/02 UOP 1068 overnight on bumex drip. Creatinine up to 3.28. Placing on CPAP 5 /5. Afebrile. Levophed weaned to 2 mcg/min with MAP 77. CVP 24 Subjective: 03/03 Creatinine up to 3.32. Nonoliguric with Bumex drip. CVP down to 14. Tolerating CPAP. Off levophed. 03/04 Patient was on BIPAP 10/5 with 60% FIO2 overnight. Patient looked lethargic and started desating she was subsequently intubated and placed on mechanical ventilation. On Bumex drip 2mg/hr. Positive C-diff this morning. 03/05 Patient is sedated with Diprivan and intubated. Afebrile. Remains on Bumex drip 2mg/hr. 03/06 No acute events overnight. Tolerated CPAP all day yesterday. On Bumex 2mg /hr. Sedated with Diprivan and intubated. 03/07 Patient s/p extubation yesterday placed on BIPAP overnight 12/11 with 40% FIO2. Afebrile. Off Bumex drip. 03/08 No acute events overnight. On BIPAP 10/ with 40$ FIO2 overnight. Afebrile. Renal function improving with Cr: 1.97 today from 2.32 03/09 Patient remains on BIPAP 10/5 with 40% FIO2. Afebrile. 03/10 No events overnight. On BIPAP with 40% FIO2, afebrile. Renal function improving with Cr: 1.5 today. 03/11 Patient is off BIPAP given Bumex 1mg x1 at 4: 21 this morning on 5L oxygen. 03/12 on BiPAP currently. Remains encephalopathic. 03/13: Off BiPAP since this morning on facemask liters per minute. Awake and alert. Wanting restraints off. 03/14: Requiring intermittent BiPAP. Drowsy, easily arousable. 03/15: On face stent this morning. Awake and alert. Following commands. 03/16: Awake and alert. Following commands. Remains on face tent currently. 03/17: Drowsy, encephalopathic. On BiPAP this morning at the time of my evaluation Objective Vital Signs Date Time Temp Pulse Resp B/P Pulse Ox O2 Delivery O2 Flow Rate FiO2 03/17/16 14:00 93 03/17/16 12:00 98.6 24 97/47 95 03/17/16 07:45 Partial Rebreather 15.00 03/17/16 07:09 55 Intake and Output 03/16/16 03/16/16 03/17/16 08:00 16:00 00:00 Intake Total 526 ml 704 ml 738 ml Output Total 600 ml 800 ml 800 ml Balance -74 ml -96 ml -62 ml Result Diagram: 03/15/16 0347 03/17/16 0343 Imaging Last Impressions Chest X-Ray 03/10/16 0000 Signed Impressions: Service Date/Time: Thursday, March 10, 2016 07:59 - CONCLUSION: Improved aeration on the right with complete opacification on the left. Sergio Renteria MD Renal Ultrasound 03/01/16 0000 Signed Impressions: Service Date/Time: Tuesday, March 01, 2016 10:45 - CONCLUSION: No evidence of hydronephrosis or focal abnormality. The resistive indices are within normal Sumit Laws MD Abdomen X-Ray 03/01/16 0000 Signed Impressions: Service Date/Time: Tuesday, March 01, 2016 15:32 - CONCLUSION: G-tube inside the stomach. Angelita Birmingham MD Objective Remarks Nepro 40 ml/hr GENERAL: Morbidly obese elderly female on BIPAP SKIN: Warm and dry. Multiple ecchymotic bruising neck, chest, bilateral extremities upper and lower HEAD: Atraumatic. Normocephalic. EYES: Pupils equal and round. No scleral icterus. No injection or drainage. ENT: No nasal bleeding or discharge. Mucous membranes pink and moist. NECK: Trachea midline. Supple, no JVD, adenopathy CARDIOVASCULAR: Tachycardic, nl S1, S2. RESPIRATORY: On BIPAP, Coarse BS on right. GASTROINTESTINAL: Abdomen soft, non-tender, nondistended. Gastric tube no erythema or drainage. MUSCULOSKELETAL: Extremities without clubbing, cyanosis, trace edema NEUROLOGICAL: Drowsy, encephalopathic, not following commands. Date of Insertion: Feb 28, 2016 Date of Insertion: Feb 28, 2016 Line: Central Venous Catheter Side: Left Location: Internal, Jugular (vasoactive medications, CVP monitoring) A/P Assessment and Plan Plan by systems: Neurologic: Encephalopathy Seizure disorder Herniated discs Neuropathy - avoid sedatives. -Neurochecks per ICU protocol -Gabapentin 100 q8. Respiratory: Acute hypoxic respiratory failure History of non-small cell lung cancer S/P left lung lobectomy 2014 Home O2 dependency Presumed Hospital-acquired pneumonia (previous HCAP treatment 10/22) Left lung opacity-chronic History of tracheostomy-decannulated 12/22/15 -02/27 Intubated , extubated 03/03 reintubated 03/04, extubated 03/06 -Continue with oxygen keep sat >92%. F/u CXR -Bronchodilators. IS, on O2 via face tent currently. BiPAP as needed. -Pulmonology Following, Cardiovascular: HTN Atrial fibrillation-rate control Acute on chronic systolic CHF RV overload, pulmonary HTN Hyperlipidemia -Continue Lopressor 12.5mg BID Maintain HR and BP keep MAP>65mmHg -2D ECHO 02/28mildly reduced systolic function with EF 45-50%. Mild RV dilatation. Mild to moderate tricuspid regurg. Pulmonary artery peak systolic pressure 53 mmHg. -Continue pravastatin FEN/Renal: S/P kidney transplant ANNABELLA, ..improving Hypernatremia -Monitor renal function, I/O's, electrolytes replacement per protocol. -On Bumex 0.5mg daily, Free Water 250ml Q6 ,monitor sodium level. -Brine Well Operator -Dr. Juarez -Sirolimus level: 9 on 03/01. On Sirolimus 2 mg every other day per nephrology. -On prednisone 5mg daily per nephrology, GI: Morbid obesity -TF-Glucerna 1.5 with goal rate 45ml/hr mL/hr via PEG. -Zofran PRN for nausea -Protonix GI prophylaxis ID: Pneumonia-HCAP Positive Cdiff Continue with abx per ID (Cefepime, Zithromax,, PO Vanco, Voriconazole) 02/27 - Influenza screen negative. 02/27 Blood cultures -NGTD 02/27 Bronchial washings- Gram positive cocci, fungal stain negative. 02/28 cryptococcal- serum antigen negative 03/01 urine legionella and pneumococcal antigen negative. Heme: Monitor CBC, Hep PLT ab negative Endocrine: DM Hypothyroidism -Continue medium dose sliding scale q4 hours, -T4 4.7 (norm 4.8), TSH 33.60( elevated) -Continue Synthroid 224 mcg/d MSK: - Specialty bed -Wound care consult, noted admission to ED with sacral decubitus wound Prophylaxis: GI Prophylaxis Protonix IV DVT Prophylaxis -- SCDs, heparin SQ on hold(Thrombocytopenia) Hep PLT ab negative. Lines: Peripheral IV's Palliative care following. DNR/DNI status. Erich Rodriguez MD Mar 17, 2016 15:15
--- NOTE | 2016-03-17 18:54 | HHI.PR ---
Subjective Remarks 70 YOWF with COPD,Renal transplant,ca lung, s/p resection with RF Extubated Unresponsive BP low ON NRB and son at BS Want her comfort care only " She has been th too much, It is her time to go" Hospice consulted Objective Vital Signs Vital Signs Date Time Temp Pulse Resp B/P Pulse Ox O2 Delivery O2 Flow Rate FiO2 03/17/16 18:22 93 03/17/16 16:00 92 03/17/16 16:00 98.0 96 22 88/54 96 03/17/16 15:00 100 Partial Non-Rebreather 94 03/17/16 14:00 93 03/17/16 12:00 92 03/17/16 12:00 98.6 97 24 97/47 95 03/17/16 10:00 93 03/17/16 08:00 98.3 95 29 131/63 94 03/17/16 08:00 101 03/17/16 07:45 94 Partial Rebreather 15.00 03/17/16 07:09 96 55 03/17/16 07:00 96 Blow By 40 03/17/16 06:00 93 03/17/16 04:00 92 03/17/16 04:00 98.5 96 31 121/56 93 03/17/16 03:35 93 45 03/17/16 03:30 96 Face Tent 40 03/17/16 02:00 93 03/17/16 00:00 94 03/17/16 00:00 98.4 94 30 132/58 95 03/16/16 23:00 100 Blow By 94 03/16/16 22:00 94 03/16/16 20:00 98.2 101 27 138/63 98 03/16/16 20:00 101 03/16/16 19:18 100 Face Tent 50 I/O 03/16/16 03/16/16 03/16/16 03/17/16 03/17/16 03/17/16 07:00 15:00 23:00 07:00 15:00 23:00 Intake Total 526 ml 704 ml 738 ml 529 ml 0 ml Output Total 600 ml 800 ml 800 ml 550 ml 250 ml Balance -74 ml -96 ml -62 ml -21 ml -250 ml Intake Oral 0 ml 0 ml IV Total 0 ml 250 ml 100 ml 0 ml Tube Feeding 326 ml 454 ml 388 ml 329 ml Other 200 ml 250 ml 200 ml Output Urine Total 400 ml 700 ml 400 ml 350 ml 250 ml Stool Total 200 ml 100 ml 400 ml 200 ml # Bowel Movements 0 Result Diagram: 03/15/1634603/17/16 0343 Objective Remarks GENERALMBMN female, SOB: SKIN: Warm and dry. HEAD: Normocephalic. EYES: No scleral icterus. No injection or drainage. NECK: Supple, trachea midline. No JVD or lymphadenopathy. CARDIOVASCULAR: Regular rate and rhythm without murmurs, gallops, or rubs. RESPIRATORY: Breath sounds equal bilaterally. No accessory muscle use. Bilat coarse crackles. GASTROINTESTINAL: Abdomen soft, non-tender, nondistended. MUSCULOSKELETAL: No cyanosis, ++ edema. BACK: Nontender without obvious deformity. No CVA tenderness. A/P Assessment and Plan VDRF, extubated 03/06 Pneumonia Sepsis sund renal transplant Ca lung, s/p resection PLAN: Prognosis grim DNR, comfort care Hospice consult. DW and son at BS Alverto Armas MD Mar 17, 2016 18:54
[2016-03-17] MEDS: CEFEPIME INJ 2,000 MG in SODIUM CHLORIDE 0.9% INJ 100 ML IV SCH (21:08)
[2016-03-17] MEDS: PRAVASTATIN SOD 40 MG TAB PO SCH (21:11)
--- NOTE | 2016-04-13 10:20 | MD ---
cc: RUSS HEADLEY MD ADMISSION DATE: 02/28/2016 DISCHARGE DATE: 03/17/2016 CONSULTATIONS Rin Henry MD., nephrology. Emperatriz Cho MD. Zack Blount MD. Alverto Armas MD. ADMISSION DIAGNOSIS Cough, weakness. DISCHARGE DIAGNOSIS: 1. Septic shock 2. Respiratory failure. 3. Fungal pneumonia. 4. Health care associated pneumonia. 5. Lung cancer 6. COPD. 7. C. Difficile. 8. Systolic heart failure. 9. Renal failure. 10. Renal transplant. 11. Hypernatremia. 12. Atrial fibrillation. 13. Thrombocytopenia. 14. Hypothyroidism. HOSPITAL COURSE Debbie Alejo presented with weakness and septic shock. She was placed on pressors and subsequently intubated. She underwent bronchoscopy on February 27. She was extubated on March 03, reintubated on the and subsequently extubated on March 06. She was treated for fungal and bacterial pneumonia. Nephrology maintained her renal transplant status. Renal ultrasound was normal. She developed hypernatremia and thrombocytopenia. She was maintained on G-tube feeds and insulin with Accu-Cheks q6 hours. She was placed on Bumex drip and steroids were placed per G-tube. Blood cultures were followed. She was given prophylaxis heparin and IV Protonix. Palliative care was subsequently consulted and she was considered for Hospice. At this point she passed. Russ Headley MD /BAYRON /1:37 PM /10:14 AM
== END 2016-03-17 23:07 | disposition expired | DRG 871 ==
LOC: NEPA 09:32 → NEDA 10:49 → NEDH 14:41 → HIMW 18:30
PROVIDERS: ADMIT Family Medicine; ATTEND Family Medicine
PROC: 05HN33Z Insertion of Infusion Device into Left Internal Jugular Vein, Percutaneous Approach (ICD-10-PCS; principal; 2016-02-28)
PROC: 5A1945Z Respiratory Ventilation, 24-96 Consecutive Hours (ICD-10-PCS; 2016-02-28)
PROC: 0BH17EZ Insertion of Endotracheal Airway into Trachea, Via Natural or Artificial Opening (ICD-10-PCS; 2016-02-28)
PROC: 0B9B8ZX Drainage of Left Lower Lobe Bronchus, Via Natural or Artificial Opening Endoscopic, Diagnostic (ICD-10-PCS; 2016-02-28)
PROC: 0B968ZX Drainage of Right Lower Lobe Bronchus, Via Natural or Artificial Opening Endoscopic, Diagnostic (ICD-10-PCS; 2016-02-28)
PROC: 0BJ08ZZ Inspection of Tracheobronchial Tree, Via Natural or Artificial Opening Endoscopic (ICD-10-PCS; 2016-02-28)
PROC: 5A1945Z Respiratory Ventilation, 24-96 Consecutive Hours (ICD-10-PCS; 2016-03-04)
PROC: 0BH17EZ Insertion of Endotracheal Airway into Trachea, Via Natural or Artificial Opening (ICD-10-PCS; 2016-03-04)
DX: A41.9 Sepsis, unspecified organism (principal); J15.9 Unspecified bacterial pneumonia; J96.21 Acute and chronic respiratory failure with hypoxia; N17.0 Acute kidney failure with tubular necrosis; R65.21 Severe sepsis with septic shock; I50.23 Acute on chronic systolic (congestive) heart failure; G93.40 Encephalopathy, unspecified; L89.151 Pressure ulcer of sacral region, stage 1; J96.22 Acute and chronic respiratory failure with hypercapnia; Z99.11 Dependence on respirator [ventilator] status; Z94.0 Kidney transplant status; J98.11 Atelectasis; A04.7 Enterocolitis due to Clostridium difficile; E87.0 Hyperosmolality and hypernatremia; E11.22 Type 2 diabetes mellitus with diabetic chronic kidney disease; I48.91 Unspecified atrial fibrillation; K31.84 Gastroparesis; E66.01 Morbid (severe) obesity due to excess calories; J44.9 Chronic obstructive pulmonary disease, unspecified; M41.9 Scoliosis, unspecified; G62.9 Polyneuropathy, unspecified; E78.00 Pure hypercholesterolemia, unspecified; K21.9 Gastro-esophageal reflux disease without esophagitis; E03.9 Hypothyroidism, unspecified; R13.10 Dysphagia, unspecified; Z68.30 Body mass index [BMI] 30.0-30.9, adult; D64.9 Anemia, unspecified; G40.901 Epilepsy, unspecified, not intractable, with status epilepticus; Y95 Nosocomial condition; Z87.891 Personal history of nicotine dependence; Z87.442 Personal history of urinary calculi; Z90.2 Acquired absence of lung [part of]; Z85.118 Personal history of other malignant neoplasm of bronchus and lung; Z74.01 Bed confinement status; Z79.4 Long term (current) use of insulin; Z87.01 Personal history of pneumonia (recurrent); I25.10 Atherosclerotic heart disease of native coronary artery without angina pectoris; Z95.5 Presence of coronary angioplasty implant and graft; I10 Essential (primary) hypertension; Z51.5 Encounter for palliative care; E78.5 Hyperlipidemia, unspecified; Z93.1 Gastrostomy status; E83.51 Hypocalcemia; R34 Anuria and oliguria; T17.990A Other foreign object in respiratory tract, part unspecified in causing asphyxiation, initial encounter; Z99.81 Dependence on supplemental oxygen; I27.2 Other secondary pulmonary hypertension; I07.1 Rheumatic tricuspid insufficiency; E83.42 Hypomagnesemia; E87.6 Hypokalemia; L98.9 Disorder of the skin and subcutaneous tissue, unspecified; D69.6 Thrombocytopenia, unspecified; Z66 Do not resuscitate; R62.7 Adult failure to thrive; Z78.1 Physical restraint status
CPT/HCPCS: 31500; 31624; 36600; 36620; 71010; 74000; 76776; 76937; 80048; 80053; 80069; 80076; 80195; 80197; 80202; 82550; 82805; 82948; 83605; 83735; 83880; 84100; 84132; 84155; 84436; 84443; 84484; 85007; 85014; 85018; 85025; 85027; 85610; 85730; 86022; 86403; 86606; 87015; 87040; 87070; 87102; 87116; 87205; 87206; 87449; 87493; 87641; 87804; 93005; 93306; 94002; 94003; 94150; 94640; 94664; 96374; C9113; J0330; J0456; J0610; J0692; J0696; J1205; J1644; J1720; J1815; J2020; J2250; J2543; J2920; J2930; J3010; J3370; J3475; J3480; J7030; J7040; J7050; J7512; J7520; J7613; P9047; Q9963